=== PATIENT | female | born 1935 | race Caucasian/White ===

== ENCOUNTER → 2018-08-29 14:37 | Outpatient (CLI) | payer MEDICARE, OTHER, SELFPAY ==
[2018-04-24 08:50] VITALS: BMI 36.3
--- NOTE | 2018-08-29 14:43 | BI_ITS ---
MAMMOGRAPHY - BILATERAL SCREENING REASON FOR EXAM: Female, 83 years old. Routine annual screening examination. PERTINENT HISTORY: Personal history of breast cancer. Prior left lumpectomy. TECHNIQUE: Digital bilateral breast michelle (3D mammographic acquisition) in the CC and MLO projections. 2-D mediolateral oblique (MLO) and craniocaudad (CC) views of both breasts were obtained. CAD: Full Field Digital Mammography with Computer Added Detection was performed. COMPARISON: Comparison is made with prior axial examination dated February 14, 2017. FINDINGS: Breast Composition: There are scattered areas of fibroglandular density. There are no dominant masses or suspicious calcifications. No other significant abnormalities are identified. There has been no significant change since the prior study. BI/SCREENING MAMM (CAD), BILAT IMPRESSION: Stable bilateral screening mammogram. Yearly follow-up mammogram recommended. (A) ASSESSMENT CATEGORY: BIRADS Category 2: Benign. A letter regarding these results will be sent to the patient by the facility within 30 days. Approximately 10% of breast cancers are not detected by mammography. A normal mammogram should not delay biopsy of a clinically suspicious abnormality. [id number] Electronically Signed: Carlos Morocho MD at 9:17 EST , Service support ,
== END ==
PROVIDERS: Family Provider Family Medicine; PCP Family Medicine; Referring Provider Surgery; Visit Provider Surgery
DX: Z12.31 Encounter for screening mammogram for malignant neoplasm of breast (principal)
CPT/HCPCS: 77063; 77067

== ENCOUNTER → 2018-11-04 10:20 | Outpatient (CLI) | payer MEDICARE, OTHER, SELFPAY ==
[2018-09-01 13:01] VITALS: BMI 36.3
[2018-11-04 12:45] LABS: Hemoglobin A1c 9.6 % (4.2-6.3)
[2018-11-04 12:47] LABS: Microalbumin:Creatinine Ratio 119.2 mg/g CRE (<30 mg/g CRE)
[2018-11-04 12:48] LABS: AST(SGOT) 13 U/L (15-37); Alanine Aminotransfer ALT/SGPT 25 U/L (13-56); Albumin, Serum 3.8 g/dL (3.2-5.0); Alkaline Phosphatase 180 U/L (45-117); Anion Gap 10 (5-15); BUN 12 mg/dL (7-18); BUN/Creat Ratio 21.4 RATIO (10-20); Bilirubin, Direct 0.15 mg/dL (0.00-0.30); Calcium,Total 9.1 mg/dL (8.5-10.1); Chloride 102 mmol/L (98-107); Cholesterol 245 mg/dL (200); Creatinine, Serum 0.56 mg/dL (0.55-1.02); EST Glomerular Filtration Rate 110 mL/min (>60); Est Glom Filt Rate - Afr Amer 133 mL/min (>60); Globulin 3.6 g/dL (2.2-4.2); Glucose 197 mg/dL (74-106); High Density Lipoprotein 53 mg/dL; Potassium 4.1 mmol/L (3.5-5.1); Protein, Total 7.4 g/dL (6.4-8.2); Sodium Level 139 mmol/L (136-145); T4 Total, Thyroxin 10.6 ug/dL (4.8-13.9); Thyroid Stim Hormone (TSH) 2.18 uIU/mL (0.358-3.74); Triglycerides 240 mg/dL; Very Low Density Lipoprotein 48 mg/dL (5-40)
== END ==
PROVIDERS: Family Provider Family Medicine; PCP Family Medicine; Referring Provider Family Medicine; Visit Provider Family Medicine
DX: E11.8 Type 2 diabetes mellitus with unspecified complications (principal); E03.9 Hypothyroidism, unspecified
CPT/HCPCS: 36415; 80048; 80061; 80076; 82043; 82570; 83036; 84436; 84443

== ENCOUNTER → 2020-04-07 07:39 | Outpatient (CLI) | payer MEDICARE, OTHER, SELFPAY ==
[2019-04-28 08:36] VITALS: BMI 36.3
--- NOTE | 2020-04-07 07:40 | BI_ITS ---
MAMMOGRAPHY - BILATERAL SCREENING REASON FOR EXAM: Female, 84 years old. Routine annual screening examination. PERTINENT HISTORY: Personal history of breast cancer. Prior left lumpectomy. Remote left excisional breast biopsy. TECHNIQUE: Digital bilateral breast sim (3D mammographic acquisition) in the CC and MLO projections. 2-D mediolateral oblique (MLO) and craniocaudad (CC) views of both breasts were obtained. CAD: Full Field Digital Mammography with Computer Added Detection was performed. COMPARISON: Comparison is made with prior examination dated 02/26/2019. FINDINGS: Breast Composition: There are scattered areas of fibroglandular density. There are no dominant masses or suspicious calcifications. Once again, postsurgical changes are seen in the upper central portion of the left breast secondary to prior lumpectomy. Stable small benign appearing bilateral axillary lymph nodes. No other significant abnormalities are identified. There has been no significant change since the prior study. BI/SCREEN MAMM (CAD) W/SIM BILAT IMPRESSION: Stable bilateral screening mammogram. Yearly follow-up mammogram recommended. (A) ASSESSMENT CATEGORY: BIRADS Category 2: Benign. A letter regarding these results will be sent to the patient by the facility within 30 days. Approximately 10% of breast cancers are not detected by mammography. A normal mammogram should not delay biopsy of a clinically suspicious abnormality. [id number] Electronically Signed: Carlos Morocho, at 9:33 EDT , Service support ,
== END ==
PROVIDERS: PCP Family Medicine; Referring Provider Surgery; Visit Provider Surgery
DX: Z12.31 Encounter for screening mammogram for malignant neoplasm of breast (principal)
CPT/HCPCS: 77063; 77067

== ENCOUNTER → 2020-05-11 09:57 | Outpatient (CLI) | payer MEDICARE, OTHER, SELFPAY ==
[2020-05-03 08:59] VITALS: BMI 35.8
[2020-05-11 12:34] LABS: Microalbumin:Creatinine Ratio 59.6 mg/g CRE (<30 mg/g CRE)
[2020-05-11 12:43] LABS: AST(SGOT) 18 U/L (15-37); Alanine Aminotransfer ALT/SGPT 28 U/L (13-56); Albumin, Serum 3.7 g/dL (3.2-5.0); Alkaline Phosphatase 144 U/L (45-117); Bilirubin, Direct 0.15 mg/dL (0.00-0.30); Cholesterol 231 mg/dL (200); Globulin 4.2 g/dL (2.2-4.2); High Density Lipoprotein 54 mg/dL; Protein, Total 7.9 g/dL (6.4-8.2); Triglycerides 210 mg/dL; Very Low Density Lipoprotein 42 mg/dL (5-40)
== END ==
PROVIDERS: PCP Family Medicine; Referring Provider Family Medicine; Visit Provider Family Medicine
DX: E11.9 Type 2 diabetes mellitus without complications (principal)
CPT/HCPCS: 36415; 80061; 80076; 82043; 82570

== ENCOUNTER → 2020-11-09 10:04 | Outpatient (CLI) | payer MEDICARE, OTHER, SELFPAY ==
[2020-05-03 08:59] VITALS: BMI 35.8
[2020-11-09 12:54] LABS: Anion Gap 4 (5-15); BUN 14 mg/dL (7-18); BUN/Creat Ratio 21.6 RATIO (10-20); Calcium,Total 9.6 mg/dL (8.5-10.1); Chloride 104 mmol/L (98-107); Creatinine, Serum 0.65 mg/dL (0.55-1.02); EST Glomerular Filtration Rate 93 mL/min (>60); Est Glom Filt Rate - Afr Amer 112 mL/min (>60); Glucose 135 mg/dL (74-106); Sodium Level 137 mmol/L (136-145); T4 Total, Thyroxin 9.5 ug/dL (4.8-13.9); Thyroid Stim Hormone (TSH) 2.78 uIU/mL (0.358-3.74)
== END ==
PROVIDERS: PCP Family Medicine; Referring Provider Family Medicine; Visit Provider Family Medicine
DX: E11.9 Type 2 diabetes mellitus without complications (principal); E03.9 Hypothyroidism, unspecified
CPT/HCPCS: 36415; 80048; 84436; 84443

== ENCOUNTER → 2021-04-12 09:53 | Outpatient (CLI) | payer MEDICARE, OTHER, SELFPAY ==
[2020-05-03 08:59] VITALS: BMI 35.8
--- NOTE | 2021-04-12 09:55 | BI_ITS ---
MAMMOGRAPHY - BILATERAL SCREENING REASON FOR EXAM: Female, 85 years old. Routine annual screening examination. PERTINENT HISTORY: Personal history of breast cancer. Prior left lumpectomy. Remote left excisional breast biopsy. TECHNIQUE: Digital bilateral breast sim (3D mammographic acquisition) in the CC and MLO projections. 2-D mediolateral oblique (MLO) and craniocaudad (CC) views of both breasts were obtained. CAD: Full Field Digital Mammography with Computer Added Detection was performed. COMPARISON: Comparison is made with prior study of 04/07/2020. FINDINGS: Breast Composition: There are scattered areas of fibroglandular density. There are no dominant masses or suspicious calcifications. Once again, the patient is status post lumpectomy in the upper deep lateral aspect of the left breast with resultant postoperative changes. No other significant abnormalities are identified. There has been no significant change since the prior study. BI/SCRN MAMM (CAD)W/SIM BILAT IMPRESSION: Stable bilateral screening mammogram. Yearly follow-up mammogram recommended. (A) ASSESSMENT CATEGORY: BIRADS Category 2: Benign. A letter regarding these results will be sent to the patient by the facility within 30 days. Approximately 10% of breast cancers are not detected by mammography. A normal mammogram should not delay biopsy of a clinically suspicious abnormality. [id number] Electronically Signed: Carlos Morocho MD at 11:33 EDT , Service support ,
== END ==
PROVIDERS: PCP Family Medicine; Referring Provider Surgery; Visit Provider Surgery
DX: Z12.31 Encounter for screening mammogram for malignant neoplasm of breast (principal)
CPT/HCPCS: 77063; 77067

== ENCOUNTER → 2021-05-08 09:09 | Outpatient (CLI) | payer MEDICARE, OTHER, SELFPAY ==
[2021-05-08 10:30] LABS: Hemoglobin A1c 7.4 % (3.8-5.6)
[2021-05-08 10:38] LABS: Anion Gap 7 (5-15); BUN 18 mg/dL (7-18); BUN/Creat Ratio 24.2 RATIO (10-20); Calcium,Total 9.8 mg/dL (8.5-10.1); Chloride 104 mmol/L (98-107); Cholesterol 202 mg/dL (200); Creatinine, Serum 0.74 mg/dL (0.55-1.02); EST Glomerular Filtration Rate 79 mL/min (>60); Est Glom Filt Rate - Afr Amer 96 mL/min (>60); Glucose 179 mg/dL (74-106); High Density Lipoprotein 53 mg/dL; Potassium 4.2 mmol/L (3.5-5.1); Sodium Level 138 mmol/L (136-145); T4 Total, Thyroxin 9.8 ug/dL (4.8-13.9); Thyroid Stim Hormone (TSH) 1.45 uIU/mL (0.358-3.74); Triglycerides 243 mg/dL; Very Low Density Lipoprotein 49 mg/dL (5-40)
== END ==
PROVIDERS: PCP Family Medicine; Referring Provider Family Medicine; Visit Provider Nurse Practitioner Family
DX: E11.69 Type 2 diabetes mellitus with other specified complication (principal); E03.9 Hypothyroidism, unspecified
CPT/HCPCS: 36415; 80048; 80061; 83036; 84436; 84443

== ENCOUNTER 2021-08-18 15:12 | Outpatient (CLI) | payer MEDICARE, OTHER, SELFPAY ==
--- NOTE | 2021-08-18 15:19 | CT_ITS ---
STUDY: CT Abdomen And Pelvis W/ Contrast Injection 08/18/2021 6:01 PM REASON FOR EXAM: Female, 86 years old. Technologist Notes LLQ abd pain x several days intermittently. Fecal impaction. N/V. SX. Hysterectomy, Hernia repair. PAIN LLQ ABD PAIN TECHNIQUE: Transaxial images were obtained with oral contrast, and IV 100mL Isovue-300 intravenous contrast. Individualized dose optimization techniques were used for this CT. COMPARISON: None. FINDINGS: There are atherosclerotic calcifications of visualized coronary arteries. The visualized portions of the heart are within normal limits. Normal liver. Normal gallbladder and extrahepatic biliary system. Normal spleen. Normal pancreas. Normal bilateral adrenal glands. No acute findings of the right kidney. No acute findings of the left kidney. Normal visualized stomach. There are dilated loops of the small intestine with a non-distended colon consistent with a small bowel obstruction. Stool throughout the colon. There is non-visualization of the appendix. There are calcifications of the abdominal aorta. This is consistent for atherosclerotic disease. There is no abdominal aortic aneurysm. Normal inferior vena cava. Subcentimeter mesenteric lymph nodes. Normal urinary bladder. There is absence of the uterus consistent with a prior hysterectomy. Total right hip arthroplasty. Degenerative findings a left hip. Anterior abdominal wall hernia mesh in place. Normal abdominal wall. There are diffuse degenerative changes of the visualized lumbar spine. IMPRESSION: (NOT LISTED IN ORDER OF SIGNIFICANCE) There is a small bowel obstruction. The transition point is noted in the lower abdomen abutting the mesh material. The obstruction may be related to adhesion formation. Other findings as above. Electronically Signed: Fareed Angulo MD at 18:05 EST , Service support , CT/Abdomen/Pelvis WITH Contrast
[2021-08-18 17:40] LABS: CREATININE FINGERSTICK 0.9 mg/dL (0.55-1.02); EGFR FINGERSTICK > 60.0000 mL/min (>60)
== END 2021-08-18 23:59 | disposition short-term general hospital (02) ==
LOC: CT 15:16
PROVIDERS: PCP Family Medicine; Referring Provider Family Medicine; Visit Provider Family Medicine
DX: R10.32 Left lower quadrant pain (principal)
CPT/HCPCS: 74177; Q9965; A4216

== ENCOUNTER 2021-08-18 18:10 | Observation (INO) | payer MEDICARE, OTHER, SELFPAY ==
[2021-08-18 18:11] VITALS: BP 149/98; PULSE 103; RESP 16; TEMP 36.8; O2SAT 94; BMI 37.8
--- NOTE | 2021-08-18 18:15 | EKG12_ITS ---
Test Reason : DYSRHYTHMIA Blood Pressure : / mmHG Vent. Rate : 105 BPM Atrial Rate : 105 BPM P-R Int : 174 ms QRS Dur : 080 ms QT Int : 340 ms P-R-T Axes : 017 -43 038 degrees QTc Int : 449 ms Sinus tachycardia Left axis deviation Low voltage QRS (Limb Leads) Poor R wave progression Anterior PR, age undetermined, cannot be excluded Inferior PR, age undetermined, cannot be excluded Abnormal ECG Confirmed by KENDRICK PARADA, LOUISE ([id number]), film or videotape editor MARIO RODRÍGUEZ ([id number]) on 08/21/2021 11:12:35 AM Referred By: GABRIELLA Confirmed By:LOUISE MARKS MD
--- NOTE | 2021-08-18 18:32 | ED.VIS.GI ---
HPI HPI - GI History of Present Illness Chief Complaint: Abd Pain Informant: patient Narrative Narrative: Patient is an 86-year-old female with a history of prior hernia repair in 2008 with mesh placement by Dr. Rajan Álvarez presenting with a couple days of nausea, vomiting and abdominal discomfort. Patient had an outpatient CT today and vomited a large amount of oral contrast. The CT showed small bowel obstruction with transition point noted in the lower abdomen abutting the mesh material. Patient is complaining of labor like pains in her mid abdomen. She states he had a small bowel movement today was not been able to pass any gas. She does feel distended. Denies any fever, chills or any other illnesses. No other complaints at this time. [facility] Medical History (Updated 08/19/21 @ 00:[address] Quynh Estes DO) Breast CA DCIS (ductal carcinoma in situ) Endometrial cancer Essential (primary) hypertension Generalized osteoarthritis Hemorrhoid History of breast cancer History of GI bleed Hyperlipidemia Hypertriglyceridemia Hypothyroidism (acquired) Infection of total knee replacement Obesity Osteoarthritis Paroxysmal atrial fibrillation Paroxysmal atrial tachycardia Premature atrial contractions Sleep apnea Transient atrial fibrillation or flutter Type 2 diabetes mellitus Home Medications [id number] no.225 1 ea PO DAILY 09/10/14 [History Last Taken Unknown] aspirin 81 mg PO QODAY 09/10/14 [History Last Taken 08/17/21] atorvastatin 40 mg PO QHS 09/10/14 [History Last Taken 09/09/14] levothyroxine 50 mcg PO DAILY 09/10/14 [History Last Taken 08/17/21] glipizide 2.5 mg tablet, extended release 24 hr 2.5 mg PO DAILY 04/28/19 [History Last Taken 08/17/21] fluticasone propionate 50 mcg/actuation nasal spray,suspension 2 spray INTRANASAL DAILY PRN PRN 05/03/20 [History Last Taken 08/16/21] metformin 500 mg tablet,extended release 24 hr 500 mg PO QPM tab 05/03/20 [History Last Taken 08/17/21] latanoprost 0.005 % eye drops 1 drp OPHTHALMIC (EYE) DAILY ml 05/02/21 [History Last Taken 08/17/21] metoprolol succinate 50 mg tablet,extended release 24 hr 50 mg PO DAILY #90 tab 06/01/21 [Rx Last Taken 08/17/21] losartan 50 mg PO DAILY PRN PRN 08/18/21 [History Last Taken Unknown] Allergy/AdvReac Type Severity Reaction Status Date / Time Penicillins Allergy Severe Chest Verified 08/18/21 18:10 tightness aspartame Allergy Diarrhea Verified 08/18/21 18:10 rofecoxib AdvReac Severe Itching Verified 08/18/21 18:10 codeine AdvReac Mild Nausea/Vomi Verified 08/18/21 18:10 ting hydrocodone [Hydrocodone] AdvReac Mild Nausea/Vomi Verified 08/18/21 18:10 ting morphine AdvReac Mild Nausea/Vomi Verified 08/18/21 18:10 ting oxycodone [Oxycodone] AdvReac Mild Nausea Verified 08/18/21 18:10 TAPE AdvReac Mild Itching Uncoded 08/18/21 18:10 Family History Mother Hypertension Other CVA (cerebral vascular accident) Diabetes Heart disease Surgical History H/O total hysterectomy History of incisional hernia repair History of knee replacement History of lumpectomy of left breast History of right hip replacement Social History Smoking Status: Never smoker second hand exposure: No alcohol intake: former details: occasional ROS ROS ED Constitutional Constitutional ED: Denies chills or fever(s) ENT ENT ED: Denies rhinorrhea Cardiovascular Cardiovascular: Denies chest pain Respiratory/Chest Respiratory/Chest: Denies cough or dyspnea Gastrointestinal Gastrointestinal: Reports abdominal pain, constipation, nausea and vomiting Musculoskeletal Musculoskeletal: Denies arthralgias or myalgias Integumentary Denies rash Neurologic Neurologic: Denies headache(s) or weakness Psychiatric Psychiatric: Denies depression EXAM Physical Exam Const Vital Signs: 08/18/21 18:11 Temperature 98.3 F Temperature Source Oral Pulse Rate 103 H Respiratory Rate 16 Blood Pressure 149/98 H Blood Pressure Mean 115 Pulse Ox 94 Oxygen Delivery Method Room Air Positive well nourished and well developed General Appearance ED: well developed HEENT Reports dry mucous membranes normocephalic Mouth ED: Yes dry mucous membranes Mouth: dry mucous membranes Eyes PERRL and EOMs intact bilaterally Neck supple Resp normal respiratory effort and clear to auscultation bilaterally Cardio regular rate, regular rhythm and no murmurs GI Inspection: abdominal distention Auscultation: hypoactive bowel sounds Palpation: soft and tender other (Diffuse); Negative for guarding or rigid Back/Spine no CVA tenderness Extremity full ROM General Extremety ED: Negative for edema or tenderness General Extremity: Negative for edema Neuro CN's II-XII intact bilaterally Sensorium / Orientation: alert, oriented to person, oriented to place and oriented to time Psych mental status grossly normal Skin Lesions: no lesions Rashes: no rashes MDM MDM MDM Narrative Medical decision making narrative: Patient evaluated for vomiting with outpatient CT that showed small bowel obstruction. Will place NG tube and obtain labs. Spoke with surgery on-call, Dr. Freeman, he will come to evaluate the patient. Patient is given IV fluids, Zofran and dose of fentanyl for her symptoms in the ER. Patient is admitted to surgical service for management of her small bowel obstruction. She remains hemodynamically stable in the emergency room. Lab Data Attestation: I reviewed the patient's lab results. Labs: Laboratory Results - last 24 hr 08/18/21 08/18/21 08/18/21 18:25 18:25 18:25 WBC 11.5 H RBC 4.89 Hgb 14.0 Hct 42.6 MCV 87.1 MCH 28.6 MCHC 32.9 RDW Std Deviation 41.5 RDW Coeff of Juan 13.0 Plt Count 317 MPV 10.2 Immature Gran % (Auto) 0.400 Neut % (Auto) 88.0 H Lymph % (Auto) 6.2 L [place] % (Auto) 5.1 Eos % (Auto) 0.0 Baso % (Auto) 0.3 Absolute Neuts (auto) 10.2 H Absolute Lymphs (auto) 0.71 L Nucleated RBC % 0 Sodium 132 L Potassium 4.0 Chloride 98 Carbon Dioxide 29.0 Anion Gap 5 BUN 13 Creatinine 0.69 Estim Creat Clear Calc 32.53 Est GFR (MDRD) Af Amer 105 Est GFR (MDRD) Non-Af 87 BUN/Creatinine Ratio 19.0 Glucose 207 H Lactic Acid 1.3 Calcium 9.9 Total Bilirubin 0.50 AST 14 L ALT 24 Alkaline Phosphatase 155 H Total Protein 7.5 Albumin 3.5 Globulin 4.0 Albumin/Globulin Ratio 0.9 Lipase 75 Rhythm Strip Rhythm Strip: Sinus Tach Rate: 105 Ectopy: None EKG Initial EKG: Attestation: I personally reviewed and interpreted this EKG as follows: Interpretation: Sinus Tachycardia Comments: Sinus tachycardia rate of 105 Left axis deviation Normal intervals Normal ST segments Discharge Plan Dx/Rx/DC Orders Clinical Impression: Small bowel obstruction, Nausea & vomiting Disposition Disposition: Acute Care Hospital [facility] Discharge Date/Time: 08/18/21 20:19
[2021-08-18] MEDS: Lidocaine 4% 5 ML Ampul 2 ML INHALATION (18:35)
[2021-08-18] MEDS: 0.9% Normal Saline 1,000 ML 999 ML IV (18:44)
[2021-08-18 18:45] LABS: Absolute Lymphocyte Count 0.71 X10^3/uL (0.83-4.51); Absolute Neutrophil Count 10.2 X10^3/uL (2.0-7.7); Basophil# 0.03 X10^3/uL; Basophil% 0.3 % (0-1); Hematocrit 42.6 % (37-47); Lymphocyte # 0.71 X10^3/ul (0.83-4.51); Lymphocyte % 6.2 % (19-41); Mean Corp Hgb Conc 32.9 g/dL (32-36); Mean Corpuscular Hgb 28.6 pg (27.0-32.0); Mean Corpuscular Volume 87.1 fL (81-99); Mean Platelet Vol. 10.2 fl (6.2-12.0); Monocyte# 0.59 X10^3/uL; Monocyte% 5.1 % (0-10); NRBC Flagged by Analyzer 0 % (0-5); Neutrophil # 10.15 X10^3/uL (2.7-7.7); Platelet Count 317 K/mm3 (150-450); RBC Distribution Width SD 41.5 fl (35.1-43.9); Red Blood Count 4.89 M/mm3 (4.2-5.4); White Blood Count 11.5 K/mm3 (4.4-11.0)
[2021-08-18] MEDS: Ondansetron 4 MG/2 ML Vial IV (18:46)
[2021-08-18] MEDS: fentaNYL 100 MCG/2 ML Ampul 50 MCG IV (18:50)
[2021-08-18 18:52] LABS: ALB/GLOB Ratio 0.9 RATIO (0.9-2.4); AST(SGOT) 14 U/L (15-37); Alanine Aminotransfer ALT/SGPT 24 U/L (13-56); Albumin, Serum 3.5 g/dL (3.2-5.0); Alkaline Phosphatase 155 U/L (45-117); Anion Gap 5 (5-15); BUN 13 mg/dL (7-18); Calcium,Total 9.9 mg/dL (8.5-10.1); Chloride 98 mmol/L (98-107); Creatinine, Serum 0.69 mg/dL (0.55-1.02); EST Glomerular Filtration Rate 87 mL/min (>60); Est Glom Filt Rate - Afr Amer 105 mL/min (>60); Estimated Creatinine Clearance 32.53 ml/min; Glucose 207 mg/dL (74-106); Lipase 75 U/L (73-393); Protein, Total 7.5 g/dL (6.4-8.2); Sodium Level 132 mmol/L (136-145)
[2021-08-18 18:57] LABS: Lactic Acid 1.3 mmol/L (0.4-1.9)
--- NOTE | 2021-08-18 19:19 | HP.PCM_ITS ---
HPI - General HPI Narrative GIAN HUBER, is a 86 F who presents to [facility] from Dr. Mackey's office with evidence of a small bowel obstruction. Patient states that approximately 5 days ago she began experiencing difficulty with having bowel movements and bloating. She states that her bowel movements were very sma ll in volume and there is very minimal gas associated. She experienced intermittent pain, but it crescendoed earlier today and she decided to seek evaluation. She states she did have a bowel movement this morning and her last passage of gas was around the time of her CT imaging. An urgent CT of the abdomen pelvis was obtained based on Dr. Mackey evaluation and this CT was read as concerning for a small bowel obstruction with a transition point in the right lower quadrant adjacent the patient's abdominal mesh. I am also informed by nursing that the patient experienced an episode of emesis just prior to the CT scan but has not vomited during her stay in the emergency department. Patient states that this nausea persists but her abdominal pain is improved. Ms. Huber denies any prior hospital admissions for small bowel obstructions. She states that her incisional hernia was repaired by Dr. Álvarez in 2008 but she is unclear whether or not this may have been related to her hysterectomy that was performed for endometrial cancer some 20 to 25 years prior. Patient also relates a relatively remote history of bright red blood per rectum?she estimates approximately 8 years ago that was worked up by Dr. Smalls of gastroenterology. She is unable to articulate completely the findings but states she was diagnosed with diverticulosis and internal hemorrhoids. Ms. Huber lives alone and states that she is independent in most of her ADLs. She does receive regular help from her niece who assists with doing tasks such as her laundry. States overall she is enjoyed reasonably good health aside from some decreased mobility related to arthritis and a subsequent knee replacement. [facility] Medical History (Updated 08/18/21 @ 19:[address] Joseph Freeman MD) Breast CA DCIS (ductal carcinoma in situ) Endometrial cancer Essential (primary) hypertension Generalized osteoarthritis Hemorrhoid History of breast cancer History of GI bleed Hyperlipidemia Hypertriglyceridemia Hypothyroidism (acquired) Infection of total knee replacement Obesity Osteoarthritis Paroxysmal atrial fibrillation Paroxysmal atrial tachycardia Premature atrial contractions Sleep apnea Transient atrial fibrillation or flutter Type 2 diabetes mellitus Home Medications [id number] no.225 1 ea PO DAILY 09/10/14 [History Last Taken Unknown] aspirin 81 mg PO QODAY 09/10/14 [History Last Taken 08/30/14 08:00] atorvastatin 40 mg PO QHS 09/10/14 [History Last Taken 09/09/14] calcium-vitamin D3-vitamin K 0.5 ea PO BID 09/10/14 [History Last Taken Unknown] levothyroxine 50 mcg PO DAILY 09/10/14 [History Last Taken 09/09/14] glipizide 2.5 mg tablet, extended release 24 hr 2.5 mg PO DAILY 04/28/19 [His tory Last Taken Unknown] fluticasone propionate 50 mcg/actuation nasal spray,suspension 2 spray INTR ANASAL DAILY PRN 05/03/20 [History Last Taken Unknown] metformin 500 mg tablet,extended release 24 hr 500 mg PO QPM tab 05/03/20 [History Last Taken Unknown] latanoprost 0.005 % eye drops 1 drp OPHTHALMIC (EYE) DAILY ml 05/02/21 [History Last Taken Unknown] losartan 50 mg tablet 50 mg PO DAILY #90 tab 05/02/21 [Rx Last Taken Unknown] metoprolol succinate 50 mg tablet,extended release 24 hr 50 mg PO DAILY #90 tab 06/01/21 [Rx Last Taken Unknown] Allergy/AdvReac Type Severity Reaction Status Date / Time Penicillins Allergy Severe Chest Verified 08/18/21 18:10 tightness aspartame Allergy Diarrhea Verified 08/18/21 18:10 rofecoxib AdvReac Severe Itching Verified 08/18/21 18:10 codeine AdvReac Mild Nausea/Vomi Verified 08/18/21 18:10 ting hydrocodone [Hydrocodone] AdvReac Mild Nausea/Vomi Verified 08/18/21 18:10 ting morphine AdvReac Mild Nausea/Vomi Verified 08/18/21 18:10 ting oxycodone [Oxycodone] AdvReac Mild Nausea Verified 08/18/21 18:10 TAPE AdvReac Mild Itching Uncoded 08/18/21 18:10 Family History Mother Hypertension Other CVA (cerebral vascular accident) Diabetes Heart disease Surgical History H/O total hysterectomy History of incisional hernia repair History of knee replacement History of lumpectomy of left breast History of right hip replacement Social History Smoking Status: Never smoker second hand exposure: No alcohol intake: former details: occasional Vital Signs Vital Signs Vital Signs: 08/18/21 18:11 Temperature 98.3 F Temperature Source Oral Pulse Rate 103 H Respiratory Rate 16 Blood Pressure 149/98 H Blood Pressure Mean 115 Pulse Ox 94 Oxygen Delivery Method Room Air Weight Weight: 206 lb 12.697 oz Body Mass Index (BMI) 37.8 Physical Exam Const alert and oriented x3 Constitutional Narrative: Mild distress from nausea General Appearance: cooperative Resp normal respiratory effort Cardio Cardio Narrative: You were pulse GI GI Narrative: Distended, scar in the midline extending from the umbilicus to the pubic symphysis. There is also a right upper quadrant scar which patient states is from a granuloma removal. There are number of other small port site incisions consistent with patient's prior laparoscopic incisional hernia repair. Patient is soft and nontender to palpation x4 quadrants Results Lab / Micro Data Result Diagrams: 08/18/21 18:25 08/18/21 18:25 Labs: Laboratory Results - last 24 hr 08/18/21 18:25: WBC 11.5 H, RBC 4.89, Hgb 14.0, Hct 42.6, MCV 87.1, MCH 28.6, MCHC 32.9, RDW Std Deviation 41.5, RDW Coeff of Juan 13.0, Plt Count 317, MPV 10.2, Immature Gran % (Auto) 0.400, Neut % (Auto) 88.0 H, Lymph % (Auto) 6.2 L, [place] % (Auto) 5.1, Eos % (Auto) 0.0, Baso % (Auto) 0.3, Absolute Neuts (auto) 10.2 H, Absolute Lymphs (auto) 0.71 L, Nucleated RBC % 0 08/18/21 18:25: Sodium 132 L, Potassium 4.0, Chloride 98, Carbon Dioxide 29.0, Anion Gap 5, BUN 13, Creatinine 0.69, Estim Creat Clear Calc 32.53, Est GFR (MDRD) Af Amer 105, Est GFR (MDRD) Non-Af 87, BUN/Creatinine Ratio 19.0, Glucose 207 H, Calcium 9.9, Total Bilirubin 0.50, AST 14 L, ALT 24, Alkaline Phosphatase 155 H, Total Protein 7.5, Albumin 3.5, Globulin 4.0, Albumin/Globulin Ratio 0.9, Lipase 75 08/18/21 18:25: Lactic Acid 1.3 Micro: Microbiology 08/18/21 18:25 Nasal Secretion SARS-CoV-2 Antigen (Rapid) - Final Assessment & Plan Assessment/Plan (1) Small bowel obstruction: PLAN: This is an 86-year-old female with a number of medical comorbidities who presents with a nearly week?long prodrome to a small bowel obstruction. This lead up has been characterized by minimal flatus, increased bloating sy mptoms, and small volume stools. Last bowel function was earlier today. Patient had CT of the abdomen pelvis performed with p.o. and IV contrast which showed a transition zone in the right lower quadrant adjacent patient's intra- abdominal mesh. This mesh dates back to an incisional hernia repair by Dr. Rajan Álvarez in 2008. This represents patient's first experience with a small bowel obstruction. At this time, she has a mild leukocytosis with labs, but her abdominal exam is reassuring. Agree with emergency medicine in placing a nasogastric tube and maintaining NPO. We will plan to admit patient for conservative management, initially, of this small bowel obstruction. I have also requested that the hospitalist service be consulted for management of the patient's diabetes and arrhythmias during this hospital course. Neuro: As needed IV Dilaudid Pulm/CV: Supplemental O2 as needed, scheduled metoprolol IV 5 mg every 6, telemetry FEN/GI: Monitor daily electrolytes, strict n.p.o., NG tube to low wall intermittent suction Heme/ID: Daily monitoring of patient's CBC Endo: Medical assistance requested with patient's diabetes management Proph: SCDs Dispo: Admit to observation Charges/Coding Visit Charges Inpatient E&M: 58132 Init Hosp L2
[2021-08-18] MEDS: Oxymetazoline 0.05% 1 SPRAY SPRAY.BTL 2 SPRAY NASAL (19:31)
[2021-08-18 19:34] VITALS: O2SAT 88
[2021-08-18 19:35] VITALS: BP 141/83; PULSE 87; RESP 16; TEMP 36.8; O2SAT 98
--- NOTE | 2021-08-18 19:40 | RAD_ITS ---
EXAM: XR ABDOMEN, 1 VIEW CLINICAL INDICATION: NG tube placement -- KUB with both diaphragms for NG/OG Verification TECHNIQUE: Frontal supine view of the abdomen/pelvis. This report was created using [employer] report generation technology. COMPARISON: None. FINDINGS: LOWER THORAX: No acute pathology. GASTROINTESTINAL TRACT: Unremarkable. Non-obstructive. No bowel or stomach distention. ORGANS: Unremarkable as visualized. No organomegaly. No abnormal calcifications. BONES/JOINTS: Degenerative findings in the lumbar spine. SOFT TISSUES: Multiple metallic clips in the pelvis consistent for prior surgery. TUBES, LINES AND DEVICES: There is a feeding tube/ nasogastric tube noted. The tip is in the region of the stomach. RAD/Abdomen Single View (Portable) IMPRESSION: There is a feeding tube/ nasogastric tube noted. The tip is in the region of the stomach. Electronically Signed: Fareed Angulo MD at 20:25 EST , Service support ,
--- NOTE | 2021-08-18 20:00 | PCM.CONS.GEN ---
Assessment & Plan Assessment/Plan (1) Small bowel obstruction: PLAN: The patient is an 86 y/o F w/ PMHx: Hx Breast CA DCIS, Hx Endometrial CA, HTN, HLD, Hypothyroidism, PAF, MARK, Diabetes mellitus type II who presents to the [facility] ED on 08/18/21 with history of ongoing abdominal discomfort primarily in the bilateral lower quadrants described as a crampy almost menstrual cycle type discomfort with associated nausea and emesis as well as distention worsening over the last 5 to 6 days with no recent fevers or chills rating discomfort 6-7 out of 10 in severity at its worst. #1. Abdominal pain, nausea, emesis w/ SBO: Patient mated to medical surgical floor per primary service General surgery, will maintain on IVFs, continue NGT to suction, strict I&Os, IV pain/anti-emetics PRN, serial KUB as needed to montior bowel function, will add famotidine IV, maintain NPO on bowel rest. #2. Diabetes mellitus type II: Hold oral home regimen, n.p.o. status, every 6 hour accu checks w/ ISS. #3. Hypertension: Holding patient oral regimen, as needed IV hydralazine and metoprolol in the interim. #4. Hyperlipidemia: Holding statin therapy. #5. Hypothyroidism: We will temporarily hold patient levothyroxine regimen, if prolonged may consider one half dose and IV version. #6. History endometrial cancer: Status post hysterectomy, assumed in remission. #7. History of breast cancer: History of DCIS breast cancer, status post left breast lumpectomy, soon considered in remission. #8. MARK: Given NG tube placement not appropriate for CPAP placement. #9. DVT prophylaxis: SCDs, defer chemoprophylaxis consideration to primary service in case of possible OR but if no or intentions recommend chemoprophylaxis addition. #10. CODE status: Patient GUNNER is her niece Maribeth and living will is currently in place. Discussed CODE status at length including difference between FULL code, DNR-CCA and DNR-CC status. Following discussions about the differences in these status, requested DNR-CCA, no intubation. Patient also very adamantly discusses that she wants to assure if something does happen it is known that she is an organ donor. Advanced Care Planning Face to Face Time: 16 minutes. HPI Consult Data Date of Consult: 08/19/21 HPI Narrative Reason for Consultation: Medical management. HPI Narrative: The patient is an 86 y/o F w/ PMHx: Hx Breast CA DCIS, Hx Endometrial CA, HTN, HLD, Hypothyroidism, PAF, MARK, Diabetes mellitus type II who presents to the [facility] ED on 08/18/21 with history of ongoing abdominal discomfort primarily in the bilateral lower quadrants described as a crampy almost menstrual cycle type discomfort with associated nausea and emesis as well as distention worsening over the last 5 to 6 days with no recent fevers or chills rating discomfort 6-7 out of 10 in severity at its worst. Work-up in the ED included T98.3, heart rate 103, BP 149/98, respiratory rate 16, 94% on room air, CBC with WBC 11.5, hemoglobin 14, platelet 317 with left shift and lymphopenia, CMP with sodium 132, glucose 207, lactic acid 1.3, not marked appearing hepatic profile aside alk phos 155, lipase 75, outpatient CT abdomen pelvis performed by primary care physician prompting referral up to and on day of presentation at approximately 6 PM prior to ED evaluation with noted small bowel obstruction with transition point in the lower abdomen abutting the mesh material possibly related with adhesion formation, NG tube placed in the ED and follow-up KUB noting appropriate placement with the tip in the stomach. [facility] Medical History (Updated 08/19/21 @ 00:[address] Quynh Estes, DO) Breast CA DCIS (ductal carcinoma in situ) Endometrial cancer Essential (primary) hypertension Generalized osteoarthritis Hemorrhoid History of breast cancer History of GI bleed Hyperlipidemia Hypertriglyceridemia Hypothyroidism (acquired) Infection of total knee replacement Obesity Osteoarthritis Paroxysmal atrial fibrillation Paroxysmal atrial tachycardia Premature atrial contractions Sleep apnea Transient atrial fibrillation or flutter Type 2 diabetes mellitus Home Medications [id number] no.225 1 ea PO DAILY 09/10/14 [History Last Taken Unknown] aspirin 81 mg PO QODAY 09/10/14 [History Last Taken 08/17/21] atorvastatin 40 mg PO QHS 09/10/14 [History Last Taken 09/09/14] levothyroxine 50 mcg PO DAILY 09/10/14 [History Last Taken 08/17/21] glipizide 2.5 mg tablet, extended release 24 hr 2.5 mg PO DAILY 04/28/19 [History Last Taken 08/17/21] fluticasone propionate 50 mcg/actuation nasal spray,suspension 2 spray INTRANASAL DAILY PRN PRN 05/03/20 [History Last Taken 08/16/21] metformin 500 mg tablet,extended release 24 hr 500 mg PO QPM tab 05/03/20 [History Last Taken 08/17/21] latanoprost 0.005 % eye drops 1 drp OPHTHALMIC (EYE) DAILY ml 05/02/21 [History Last Taken 08/17/21] metoprolol succinate 50 mg tablet,extended release 24 hr 50 mg PO DAILY #90 tab 06/01/21 [Rx Last Taken 08/17/21] losartan 50 mg PO DAILY PRN PRN 08/18/21 [History Last Taken Unknown] Allergy/AdvReac Type Severity Reaction Status Date / Time Penicillins Allergy Severe Chest Verified 08/18/21 18:10 tightness aspartame Allergy Diarrhea Verified 08/18/21 18:10 rofecoxib AdvReac Severe Itching Verified 08/18/21 18:10 codeine AdvReac Mild Nausea/Vomi Verified 08/18/21 18:10 ting hydrocodone [Hydrocodone] AdvReac Mild Nausea/Vomi Verified 08/18/21 18:10 ting morphine AdvReac Mild Nausea/Vomi Verified 08/18/21 18:10 ting oxycodone [Oxycodone] AdvReac Mild Nausea Verified 08/18/21 18:10 TAPE AdvReac Mild Itching Uncoded 08/18/21 18:10 Family History (Updated 08/19/21 @ 00:[address] Le Zaragoza MD) Mother Hypertension Heart disease CVA (cerebral vascular accident) Parkinsons disease Father CVA (cerebral vascular accident) Parkinsons disease Other COPD (chronic obstructive pulmonary disease) Diabetes Surgical History H/O total hysterectomy History of incisional hernia repair History of knee replacement History of lumpectomy of left breast History of right hip replacement Social History (Updated 08/19/21 @ 00:[address] Le Zaragoza MD) household members: none Smoking Status: Never smoker second hand exposure: No alcohol intake: never details: occasional substance use type: does not use ROS ROS Narrative Admission Review of Systems: CONSTITUTIONAL: No weight loss, fever, chills, + weakness or fatigue. HEENT: Eyes: No visual loss, blurred vision, double vision or yellow sclerae. Ears, Nose, Throat: No hearing loss, sneezing, congestion, runny nose or sore throat. SKIN: No rash or itching, lesions, wounds. CARDIOVASCULAR: No chest pain, chest pressure or chest discomfort, palpitations, edema, orthopnea, syncopal events. RESPIRATORY: No shortness of breath, cough or sputum, wheezing, hemoptysis. GASTROINTESTINAL: + anorexia, nausea, vomiting, abdominal pain, No diarrhea, melena, BRBPR. GENITOURINARY: No dysuria, frequency, urgency or retention. NEUROLOGICAL: No headache, dizziness, syncope, paralysis, ataxia, numbness or tingling in the extremities, focal weakness, change in bowel or bladder control, seizure. MUSCULOSKELETAL: + muscle, back pain, joint pain or stiffness. HEMATOLOGIC: No anemia, bleeding or bruising. LYMPHATICS: No enlarged nodes. No history of splenectomy. PSYCHIATRIC: No history of depression or anxiety. ENDOCRINOLOGIC: No reports of sweating, cold or heat intolerance. No polyuria or polydipsia. ALLERGIES: No history of asthma, hives, eczema or rhinitis. Physical Exam Narrative Physical Examination: General: Awake, alert, oriented x 3 and cooperative, seated upright in the ED bed, uncomfortable appearing, holding emesis bag, planning NG tube placement currently. Skin: Normal color, normal turgor, no icterus, no cyanosis. HEENT: AT/NC, EOMI, PERRLA, dry MM, no carotid bruits or JVD noted. Lungs: Diminished, greater bases, moderate effort, no rales, ronchi or wheezing. Heart: Mildly tachycardic with regular rhythm; no gallop, rub audible. Abdomen: Soft, distended, significant tenderness to palpation, worse bilateral lower quadrants with voluntary guarding, hypoactive near absent bowel sounds, difficult to assess HSM secondary to pain with examination. Extremities: No cyanosis, clubbing, or edema. Neurological: Patient awake, alert, oriented as noted, cognitive function intact; pupils equally reactive to light and accommodation, cranial nerves II-XII grossly normal, moving all 4 extremities, no focal deficits, strength severely globally decreased secondary to acute presentation as noted. Psychiatric: Affect appears fatigued, uncomfortable, no acute evidence of depressive or anxiety feelings. Lab / Micro Data Result Diagrams: 08/18/21 18:25 08/18/21 18:25 Labs: Laboratory Results - last 24 hr 08/18/21 18:25: WBC 11.5 H, RBC 4.89, Hgb 14.0, Hct 42.6, MCV 87.1, MCH 28.6, MCHC 32.9, RDW Std Deviation 41.5, RDW Coeff of Juan 13.0, Plt Count 317, MPV 10.2, Immature Gran % (Auto) 0.400, Neut % (Auto) 88.0 H, Lymph % (Auto) 6.2 L, [place] % (Auto) 5.1, Eos % (Auto) 0.0, Baso % (Auto) 0.3, Absolute Neuts (auto) 10.2 H, Absolute Lymphs (auto) 0.71 L, Nucleated RBC % 0 08/18/21 18:25: Sodium 132 L, Potassium 4.0, Chloride 98, Carbon Dioxide 29.0, Anion Gap 5, BUN 13, Creatinine 0.69, Estim Creat Clear Calc 32.53, Est GFR (MDRD) Af Amer 105, Est GFR (MDRD) Non-Af 87, BUN/Creatinine Ratio 19.0, Glucose 207 H, Calcium 9.9, Total Bilirubin 0.50, AST 14 L, ALT 24, Alkaline Phosphatase 155 H, Total Protein 7.5, Albumin 3.5, Globulin 4.0, Albumin/Globulin Ratio 0.9, Lipase 75 08/18/21 18:25: Lactic Acid 1.3 Micro: Microbiology 08/18/21 18:25 Nasal Secretion SARS-CoV-2 Antigen (Rapid) - Final Charges/Coding Visit Charges Office Visits / Consults: 03552 IP Consult L4 Procedures Hospitalists Procedures: 12125 Advncd Care Plan 30 Min
[2021-08-18 20:34] VITALS: BMI 36.3
[2021-08-18 20:47] VITALS: BP 119/75; PULSE 90; RESP 18; TEMP 36.8; O2SAT 97
[2021-08-18] MEDS: 0.9% Normal Saline 1,000 ML 125 ML IV (21:01)
[2021-08-18 21:04] VITALS: BP 147/77; PULSE 92
[2021-08-18] MEDS: Metoprolol Tartrate 5 MG/5 ML Vial IV (21:04)
[2021-08-18] MEDS: Famotidine 200 MG/20 ML MDV 20 MG in 0.9% Normal Saline (Pres. free 8 ML 300 MG IV (21:12)
[2021-08-19] VITALS (12 sets, daily range): BP systolic 117–149; BP diastolic 74–93; PULSE 70–93; RESP 16–24; TEMP 36.5–36.9; O2SAT 91–99
[2021-08-19 00:21] LABS: Bedside Glucose 181 mg/dL (70-110)
[2021-08-19] MEDS: Insulin Lispro 100 UNIT/ML INSULN.PEN SC ×2 (00:22→06:11)
[2021-08-19] MEDS: 0.9% Normal Saline 1,000 ML 125 ML IV ×2 (00:22→14:24)
[2021-08-19] MEDS: Metoprolol Tartrate 5 MG/5 ML Vial IV ×3 (00:22→15:23)
[2021-08-19 04:56] LABS: Absolute Lymphocyte Count 1.06 X10^3/uL (0.83-4.51); Basophil# 0.02 X10^3/uL; Basophil% 0.3 % (0-1); Eosinophil# 0.02 X10^3/uL; Eosinophils% 0.3 % (0-5); Hematocrit 37.2 % (37-47); Hemoglobin 12.2 g/dL (12.0-15.0); Lymphocyte # 1.06 X10^3/ul (0.83-4.51); Lymphocyte % 13.3 % (19-41); Mean Corp Hgb Conc 32.8 g/dL (32-36); Mean Corpuscular Volume 88.4 fL (81-99); Mean Platelet Vol. 10.3 fl (6.2-12.0); Monocyte# 0.82 X10^3/uL; Monocyte% 10.3 % (0-10); NRBC Flagged by Analyzer 0 % (0-5); Neutrophil # 6.02 X10^3/uL (2.7-7.7); Neutrophil % 75.4 % (47-70); Platelet Count 272 K/mm3 (150-450); RBC Distribution Width CV 13.2 % (11.6-14.6); RBC Distribution Width SD 42.8 fl (35.1-43.9); Red Blood Count 4.21 M/mm3 (4.2-5.4)
[2021-08-19 05:32] LABS: Anion Gap 6 (5-15); BUN 9 mg/dL (7-18); Calcium,Total 8.3 mg/dL (8.5-10.1); Chloride 104 mmol/L (98-107); EST Glomerular Filtration Rate 125 mL/min (>60); Est Glom Filt Rate - Afr Amer 151 mL/min (>60); Estimated Creatinine Clearance 32.53 ml/min; Glucose 153 mg/dL (74-106); Magnesium 2.3 mg/dL (1.6-2.6); Potassium 3.6 mmol/L (3.5-5.1); Sodium Level 138 mmol/L (136-145)
[2021-08-19 06:10] LABS: Bedside Glucose 161 mg/dL (70-110)
--- NOTE | 2021-08-19 07:15 | PCM.PN.HOSP ---
Subjective Subjective Patient was seen and examined today, she voices no complaints at this time, she states her abdominal discomfort is improved. Objective Data Objective Data Vital Signs: Vital Signs Temp Pulse Resp BP Pulse Ox 98.5 F 92 18 129/76 H 92 08/19/21 05:15 08/19/21 05:15 08/19/21 05:15 08/19/21 05:15 08/19/21 05:15 Oxygen Flow Rate (L/min) 2 Oxygen Delivery Method Room Air Weight: 90.3 kg Body Mass Index (BMI) 36.3 Intake & Output: Intake and Output for Last 24 Hours 08/17/21 08/18/21 08/19/21 23:59 23:59 23:59 Intake Total 1020 / 1020 428.75 / 428.75 Output Total 450 / 450 Balance 1020 / 1020 -21.25 / -21.25 Lab / Micro Data Result Diagrams: 08/19/21 04:21 08/19/21 04:21 Labs: Laboratory Results - last 24 hr 08/18/21 18:25: WBC 11.5 H, RBC 4.89, Hgb 14.0, Hct 42.6, MCV 87.1, MCH 28.6, MCHC 32.9, RDW Std Deviation 41.5, RDW Coeff of Juan 13.0, Plt Count 317, MPV 10.2, Immature Gran % (Auto) 0.400, Neut % (Auto) 88.0 H, Lymph % (Auto) 6.2 L, [place] % (Auto) 5.1, Eos % (Auto) 0.0, Baso % (Auto) 0.3, Absolute Neuts (auto) 10.2 H, Absolute Lymphs (auto) 0.71 L, Nucleated RBC % 0 08/18/21 18:25: Sodium 132 L, Potassium 4.0, Chloride 98, Carbon Dioxide 29.0, Anion Gap 5, BUN 13, Creatinine 0.69, Estim Creat Clear Calc 32.53, Est GFR (MDRD) Af Amer 105, Est GFR (MDRD) Non-Af 87, BUN/Creatinine Ratio 19.0, Glucose 207 H, Calcium 9.9, Total Bilirubin 0.50, AST 14 L, ALT 24, Alkaline Phosphatase 155 H, Total Protein 7.5, Albumin 3.5, Globulin 4.0, Albumin/Globulin Ratio 0.9, Lipase 75 08/18/21 18:25: Lactic Acid 1.3 08/19/21 00:06: POC Glucose 181 H 08/19/21 04:21: WBC 8.0, RBC 4.21, Hgb 12.2, Hct 37.2, MCV 88.4, MCH 29.0, MCHC 32.8, RDW Std Deviation 42.8, RDW Coeff of Juan 13.2, Plt Count 272, MPV 10.3, Immature Gran % (Auto) 0.400, Neut % (Auto) 75.4 H, Lymph % (Auto) 13.3 L, [place] % (Auto) 10.3 H, Eos % (Auto) 0.3, Baso % (Auto) 0.3, Absolute Neuts (auto) 6.0, Absolute Lymphs (auto) 1.06, Nucleated RBC % 0 08/19/21 04:21: Sodium 138, Potassium 3.6, Chloride 104, Carbon Dioxide 28.0, Anion Gap 6, BUN 9, Creatinine 0.50 L, Estim Creat Clear Calc 32.53, Est GFR (MDRD) Af Amer 151, Est GFR (MDRD) Non-Af 125, BUN/Creatinine Ratio 18.0, Glucose 153 H, Calcium 8.3 L, Magnesium 2.3 08/19/21 05:53: POC Glucose 161 H Micro: Microbiology 08/18/21 18:25 Nasal Secretion SARS-CoV-2 Antigen (Rapid) - Final Radiography Diagnostic Testing: Radiology Impression KUB X-Ray 08/18/21 19:40 IMPRESSION: There is a feeding tube/ nasogastric tube noted. The tip is in the region of the stomach. Electronically Signed: Fareed Angulo MD at 20:25 EST , Service support , Rhythm Strip Rhythm Strip: Sinus Tach Rate: 105 Ectopy: None Physical Exam Const alert, oriented x3, no apparent distress and healthy appearing General Appearance: cooperative, well kempt and well developed Orientation / Consciousness: awake, oriented to person, oriented to place and oriented to time HEENT normocephalic, head/scalp atraumatic and moist oral mucous membranes Head and Scalp: normocephalic Eyes PERRL, EOMs intact bilaterally and conjunctivae normal Neck nuchal rigidity, supple, no JVD, thyroid normal and no carotid bruits General: trachea midline Resp normal respiratory effort, no retractions, no use of accessory muscles and clear to auscultation bilaterally Auscultation: Negative for rales, rhonchi or wheezes Cardio regular rate, regular rhythm, S1 normal heart sound, S2 normal heart sound, no murmurs, no rub and no gallops GI soft to palpation, non-tender and non-distended Extremity normal to inspection and no clubbing, cyanosis or edema Skin no rashes or lesions noted General Skin Exam: no breakdown Neuro oriented x3, CN's II-XII intact bilaterally, no focal motor deficits and no sensory deficits noted Sensorium / Orientation: awake and alert Speech: speech normal Psych thought process normal and affect normal Assessment & Plan Assessment/Plan (1) Small bowel obstruction: PLAN: 1. Type 2 diabetes-patient is currently getting Accu-Cheks and sliding scale insulin per Accu-Chek #2 essential hypertension-patient's oral hypertensive medications are being held at this time, she will be given IV medications as needed #3 hyperlipidemia-patient is on a statin as an outpatient, this will be held due to her n.p.o. status and NG tube #4 hypothyroidism-patient is on Synthroid at home, due to her n.p.o. status this will be held #5 small bowel obstruction-General surgery is managing patient, she currently has an NG tube in Charges/Coding Visit Charges OBSV E&M: 27461 Subsequent observation care L2
[2021-08-19] MEDS: 0.9% Saline Lock 10 ML Syringe IV (09:06)
[2021-08-19] MEDS: Ondansetron 4 MG/2 ML Vial IV ×2 (09:06→15:22)
--- NOTE | 2021-08-19 09:56 | PCM.PN.SRG ---
Subjective Subjective Patient seen and examined during AM rounds. She reports a bowel movement overnight and a smaller bowel movement today. She has had intermittent passage of small-volume flatus. Unfortunately she also complains of some nausea this morning. She states she occasionally feels this nausea when she is hungry and is unable to differentiate it from her presenting nausea other than it is of lesser intensity. Objective Data Objective Data Vital Signs: Vital Signs Temp Pulse Resp BP Pulse Ox 97.7 F L 70 24 H 149/93 H 94 08/19/21 08:28 08/19/21 09:05 08/19/21 08:28 08/19/21 08:28 08/19/21 08:31 Oxygen Flow Rate (L/min) 2 Oxygen Delivery Method Nasal Cannula Weight: 199 lb 1.239 oz Body Mass Index (BMI) 36.3 Intake & Output: Intake and Output for Last 24 Hours 08/17/21 08/18/21 08/19/21 23:59 23:59 23:59 Intake Total 1020 / 1020 428.75 / 428.75 Output Total 450 / 450 Balance 1020 / 1020 -21.25 / -21.25 Lab / Micro Data Result Diagrams: 08/19/21 04:21 08/19/21 04:21 Labs: Laboratory Results - last 24 hr 08/18/21 18:25: WBC 11.5 H, RBC 4.89, Hgb 14.0, Hct 42.6, MCV 87.1, MCH 28.6, MCHC 32.9, RDW Std Deviation 41.5, RDW Coeff of Juan 13.0, Plt Count 317, MPV 10.2, Immature Gran % (Auto) 0.400, Neut % (Auto) 88.0 H, Lymph % (Auto) 6.2 L, [place] % (Auto) 5.1, Eos % (Auto) 0.0, Baso % (Auto) 0.3, Absolute Neuts (auto) 10.2 H, Absolute Lymphs (auto) 0.71 L, Nucleated RBC % 0 08/18/21 18:25: Sodium 132 L, Potassium 4.0, Chloride 98, Carbon Dioxide 29.0, Anion Gap 5, BUN 13, Creatinine 0.69, Estim Creat Clear Calc 32.53, Est GFR (MDRD) Af Amer 105, Est GFR (MDRD) Non-Af 87, BUN/Creatinine Ratio 19.0, Glucose 207 H, Calcium 9.9, Total Bilirubin 0.50, AST 14 L, ALT 24, Alkaline Phosphatase 155 H, Total Protein 7.5, Albumin 3.5, Globulin 4.0, Albumin/Globulin Ratio 0.9, Lipase 75 08/18/21 18:25: Lactic Acid 1.3 08/19/21 00:06: POC Glucose 181 H 08/19/21 04:21: WBC 8.0, RBC 4.21, Hgb 12.2, Hct 37.2, MCV 88.4, MCH 29.0, MCHC 32.8, RDW Std Deviation 42.8, RDW Coeff of Juan 13.2, Plt Count 272, MPV 10.3, Immature Gran % (Auto) 0.400, Neut % (Auto) 75.4 H, Lymph % (Auto) 13.3 L, [place] % (Auto) 10.3 H, Eos % (Auto) 0.3, Baso % (Auto) 0.3, Absolute Neuts (auto) 6.0, Absolute Lymphs (auto) 1.06, Nucleated RBC % 0 08/19/21 04:21: Sodium 138, Potassium 3.6, Chloride 104, Carbon Dioxide 28.0, Anion Gap 6, BUN 9, Creatinine 0.50 L, Estim Creat Clear Calc 32.53, Est GFR (MDRD) Af Amer 151, Est GFR (MDRD) Non-Af 125, BUN/Creatinine Ratio 18.0, Glucose 153 H, Calcium 8.3 L, Magnesium 2.3 08/19/21 05:53: POC Glucose 161 H Micro: Microbiology 08/18/21 18:25 Nasal Secretion SARS-CoV-2 Antigen (Rapid) - Final Radiography Diagnostic Testing: Radiology Impression KUB X-Ray 08/18/21 19:40 IMPRESSION: There is a feeding tube/ nasogastric tube noted. The tip is in the region of the stomach. Electronically Signed: Fareed Angulo MD at 20:25 EST , Service support , Rhythm Strip Rhythm Strip: Sinus Tach Rate: 105 Ectopy: None Physical Exam Const oriented x3 and no apparent distress Resp normal respiratory effort GI GI Narrative: Less distended, soft, nontender to palpation x4 quadrants. Nasogastric tube examined and there is some reflux of GI contents into the sump. Once these are cleared up patient's tube appears to be functioning normally. Assessment & Plan Assessment/Plan (1) Small bowel obstruction: PLAN: This is an 86-year-old female with a number of medical comorbidities who presents with a nearly week?long prodrome to a small bowel obstruction. This lead up has been characterized by minimal flatus, increased bloating symptoms, and small volume stools. Last bowel function was earlier today. Patient had CT of the abdomen pelvis performed with p.o. and IV contrast which showed a transition zone in the right lower quadrant adjacent patient's intra-abdominal mesh. This mesh dates back to an incisional hernia repair by Dr. Rajan Álvarez in 2008. This represents patient's first experience with a small bowel obstruction. Patient has been his clinical improvement with resolution of abdominal pain and nausea has diminished. She also has a demonstrated some return of bowel function with a couple of bowel movements. Unfortunately some of her nausea persists and given the presence of a transition point on CT, would like to ensure free passage of contrast through this point with our small bowel series as originally discussed. Neuro: As needed IV Dilaudid Pulm/CV: Supplemental O2 as needed, scheduled metoprolol IV 5 mg every 6, telemetry FEN/GI: Monitor daily electrolytes, strict n.p.o., NG tube to low wall intermittent suction, proceed with small bowel series today Heme/ID: Daily monitoring of patient's CBC Endo: Medical assistance requested with patient's diabetes management Proph: SCDs Dispo: Continue observation
[2021-08-19] MEDS: Acetaminophen 650 MG/20 ML UDC NG (10:06)
--- NOTE | 2021-08-19 10:35 | RAD_ITS ---
Small bowel series Indication: Small bowel obstruction Comparison made to [facility] yesterday. According to technologist''s documentation, 4 bottles of GASTROGRAFIN administered through the esophagogastric tube. Immediate image demonstrates residual contrast in the gastric fundus and contrast; from prior CT. There is some passage of contrast into dilated bowel in the right lower abdomen at 3 hours (measures 5.1 cm). There is NOT documented passage of contrast into the colon. Multiple operative surgical coils and clips are identified. Right hip replacement. Degenerative changes of lumbar spine and left hip. 9 overhead images. No fluoroscopy time. RAD/Small Bowel Series Only IMPRESSION: 1. Relative small bowel stasis at 3 hours with dilated bowel in the right lower abdomen measuring up to 5.1 cm correlating to small bowel obstruction evident on prior CT. Electronically Signed: Niko Angel MD ([place]) at 15:41 EST , Service support ,
--- NOTE | 2021-08-19 15:44 | EKG12_ITS ---
Test Reason : QT Blood Pressure : / mmHG Vent. Rate : 088 BPM Atrial Rate : 088 BPM P-R Int : 170 ms QRS Dur : 086 ms QT Int : 360 ms P-R-T Axes : 012 -09 041 degrees QTc Int : 435 ms Normal sinus rhythm Low voltage QRS Inferior infarct , age undetermined Abnormal ECG When compared with ECG of 18-AUG-2021 18:33, MANUAL COMPARISON REQUIRED, DATA IS UNCONFIRMED Confirmed by JAISON PARADA, LORRI ([id number]), society editor MARIO RODRÍGUEZ ([id number]) on 08/22/2021 9:33:38 AM Referred By: CUONG Confirmed By:LORRI BLACKWOOD MD
--- NOTE | 2021-08-19 16:41 | CASEMGMT ---
This RN CM to room with CALABRESE form, explanation done-pt voices understanding and pt signs CALABRESE form at this time. Original to chart and copy to pt. Agustín GOLDSTEIN CM
[2021-08-19 18:31] LABS: Bedside Glucose 144 mg/dL (70-110)
[2021-08-19] MEDS: Metoprolol Tartrate 25 MG Tablet PO (21:05)
[2021-08-19] MEDS: Latanoprost 0.005% 1 Bottle 1 DRP OPHTHALMIC (21:08)
[2021-08-19 22:00] LABS: Bedside Glucose 163 mg/dL (70-110)
[2021-08-19] MEDS: Famotidine 200 MG/20 ML MDV 20 MG in 0.9% Normal Saline (Pres. free 8 ML 300 MG IV (22:20)
[2021-08-19] MEDS: 0.9% Normal Saline 1,000 ML 100 ML IV (23:04)
[2021-08-20 00:10] LABS: Bedside Glucose 146 mg/dL (70-110)
[2021-08-20 02:30] VITALS: BP 116/75; PULSE 62; RESP 16; TEMP 36.9; O2SAT 98
[2021-08-20 06:05] LABS: Anion Gap 6 (5-15); BUN 8 mg/dL (7-18); BUN/Creat Ratio 15.6 RATIO (10-20); Calcium,Total 8.4 mg/dL (8.5-10.1); Chloride 107 mmol/L (98-107); Creatinine, Serum 0.51 mg/dL (0.55-1.02); EST Glomerular Filtration Rate 121 mL/min (>60); Est Glom Filt Rate - Afr Amer 146 mL/min (>60); Estimated Creatinine Clearance 32.53 ml/min; Glucose 149 mg/dL (74-106); Magnesium 2.2 mg/dL (1.6-2.6); Potassium 3.3 mmol/L (3.5-5.1); Sodium Level 141 mmol/L (136-145)
[2021-08-20 06:36] LABS: Bedside Glucose 149 mg/dL (70-110)
--- NOTE | 2021-08-20 07:22 | RAD_ITS ---
STUDY: X-RAY - ABDOMEN/PELVIS REASON FOR EXAM: Female, 86 years old. f/u contrast from small bowel series TECHNIQUE: Single AP view of the abdomen / pelvis. COMPARISON: 08/18/2021 FINDINGS: Normal visualized lung bases. There is an unremarkable bowel gas pattern. Interval removal nasogastric tube. Oral contrast seen throughout the colon. The visualized liver, spleen and kidneys are grossly normal in size and morphology. Normal soft tissue structures. Status post right hip arthroplasty. RAD/Abdomen Single View (Portable) IMPRESSION: No bowel obstruction. Electronically Signed: Jian Braden MD at 8:44 EST Tel , Service support ,
[2021-08-20 07:36] VITALS: BP 132/81; PULSE 73; RESP 16; TEMP 36.8; O2SAT 92
--- NOTE | 2021-08-20 08:08 | PN.SURG_ITS ---
Subjective Subjective Patient is seen and examined in the radiology department given transfer for her imaging this morning. She states that she had diarrhea all night long. She expresses mild nausea as a response to being moved for her imaging, but denies any nausea in response to the clear liquid diet that was started yesterday. She denies any persistent abdominal discomfort. Objective Data Objective Data Vital Signs: Vital Signs Temp Pulse Resp BP Pulse Ox 98.2 F 73 16 132/81 H 92 08/20/21 07:36 08/20/21 07:36 08/20/21 07:36 08/20/21 07:36 08/20/21 07:36 Oxygen Flow Rate (L/min) 2 Oxygen Delivery Method Room Air Weight: 199 lb 1.239 oz Body Mass Index (BMI) 36.3 Intake & Output: Intake and Output for Last 24 Hours 08/18/21 08/19/21 08/20/21 23:59 23:59 23:59 Intake Total 1020 / 1020 2357.08 / 2357.08 Output Total 451 / 802 351 / 351 Balance 1020 / 1020 1906.08 / 1555.08 -351 / -351 Lab / Micro Data Result Diagrams: 08/19/21 04:21 08/20/21 05:20 Labs: Laboratory Results - last 24 hr 08/19/21 18:18: POC Glucose 144 H 08/19/21 20:53: POC Glucose 163 H 08/20/21 00:05: POC Glucose 146 H 08/20/21 05:20: Sodium 141, Potassium 3.3 L, Chloride 107, Carbon Dioxide 28.0, Anion Gap 6, BUN 8, Creatinine 0.51 L, Estim Creat Clear Calc 32.53, Est GFR (MDRD) Af Amer 146, Est GFR (MDRD) Non-Af 121, BUN/Creatinine Ratio 15.6, Glucose 149 H, Calcium 8.4 L, Magnesium 2.2 08/20/21 06:17: POC Glucose 149 H Micro: Microbiology 08/18/21 18:25 Nasal Secretion SARS-CoV-2 Antigen (Rapid) - Final Radiography Diagnostic Testing: Radiology Impression Small Bowel X-Ray 08/19/21 10:35 IMPRESSION: 1. Relative small bowel stasis at 3 hours with dilated bowel in the right lower abdomen measuring up to 5.1 cm correlating to small bowel obstruction evident on prior CT. Electronically Signed: Niko Angel MD ([place]) at 15:41 EST , Service support , Rhythm Strip Rhythm Strip: Sinus Tach Rate: 105 Ectopy: None Physical Exam Const oriented x3 and no apparent distress Resp normal respiratory effort GI GI Narrative: Nondistended, soft, nontender to palpation x4 quadrants Assessment & Plan Assessment/Plan (1) Small bowel obstruction: PLAN: This is an 86-year-old female with a number of medical comorbidities who presents with a nearly week?long prodrome to a small bowel obstruction. This lead up has been characterized by minimal flatus, increased bloating symptoms, and small volume stools. Last bowel function was earlier today. Patient had CT of the abdomen pelvis performed with p.o. and IV contrast which showed a transition zone in the right lower quadrant adjacent patient's intra- abdominal mesh. This mesh dates back to an incisional hernia repair by Dr. Rajan Álvarez in 2008. This represents patient's first experience with a small bowel obstruction. Overnight, patient reports ongoing diarrhea. She denies any nausea in response to her clear liquid diet which was initiated yesterday. Unfortunately, yest erday radiology reported persistent small bowel dilation of the right lower quadrant on the latter images of the small bowel series concerning for persistent small bowel obstruction. This is incongruent with the patient's presentation. Therefore, she was sent for repeat KUB today. Overall, the bowel pattern is nonobstructive, but there is suggestion of possible dilated loops still in the right lower quadrant. There is air and contrast in the colon, however, this would represent a partial small bowel obstruction. We will plan to await official radiology read but continue clear liquid diet and monitor patient's tolerance of this this morning. Neuro: As needed IV Dilaudid Pulm/CV: Supplemental O2 as needed, scheduled metoprolol IV 5 mg every 6, telemetry FEN/GI: Monitor daily electrolytes?replace potassium IV for hypokalemia, clear liquid diet., Heme/ID: Daily monitoring of patient's CBC Endo: Medical assistance requested with patient's diabetes management Proph: SCDs Dispo: Continue observation Charges/Coding Visit Charges Inpatient E&M: 12386 Subs Hosp L2
[2021-08-20] MEDS: 0.9% Saline Lock 10 ML Syringe IV (08:26)
[2021-08-20] MEDS: Ondansetron 4 MG/2 ML Vial IV (08:26)
[2021-08-20] MEDS: Potassium Chloride 10mEq/100mL 10 MEQ/100 ML IV.SOLN. 100 MEQ IV BOLUS (08:30)
[2021-08-20] MEDS: Potassium Chloride 10mEq/100mL 10 MEQ/100 ML IV.SOLN. 70 MEQ IV BOLUS ×3 (09:40→12:47)
--- NOTE | 2021-08-20 10:14 | PCM.PN.HOSP ---
Subjective Subjective Patient was seen and examined today, her NG tube has been removed, she states she has been feeling better, there is less abdominal distention. I talked briefly with general surgery about her care. Objective Data Objective Data Vital Signs: Vital Signs Temp Pulse Resp BP Pulse Ox 98.2 F 73 16 132/81 H 92 08/20/21 07:36 08/20/21 07:36 08/20/21 07:36 08/20/21 07:36 08/20/21 07:36 Oxygen Flow Rate (L/min) 2 Oxygen Delivery Method Room Air Weight: 90.3 kg Body Mass Index (BMI) 36.3 Intake & Output: Intake and Output for Last 24 Hours 08/18/21 08/19/21 08/20/21 23:59 23:59 23:59 Intake Total 1020 / 1020 2357.08 / 2357.08 1031.67 / 1031.67 Output Total 451 / 802 351 / 351 Balance 1020 / 1020 1906.08 / 1555.08 680.67 / 680.67 Lab / Micro Data Result Diagrams: 08/19/21 04:21 08/20/21 05:20 Labs: Laboratory Results - last 24 hr 08/19/21 18:18: POC Glucose 144 H 08/19/21 20:53: POC Glucose 163 H 08/20/21 00:05: POC Glucose 146 H 08/20/21 05:20: Sodium 141, Potassium 3.3 L, Chloride 107, Carbon Dioxide 28.0, Anion Gap 6, BUN 8, Creatinine 0.51 L, Estim Creat Clear Calc 32.53, Est GFR (MDRD) Af Amer 146, Est GFR (MDRD) Non-Af 121, BUN/Creatinine Ratio 15.6, Glucose 149 H, Calcium 8.4 L, Magnesium 2.2 08/20/21 06:17: POC Glucose 149 H Micro: Microbiology 08/18/21 18:25 Nasal Secretion SARS-CoV-2 Antigen (Rapid) - Final Radiography Diagnostic Testing: Radiology Impression Small Bowel X-Ray 08/19/21 10:35 IMPRESSION: 1. Relative small bowel stasis at 3 hours with dilated bowel in the right lower abdomen measuring up to 5.1 cm correlating to small bowel obstruction evident on prior CT. Electronically Signed: Niko Angel MD ([place]) at 15:41 EST , Service support , KUB X-Ray 08/20/21 07:22 IMPRESSION: No bowel obstruction. Electronically Signed: Jian Braden MD at 8:44 EST Tel , Service support , Rhythm Strip Rhythm Strip: Sinus Tach Rate: 105 Ectopy: None Physical Exam Const alert, oriented x3, no apparent distress, average body habitus and healthy appearing General Appearance: cooperative, well kempt and well developed Orientation / Consciousness: awake, oriented to person, oriented to place and oriented to time HEENT normocephalic, head/scalp atraumatic and moist oral mucous membranes Head and Scalp: normocephalic Eyes PERRL, EOMs intact bilaterally and conjunctivae normal Neck nuchal rigidity, supple, no JVD and thyroid normal General: trachea midline Resp normal respiratory effort, no retractions, no use of accessory muscles and clear to auscultation bilaterally Auscultation: Negative for rales, rhonchi or wheezes Cardio regular rate, regular rhythm, S1 normal heart sound, S2 normal heart sound, no murmurs, no rub and no gallops GI normal to inspection, nondistended, normoactive bowel sounds, soft to palpation, non-tender and non-distended Extremity normal to inspection and no clubbing, cyanosis or edema Skin no rashes or lesions noted, no wounds and skin turgor normal General Skin Exam: no breakdown Neuro oriented x3, CN's II-XII intact bilaterally, no focal motor deficits and no sensory deficits noted Sensorium / Orientation: awake and alert Speech: speech normal Psych thought process normal and affect normal Assessment & Plan Assessment/Plan (1) Nausea & vomiting: (2) Small bowel obstruction: PLAN: 1. Type 2 diabetes-patient is currently getting Accu-Cheks and sliding scale insulin per Accu-Chek #2 essential hypertension-patient's oral hypertensive medications were reinstituted #3 hyperlipidemia-patient is on a statin as an outpatient, this can continue to be held #4 hypothyroidism-patient is on Synthroid at home, this can be held also until the patient goes home #5 small bowel obstruction-General surgery is managing patient, she appears to be improving #6 hypokalemia-surgery is giving IV potassium today. Charges/Coding Visit Charges Inpatient E&M: 91059 Subs Hosp L2
[2021-08-20] MEDS: 0.9% Normal Saline 1,000 ML 50 ML IV (11:18)
[2021-08-20] MEDS: Insulin Lispro 100 UNIT/ML INSULN.PEN SC (12:02)
[2021-08-20 12:11] LABS: Bedside Glucose 167 mg/dL (70-110)
[2021-08-20 12:48] VITALS: PULSE 84
[2021-08-20] MEDS: Metoprolol Tartrate 25 MG Tablet PO (12:48)
[2021-08-20 12:49] VITALS: BP 132/81; PULSE 84; RESP 16; TEMP 36.9; O2SAT 93
--- NOTE | 2021-08-20 16:57 | PCM.DC ---
Discharge Instructions Diet Discharge Diet: Soft diet (Low fiber) Activity Discharge Activity: No Restrictions Dressing / Incision Call your doctor if you observe: Inability to have a bowel movement, Prolonged hiccupping and - (Abdominal distention, bloating, nausea) Follow Up Care Please Follow Up With: dr. fan When: Within 2 weeks of hospital discharge Test Results: Test results from this visit will be discussed in further detail at your follow-up appointment, if applicable. Discharge Plan Admission Admit Date/Time: 08/18/21 19:34 Primary Reason for Your Visit: Mall bowel obstruction Attending Provider: Joseph Freeman Primary Care Provider: Jyoti Mackey Instructions Patient Instructions: Low-Fiber Diet Discharge Orders/Prescriptions Prescriptions: Continued glipizide 2.5 mg tablet extended release 24hr 2.5 mg PO DAILY RF: 0 metformin 500 mg tablet extended release 24 hr 500 mg PO QPM RF: 0 latanoprost 0.005 % drops 1 drp ophthalmic (eye) DAILY RF: 0 levothyroxine 50 MCG tablet 50 mcg PO DAILY RF: 0 [id number] no.225 1 EACH tablet 1 ea PO DAILY RF: 0 atorvastatin 40 MG tablet 40 mg PO QHS RF: 0 aspirin 81 MG tablet,chewable 81 mg PO QODAY RF: 0 fluticasone propionate 50 mcg/actuation spray,suspension 2 spray INTRANASAL DAILY PRN PRN (Reason: Allergic Reaction) RF: 0 losartan 50 mg tablet 50 mg PO DAILY PRN PRN (Reason: edema ) RF: 0 metoprolol succinate 50 mg tablet extended release 24 hr 50 mg PO DAILY Qty: 90 RF: 3 Referrals / Follow Up: Jyoti Mackey MD [Primary Care Provider] -
--- NOTE | 2021-08-20 17:01 | PCM.DC.SUM ---
Providers Date of Admission: 08/18/21 Primary Care Physician: Dr. Jyoti Mackey MD Reason For Visit: abdominal pain Diagnosis Discharge Diagnosis (1) Nausea & vomiting: Status: Acute Code(s): R11.2 - Nausea with vomiting, unspecified (2) Small bowel obstruction: Status: Acute Code(s): K56.609 - Unspecified intestinal obstruction, unspecified as to partial versus complete obstruction Medications at Discharge Home Medications [id number] no.225 1 ea PO DAILY 09/10/14 aspirin 81 mg PO QODAY 09/10/14 atorvastatin 40 mg PO QHS 09/10/14 levothyroxine 50 mcg PO DAILY 09/10/14 glipizide 2.5 mg tablet, extended release 24 hr 2.5 mg PO DAILY 04/28/19 fluticasone propionate 50 mcg/actuation nasal spray,suspension 2 spray INTRANASAL DAILY PRN PRN 05/03/20 metformin 500 mg tablet,extended release 24 hr 500 mg PO QPM tab 05/03/20 latanoprost 0.005 % eye drops 1 drp OPHTHALMIC (EYE) DAILY ml 05/02/21 metoprolol succinate 50 mg tablet,extended release 24 hr 50 mg PO DAILY #90 tab 06/01/21 losartan 50 mg PO DAILY PRN PRN 08/18/21 Hospital Course Operations None Procedures None Summary of Care Provided Minutes Spent on Discharge: 20 Hospital Course: Patient was admitted to [facility] the evening of 08/18/[address] imaging showed evidence of a small bowel obstruction with probable transition zone in the right lower quadrant related to patient's indwelling abdominal mesh for remote hernia repair. A nasogastric tube was placed in the emergency department in the patient underwent enteric decompression overnight. At first evening, patient had some loose bowel movements, but hospital day 2 complained of persistent nausea. Therefore, I ordered a small bowel series to the patient's NG tube. Despite plain films over 3 hours, the contrast made little movement from the stomach. However, patient's prior contrast load from CT imaging the day before showed transit through the colon and the patient began having more loose stools. This result was interpreted as resolution of the patient's acute obstruction and possible confirmation of a degree of gastroparesis (given the hold-up of contrast in the stomach). Consequently, the patient's nasogastric tube was removed and she was initiated on sips and ice chips. She seemed to tolerate this diet advance but still complained of intermittent nausea. Still having bowel movements, I advanced her to a clear liquid diet without carbonation the evening of hospital day 2. She tolerated this advancement, but radiology read her previous small bowel series as still possibly concerning for small bowel obstruction given persistent small bowel dilation in the right lower quadrant. I repeated patient's [facility] hospital day 3 and this seemed to show resolution of the obstructive pattern, as confirmed by radiology, and the patient continued to tolerate clear liquid diet. With this reassurance, the patient was advanced to a soft, low residue diet and she tolerated this without any subsequent nausea, bloating, and continued to have bowel movements. With these improvements, I have granted the patient's request for discharge but recommended she remain on a soft, low residue diet for 1 week post hospital discharge. I have also asked her to follow-up with her primary care physician, Dr. Mackey in the first 2 weeks after discharge. She is welcome to arrange for follow-up with me, if there is an interest, but at the time of her discharge she states that she will simply plan to follow-up with Dr. Álvarez during her annual visit in November. Physical Exam Const alert and oriented x3 Constitutional Narrative: Patient with many questions/concerns related to strict adherence to her recommended diet GI GI Narrative: Nondistended, soft, nontender to palpation x4 quadrants Weight / BMI Weight Weight: 199 lb 1.239 oz Body Mass Index (BMI) 36.3 ABG / Lab / Microbiology Data Result Diagrams: 08/19/21 04:21 08/20/21 05:20 Laboratory: Laboratory Results - last 24 hr 08/19/21 18:18: POC Glucose 144 H 08/19/21 20:53: POC Glucose 163 H 08/20/21 00:05: POC Glucose 146 H 08/20/21 05:20: Sodium 141, Potassium 3.3 L, Chloride 107, Carbon Dioxide 28.0, Anion Gap 6, BUN 8, Creatinine 0.51 L, Estim Creat Clear Calc 32.53, Est GFR (MDRD) Af Amer 146, Est GFR (MDRD) Non-Af 121, BUN/Creatinine Ratio 15.6, Glucose 149 H, Calcium 8.4 L, Magnesium 2.2 08/20/21 06:17: POC Glucose 149 H 08/20/21 12:01: POC Glucose 167 H Microbiology: Microbiology 08/18/21 18:25 Nasal Secretion SARS-CoV-2 Antigen (Rapid) - Final Radiography Diagnostic Testing: Radiology Impression KUB X-Ray 08/20/21 07:22 IMPRESSION: No bowel obstruction. Electronically Signed: Jian Braden MD at 8:44 EST Tel , Service support , D/C Instructions Discharge Diet: Soft diet (Low fiber) Call your doctor if you observe: Inability to have a bowel movement, Prolonged hiccupping and - (Abdominal distention, bloating, nausea) Please Follow Up With: dr. fan When: Within 2 weeks of hospital discharge Meaningful Use Info Meaningful Use Diagnoses (Choose all that apply): None applicable Discharge Plan Admission Admit Date/Time: 08/18/21 19:34 Primary Reason for Your Visit: Mall bowel obstruction Attending Provider: Joseph Freeman Primary Care Provider: Jyoti Mackey Instructions Patient Instructions: Low-Fiber Diet Discharge Orders/Prescriptions Prescriptions: Continued glipizide 2.5 mg tablet extended release 24hr 2.5 mg PO DAILY RF: 0 metformin 500 mg tablet extended release 24 hr 500 mg PO QPM RF: 0 latanoprost 0.005 % drops 1 drp ophthalmic (eye) DAILY RF: 0 levothyroxine 50 MCG tablet 50 mcg PO DAILY RF: 0 [id number] no.225 1 EACH tablet 1 ea PO DAILY RF: 0 atorvastatin 40 MG tablet 40 mg PO QHS RF: 0 aspirin 81 MG tablet,chewable 81 mg PO QODAY RF: 0 fluticasone propionate 50 mcg/actuation spray,suspension 2 spray INTRANASAL DAILY PRN PRN (Reason: Allergic Reaction) RF: 0 losartan 50 mg tablet 50 mg PO DAILY PRN PRN (Reason: edema ) RF: 0 metoprolol succinate 50 mg tablet extended release 24 hr 50 mg PO DAILY Qty: 90 RF: 3 Referrals / Follow Up: Jyoti Mackey MD [Primary Care Provider] - Disposition Discharge Orders: Discharge Patient (Routine); Ordered 08/20/21 Ordered By: Dr. Joseph Freeman
== END 2021-08-20 17:30 | disposition home or self-care (01) ==
LOC: ED 19:25 → MS2 08-20 17:13
PROVIDERS: Admitting Provider Surgery; Emergency Provider Emergency Medicine; PCP Family Medicine; Visit Provider Surgery
DX: K56.609 Unspecified intestinal obstruction, unspecified as to partial versus complete obstruction (principal); I48.0 Paroxysmal atrial fibrillation; E11.9 Type 2 diabetes mellitus without complications; I10 Essential (primary) hypertension; Z79.84 Long term (current) use of oral hypoglycemic drugs; E78.5 Hyperlipidemia, unspecified; R10.32 Left lower quadrant pain; Z79.82 Long term (current) use of aspirin; Z79.899 Other long term (current) drug therapy; M15.9 Polyosteoarthritis, unspecified; E03.9 Hypothyroidism, unspecified; E66.9 Obesity, unspecified; Z68.36 Body mass index [BMI] 36.0-36.9, adult; G47.33 Obstructive sleep apnea (adult) (pediatric); E87.6 Hypokalemia
CPT/HCPCS: 36415; 74018; 74177; 74250; 80048; 80053; 82962; 83605; 83690; 83735; 85025; 87426; 93005; 94640; 96365; 96366; 96375; 96376; 99218; 99285; J7030; Q9965; A4216; G0378; J2405; J3490

== ENCOUNTER 2021-10-09 12:53 | Outpatient (CLI) | payer MEDICARE, OTHER, SELFPAY ==
--- NOTE | 2021-10-09 12:59 | ECHOD_ITS ---
Reason For Study: Dyspnea/SOB Procedure This was a 2D Doppler, Color Flow transthoracic echocardiogram. Exam performed in department. Left Ventricle Normal LV size. Left ventricular systolic function is normal. The estimated ejection fraction is 65 %. Stage 1 diastolic dysfunction. No regional wall motion abnormalities noted. Right Ventricle Normal RV size. Normal systolic function. Atria Normal left atrium. Normal right atrium. Mitral Valve Normal mitral valve. Tricuspid Valve Normal tricuspid valve. Mild tricuspid valve insufficiency. Pulmonary artery systolic pressure is 34 mmHg. Aortic Valve Normal aortic valve. Trisinus/trileaflet aortic valve. Pulmonic Valve Normal pulmonic valve. Great Vessels Normal aortic root. The pulmonary is not well visualized. Normal inferior vena cava. Pericardium/Pleural No pericardial effusion. MMode/2D Measurements & Calculations LVIDd: 3.5 cm IVSd: 0.94 cm Ao root diam: 2.8 cm LVIDs: 2.3 cm LVPWd: 1.0 cm RVDd: 2.2 cm FS: 33.2 % LAV(MOD-bp): 40.4 ml LVAd ap4: 16.5 cm2 SV(MOD-sp4): 22.6 ml LAV(MOD-bp) Indexed: 21.4 ml/m2 LVLd ap4: 6.8 cm LAV(MOD-sp2): 33.9 ml EDV(MOD-sp4): 33.4 ml LAV(MOD-sp4): 38.4 ml EDV(sp4-el): 33.8 ml LVAs ap4: 8.6 cm2 LVLs ap4: 6.2 cm ESV(MOD-sp4): 10.8 ml ESV(sp4-el): 10.0 ml EF(MOD-sp4): 67.7 % EF(sp4-el): 70.3 % SV(sp4-el): 23.8 ml LA A4 area: 16.5 cm2 LA dimension(2D): 2.4 cm RA A4 area: 13.7 cm2 Doppler Measurements & Calculations MV E max brandan: 67.9 cm/sec Lat Peak E' Brandan: 4.7 cm/sec Med Peak E' Brandan: 5.9 cm/sec MV A max brandan: 125.1 cm/sec E/E' lat: 14.4 E/E' med: 11.6 MV E/A: 0.54 Ao V2 max: 135.2 cm/sec LV V1 max: 133.9 cm/sec PA V2 max: 117.7 cm/sec Ao max P.3 mmHg LV V1 max P.2 mmHg Ao V2 mean: 102.6 cm/sec Ao mean P.5 mmHg Ao V2 VTI: 24.2 cm TR max brandan: 278.7 cm/sec TR max P.1 mmHg ECHO/Echo Complete Interpretation Summary Normal LV size. Left ventricular systolic function is normal. The estimated ejection fraction is 65 %. Normal RV size. Stage 1 diastolic dysfunction. Ordering Physician: Cornell Zaman Referring Physician: Jyoti Mackey Performed By: Farida Hodges, RANJIT, RVT
== END 2021-10-09 23:59 | disposition home or self-care (01) ==
LOC: CVS 12:54
PROVIDERS: PCP Family Medicine; Referring Provider Internal Medicine Cardiovascular Disease; Visit Provider Internal Medicine Cardiovascular Disease
DX: I48.0 Paroxysmal atrial fibrillation (principal); R06.02 Shortness of breath; R06.00 Dyspnea, unspecified
CPT/HCPCS: 93306

== ENCOUNTER 2021-11-07 10:17 | Outpatient (CLI) | payer MEDICARE, OTHER, SELFPAY ==
[2021-11-07 13:01] LABS: AST(SGOT) 16 U/L (15-37); Alanine Aminotransfer ALT/SGPT 29 U/L (13-56); Anion Gap 3 (5-15); BUN 17 mg/dL (7-18); BUN/Creat Ratio 23.1 RATIO (10-20); Calcium,Total 9.6 mg/dL (8.5-10.1); Chloride 104 mmol/L (98-107); Cholesterol 227 mg/dL (200); Creatinine, Serum 0.74 mg/dL (0.55-1.02); EST Glomerular Filtration Rate 80 mL/min (>60); Est Glom Filt Rate - Afr Amer 96 mL/min (>60); Glucose 237 mg/dL (74-106); High Density Lipoprotein 51 mg/dL; Potassium 4.2 mmol/L (3.5-5.1); Sodium Level 136 mmol/L (136-145); Triglycerides 239 mg/dL; Very Low Density Lipoprotein 48 mg/dL (5-40)
[2021-11-07 14:49] LABS: Microalbumin,Random Urine 37.1 mg/L (NO RANGE EST.)
== END 2021-11-07 23:59 | disposition home or self-care (01) ==
LOC: MFPLAB 10:20
PROVIDERS: PCP Family Medicine; Referring Provider Family Medicine; Visit Provider Family Medicine
DX: E11.69 Type 2 diabetes mellitus with other specified complication (principal)
CPT/HCPCS: 36415; 80048; 80061; 82043; 82570; 84450; 84460

== ENCOUNTER → 2022-01-17 | Outpatient (CLI) | payer MEDICARE, OTHER, SELFPAY ==
--- NOTE | 2022-01-17 10:02 | RAD_ITS ---
STUDY: X-RAY - ABDOMEN/PELVIS REASON FOR EXAM: Female, 86 years old. Diffuse abdominal pain TECHNIQUE: 4 AP views COMPARISON: 08/20/2021 FINDINGS: Normal visualized lung bases. There is an unremarkable bowel gas pattern. There is no demonstrated free abdominal air. The visualized liver, spleen and kidneys are grossly normal in size and morphology. Multiple markers again noted from previous bowel motility study. Bony structures show degenerative change. Replaced right hip joint is free of complication. 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 RAD/Abd Decub and/or Erect(Portabl IMPRESSION: No acute findings, no interval change Electronically Signed: Tulio Tucker MD at 15:12 EDT ,
== END | disposition home or self-care (01) ==
LOC: MTRAD 09:59
PROVIDERS: PCP Family Medicine; Referring Provider Family Medicine; Visit Provider Family Medicine
DX: R10.9 Unspecified abdominal pain (principal)
CPT/HCPCS: 74019

== ENCOUNTER → 2022-04-13 | Outpatient (CLI) | payer MEDICARE, OTHER, SELFPAY ==
--- NOTE | 2022-04-13 10:02 | BI_ITS ---
MAMMOGRAPHY - BILATERAL SCREENING REASON FOR EXAM: Female, 86 years old. Routine annual screening examination. PERTINENT HISTORY: Personal history of breast cancer. Prior left lumpectomy. Remote left excisional breast biopsy. TECHNIQUE: Digital bilateral breast sim (3D mammographic acquisition) in the CC and MLO projections. 2-D mediolateral oblique (MLO) and craniocaudad (CC) views of both breasts were obtained. CAD: Full Field Digital Mammography with Computer Added Detection was performed. COMPARISON: Comparison is made with prior study of 04/12/2021 and 04/07/2020. FINDINGS: Breast Composition: The breasts are heterogeneously dense, which may obscure small masses. There are no dominant masses or suspicious calcifications. The patient is status post lumpectomy in the deep central lateral aspect of the left breast. No other significant abnormalities are identified. There has been no significant change since the prior study. BI/SCRN MAMM (CAD)W/SIM BILAT IMPRESSION: Stable bilateral screening mammogram. Yearly follow-up mammogram recommended. (A) ASSESSMENT CATEGORY: BIRADS Category 2: Benign. A letter regarding these results will be sent to the patient by the facility within 30 days. Approximately 10% of breast cancers are not detected by mammography. A normal mammogram should not delay biopsy of a clinically suspicious abnormality. [id number] Electronically Signed: Carlos Morocho MD at 11:22 EDT ,
== END | disposition home or self-care (01) ==
LOC: OPBI 10:01
PROVIDERS: PCP Family Medicine; Visit Provider Surgery
DX: Z12.31 Encounter for screening mammogram for malignant neoplasm of breast (principal)
CPT/HCPCS: 77063; 77067

== ENCOUNTER → 2022-05-11 | Outpatient (CLI) | payer MEDICARE, OTHER, SELFPAY ==
--- NOTE | 2022-05-11 13:41 | CT_ITS ---
STUDY: CT ABDOMEN AND PELVIS WITH CONTRAST REASON FOR EXAM: Female, 86 years old. Chronic lower abdominal pain. History of prior hernia repair with mesh. Prior rest and endometrial carcinoma. RADIATION DOSAGE (If Supplied By Facility): CTDIvol = ( 14.01 ) mGy, DLP = ( 794.18 ) mGycm TECHNIQUE: Transaxial images were obtained from the dome of the diaphragm to the symphysis pubis with oral contrast. Oral and amp; IV Redi-CAT and amp; 100mL Isovue-300 was administered. Sagittal and coronal images were reconstructed. Individualized dose optimization techniques were used for this CT. COMPARISON: Comparison is made with prior study dated 08/18/2019 FINDINGS: Minimal degree of linear scarring at the lung bases. Coronary artery calcification. Stable 1 cm cyst in the dome of the right lobe of the liver medially. Fatty infiltration of the liver. Normal gallbladder and extrahepatic biliary system. Normal spleen. Normal pancreas. Normal bilateral adrenal glands. Punctate calculus in the lower pole calyx of the right kidney. Normal left kidney. Normal visualized stomach. Normal small intestine. There is diverticulosis, with thickening of the colon wall, and pericolonic inflammation changes consistent with acute diverticulitis. No evidence of fluid or abscess collection. There is non-visualization of the appendix. Normal abdominal aorta. Normal inferior vena cava. Normal retroperitoneum. Normal urinary bladder. There is absence of the uterus consistent with a prior hysterectomy. Normal abdominal wall. There are diffuse degenerative changes of the visualized lumbar spine. Loss of the normal lumbar lordosis. Prior right total hip replacement. CT/Abdomen/Pelvis WITH Contrast IMPRESSION: Sigmoid diverticulosis with mild degree of inflammatory changes suggestive of a diverticulitis. No evidence of fluid collection or abscess. Electronically Signed: Carlos Morocho MD at 15:19 EDT ,
[2022-05-11 14:40] LABS: CREATININE FINGERSTICK < 0.9 mg/dL (0.55-1.02); EGFR FINGERSTICK > 60.0000 mL/min (>60)
== END | disposition home or self-care (01) ==
LOC: CT 13:39
PROVIDERS: PCP Family Medicine; Referring Provider Surgery; Visit Provider Surgery
DX: R10.9 Unspecified abdominal pain (principal)
CPT/HCPCS: 74177; Q9967

== ENCOUNTER 2022-06-05 09:35 | Day surgery (SDC) | payer MEDICARE, OTHER, SELFPAY ==
[2022-06-05] MEDS: Lactated Ringers 1,000 ML 15 ML IV (09:55)
--- NOTE | 2022-06-05 10:00 | HP.PCM_ITS ---
History and Physical Date of Admission: 06/05/22 Chief Complaint: yearly breast check, mammogram 04/13 Motion Picture Projectionist Required: No Is patient in pain?: No Allergies Penicillins Allergy (Severe, Verified 05/01/22 14:47) Chest tightnessaspartame Allergy (Verified 05/01/22 14:47) Diarrhearofecoxib Adverse Reaction (Severe, Verified 05/01/22 14:47) Itchingcodeine Adverse Reaction (Mild, Verified 05/01/22 14:47) Nausea/Vomitinghydrocodone [Hydrocodone] Adverse Reaction (Mild, Verified 05/01/22 14:47) Nausea/Vomitingmorphine Adverse Reaction (Mild, Verified 05/01/22 14:47) Nausea/Vomitingoxycodone [Oxycodone] Adverse Reaction (Mild, Verified 05/01/22 14:47) NauseaTAPE Adverse Reaction (Mild, Uncoded 05/01/22 14:47) Itching Medications B6 100 mg-FA 800 mcg-B12 200 mcg-co Q10 100 mg-herbal no.225 tablet 1 ea PO DAILY 09/10/14 [History Confirmed 05/01/22] aspirin 81 mg chewable tablet 81 mg PO QODAY 09/10/14 [History Confirmed 05/01/22] atorvastatin 40 mg tablet 40 mg PO QHS 09/10/14 [History Confirmed 05/01/22] levothyroxine 50 mcg tablet 50 mcg PO DAILY 09/10/14 [History Confirmed 05/01/22] glipizide 2.5 mg tablet, extended release 24 hr 2.5 mg PO DAILY 04/28/19 [History Confirmed 05/01/22] fluticasone propionate 50 mcg/actuation nasal spray,suspension 2 spray intranasal DAILY PRN PRN Allergic Reaction 05/03/20 [History Confirmed 05/01/22] metformin 500 mg tablet,extended release 24 hr 500 mg PO QPM 05/03/20 [History Confirmed 05/01/22] latanoprost 0.005 % eye drops 1 drp ophthalmic (eye) DAILY 05/02/21 [History Confirmed 05/01/22] losartan 50 mg tablet 50 mg PO DAILY edema 11/29/21 [History Confirmed 05/01/22] metoprolol succinate 50 mg tablet,extended release 24 hr 50 mg PO DAILY #90 tabs 02/09/22 [Rx Confirmed 05/01/22] PFSH Medical History?(Updated 05/01/22 @ 14:[address] Rajan Álvarez MD) Breast CA DCIS (ductal carcinoma in situ) Endometrial cancer Essential (primary) hypertension Generalized osteoarthritis Hemorrhoid History of breast cancer History of GI bleed Hyperlipidemia Hypertriglyceridemia Hypothyroidism (acquired) Infection of total knee replacement Obesity Osteoarthritis Paroxysmal atrial fibrillation Paroxysmal atrial tachycardia Premature atrial contractions Sleep apnea Transient atrial fibrillation or flutter Type 2 diabetes mellitus Surgical History? H/O total hysterectomy History of incisional hernia repair History of knee replacement History of lumpectomy of left breast History of right hip replacement Family History? Mother Hypertension Heart disease CVA (cerebral vascular accident) Parkinsons diseaseFather CVA (cerebral vascular accident) Parkinsons diseaseOther COPD (chronic obstructive pulmonary disease) Diabetes Social History? household members:? none Smoking Status:? Never smoker second hand exposure:? No alcohol intake:? never details:? occasional substance use type:? does not use HPI HPI HPI: 86-year-old female.? I most recently seen on April 17, 2021.? 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 She was treated with wire localized lumpectomy and follow-up with and treated with tamoxifen.? She has done well since that time. She was briefly hospitalized August 2021 which was felt to be of small bowel obstruction.? That resolved with conservative management. She has had updated bilateral screening mammography on April 13, 2022 was noted below.? These were felt to be stable.? BI-RADS Category 2. The patient states that whereas previously her bowels had already been regular since August 2021 when she had her small bowel obstruction she has been having ongoing problems with intermittent constipation.? Sounds like she has been written for MiraLAX.? Apparently she also can take dicyclomine if needed.? She states that when she had a small bowel obstruction she had horrible pain.? She states her previous colonoscopy was per Dr. Mark Smalls perhaps 7 years ago.? She still has to adjust her diet in order to get her bowels to work.? The severe abdominal pain that she had with a small bowel obstruction seemingly has resolved but she remains concerned that her bowel function has been altered radically. She has no concerns currently about her breast checks.? She states that she remains quite lumpy particularly on the left April 13, 2022 MAMMOGRAPHY - BILATERAL SCREENING REASON FOR EXAM:? ? Female, 86 years old.? Routine annual screening examination. PERTINENT HISTORY:? Personal history of breast cancer.? Prior left lumpectomy.? Remote left excisional breast biopsy. TECHNIQUE: ? Digital bilateral breast sim (3D mammographic acquisition) in the CC and MLO projections. 2-D mediolateral oblique (MLO) and craniocaudad (CC) views of both breasts were obtained.? CAD: Full Field Digital Mammography with Computer Added Detection was performed. COMPARISON: ? Comparison is made with prior study of 04/12/2021 and 04/07/2020. FINDINGS: Breast Composition:? The breasts are heterogeneously dense, which may obscure small masses. There are no dominant masses or suspicious calcifications.? The patient is status post lumpectomy in the deep central lateral aspect of the left breast. No other significant abnormalities are identified.? There has been no significant change since the prior study. BI/SCRN MAMM (CAD)W/SIM BILAT IMPRESSION: Stable bilateral screening mammogram.? Yearly follow-up mammogram recommended. ? (A) ? ? ASSESSMENT CATEGORY: BIRADS Category 2:? Benign.? A letter regarding these results will be sent to the patient by the facility within 30 days. ? Approximately 10% of breast cancers are not detected by mammography.? A normal mammogram should not delay biopsy of a clinically suspicious abnormality. ? [id number] ? Electronically Signed: Carlos Morocho MD at 11:22 EDT , Exam Const General: cooperative, healthy appearing, comfortable and no acute distress Nutritional Appearance: obese Chest Other: Right breast: No focal mass.? No nipple discharge.? No axillary or clavicular adenopathy Left breast: Well-healed curvilinear incision upper outer left breast.? Soft tissue loss.? Region of postsurgical fibrous tissue.? No tenderness.? No axillary clavicular adenopathy Resp Effort & Inspection: normal respiratory effort Auscultation: clear to auscultation bilaterally GI Other: Soft, slight tenderness left mid abdomen without mass, no rebound or guarding, large. Extrem Other: Bilateral lower extremity nonpitting swelling noted Assessment and Plan Assessment and Plan (1) History of breast cancer: ?Status:?Chronic ?Comment: DCIS (ductal carcinoma in situ) lumpectomy 2007 (2) Constipation: ?Status:?Acute ? ? ? Orders: Orders SCRN MAMM (CAD)W/SIM BILAT 04/13/23 Z12.31 - Encounter for screenin g mammogram for malignant neoplasm of breast, Z85.3 - Personal history of malignant neoplasm of breast ? Plan Details Additional Comments: Regarding the patient's breast check and review of her mammogram everything appears to be stable.? Her DCIS left breast dates back all the way to 2007.? I have no specific concerns and recommend bilateral screening mammograms at 1 year Regarding the patient's small bowel obstruction August 2021 she reports that the severe pain that she was having with that has resolved but that her bowel habits have never returned to normal.? It appears that she has been undergoing various attempts to treat what appears to be a progressive constipation issue.? She has had a history of endometrial carcinoma as well. Her clinical abdominal exam is very challenging secondary to body habitus.? I propose for her consideration that she take her MiraLAX on day 1 and then subsequently on day 2 have a oral contrasted abdominal pelvic CT scan.? I would propose this in a nonemergency pain for acute setting where hopefully improved images could be obtained.? She might be a candidate for the future colonoscopy but it would be nice to Artur's a noninvasive study prior to consider making that recommendation for her. She states that after her last CT scan she made a promise to herself she would not have another 1 but of course that was done in a state of severe pain and emergency nature.? She will consider her treatment options and at this point she will recontact us as to whether she wants to schedule and proceed with that.? Although she does not seem to be having acute recurrent bouts she clearly states that her bowel habits have not returned to normal and that she will have episodes she states in January and then just a couple weeks ago where things will get rough.? She asked about dietary advancement because apparently she has been on a low residue diet for now an extended period of time.? I think the imaging would be helpful. She has had an opportunity to ask and have questions answered.? She will contact us if we can be of further assistance. As noted below her CT scan of May 11, 2022 suggest mild diverticulitis. We will proceed with endoscopic evaluation of the colon. She was treated with a course of ciprofloxacin and metronidazole. Copy: Dr Jyoti Álvarez M.D., F.A.C.S May 11, 2022 STUDY:? CT ABDOMEN AND PELVIS WITH CONTRAST REASON FOR EXAM: ? Female, 86 years old.? Chronic lower abdominal pain. History of prior hernia repair with mesh.? Prior rest and endometrial carcinoma. RADIATION DOSAGE (If Supplied By Facility):? CTDIvol = ( 14.01 ) mGy, DLP = ( 794.18 ) mGycm TECHNIQUE: ? Transaxial images were obtained from the dome of the diaphragm to the symphysis pubis with oral contrast. Oral? and amp; IV Redi-CAT? and amp; 100mL Isovue-300 was administered.? Sagittal and coronal images were reconstructed. Individualized dose optimization techniques were used for this CT. COMPARISON: ? Comparison is made with prior study dated 08/18/2019 FINDINGS: Minimal degree of linear scarring at the lung bases.? Coronary artery calcification. Stable 1 cm cyst in the dome of the right lobe of the liver medially. Fatty infiltration of the liver.? Normal gallbladder and extrahepatic biliary system.? Normal spleen.? Normal pancreas. Normal bilateral adrenal glands. Punctate calculus in the lower pole calyx of the right kidney.? Normal left kidney. Normal visualized stomach.? Normal small intestine.? There is diverticulosis, with thickening of the colon wall,? and pericolonic inflammation changes consistent with acute diverticulitis.? No evidence of fluid or abscess collection.? There is non-visualization of the appendix. Normal abdominal aorta.? Normal inferior vena cava.? Normal retroperitoneum. Normal urinary bladder.? There is absence of the uterus consistent with a prior hysterectomy. Normal abdominal wall.? There are diffuse degenerative changes of the visualized lumbar spine.? Loss of the normal lumbar lordosis.? Prior right total hip replacement. CT/Abdomen/Pelvis WITH Contrast IMPRESSION: Sigmoid diverticulosis with mild degree of inflammatory changes suggestive of a diverticulitis.? No evidence of fluid collection or abscess. ? Electronically Signed: Carlos Morocho MD at 15:19 EDT , History and physical reviewed with changes as noted above Rajan Álvarez M.D., F.A.C.S.
[2022-06-05 10:14] VITALS: BP 100/78; PULSE 107; RESP 18; TEMP 36.7; O2SAT 95; BMI 34.9
--- NOTE | 2022-06-05 10:45 | COLBX_PTH ---
PATIENT: GIAN HUBER LOC: EN U#:[id number] AGE/SX: 87/F ROOM: RE06/05/[address]: Dr. Rajan Álvarez MD : 1935 BED: DIS: 06/05/2022 SPEC #: [id number] RECD: 06/05/22 11:30 STATUS: [place] COKER #: [id number] SPENCER: 06/05/22 10:[address]: Rajan Álvarez DEPT: SURGICAL PATHOLOGY RECD BY: Italia Kirkpatrick ENTERED: 06/05/22 12:46 SP TYPE: COLON BX OTHR DR: Dr. Jyoti Mackey MD Tissues: Cecum, NOS Procedures: Surgery Specimen Level IV HEADER OPERATION: Colonoscopy (MAC), biopsy PRE-OP DIAGNOSIS: History of breast cancer, DCIS, constipation TISSUE SUBMITTED: Cecum polyp biopsy MICROSCOPIC DIAGNOSIS Cecal polyp, biopsy: Fragments of tubular adenoma. AM:megha 06/06/2022 MICROSCOPIC DESCRIPTION Slides are reviewed. GROSS DESCRIPTION Received in fixative is one container labeled with the patient's name and designated cecal polyp. The specimen consists of two irregular fragments of light simon soft tissue that in aggregate measure 0.5 x 0.5 x 0.1 cm. The specimen is totally submitted in one cassette. / AM:megha 06/05/2022 TC:5 CPT: 96920
--- NOTE | 2022-06-05 11:24 | OP.COLON_ITS ---
Patient Name: Valery Martines Procedure Date: 06/05/2022 10:59 AM Date of : 1935 Age: 87 Procedure: Colonoscopy Indications: Abnormal CT of the GI tract Providers: Rajan Álvarez MD Medicines: See the Anesthesia note for documentation of the administered medications Patient Profile: Last Colonoscopy: none. The patient's first colonoscopy is today. Complications: No immediate complications. Procedure: Pre-Anesthesia Assessment: - Prior to the procedure, a History and Physical was performed, and patient medications and allergies were reviewed. The patient's tolerance of previous anesthesia was also reviewed. The risks and benefits of the procedure and the sedation options and risks were discussed with the patient. All questions were answered, and informed consent was obtained. Prior Anticoagulants: The patient has taken no previous anticoagulant or antiplatelet agents. ASA Grade Assessment: II - A patient with mild systemic disease. After reviewing the risks and benefits, the patient was deemed in satisfactory condition to undergo the procedure. After I obtained informed consent, the scope was passed under direct vision. Throughout the procedure, the patient's blood pressure, pulse, and oxygen saturations were monitored continuously. The adult colonoscope was introduced through the anus and advanced to the cecum, identified by appendiceal orifice and ileocecal valve. The colonoscopy was performed without difficulty. The patient tolerated the procedure well. The quality of the bowel preparation was good. The ileocecal valve and the appendiceal orifice were photographed. Scope In: 11:08:56 AM Scope Withdrawal Time 0 hours 6 minutes 41 seconds Scope Out: 11:20:19 AM Total Procedure Duration Time 0 hours 11 minutes 23 seconds Findings: Hemorrhoids were found on perianal exam. A 4 mm polyp was found in the cecum. The polyp was sessile. The polyp was removed with a cold biopsy forceps. Resection and retrieval were complete. Multiple diverticula were found in the entire colon. The exam was otherwise without abnormality. Impression: - Hemorrhoids found on perianal exam. - One 4 mm polyp in the cecum, removed with a cold biopsy forceps. Resected and retrieved. - Diverticulosis in the entire examined colon. - The examination was otherwise normal. Recommendation: - Discharge patient to home. - Resume previous diet. - Continue present medications. - Repeat colonoscopy in 5 years for surveillance based on pathology results. - Telephone my office for pathology results in 1 week. Procedure Code(s): --- Professional --- 35968, Colonoscopy, flexible; with biopsy, single or multiple Diagnosis Code(s): --- Professional --- K64.9, Unspecified hemorrhoids D12.0, Benign neoplasm of cecum K57.30, Diverticulosis of large intestine without perforation or abscess without bleeding R93.3, Abnormal findings on diagnostic imaging of other parts of digestive tract CPT copyright 2017 [employer]. All rights reserved. The codes documented in this report are preliminary and upon field producer review may be revised to meet current compliance requirements. Rajan Álvarez MD 06/05/2022 11:24:12 AM This report has been signed electronically. Number of Addenda: 0 Note Initiated On: 06/05/2022 10:59 AM
[2022-06-05 11:25] VITALS: BP 100/78; BP 97/60; PULSE 92; RESP 16; TEMP 37.8; O2SAT 94
--- NOTE | 2022-06-05 11:25 | OP.CCLET_ITS ---
06/05/2022 Jyoti Mackey [address] [place] [address] Re : Colonoscopy procedure for Valery Martines Dear Dr. Mackey This procedure was performed on Sunday, June 05, 2022. My impressions and recommendations are as follows: Impressions : - Hemorrhoids found on perianal exam. - One 4 mm polyp in the cecum, removed with a cold biopsy forceps. Resected and retrieved. - Diverticulosis in the entire examined colon. - The examination was otherwise normal. Recommendations : - Discharge patient to home. - Resume previous diet. - Continue present medications. - Repeat colonoscopy in 5 years for surveillance based on pathology results. - Telephone my office for pathology results in 1 week. My findings are described in the full procedure note, which is enclosed. If I can be of further assistance, please feel free to contact me at Doctor phone number(s): Work: . Sincerely, Rajan Álvarez MD 06/05/2022 11:24:12 AM This report has been signed electronically.
[2022-06-05 11:30] VITALS: BP 100/78; BP 92/68; PULSE 99; RESP 16; O2SAT 94
[2022-06-05 11:35] VITALS: BP 100/78; BP 94/60; PULSE 93; RESP 89; O2SAT 94
[2022-06-05 11:41] VITALS: BP 100/78; BP 88/62; PULSE 83; RESP 16; TEMP 37.3; O2SAT 92
[2022-06-05 11:54] VITALS: BP 100/78
[2022-06-05 12:00] LABS: Bedside Glucose 215 mg/dL (74-106)
== END 2022-06-05 12:07 | disposition home or self-care (01) ==
LOC: EN 09:39 → AC 09:40
PROVIDERS: PCP Family Medicine; Referring Provider Family Medicine; Visit Provider Surgery
PROC: 0DJD8ZZ Inspection of Lower Intestinal Tract, Via Natural or Artificial Opening Endoscopic (ICD-10-PCS; CPT 45378; principal; 2022-06-05 10:40)
DX: D12.0 Benign neoplasm of cecum (principal); E11.9 Type 2 diabetes mellitus without complications; K57.30 Diverticulosis of large intestine without perforation or abscess without bleeding; K64.9 Unspecified hemorrhoids; G47.30 Sleep apnea, unspecified; E66.9 Obesity, unspecified; E78.00 Pure hypercholesterolemia, unspecified; E03.9 Hypothyroidism, unspecified; I10 Essential (primary) hypertension; Z79.82 Long term (current) use of aspirin; Z79.899 Other long term (current) drug therapy; Z79.84 Long term (current) use of oral hypoglycemic drugs
CPT/HCPCS: 45380; 82962; 88305; J7120; J2405

== ENCOUNTER 2022-06-12 12:51 | Outpatient (CLI) | payer MEDICARE, OTHER, SELFPAY ==
[2022-06-12 13:13] LABS: Absolute Lymphocyte Count 1.53 X10^3/uL (0.83-4.51); Absolute Neutrophil Count 6.6 X10^3/uL (2.0-7.7); Basophil# 0.02 X10^3/uL; Basophil% 0.2 % (0-1); Eosinophil# 0.06 X10^3/uL; Eosinophils% 0.7 % (0-5); Hematocrit 39.6 % (37-47); Hemoglobin 13.2 g/dL (12.0-15.0); Lymphocyte # 1.53 X10^3/ul (0.83-4.51); Lymphocyte % 16.7 % (19-41); Mean Corp Hgb Conc 33.3 g/dL (32-36); Mean Corpuscular Hgb 29.3 pg (27.0-32.0); Mean Platelet Vol. 9.9 fl (6.2-12.0); Monocyte% 9.8 % (0-10); NRBC Flagged by Analyzer 0 % (0-5); Neutrophil # 6.64 X10^3/uL (2.7-7.7); Neutrophil % 72.3 % (47-70); Platelet Count 304 K/mm3 (150-450); RBC Distribution Width CV 13.2 % (11.6-14.6); RBC Distribution Width SD 42.5 fl (35.1-43.9); White Blood Count 9.2 K/mm3 (4.4-11.0)
[2022-06-12 13:24] LABS: Erythrocyte Sedimentation Rate 39 mm/hr (0-30)
[2022-06-12 13:35] LABS: Anion Gap 8 (5-15); BUN 12 mg/dL (7-18); BUN/Creat Ratio 12.5 RATIO (10-20); Calcium,Total 9.3 mg/dL (8.5-10.1); Chloride 100 mmol/L (98-107); Creatinine, Serum 0.96 mg/dL (0.55-1.02); EST Glomerular Filtration Rate 59 mL/min (>60); Est Glom Filt Rate - Afr Amer 71 mL/min (>60); Glucose 163 mg/dL (74-106); Potassium 3.3 mmol/L (3.5-5.1); Sodium Level 138 mmol/L (136-145)
== END 2022-06-12 23:59 | disposition home or self-care (01) ==
LOC: PAVLAB 12:53
PROVIDERS: PCP Family Medicine; Referring Provider Physician Assistant; Visit Provider Physician Assistant
DX: R10.9 Unspecified abdominal pain (principal)
CPT/HCPCS: 36415; 80048; 85025; 85652

== ENCOUNTER 2022-06-13 16:10 | Inpatient (IN) | payer MEDICARE, OTHER, SELFPAY ==
[2022-06-13 16:25] VITALS: BMI 34.7
--- NOTE | 2022-06-13 16:35 | PCM.HP.BLA ---
History and Physical Date of Admission: 06/13/22 Signed Intake Vital Signs ? 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: No Is patient in pain?: No Allergies Penicillins Allergy (Severe, Verified 06/12/22 13:36) Chest tightnessaspartame Allergy (Verified 06/12/22 13:36) Diarrhearofecoxib Adverse Reaction (Severe, Verified 06/12/22 13:36) Itchingadhesive tape [tape] Adverse Reaction (Mild, Verified 06/12/22 13:36) Itchingcodeine Adverse Reaction (Mild, Verified 06/12/22 13:36) Nausea/Vomitinghydrocodone [Hydrocodone] Adverse Reaction (Mild, Verified 06/12/22 13:36) Nausea/Vomitingmorphine Adverse Reaction (Mild, Verified 06/12/22 13:36) Nausea/Vomitingoxycodone [Oxycodone] Adverse Reaction (Mild, Verified 06/12/22 13:36) Nausea Is last menstrual period known: No Post menopausal: Yes Patient : No PFSH Medical History?(Updated 06/11/22 @ 15:38 by Shanell KING, PA-C) Ambulates with [employer] Breast CA Cancer Cardiology follow-up encounter DCIS (ductal carcinoma in situ) Diabetes Endometrial cancer Essential (primary) hypertension Generalized osteoarthritis Hemorrhoid High cholesterol History of breast cancer History of diverticulitis History of echocardiogram History of GI bleed History of stress test Hx of fracture of humerus Hyperlipidemia Hypertriglyceridemia Hypothyroidism (acquired) Infection of total knee replacement Loss of hearing Non-smoker Obesity Osteoarthritis Paroxysmal atrial fibrillation Paroxysmal atrial tachycardia Post-menopausal Premature atrial contractions Sleep apnea Thyroid disease Transient atrial fibrillation or flutter Type 2 diabetes mellitus Wears glasses Wears hearing aid Surgical History?(Updated 05/31/22 @ 13:45 by Lauren Calloway) H/O total hysterectomy History of incisional hernia repair History of knee replacement History of lumpectomy of left breast History of right hip replacement Family History? Mother Hypertension Heart disease CVA (cerebral vascular accident) Parkinsons diseaseFather CVA (cerebral vascular accident) Parkinsons diseaseOther COPD (chronic obstructive pulmonary disease) Diabetes Social History? household members:? none Smoking Status:? Never smoker second hand exposure:? No alcohol intake:? never details:? occasional substance use type:? does not use HPI HPI HPI: Patient is an 87 y/o F I am following for abdominal pain, nausea, vomiting. Patient is s/p colonoscopy on 06/05/22. Dr. Álvarez performed a colonoscopy with polypectomy on 06/05/22. Patient tolerated the procedure well. Patient noted the following day she developed nausea, bloating and gas pains. Patient had contacted our office for diet and medication recommendations. Patient has called multiple times daily since her colonoscopy. Patient has had episodes of vomiting over the last week as well. Patient called into our office on Saturday noting she had vomited over the weekend and continued to have intermittent umbilical pain. She asked for recommendations. I had recommended evaluation in the office and an attempt to try Miralax that day. Patient notes she has a history of constipation and recent episode of acute diverticulitis. Patient also notes she has a history of small bowel obstruction earlier this year and was hospitalized. Patient came into our office for a visit today. She noted having a vomiting episode for 2 hours the night before. She noted having a bowel movement this morning. Patient stated in the office, today was the first day she has not had any pain. She notes she has been passing a small amount of gas. She denies a fever. She notes today is the first day she feels hungry, however is afraid to eat because she does not want the pain to return. She believes she has turned the corner though.? 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 Patient also had labs prior to her appointment. Patient CBC was unremarkable. Normal WBC, Hgb and Hct. Patient's potassium was slightly lowered at 3.3, glucose was elevated. Patient's sed rate was slightly elevated at 39. Patient continued to not improve and contacted our office. She was scheduled for an IV fluid infusion to assist with potential dehydration. Patient was then also scheduled for a CT scan of the abdomen/pelvis to evaluate her symptoms further. CT scan demonstrated a small bowel obstruction. ROS ROS Narrative Admission Review of Systems: CONSTITUTIONAL: No weight loss, fever, chills, + weakness or fatigue. HEENT: Eyes: No visual loss, blurred vision, double vision or yellow sclerae. Ears, Nose, Throat: No hearing loss, sneezing, congestion, runny nose or sore throat. SKIN: No rash or itching, lesions, wounds. CARDIOVASCULAR: No chest pain, chest pressure or chest discomfort, palpitations, edema, orthopnea, syncopal events. RESPIRATORY: No shortness of breath, cough or sputum, wheezing, hemoptysis. GASTROINTESTINAL: + anorexia, nausea, vomiting, abdominal pain, No diarrhea, melena, BRBPR. GENITOURINARY: No dysuria, frequency, urgency or retention. NEUROLOGICAL: No headache, dizziness, syncope, paralysis, ataxia, numbness or tingling in the extremities, focal weakness, change in bowel or bladder control, seizure. MUSCULOSKELETAL: + muscle, back pain, joint pain or stiffness. HEMATOLOGIC: No anemia, bleeding or bruising. LYMPHATICS: No enlarged nodes. No history of splenectomy. PSYCHIATRIC: No history of depression or anxiety. ENDOCRINOLOGIC: No reports of sweating, cold or heat intolerance. No polyuria or polydipsia. ALLERGIES: No history of asthma, hives, eczema or rhinitis. Exam Const General: cooperative, healthy appearing, comfortable and no acute distress HENNH Head: normal to inspection Eyes General: appearance normal, both eyes and all related structures Neck Neck: normal visual inspection Neck mass: No Resp Effort & Inspection: normal respiratory effort GI Inspection: normal to inspection, large pannus and obesity Palpation: distended, tender generalized Auscultation: hypoactive bowel sounds Skin General: no rashes or lesions noted Neuro General: no focal motor deficits Extrem General: normal to inspection Psych Appearance: grossly normal Affect: normal affect Assessment & Plan Assessment/Plan (1) Small bowel obstruction: PLAN: Plan Dr. Álvarez has also evaluated this patient. Recommend direct admission to the hospital from CT scan. Plan for IV hydration, bowel rest and NG tube placement. Plan for a gastrograffin small bowel follow-through tomorrow if patient has improved. Patient has had the opportunity to ask and have questions answered. Patient verbally understands and agrees with the plan. Charges/Coding Visit Charges Inpatient E&M: 98919 Init Hosp L2
[2022-06-13] MEDS: Lactated Ringers 1,000 ML 125 ML IV (16:36)
[2022-06-13] MEDS: Oxymetazoline 0.05% 1 SPRAY SPRAY.BTL 2 SPRAY NASAL (16:36)
[2022-06-13] MEDS: Ondansetron 4 MG/2 ML Vial IV (16:37)
[2022-06-13 17:00] VITALS: BP 128/86; PULSE 86; RESP 20; TEMP 36.6
--- NOTE | 2022-06-13 17:28 | RAD_ITS ---
EXAM: XR ABDOMEN, 1 VIEW CLINICAL INDICATION: NG placement TECHNIQUE: Frontal supine view of the abdomen/pelvis. This report was created using [employer] report generation technology. COMPARISON: None. FINDINGS: LOWER THORAX: No acute pathology. GASTROINTESTINAL TRACT: Unremarkable. Non-obstructive. No bowel or stomach distention. ORGANS: Unremarkable as visualized. No organomegaly. No abnormal calcifications. BONES/JOINTS: Degenerative findings in the lumbar spine. SOFT TISSUES: No acute pathology. TUBES, LINES AND DEVICES: There is a feeding tube/ nasogastric tube noted. The tip is in the region of the stomach. RAD/Abdomen Single View (Portable) IMPRESSION: There is a feeding tube/ nasogastric tube noted. The tip is in the region of the stomach. Electronically Signed: Fareed Angulo MD at 18:51 EST ,
[2022-06-13 18:41] LABS: Absolute Lymphocyte Count 0.86 X10^3/uL (0.83-4.51); Absolute Neutrophil Count 6.6 X10^3/uL (2.0-7.7); Basophil# 0.02 X10^3/uL; Basophil% 0.2 % (0-1); Eosinophil# 0.03 X10^3/uL; Eosinophils% 0.4 % (0-5); Hematocrit 43.5 % (37-47); Hemoglobin 14.1 g/dL (12.0-15.0); Lymphocyte # 0.86 X10^3/ul (0.83-4.51); Lymphocyte % 10.4 % (19-41); Mean Corp Hgb Conc 32.4 g/dL (32-36); Mean Corpuscular Hgb 28.7 pg (27.0-32.0); Mean Corpuscular Volume 88.6 fL (81-99); Mean Platelet Vol. 10.1 fl (6.2-12.0); Monocyte# 0.78 X10^3/uL; Monocyte% 9.4 % (0-10); NRBC Flagged by Analyzer 0 % (0-5); Neutrophil # 6.56 X10^3/uL (2.7-7.7); Neutrophil % 79.2 % (47-70); Platelet Count 305 K/mm3 (150-450); RBC Distribution Width CV 13.2 % (11.6-14.6); RBC Distribution Width SD 43.2 fl (35.1-43.9); Red Blood Count 4.91 M/mm3 (4.2-5.4); White Blood Count 8.3 K/mm3 (4.4-11.0)
[2022-06-13 19:30] LABS: ALB/GLOB Ratio 0.9 RATIO (0.9-2.4); AST(SGOT) 19 U/L (15-37); Alanine Aminotransfer ALT/SGPT 23 U/L (13-56); Albumin, Serum 3.4 g/dL (3.2-5.0); Alkaline Phosphatase 99 U/L (45-117); Anion Gap 7 (5-15); BUN 11 mg/dL (7-18); BUN/Creat Ratio 14.4 RATIO (10-20); Calcium,Total 9.4 mg/dL (8.5-10.1); Chloride 102 mmol/L (98-107); Creatinine, Serum 0.76 mg/dL (0.55-1.02); EST Glomerular Filtration Rate 76 mL/min (>60); Est Glom Filt Rate - Afr Amer 93 mL/min (>60); Estimated Creatinine Clearance 31.94 ml/min; Globulin 3.8 g/dL (2.2-4.2); Glucose 150 mg/dL (74-106); Potassium 3.6 mmol/L (3.5-5.1); Protein, Total 7.2 g/dL (6.4-8.2); Sodium Level 138 mmol/L (136-145)
[2022-06-13 21:46] VITALS: BP 137/84; PULSE 87; RESP 18; TEMP 36.7; O2SAT 95
[2022-06-14] MEDS: Lactated Ringers 1,000 ML 125 ML IV (00:27)
[2022-06-14 00:51] LABS: Bedside Glucose 123 mg/dL (74-106)
[2022-06-14 00:51] LABS: Bedside Glucose 138 mg/dL (74-106)
[2022-06-14 04:25] VITALS: BP 133/76; PULSE 100; RESP 18; TEMP 36.7; O2SAT 93
[2022-06-14] MEDS: BENZOCAINE/MENTHOL 1 LOZENGE MUCOUS MEM ×4 (04:31→20:56)
--- NOTE | 2022-06-14 07:05 | PCM.PN.SRG ---
Subjective Subjective Patient is feeling some better. She initially states that she did not move her bowels yesterday but nursing reports suggest that she did and then she did remember that she had some looser stool. She is not currently in pain. Objective Data Objective Data Vital Signs: Vital Signs Temp Pulse Resp BP Pulse Ox O2 Del Method 98.0 F 100 18 133/76 H 93 Room Air 06/14/22 04:25 06/14/22 04:25 06/14/22 04:25 06/14/22 04:25 06/14/22 04:25 06/14/22 04:25 Oxygen Delivery Method Room Air Weight: 190 lb Body Mass Index (BMI) 34.7 Intake & Output: Intake and Output for Last 24 Hours 06/12/22 06/13/22 06/14/22 23:59 23:59 23:59 Intake Total 981.25 / 981.25 Balance 981.25 / 981.25 Lab / Micro Data Result Diagrams: 06/13/22 18:15 06/13/22 18:15 Labs: Laboratory Results - last 24 hr 06/13/22 18:15: WBC 8.3, RBC 4.91, Hgb 14.1, Hct 43.5, MCV 88.6, MCH 28.7, MCHC 32.4, RDW Std Deviation 43.2, RDW Coeff of Juan 13.2, Plt Count 305, MPV 10.1, Immature Gran % (Auto) 0.400, Neut % (Auto) 79.2 H, Lymph % (Auto) 10.4 L, Falls % (Auto) 9.4, Eos % (Auto) 0.4, Baso % (Auto) 0.2, Absolute Neuts (auto) 6.6, Absolute Lymphs (auto) 0.86, Nucleated RBC % 0 06/13/22 18:15: Sodium 138, Potassium 3.6, Chloride 102, Carbon Dioxide 29.0, Anion Gap 7, BUN 11, Creatinine 0.76, Estim Creat Clear Calc 31.94, Est GFR (MDRD) Af Amer 93, Est GFR (MDRD) Non-Af 76, BUN/Creatinine Ratio 14.4, Glucose 150 H, Calcium 9.4, Total Bilirubin 0.50, AST 19, ALT 23, Alkaline Phosphatase 99, Total Protein 7.2, Albumin 3.4, Globulin 3.8, Albumin/Globulin Ratio 0.9 06/13/22 22:01: POC Glucose 138 H 06/14/22 00:30: POC Glucose 123 H Radiography Diagnostic Testing: Radiology Impression KUB X-Ray 06/13/22 17:28 IMPRESSION: There is a feeding tube/ nasogastric tube noted. The tip is in the region of the stomach. Electronically Signed: Fareed Angulo MD at 18:51 EST , Physical Exam GI GI Narrative: Abdomen is distended, slightly soft, bowel sounds are present though with tinkles and rushes, well-healed infraumbilical midline incision Assessment & Plan Assessment/Plan (1) Small bowel obstruction: PLAN: Recurrent small bowel obstruction. This may actually be how the patient presented with her complaints of constipation though perhaps she already had a partial obstruction of small bowel at that time. Her recent colonoscopy was not remarkable. Repeat laboratory unremarkable. She is not demonstrating any signs of acute peritonitis or an acute surgical abdomen Unfortunately she has not been out of bed since her admission. I have vigorously encouraged her to ambulate with assistance in the halls. NG tube is in place but not draining excessive material. We will proceed with a Gastrografin small bowel follow-through today. I have encouraged her at this point I continue to recommend and anticipate nonoperative conservative matters and resolution of this problem. She had a similar issue August 2021 and responded with nonoperative care. She has had an opportunity to ask and have questions answered. We will pursue as noted. Rajan Álvarez M.D., F.A.C.S.
[2022-06-14 07:20] LABS: Bedside Glucose 109 mg/dL (74-106)
--- NOTE | 2022-06-14 08:05 | RAD_ITS ---
STUDY: GASTROGRAFIN SMALL BOWEL FOLLOW-THROUGH EXAMINATION. REASON FOR EXAM: Female, 87 years old. Small bowel obstruction/ Gastrografin per NGT -- Gastrografin for SBO TECHNIQUE: 120 mL of GASTROGRAFIN was injected into the indwelling nasogastric tube. A GASTROGRAFIN small bowel follow-through examination was then performed. COMPARISON: None. FINDINGS: On the solar sales specialist image, there is a mild degree of small bowel dilatation. Gas is seen in the colon. There is evidence of a multilevel degenerative changes of the lumbar spine. There is transit of the GASTROGRAFIN through the small bowel loops. At 75 minutes, contrast is seen within the right hemicolon. RAD/Small Bowel Series Only IMPRESSION: GASTROGRAFIN is seen within the right; at 75 minutes following the introduction of the GASTROGRAFIN. Electronically Signed: Carlos Morocho MD at 10:00 EST ,
--- NOTE | 2022-06-14 11:15 | CASEMGMT ---
RN CM Face to Face with patient for initial transition planning/care coordination assessment. RN CM introduced self and role at [facility]. Patient lying in bed, alert and oriented. Patient willing to participate in assessment and is able to answer all questions appropriately. Care providers, pharmacy, and demographics verified. Patient wishes to discharge home, denies need for home health at this time. Patient states she has no further needs or concerns at this time. CM to follow for discharge planning needs that may arise. PCP: Narendra Specialists: Junie, sole stapler welt; Henri, surgeon Preferred Pharmacy: [facility] Pres[facility] Benef[facility]: yes Living Will/HPOA: yes, Shanice Hernandez LNOK: Niece Living Arrangements: Patient lives alone in a 2 story condo. Patient states she is independent and able ambulate. Transportation: self, niece DME/HHC: Patient has shower chair, raised toilet, cane, walker, grab bars. Patient has had [facility] HHC in past. Patient has been to TCU in the past. Disposition Plan: Patient to discharge home with family support and follow-up plans in place. Chanel THRASHER, RN, CM
[2022-06-14 11:33] VITALS: BP 117/73; PULSE 94; RESP 18; TEMP 36.4; O2SAT 95
[2022-06-14] MEDS: Lactated Ringers 1,000 ML 100 ML IV ×2 (11:39→21:38)
[2022-06-14 12:11] LABS: Bedside Glucose 115 mg/dL (74-106)
--- NOTE | 2022-06-14 12:55 | CHAPLAIN ---
Type of Pastoral Visit _x__ Initial Visit ___ Follow-up Visit ___ On-call Visit ___ General Patient Visit ___ Spiritual Assessment ___ Family Conference ___ Bereavement ___ Rapid Response ___ Code Blue ___ Other (describe below) Pastoral Care Referral From _x__ Patient ___ Family ___ Nurse ___ Physician ___ Steel Pourer Helper ___ Community Service Director ___ Other (describe below) Sacrament/Intervention _x__ Active listening ___ Anointing ___ Zoroastrian ___ Bereavement ___ Communion ___ Marcela exploration ___ _x__ Life review _x__ Prayer ___ Reconciliation ___ Sacrament of Sick _x__ Supportive presence ___ Wedding ___ Other (describe below) Pastoral Comments patient is welcoming, explains her situation, and gives life review; pt would like to be healthy and continue with her routine; pt admits that many of her friend are now gone; pt has very limited family support in this country; pt is involved in a local christian; prayer requests future visits if possible; pt welcomes prayer and presence for support
[2022-06-14 14:39] VITALS: BP 139/74; PULSE 80; RESP 18; TEMP 36.5; O2SAT 95
--- NOTE | 2022-06-14 16:11 | DCINST_ITS ---
Discharge Instructions Diet Discharge Diet: Light diet - advance as tolerated Activity Discharge Activity: Return to Normal Activity May shower in (days): 1 Follow Up Care Please Follow Up With: Rajan Álvarez MD When: Please follow-up please in approximately 10 days. [phone] Test Results: Test results from this visit will be discussed in further detail at your follow- up appointment, if applicable. Discharge Plan Admission Admit Date/Time: 06/13/22 16:10 Primary Reason for Your Visit: Partial small bowel obstruction Attending Provider: Rajan Álvarez Primary Care Provider: Jyoti Mackey Consulting Providers: Divya Gonzales ; Kishor Goodwin ; Rashmi Mcfarland ; Gustavo Jacinto ; Jose Roberto Bonilla ; Rodger Montano ; Ramirez Rojas ; Dolores Lopez NP ; Keenan Altamirano ; Keysha Hunter Discharge Orders/Prescriptions Prescriptions: New omeprazole 20 mg capsule,delayed release(DR/EC) 20 mg PO DAILY Qty: 30 0RF Continued glipizide 2.5 mg tablet extended release 24hr 2.5 mg PO DAILY metformin 500 mg tablet extended release 24 hr 500 mg PO QHS latanoprost 0.005 % drops 1 drp ophthalmic (eye) QHS levothyroxine 50 MCG tablet 50 mcg PO DAILY Label Comments: thyroid atorvastatin 40 MG tablet 40 mg PO QHS Label Comments: cholesterol aspirin 81 MG tablet,chewable 81 mg PO QODAY Label Comments: for heart, per pt usually takes every other day, last taken about a week ago and can go back on the meds now fluticasone propionate 50 mcg/actuation spray,suspension 2 spray INTRANASAL DAILY PRN PRN (Reason: Allergic Reaction) Label Comments: nasal dryness losartan 50 mg tablet See Rx Instructions .ROUTE .COMPLEX Rx Instructions: TAKE 1 TABLET EVERY DAY metoprolol succinate 50 mg tablet extended release 24 hr 50 mg PO DAILY Referrals / Follow Up: Jyoti Mackey MD [Primary Care Provider] - Disposition Disposition (needs filled in before D/C Order can be placed): [facility]
[2022-06-14 18:31] LABS: Bedside Glucose 114 mg/dL (74-106)
[2022-06-14 21:33] VITALS: BP 134/83; PULSE 74; RESP 18; TEMP 36.8; O2SAT 95
[2022-06-14] MEDS: Latanoprost 0.005% 1 Bottle 1 DRP OPHTHALMIC (21:36)
[2022-06-15] MEDS: BENZOCAINE/MENTHOL 1 LOZENGE MUCOUS MEM ×2 (00:04→03:51)
[2022-06-15 00:26] LABS: Bedside Glucose 97 mg/dL (74-106)
[2022-06-15 03:44] VITALS: BP 138/80; PULSE 77; RESP 18; TEMP 36.8; O2SAT 95
--- NOTE | 2022-06-15 05:56 | PCM.PN.SRG ---
Subjective Subjective Patient has had copious liquid stools. Stools have turned dark. Objective Data Objective Data Vital Signs: Vital Signs Temp Pulse Resp BP Pulse Ox O2 Del Method 98.2 F 77 18 138/80 H 95 Room Air 06/15/22 03:44 06/15/22 03:44 06/15/22 03:44 06/15/22 03:44 06/15/22 03:44 06/15/22 03:44 Oxygen Delivery Method Room Air Weight: 190 lb 0.016 oz Body Mass Index (BMI) 34.7 Intake & Output: Intake and Output for Last 24 Hours 06/13/22 06/14/22 06/15/22 23:59 23:59 23:59 Intake Total 3052.08 / 3052.08 30 Output Total 575 / 575 520 / 520 Balance 2477.08 / 2477.08 -490 / -490 Lab / Micro Data Result Diagrams: 06/13/22 18:15 06/13/22 18:15 Labs: Laboratory Results - last 24 hr 06/14/22 06:17: POC Glucose 109 H 06/14/22 11:38: POC Glucose 115 H 06/14/22 17:14: POC Glucose 114 H 06/15/22 00:03: POC Glucose 97 Radiography Diagnostic Testing: Radiology Impression Small Bowel X-Ray 06/14/22 08:05 IMPRESSION: GASTROGRAFIN is seen within the right; at 75 minutes following the introduction of the GASTROGRAFIN. Electronically Signed: Carlos Morocho MD at 10:00 EST , Physical Exam Narrative Patient appears to be alert. She is in no acute distress. She is sitting on the commode. She states that she has been there multiple times due to profuse diarrhea. GI GI Narrative: Abdomen is distended, nontender, bowel sounds present but nonspecific Assessment & Plan Assessment/Plan (1) Gastritis: PLAN: I suspect a degree of stress gastritis aggravated by the NG tube. She has been taking in significant amount of sips and chips of ice. I believe that this is the source of the suddenly increased NG tube output. She is not currently complaining of nausea. I requested an hour ago for her to be initiated on a proton pump inhibitor. I believe we need to expedite that medication. The patient is complaining of dark stools. I recommend removing the NG tube. I will keep the patient's on sips and chips due to her ongoing middling concerns about transient waves of nausea. I have vigorously encouraged ambulation. This will assist with her bowel function and clearly with her having dark-colored stools I would not want to start her on a pharmacologic DVT prophylaxis. Will reassess later today as to whether she can be initiated on clear liquids. It is quite clear that mobility and ambulation will be knight to her resolution. Rajan Álvarez M.D., F.A.C.S.
[2022-06-15] MEDS: Lactated Ringers 1,000 ML 100 ML IV (06:07)
[2022-06-15 07:10] LABS: Bedside Glucose 133 mg/dL (74-106)
[2022-06-15 09:40] VITALS: BP 138/84; PULSE 82; RESP 16; TEMP 36.6; O2SAT 97
[2022-06-15 12:01] LABS: Bedside Glucose 100 mg/dL (74-106)
[2022-06-15] MEDS: Losartan Potassium 50 MG Tablet PO (13:21)
[2022-06-15 13:22] VITALS: PULSE 92
[2022-06-15] MEDS: Levothyroxine 50 MCG Tablet PO (13:22)
[2022-06-15] MEDS: Metoprolol(XL)Succ 50 MG Tablet PO (13:22)
--- NOTE | 2022-06-15 15:25 | PCM.PN.SRG ---
Subjective Subjective Patient continues to do well. She is so much more comfortable now that the NG tube is been removed. She states that whereas earlier today she was passing copious amounts of dark stool that that is significantly lessened and improved. She is denying current abdominal pain. She is tolerating clear liquids. Objective Data Objective Data Vital Signs: Vital Signs Temp Pulse Resp BP Pulse Ox O2 Del Method 97.9 F 92 16 138/84 H 97 Room Air 06/15/22 09:40 06/15/22 13:22 06/15/22 09:40 06/15/22 09:40 06/15/22 09:40 06/15/22 09:40 Oxygen Delivery Method Room Air Weight: 190 lb 0.016 oz Body Mass Index (BMI) 34.7 Intake & Output: Intake and Output for Last 24 Hours 06/13/22 06/14/22 06/15/22 23:59 23:59 23:59 Intake Total 3052.08 / 3052.08 988.33 / 988.33 Output Total 575 / 575 520 / 520 Balance 2477.08 / 2477.08 468.33 / 468.33 Lab / Micro Data Result Diagrams: 06/13/22 18:15 06/13/22 18:15 Labs: Laboratory Results - last 24 hr 06/14/22 17:14: POC Glucose 114 H 06/15/22 00:03: POC Glucose 97 06/15/22 06:15: POC Glucose 133 H 06/15/22 11:37: POC Glucose 100 Physical Exam GI GI Narrative: Quite soft, nontender, bowel sounds present unremarkable Assessment & Plan Assessment/Plan (1) Gastritis: (2) Small bowel obstruction: PLAN: Plan I am pleased with the patient's progress. We will reduce IV fluids and advance diet as tolerated. Anticipate rechecking the patient tomorrow morning. I dissipate outpatient treatment with omeprazole and a prescription has been sent to [facility] pharmacy of her choice. Rajan Álvarez M.D., F.A.C.S.
[2022-06-15 15:40] VITALS: BP 140/78; PULSE 91; RESP 14; TEMP 36.8; O2SAT 98
--- NOTE | 2022-06-15 16:13 | CASEMGMT ---
ANGELITA POLLARD NOTE: To room to discuss discharge planning. Pt states she is independent @ home. She lives in a 2-story condo and states does well w/the stairs. Bathroom upstairs and 1/2 bath on main floor. Has a cane for both floors and has a walker available @ home as well. Pt denies need for therapy while @ [facility] and denies need for HHC or OP therapy @ discharge. She is aware, if she would decide later she is interested in OP therapy, to discuss options w/PCP. She voices understanding. She denies having any discharge planning needs or concerns. Shannen THRASHER RN, CM
[2022-06-15] MEDS: Insulin Lispro 100 UNIT/ML INSULN.PEN SC (16:35)
[2022-06-15 16:51] LABS: Bedside Glucose 172 mg/dL (74-106)
[2022-06-15] MEDS: Atorvastatin Calcium 40 MG Tablet PO (21:33)
[2022-06-15] MEDS: Latanoprost 0.005% 1 Bottle 1 DRP OPHTHALMIC (21:33)
[2022-06-15 21:36] VITALS: BP 100/61; PULSE 72; RESP 16; TEMP 36.7; O2SAT 98
[2022-06-15 22:35] LABS: Bedside Glucose 148 mg/dL (74-106)
[2022-06-16 03:40] VITALS: BP 110/70; PULSE 89; RESP 16; TEMP 36.6; O2SAT 97
--- NOTE | 2022-06-16 06:45 | PCM.PN.SRG ---
Subjective Subjective Patient is actually feeling quite well. She is hungry this morning and looking forward to breakfast. She does have some concerns regarding the darker stools.She is not currently on her routine aspirin therapy and I concur that we will not restart that at this setting. Objective Data Objective Data Vital Signs: Vital Signs Temp Pulse Resp BP Pulse Ox O2 Del Method 97.9 F 89 16 110/70 97 Room Air 06/16/22 03:40 06/16/22 03:40 06/16/22 03:40 06/16/22 03:40 06/16/22 03:40 06/16/22 04:32 Oxygen Delivery Method Room Air Weight: 190 lb 0.016 oz Body Mass Index (BMI) 34.7 Intake & Output: Intake and Output for Last 24 Hours 06/14/22 06/15/22 06/16/22 23:59 23:59 23:59 Intake Total 3052.08 / 3052.08 2413.58 / 2413.58 Output Total 575 / 575 520 / 520 Balance 2477.08 / 2477.08 1893.58 / 1893.58 Lab / Micro Data Result Diagrams: 06/13/22 18:15 06/13/22 18:15 Labs: Laboratory Results - last 24 hr 06/15/22 06:15: POC Glucose 133 H 06/15/22 11:37: POC Glucose 100 06/15/22 16:28: POC Glucose 172 H 06/15/22 21:25: POC Glucose 148 H Physical Exam Const oriented x3 Resp normal respiratory effort Cardio regular rate and regular rhythm GI GI Narrative: Soft, slightly distended, absolutely nontender, bowel sounds present Assessment & Plan Assessment/Plan (1) Small bowel obstruction: PLAN: The patient will gradually advance her diet. I suspect that she has a stress gastritis from the bowel obstruction which was then aggravated by the NG tube. She did not respond well after her endoscopic colonoscopy with then reestablishment of partial small bowel obstruction. I am very much hoping that she will resolve with conservative measures. I would prefer not subjecting her to another procedure like a esophagogastroduodenoscopy if this can be avoided. The EGD might have the adverse consequence of once again setting her back. Her diet is being advanced. She is continue to work with nursing staff and mobilizing. I will check a CBC this morning. I will recheck in on the patient via nursing staff this afternoon. Pending her progress we may be able to discharge her later today or she could still require observation. She is on IV Protonix. I will add oral Carafate. I will additionally trim her IV fluids. Rajan Álvarez M.D., F.A.C.S.
[2022-06-16] MEDS: Levothyroxine 50 MCG Tablet PO (06:47)
[2022-06-16 07:16] LABS: Bedside Glucose 161 mg/dL (74-106)
[2022-06-16] MEDS: Insulin Lispro 100 UNIT/ML INSULN.PEN SC ×2 (07:41→12:35)
[2022-06-16] MEDS: Sucralfate 1 GM Tablet PO ×3 (07:41→16:04)
[2022-06-16 08:19] LABS: Absolute Lymphocyte Count 1.17 X10^3/uL (0.83-4.51); Absolute Neutrophil Count 8.3 X10^3/uL (2.0-7.7); Basophil# 0.03 X10^3/uL; Basophil% 0.3 % (0-1); Eosinophil# 0.17 X10^3/uL; Eosinophils% 1.6 % (0-5); Hematocrit 37.5 % (37-47); Hemoglobin 12.6 g/dL (12.0-15.0); Lymphocyte # 1.17 X10^3/ul (0.83-4.51); Lymphocyte % 11.2 % (19-41); Mean Corp Hgb Conc 33.6 g/dL (32-36); Mean Corpuscular Volume 89.3 fL (81-99); Monocyte# 0.77 X10^3/uL; Monocyte% 7.4 % (0-10); NRBC Flagged by Analyzer 0 % (0-5); Neutrophil # 8.26 X10^3/uL (2.7-7.7); Neutrophil % 78.8 % (47-70); Platelet Count 259 K/mm3 (150-450); RBC Distribution Width CV 13.3 % (11.6-14.6); RBC Distribution Width SD 43.5 fl (35.1-43.9); White Blood Count 10.5 K/mm3 (4.4-11.0)
[2022-06-16 10:00] VITALS: BP 133/84; PULSE 87; RESP 16; TEMP 37.2; O2SAT 97
[2022-06-16 10:07] VITALS: BP 133/84; PULSE 87
[2022-06-16] MEDS: Metoprolol(XL)Succ 50 MG Tablet PO (10:07)
[2022-06-16] MEDS: Losartan Potassium 50 MG Tablet PO (10:07)
[2022-06-16] MEDS: Lactated Ringers 1,000 ML 30 ML IV (12:35)
[2022-06-16 12:56] LABS: Bedside Glucose 207 mg/dL (74-106)
[2022-06-16] MEDS: Ondansetron 4 MG/2 ML Vial IV ×2 (15:06→22:42)
[2022-06-16] MEDS: 0.9% Saline Lock 10 ML Syringe IV ×2 (15:07→22:42)
[2022-06-16 16:00] VITALS: BP 147/99; PULSE 87; RESP 18; TEMP 36.6; O2SAT 97
[2022-06-16] MEDS: Acetaminophen 500 MG Tablet PO (16:03)
[2022-06-16 16:36] LABS: Bedside Glucose 149 mg/dL (74-106)
--- NOTE | 2022-06-16 18:25 | NURSING ---
Patient has c/o nausea and bloating/pain. Zofran and Tylenol given. Patient is passing gas and belching, has ambulated in the halls today. Abdomen soft to palpitation. Pt stated to this RN that she would not want a new NG tube placed if it came to that, wanting to back off on diet and eat clear liquids tonight/ tomorow AM.
[2022-06-16] MEDS: Latanoprost 0.005% 1 Bottle 1 DRP OPHTHALMIC (19:48)
[2022-06-16 20:35] VITALS: BP 154/98; PULSE 88; RESP 18; TEMP 36.6; O2SAT 96
[2022-06-16 21:56] LABS: Bedside Glucose 253 mg/dL (74-106)
[2022-06-17] VITALS (9 sets, daily range): BP systolic 117–146; BP diastolic 70–99; PULSE 72–108; RESP 16–20; TEMP 36.6–37.3; O2SAT 92–94
[2022-06-17] MEDS: proCHLORPERazine 10 MG/2 ML Vial IV (00:24)
[2022-06-17] MEDS: 0.9% Saline Lock 10 ML Syringe IV ×7 (00:24→21:32)
[2022-06-17] MEDS: Ondansetron 4 MG/2 ML Vial IV (04:21)
--- NOTE | 2022-06-17 05:10 | NURSING ---
pt updated no farther medications to provide at this time, can place NG. pt refuses NG placement at this time. pt provided with new emesis bag. bed alarm delivery professional light within reach. will monitor.
[2022-06-17] MEDS: Insulin Lispro 100 UNIT/ML INSULN.PEN SC ×3 (06:21→21:32)
[2022-06-17 06:46] LABS: Bedside Glucose 174 mg/dL (74-106)
--- NOTE | 2022-06-17 07:23 | PN.SURG_ITS ---
Subjective Subjective Although the patient was doing very well yesterday. Saw her in the morning her abdomen was completely soft decompressed she had no nausea she had tolerated clear liquids with ease. Her diet was advanced and by later in the afternoon had recurrent onset of intractable nausea vomiting abdominal cramping. She has not had any stool since yesterday morning. She states that she has vomited multiple times too numerous to count overnight. Objective Data Objective Data Vital Signs: Vital Signs Temp Pulse Resp BP Pulse Ox O2 Del Method 97.9 F 72 18 146/99 H 93 Room Air 06/17/22 02:50 06/17/22 02:50 06/17/22 02:50 06/17/22 02:50 06/17/22 02:50 06/17/22 02:57 Oxygen Delivery Method Room Air Weight: 190 lb 0.016 oz Body Mass Index (BMI) 34.7 Intake & Output: Intake and Output for Last 24 Hours 06/15/22 06/16/22 06/17/22 23:59 23:59 23:59 Intake Total 2413.58 / 2413.58 864.75 / 889.75 75 / 75 Output Total 520 / 520 950 / 950 Balance 1893.58 / 1893.58 864.75 / 289.75 -875 / -875 Lab / Micro Data Result Diagrams: 06/16/22 08:13 06/13/22 18:15 Labs: Laboratory Results - last 24 hr 06/16/22 08:13: WBC 10.5, RBC 4.20, Hgb 12.6, Hct 37.5, MCV 89.3, MCH 30.0, MCHC 33.6, RDW Std Deviation 43.5, RDW Coeff of Juan 13.3, Plt Count 259, MPV 10.0, Immature Gran % (Auto) 0.700, Neut % (Auto) 78.8 H, Lymph % (Auto) 11.2 L, [place] % (Auto) 7.4, Eos % (Auto) 1.6, Baso % (Auto) 0.3, Absolute Neuts (auto) 8.3 H, Absolute Lymphs (auto) 1.17, Nucleated RBC % 0 06/16/22 12:34: POC Glucose 207 H 06/16/22 16:01: POC Glucose 149 H 06/16/22 19:51: POC Glucose 253 H 06/17/22 06:20: POC Glucose 174 H Physical Exam Narrative Patient looks fatigue, whereas yesterday she was bright and cheery today she appears worn down Resp normal respiratory effort GI GI Narrative: Abdomen is more distended, bowel sounds and frequent, no focal tenderness Assessment & Plan Assessment/Plan (1) Small bowel obstruction: (2) Nausea & vomiting: PLAN: Plan It appears that this patient has failed conservative measures for small bowel obstruction. She remains nauseated has not had any stool or gas since yesterday morning. She was ill for at least 1 week prior to hospitalization. She clearly appears and feels poorly. This point I advised her on replacement of the NG tube. It appears that she has failed conservative measures. I have instructed her that I have contacted the hospitalist service to assist with general patient management in addition to her diabetes. We will anticipate placing a PICC line and initiating TPN secondary to the duration of this patient's illness. We will recheck abdominal x-rays today. I have proposed for her a exploratory laparotomy with possible lysis of adhesions and possible enterectomy. In detail I discussed the technique, benefit, risk, and alternatives.. Absolutely no guarantees of success have been offered. Although the patient otherwise enjoys reasonable health at age 87 she is well aware that she is a higher risk operative candidate secondary to the mesh involvement of the small bowel and deconditioning that is occurred with the now length of her illness. She is aware that she may require admission to the intensive care unit post procedure. I am not anticipating a enterostomy at this time. The patient was concerned about a possible colostomy but we have just done a colonoscopy demonstrating it is free of disease and we are expecting a small bowel problem. Prior to her NG tube removal she did have dark stools and dark NG tube output. She is on IV Protonix. I had added sucralfate to her schedule yesterday. We will need to inspect the appearance of the NG tube output. Her aspirin is on hold. She has been treated for DVT prophylaxis in the form of sequential venous compression devices and continued ambulation. With her upcoming procedure I will provide 1 dose of Lovenox today but none tomorrow morning due to the anticipated extensiveness of the procedure. She has had an opportunity to ask and have questions answered. She will discuss with her niece this turn of events. Because of the increased difficulty that I am anticipating with this procedure I anticipate proceeding this with full staff tomorrow. Rajan Álvarez M.D., F.A.C.S.
[2022-06-17 07:53] LABS: Absolute Lymphocyte Count 0.83 X10^3/uL (0.83-4.51); Basophil# 0.02 X10^3/uL; Basophil% 0.2 % (0-1); Eosinophil# 0.01 X10^3/uL; Eosinophils% 0.1 % (0-5); Hematocrit 39.1 % (37-47); Hemoglobin 12.7 g/dL (12.0-15.0); Lymphocyte # 0.83 X10^3/ul (0.83-4.51); Lymphocyte % 7.1 % (19-41); Mean Corp Hgb Conc 32.5 g/dL (32-36); Mean Corpuscular Hgb 28.6 pg (27.0-32.0); Mean Corpuscular Volume 88.1 fL (81-99); Mean Platelet Vol. 10.4 fl (6.2-12.0); Monocyte# 0.75 X10^3/uL; Monocyte% 6.5 % (0-10); NRBC Flagged by Analyzer 0 % (0-5); Neutrophil # 9.95 X10^3/uL (2.7-7.7); Neutrophil % 85.7 % (47-70); Platelet Count 306 K/mm3 (150-450); RBC Distribution Width CV 13.2 % (11.6-14.6); Red Blood Count 4.44 M/mm3 (4.2-5.4); White Blood Count 11.6 K/mm3 (4.4-11.0)
[2022-06-17 08:09] LABS: Anion Gap 9 (5-15); BUN 13 mg/dL (7-18); BUN/Creat Ratio 19.7 RATIO (10-20); Calcium,Total 8.7 mg/dL (8.5-10.1); Chloride 104 mmol/L (98-107); Creatinine, Serum 0.66 mg/dL (0.55-1.02); EST Glomerular Filtration Rate 90 mL/min (>60); Est Glom Filt Rate - Afr Amer 109 mL/min (>60); Estimated Creatinine Clearance 31.94 ml/min; Glucose 182 mg/dL (74-106); Potassium 3.3 mmol/L (3.5-5.1); Sodium Level 140 mmol/L (136-145)
--- NOTE | 2022-06-17 08:35 | RAD_ITS ---
STUDY: X-RAY - ABDOMEN/PELVIS REASON FOR EXAM: Female, 87 years old. SBO, NG PLACEMENT TECHNIQUE: 3 AP supine views of the abdomen and pelvis. COMPARISON: Abdominal x-ray dated June 13, 2022 FINDINGS: Normal visualized lung bases. The tip of the feeding tube is present in the fundus of the stomach, slight advancement into the body of the stomach is recommended. Reidentification of postsurgical clips and hernia mesh material of the abdomen. Moderate gaseous distention of multiple small bowel loops are seen in the central abdomen consistent with known small bowel obstruction. Normal soft tissue structures. There are diffuse degenerative changes of the visualized lumbar spine. RAD/Abd Inc Decub and/or Erect IMPRESSION: 1. Small bowel obstruction 2. The tip of the feeding tube is present in the fundus of the stomach, slight advancement into the body of the stomach is recommended. Electronically Signed: Shamar Enamorado MD at 9:29 EST ,
[2022-06-17] MEDS: Enoxaparin 30 MG/0.3 ML Syringe SC (08:48)
[2022-06-17] MEDS: Oxymetazoline 0.05% 1 SPRAY SPRAY.BTL 2 SPRAY NASAL (08:48)
--- NOTE | 2022-06-17 10:23 | NURSING ---
NG advanced per orders. Will obtain KUB to check for placement.
--- NOTE | 2022-06-17 10:35 | RAD_ITS ---
STUDY: X-RAY - ABDOMEN/PELVIS REASON FOR EXAM: Female, 87 years old. NG placement TECHNIQUE: Single AP view of the abdomen / pelvis. COMPARISON: Abdominal x-ray dated June 17, 2022 at 8:34 AM FINDINGS: Normal visualized lung bases. The feeding tube has been advanced down to the the antrum of the stomach, since the prior study. There is an unremarkable bowel gas pattern. There is no demonstrated free abdominal air. Normal soft tissue structures. There are diffuse degenerative changes of the visualized lumbar spine. RAD/Abdomen Single View (Portable) IMPRESSION: 1. The tip of the feeding tube is now in the antrum of the stomach Electronically Signed: Shamar Enamorado MD at 11:03 EST ,
--- NOTE | 2022-06-17 11:30 | PCM.PN.HOSP ---
Subjective Subjective Iron andPatient was seen and examined today at the request of general surgery, she is in the hospital for small bowel obstruction, general surgery stated that they were going to have to place an NG tube today and requested that the patient be set up for TPN. I entered an order for a PICC line and I talked to nutritional services about TPN. Patient's medical problems include essential hypertension, paroxysmal atrial fibrillation, and type 2 diabetes. Objective Data Objective Data Vital Signs: Vital Signs Temp Pulse Resp BP Pulse Ox O2 Del Method 97.9 F 87 18 134/84 H 94 Room Air 06/17/22 07:30 06/17/22 07:30 06/17/22 07:30 06/17/22 07:30 06/17/22 07:30 06/17/22 07:30 Oxygen Delivery Method Room Air Weight: 86.183 kg Body Mass Index (BMI) 34.7 Intake & Output: Intake and Output for Last 24 Hours 06/15/22 06/16/22 06/17/22 23:59 23:59 23:59 Intake Total 2413.58 / 2413.58 864.75 / 889.75 792.5 / 792.5 Output Total 520 / 520 950 / 950 Balance 1893.58 / 1893.58 864.75 / 289.75 -157.5 / -157.5 Lab / Micro Data Result Diagrams: 06/17/22 07:45 06/17/22 07:45 Labs: Laboratory Results - last 24 hr 06/16/22 12:34: POC Glucose 207 H 06/16/22 16:01: POC Glucose 149 H 06/16/22 19:51: POC Glucose 253 H 06/17/22 06:20: POC Glucose 174 H 06/17/22 07:45: WBC 11.6 H, RBC 4.44, Hgb 12.7, Hct 39.1, MCV 88.1, MCH 28.6, MCHC 32.5, RDW Std Deviation 43.0, RDW Coeff of Juan 13.2, Plt Count 306, MPV 10.4, Immature Gran % (Auto) 0.400, Neut % (Auto) 85.7 H, Lymph % (Auto) 7.1 L, [place] % (Auto) 6.5, Eos % (Auto) 0.1, Baso % (Auto) 0.2, Absolute Neuts (auto) 10.0 H, Absolute Lymphs (auto) 0.83, Nucleated RBC % 0 06/17/22 07:45: Sodium 140, Potassium 3.3 L, Chloride 104, Carbon Dioxide 27.0, Anion Gap 9, BUN 13, Creatinine 0.66, Estim Creat Clear Calc 31.94, Est GFR (MDRD) Af Amer 109, Est GFR (MDRD) Non-Af 90, BUN/Creatinine Ratio 19.7, Glucose 182 H, Calcium 8.7 Radiography Diagnostic Testing: Radiology Impression Abdomen X-Ray 06/17/22 08:35 IMPRESSION: 1. Small bowel obstruction 2. The tip of the feeding tube is present in the fundus of the stomach, slight advancement into the body of the stomach is recommended. Electronically Signed: Shamar Enamorado MD at 9:29 EST , KUB X-Ray 06/17/22 10:35 IMPRESSION: 1. The tip of the feeding tube is now in the antrum of the stomach Electronically Signed: Shamar Enamorado MD at 11:03 EST , Physical Exam Const alert, oriented x3 and no apparent distress Constitutional Narrative: Patient appears her stated age General Appearance: cooperative, well kempt and well developed Orientation / Consciousness: awake, oriented to person, oriented to place and oriented to time HEENT normocephalic and moist oral mucous membranes Eyes PERRL, EOMs intact bilaterally and conjunctivae normal Neck supple, no JVD, thyroid normal and no carotid bruits General: trachea midline Resp normal respiratory effort, no retractions, no use of accessory muscles and clear to auscultation bilaterally Auscultation: Negative for rales, rhonchi or wheezes Cardio S1 normal heart sound, S2 normal heart sound, no murmurs, no rub and no gallops Cardio Narrative: Heart rate and rhythm is irregular GI normal to inspection, nondistended, normoactive bowel sounds, soft to palpation, non-tender and non-distended GI Narrative: NG tube is in place Extremity no clubbing, cyanosis or edema Skin no rashes or lesions noted General Skin Exam: no breakdown Neuro oriented x3, CN's II-XII intact bilaterally, no focal motor deficits and no sensory deficits noted Sensorium / Orientation: awake, alert, oriented to person, oriented to place and oriented to time Speech: speech normal Psych affect normal Assessment & Plan Assessment/Plan (1) Small bowel obstruction: PLAN: Plan 1. Type 2 diabetes-blood sugars will be monitored with fingerstick blood sugars, sliding scale insulin will be used, when patient is on TPN, she may need to be placed on programmed insulin. Patient's metformin will be stopped #2 paroxysmal atrial fib-patient appears to be in atrial for but this time, rate appears to be controlled however, patient is on metoprolol succinate, this will not be able to be crushed, patient will have to be transition to metoprolol IV every 6 hours while NG is in place. #3 hypothyroidism-patient is on Synthroid, this will be given IV #4 essential hypertension-patient is on losartan, she will be n.p.o. due to her NG tube, I will place her on enalapril IV #5 hyperlipidemia-patient will not be able to take her statin while she has her NG in place #6 GERD-patient is on Protonix, patient is not having bloody gastric drainage from her NG tube, I talked with general surgery and I have elected to stop her Carafate. Charges/Coding Visit Charges Inpatient E&M: 64302 Subs Hosp L3
[2022-06-17] MEDS: Potassium Chloride 10mEq/100mL 10 MEQ/100 ML IV.SOLN. 100 MEQ IV BOLUS ×3 (12:03→14:34)
[2022-06-17 12:25] LABS: Bedside Glucose 151 mg/dL (74-106)
[2022-06-17] MEDS: Enalaprilat 1.25 MG/ML Vial IV ×2 (13:18→17:31)
[2022-06-17] MEDS: Metoprolol Tartrate 5 MG/5 ML Vial IV ×2 (14:55→21:34)
[2022-06-17] MEDS: TPN - Clinimix E 8%-14% Soln 2,000 ML with Multivitamins 10 ML, Trace Elements 1 ML, Fo... 42 ML IV (16:05)
[2022-06-17 16:31] LABS: Bedside Glucose 125 mg/dL (74-106)
[2022-06-17 16:58] LABS: Potassium 3.8 mmol/L (3.5-5.1)
[2022-06-17] MEDS: Latanoprost 0.005% 1 Bottle 1 DRP OPHTHALMIC (21:43)
[2022-06-17 22:05] LABS: Bedside Glucose 163 mg/dL (74-106)
[2022-06-18] VITALS (35 sets, daily range): BP systolic 37–151; BP diastolic 22–113; PULSE 74–182; RESP 14–29; TEMP 36.2–36.6; O2SAT 84–100; BMI 34.9
[2022-06-18] MEDS: Enalaprilat 1.25 MG/ML Vial IV ×2 (00:45→05:33)
[2022-06-18] MEDS: 0.9% Saline Lock 10 ML Syringe IV ×3 (00:45→21:58)
[2022-06-18] MEDS: Lactated Ringers 1,000 ML 30 ML IV (01:02)
[2022-06-18 03:08] LABS: Absolute Lymphocyte Count 1.32 X10^3/uL (0.83-4.51); Absolute Neutrophil Count 7.9 X10^3/uL (2.0-7.7); Basophil# 0.04 X10^3/uL; Basophil% 0.4 % (0-1); Eosinophil# 0.12 X10^3/uL; Eosinophils% 1.2 % (0-5); Hematocrit 34.7 % (37-47); Hemoglobin 10.9 g/dL (12.0-15.0); Lymphocyte # 1.32 X10^3/ul (0.83-4.51); Lymphocyte % 12.8 % (19-41); Mean Corp Hgb Conc 31.4 g/dL (32-36); Mean Corpuscular Volume 92.3 fL (81-99); Mean Platelet Vol. 10.3 fl (6.2-12.0); Monocyte# 0.84 X10^3/uL; Monocyte% 8.2 % (0-10); NRBC Flagged by Analyzer 0 % (0-5); Neutrophil # 7.92 X10^3/uL (2.7-7.7); Neutrophil % 76.9 % (47-70); Platelet Count 276 K/mm3 (150-450); RBC Distribution Width CV 13.6 % (11.6-14.6); RBC Distribution Width SD 46.1 fl (35.1-43.9); Red Blood Count 3.76 M/mm3 (4.2-5.4); White Blood Count 10.3 K/mm3 (4.4-11.0)
[2022-06-18 04:20] LABS: ALB/GLOB Ratio 0.8 RATIO (0.9-2.4); AST(SGOT) 7 U/L (15-37); Alanine Aminotransfer ALT/SGPT 14 U/L (13-56); Albumin, Serum 2.5 g/dL (3.2-5.0); Alkaline Phosphatase 74 U/L (45-117); Anion Gap 8 (5-15); BUN 20 mg/dL (7-18); BUN/Creat Ratio 30.4 RATIO (10-20); Calcium,Total 8.1 mg/dL (8.5-10.1); Chloride 106 mmol/L (98-107); Creatinine, Serum 0.66 mg/dL (0.55-1.02); EST Glomerular Filtration Rate 91 mL/min (>60); Est Glom Filt Rate - Afr Amer 110 mL/min (>60); Estimated Creatinine Clearance 31.94 ml/min; Glucose 204 mg/dL (74-106); Phosphorus 2.8 mg/dL (2.5-4.9); Potassium 3.3 mmol/L (3.5-5.1); Protein, Total 5.5 g/dL (6.4-8.2); Sodium Level 142 mmol/L (136-145); Triglycerides 136 mg/dL
[2022-06-18] MEDS: Metoprolol Tartrate 5 MG/5 ML Vial IV (05:33)
[2022-06-18] MEDS: Potassium Chloride 10mEq/100mL 10 MEQ/100 ML IV.SOLN. 100 MEQ IV BOLUS ×3 (05:52→08:03)
--- NOTE | 2022-06-18 05:55 | EKG12_ITS ---
Test Reason : TACHY Blood Pressure : / mmHG Vent. Rate : 173 BPM Atrial Rate : 066 BPM P-R Int : 000 ms QRS Dur : 072 ms QT Int : 274 ms P-R-T Axes : 000 -23 008 degrees QTc Int : 464 ms Atrial fibrillation Inferior infarct , age undetermined , age undetermined Nonspecific ST and T wave abnormality Abnormal ECG Confirmed by KENDRICK PARADA, LOUISE ([id number]), newspaper photo editor MARIO RODRÍGUEZ ([id number]) on 06/20/2022 8:03:15 AM Referred By: ELINA Confirmed By:LOUISE MARKS MD
[2022-06-18 06:33] LABS: Potassium 3.3 mmol/L (3.5-5.1)
[2022-06-18] MEDS: Insulin Lispro 100 UNIT/ML INSULN.PEN SC ×3 (06:41→22:12)
[2022-06-18 07:26] LABS: Bedside Glucose 185 mg/dL (74-106)
--- NOTE | 2022-06-18 07:53 | PCM.PN.HOSP ---
Subjective Subjective DOS: 06/18/2022 CC: Throat tickle Reports feeling somewhat better overall but does have a tickle in her throat from the NG tube. Feels her throat has been quite dry since she has been allowed to have ice chips. Nausea better than it had been. Has not been passing gas, abdominal pain is somewhat better since NG tube placement however. Denies chest pain or shortness of breath. Denies other complaints today Objective Data Objective Data Vital Signs: Vital Signs Temp Pulse Resp BP Pulse Ox O2 Del Method 97.6 F L 78 18 139/75 H 95 Room Air 06/18/22 05:31 06/18/22 05:33 06/18/22 05:31 06/18/22 05:31 06/18/22 05:31 06/18/22 05:31 Oxygen Delivery Method Room Air Weight: 86.5 kg Body Mass Index (BMI) 34.9 Intake & Output: Intake and Output for Last 24 Hours 06/16/22 06/17/22 06/18/22 23:59 23:59 23:59 Intake Total 864.75 / 889.75 1995.0 / 2020.0 657.92 / 657.92 Output Total 2049 / 2049 900 / 900 Balance 864.75 / 289.75 -55.0 / -30.0 -242.08 / -242.08 Lab / Micro Data Result Diagrams: 06/18/22 03:00 06/18/22 03:00 Labs: Laboratory Results - last 24 hr 06/17/22 07:45: WBC 11.6 H, RBC 4.44, Hgb 12.7, Hct 39.1, MCV 88.1, MCH 28.6, MCHC 32.5, RDW Std Deviation 43.0, RDW Coeff of Juan 13.2, Plt Count 306, MPV 10.4, Immature Gran % (Auto) 0.400, Neut % (Auto) 85.7 H, Lymph % (Auto) 7.1 L, [place] % (Auto) 6.5, Eos % (Auto) 0.1, Baso % (Auto) 0.2, Absolute Neuts (auto) 10.0 H, Absolute Lymphs (auto) 0.83, Nucleated RBC % 0 06/17/22 07:45: Sodium 140, Potassium 3.3 L, Chloride 104, Carbon Dioxide 27.0, Anion Gap 9, BUN 13, Creatinine 0.66, Estim Creat Clear Calc 31.94, Est GFR (MDRD) Af Amer 109, Est GFR (MDRD) Non-Af 90, BUN/Creatinine Ratio 19.7, Glucose 182 H, Calcium 8.7 06/17/22 11:57: POC Glucose 151 H 06/17/22 15:00: Potassium 3.8 06/17/22 16:03: POC Glucose 125 H 06/17/22 21:29: POC Glucose 163 H 06/18/22 03:00: WBC 10.3, RBC 3.76 L, Hgb 10.9 L, Hct 34.7 L, MCV 92.3, MCH 29.0, MCHC 31.4 L, RDW Std Deviation 46.1 H, RDW Coeff of Juan 13.6, Plt Count 276, MPV 10.3, Immature Gran % (Auto) 0.500, Neut % (Auto) 76.9 H, Lymph % (Auto) 12.8 L, [place] % (Auto) 8.2, Eos % (Auto) 1.2, Baso % (Auto) 0.4, Absolute Neuts (auto) 7.9 H, Absolute Lymphs (auto) 1.32, Nucleated RBC % 0 06/18/22 03:00: Sodium 142, Potassium 3.3 L, Chloride 106, Carbon Dioxide 28.0, Anion Gap 8, BUN 20 H, Creatinine 0.66, Estim Creat Clear Calc 31.94, Est GFR (MDRD) Af Amer 110, Est GFR (MDRD) Non-Af 91, BUN/Creatinine Ratio 30.4 H, Glucose 204 H, Calcium 8.1 L, Phosphorus 2.8, Magnesium 2.0, Total Bilirubin 0.40, AST 7 L, ALT 14, Alkaline Phosphatase 74, Total Protein 5.5 L, Albumin 2.5 L, Globulin 3.0, Albumin/Globulin Ratio 0.8 L, Triglycerides 136 06/18/22 03:00: Potassium 3.3 L, Magnesium 2.0 06/18/22 06:40: POC Glucose 185 H Radiography Diagnostic Testing: Radiology Impression Abdomen X-Ray 06/17/22 08:35 IMPRESSION: 1. Small bowel obstruction 2. The tip of the feeding tube is present in the fundus of the stomach, slight advancement into the body of the stomach is recommended. Electronically Signed: Shamar Enamorado MD at 9:29 EST , KUB X-Ray 06/17/22 10:35 IMPRESSION: 1. The tip of the feeding tube is now in the antrum of the stomach Electronically Signed: Shamar Enamorado MD at 11:03 EST , Physical Exam Const alert and no apparent distress Constitutional Narrative: Oriented HEENT normocephalic and head/scalp atraumatic Eyes Eyes Narrative: EOM grossly intact, anicteric Neck supple Resp normal respiratory effort and clear to auscultation bilaterally Cardio regular rate and regular rhythm GI GI Narrative: Soft to palpation, nondistended, no rebound, no guarding, no rigidity, hypoactive bowel sounds. NG tube was Extremity Extremity Narrative: No edema appreciated Neuro moves all extremities Neuro Narrative: No overt focal deficits appreciated Psych Psych Narrative: Cooperative Assessment & Plan Assessment/Plan (1) Small bowel obstruction: PLAN: Plan 87 old female with history of colonoscopy 06/[address] Álvarez. Tolerated this well but the following day developed nausea and bloating. She had contacted the office for diet medication recommendations and called multiple times daily after colonoscopy and ended up having an episode of vomiting and was evaluated in the office. Does have a history of small bowel obstruction earlier this year and was hospitalized. Ultimately was a direct admit to the hospital and diagnosed with a small bowel obstruction. Hospitalist consulted 06/17 as she was to have an NG tube placed and it was requested TPN be initiated. #Diabetes mellitus type 2 Sliding scale insulin with fingerstick blood glucose while she is on TPN Metformin held Monitor for need for basal insulin #Hypothyroidism Not tolerating p.o. Synthroid to be IV #Paroxysmal atrial fibrillation Rate controlled Cannot crush metoprolol succinate so this is transitioned to IV every 6 #Hypertension Given NG tube and unable to take orals she has been transition from losartan to IV enalapril #Recurrent small bowel obstruction Similar issue August 2021 with non op management Had a Gastrografin small bowel follow-through NG tube placed PICC line ordered, TPN Likely ex lap today with Dr. Álvarez #Inability to maintain nutrition Due to small bowel obstruction NG per surgery PICC line placed, will need TPN Charges/Coding Visit Charges Inpatient E&M: 19669 [facility] Hosp L2
--- NOTE | 2022-06-18 07:56 | NURSING ---
NG patent, but 0800 flush held due to pt feeling nauseated while flushing.
--- NOTE | 2022-06-18 11:50 | COL_PTH ---
PATIENT: GIAN HUBER LOC: [facility] U#:[id number] AGE/SX: 87/F ROOM: [facility] RE06/13/[address]: Dr. Rajan Álvarez MD : [id number] BED: 1 DIS: 06/30/2022 SPEC #: [id number] RECD: 06/19/22 06:55 STATUS: [place] RE #: [id number] SPENCER: 06/18/22 11:[address]: Rajan Álvarez DEPT: SURGICAL PATHOLOGY RECD BY: Italia Kirkpatrick ENTERED: 06/19/22 08:06 SP TYPE: COLON OTHR DR: MD Dr. Le Santa Dr., MD Dr. Bruce Arthur, MD Dr. Derek Brown, DO Dr. Lee Ann Baggott, MD Dr. Mark Tereletsky, DO Dr. Paige Pierce, MD Dr. Tanmay Panchabhai, MD Christina Muller, OFFICE EXECUTIVE-C Tissues: Colon, NOS Procedures: Surgery Specimen Level V HEADER OPERATION: Exploratory laparotomy, lysis of adhesions, small bowel PRE-OP DIAGNOSIS: Small bowel obstruction TISSUE SUBMITTED: Small bowel MICROSCOPIC DIAGNOSIS Small bowel, segmental resection: Segment of small bowel with mucosal ulceration and acute inflammation adjacent to the defects and serosal reactive changes consistent adhesions, clinically small bowel obstruction. DARNELL 06/22/22 MICROSCOPIC DESCRIPTION Slides are reviewed. GROSS DESCRIPTION Received in fixative is one container labeled with the patient's name and designated small bowel. The specimen consists of a segment of small bowel with attached mesentery measuring 45 cm in length. Both resection margins are stapled. Multiple defects are noted in the segment of small bowel. Serosal surface is ragged and shows multiple areas of congestion and hemorrhage. Serosal surface also shows focal area of adhesion close to the end of segment of small bowel. No mucosal lesion is identified. Small amount of fecal material is also noted. Jaw Skinner sections are submitted in 6 cassettes as follows: 1 ? resection margins, 2 to 5 ? bowel, 6 ? mesenteric tissue. /DARNELL:nikita 06/19/2022 TC:5 CPT: 60430
[2022-06-18] MEDS: Clindamycin 900 MG/50 ML BAG 75 MG IV (12:46)
--- NOTE | 2022-06-18 15:51 | OP.PCM_ITS ---
Report of Operation Date of Procedure: 06/18/22 Pre-Operative Diagnosis: Chronic small bowel obstruction with failure of nonope rative management Post-Operative Diagnosis: Adhesive small bowel obstruction secondary to abdominal wall mesh but more particularly pelvic adhesions from remote hysterectomy Surgery/Procedure Performed:: Exploratory laparotomy, lysis of adhesions, enterotomy, enterectomy of mid small bowel Description of Surgical Findings:: Timeout informed consent was obtained. 87-year-old female who is failed nonoperative management of recurrent and chronic small bowel obstruction taken to the operating room underwent general endotracheal ovation esthesia. Clindamycin 900 mg and gentamicin 80 mg given intravenously preoperatively. She was placed in the supine position the abdomen was sterilely prepped and draped. A midline incision was made just superior to the umbilicus and then carried inferiorly. Upon cutting through the abdominal wall fascia which was extraordinarily thin and diminutive the previous mesh was encountered. The mesh was incised and was found to be adherent to what appeared to be omentum or omentum surrounding the transverse colon. I was able to sharply and bluntly dissect free some of this blood in the epigastric area there were more denser adhesions and to the left of the midline I could not easily freed the attachments. After making the incision lengthened inferiorly was able to get clean access to the inferior portion of the abdomen and as this was a small bowel obstruction I elected to leave the adhesions in the upper abdomen. Small bowel was grossly that distended violaceous and thinned. There were multiple small bowel diverticulum. I eviscerated the small bowel and it became apparent that there was a tight adhesion in the retroperitoneum mid abdomen which I could lysed. Then the small bowel was stuck in the right lower quadrant at a place where the mesh had released from the abdominal wall. I was able to free at that site. Unfortunately there were loops of thin distended bowel densely adherent deep into the pelvis from the previous hysterectomy. Upon trying to free that bowel enterotomy occur the bowel was very fragile there was spillage of enteric contents this was aspirated free and then carefully and tediously the dense pelvic adhesions had to be sharply and bluntly dissected free. There was approximately a 1 foot section of bowel that had been adherent to itself into the pelvis that ended up being traumatized during this process of evacuating it from the pelvis. The pelvis was copiously irrigated with saline and moist warm packs were placed. The damaged portion of small bowel was inspected the mesentery was transected impact ligature. 75 Ferreira staplers were used to transect the small bowel. The bowel was placed side to side enterotomies were created and a 75 mm stapler was used to create a cytocide anastomosis. Enterotomy site was closed with a TA 60 stapler. The mesenteric trap was closed with a running 2-0 chromic. The staple ends where carefully treated with running Lembert sutures to incorporate 5 to fibrofatty tissue and incorporate the anastomosis. Very viable bowel was felt to been achieved with these anastomosis at the antimesenteric portion. The bowel canal was again inspected all appear to be viable although the more proximal bowel reasonably distended. Because of the very tenuous and thin nature of the bowel and multiple diverticulum I made no attempt to try to decompress the small bowel. That abdomen was again inspected a portion of the mesh in the right lower quadrant was resected but I made no attempt to try to do a major resection and it appeared that there was only 1 curled area that was the current source of problem. As noted the adhesions in the upper abdomen remain in place. I placed through a stab incision in the left lower quadrant 15 round COLETTE drain deep into the pelvis. Secured that to the skin with 3-0 nylon. I then tediously closed the midline wound with a running 0 Prolene. #2 Ethibond with rubber bolsters were used to place retention sutures. The wound was irrigated. It was then treated with simple sutures of 2-0 nylon which were done in simple sutures and then the ends were treated with hemoclips but not approximated for a plan at a delayed primary closure. Betadine soaked Kerlix gauze was then placed within the superficial wound as well. Cover dressings applied. At the completion procedure I performed a esophagogastroduodenoscopy. That will be separately dictated in probation. It is of note that the patient had diffuse gastritis with some erosions. There appeared to be previous evidence of NG tube trauma. Using a snare I advance the NG tube into the small bowel to help with decompression. Procedure was completed. She was subsequently taken to the intensive care unit. Dr. Livingston had contacted and personally spoke to Dr. Jose Roberto Bonilla president [employer]. I am awaiting a phone call back from the hospitalist service. Specimens mid small bowel. Drains 15 round COLETTE. Blood loss 200 cc Rajan Álvarez M.D., F.A.C.S. Surgeon: Rajan Álvarez Type of Anesthesia: General Anesthesiologist: Peña Livingston
--- NOTE | 2022-06-18 16:27 | PCM.HOSP.N ---
Hospitalist Note Ms. Martines evaluated in CVICU after surgery. She had been noted to be hypotensive and was started on Delroy-Synephrine and a right art line was placed. Tachycardic upon arrival and still on Delroy-Synephrine 10, blood pressure on that was 150 systolic with adequate MAP. Spoke with Dr. Álvarez, will start Merrem. Will transition to Levophed if further pressors are needed, currently is hypertensive and tachycardic so we will wean off Delroy-Synephrine and continue to monitor vitals, will also start fentanyl if needed for sedation. ICU consulted per surgery as well.
--- NOTE | 2022-06-18 16:30 | EKG12_ITS ---
Test Reason : am ekg Blood Pressure : / mmHG Vent. Rate : 075 BPM Atrial Rate : 075 BPM P-R Int : 152 ms QRS Dur : 082 ms QT Int : 390 ms P-R-T Axes : -45 -05 009 degrees QTc Int : 435 ms Unusual P axis, possible ectopic atrial rhythm with Premature atrial complexes Cannot rule out Anterior infarct , age undetermined Abnormal ECG Confirmed by KENDRICK PARADA, LOUISE ([id number]), editor index MARIO RODRÍGUEZ ([id number]) on 06/20/2022 1:16:18 PM Referred By: Henri Confirmed By:LOUISE MARKS MD
[2022-06-18] MEDS: Lactated Ringers 1,000 ML 125 ML IV ×2 (16:50→22:42)
[2022-06-18 17:05] LABS: Absolute Lymphocyte Count 0.91 X10^3/uL (0.83-4.51); Absolute Neutrophil Count 4.3 X10^3/uL (2.0-7.7); Basophil# 0.01 X10^3/uL; Basophil% 0.2 % (0-1); Eosinophil# 0.04 X10^3/uL; Eosinophils% 0.7 % (0-5); Hematocrit 36.7 % (37-47); Hemoglobin 11.8 g/dL (12.0-15.0); Lymphocyte # 0.91 X10^3/ul (0.83-4.51); Lymphocyte % 16.5 % (19-41); Mean Corp Hgb Conc 32.2 g/dL (32-36); Mean Corpuscular Hgb 29.7 pg (27.0-32.0); Mean Corpuscular Volume 92.4 fL (81-99); Mean Platelet Vol. 10.2 fl (6.2-12.0); Monocyte# 0.21 X10^3/uL; Monocyte% 3.8 % (0-10); NRBC Flagged by Analyzer 0 % (0-5); Neutrophil # 4.32 X10^3/uL (2.7-7.7); Neutrophil % 78.4 % (47-70); Platelet Count 324 K/mm3 (150-450); RBC Distribution Width CV 13.6 % (11.6-14.6); RBC Distribution Width SD 45.9 fl (35.1-43.9); Red Blood Count 3.97 M/mm3 (4.2-5.4); White Blood Count 5.5 K/mm3 (4.4-11.0)
--- NOTE | 2022-06-18 17:10 | RAD_ITS ---
INDICATION: ET tube EXAMINATION/TECHNIQUE: X-RAY - XR Chest 1 View COMPARISON: 08/19/2015. FINDINGS: Chronic lung changes. No acute lung findings. Tortuous and calcified thoracic aorta. The heart is mildly enlarged. Endotracheal tube is present with tip 6.5 cm below the zbigniew. Right sided PICC is present with tip at the RA/SVC junction. NG tube is present with tip in the stomach. No pleural effusion or pneumothorax. Degenerative changes of the thoracic spine. RAD/Chest 1 View (Portable) IMPRESSION: No acute radiographic abnormalities. Endotracheal tube is present with tip 6.5 cm below the zbigniew. No pneumothorax. Electronically Signed: Timmy Crenshaw MD at 17:38 EST ,
[2022-06-18 17:11] LABS: Bedside Glucose 219 mg/dL (74-106)
[2022-06-18 17:25] LABS: Base Excess -5 mmol/L (-2 to +2); Bicarbonate 20.9 mmol/L (22-26); Blood Gas Specimen Type ART; FI02 65; Mode AC; O2 Delivery Device AeroMask; PEEP 5; PO2 102 mmHG (75-100); RR 14; SITE Art Line; SO2 98 % (95-99); Total Carbon Dioxide 22 mmol/L; Vt 400; pCO2 37.1 mmHg (35-45); pH 7.36 (7.35-7.45)
[2022-06-18 17:29] LABS: Anion Gap 7 (5-15); BUN 20 mg/dL (7-18); Calcium,Total 7.8 mg/dL (8.5-10.1); Chloride 109 mmol/L (98-107); Creatinine, Serum 0.69 mg/dL (0.55-1.02); EST Glomerular Filtration Rate 86 mL/min (>60); Est Glom Filt Rate - Afr Amer 104 mL/min (>60); Estimated Creatinine Clearance 31.94 ml/min; Glucose 280 mg/dL (74-106); Potassium 3.8 mmol/L (3.5-5.1); Sodium Level 140 mmol/L (136-145)
--- NOTE | 2022-06-18 18:00 | NURSING ---
1620- neosynephrine turned off per Dr. Gonzales 1645- neosynephrine restarted at 5 mcg/min per Dr. Gonzales 1701 Levophed started at 10 mcg/min and neosynephrine turned off per dr. gonzales
[2022-06-18] MEDS: Amiodarone 360 MG in Dextrose 5% Viaflo Bag 192.8 ML 33.3 MG CONT INF (20:35)
[2022-06-18] MEDS: Latanoprost 0.005% 1 Bottle 1 DRP OPHTHALMIC (22:13)
[2022-06-18 22:35] LABS: Bedside Glucose 202 mg/dL (74-106)
[2022-06-18] MEDS: Chlorhexidine 15 ML PO (22:50)
[2022-06-19] VITALS (60 sets, daily range): BP systolic 71–154; BP diastolic 43–83; PULSE 66–102; RESP 14–36; TEMP 36.3–37.2; O2SAT 91–100
[2022-06-19] MEDS: Amiodarone 360 MG in Dextrose 5% Viaflo Bag 192.8 ML 16.7 MG CONT INF ×2 (02:40→14:55)
[2022-06-19 03:57] LABS: Absolute Lymphocyte Count 0.53 X10^3/uL (0.83-4.51); Absolute Neutrophil Count 18.4 X10^3/uL (2.0-7.7); Basophil# 0.08 X10^3/uL; Basophil% 0.4 % (0-1); Eosinophil# 0.13 X10^3/uL; Eosinophils% 0.6 % (0-5); Hematocrit 36.1 % (37-47); Hemoglobin 11.8 g/dL (12.0-15.0); Lymphocyte # 0.53 X10^3/ul (0.83-4.51); Lymphocyte % 2.6 % (19-41); Mean Corp Hgb Conc 32.7 g/dL (32-36); Mean Corpuscular Volume 91.9 fL (81-99); Mean Platelet Vol. 10.3 fl (6.2-12.0); Monocyte# 1.13 X10^3/uL; Monocyte% 5.5 % (0-10); NRBC Flagged by Analyzer 0 % (0-5); Neutrophil # 18.44 X10^3/uL (2.7-7.7); Neutrophil % 90.4 % (47-70); POSITIVE DIFFERENTIAL YES; Platelet Count 257 K/mm3 (150-450); RBC Distribution Width CV 13.6 % (11.6-14.6); RBC Distribution Width SD 46.4 fl (35.1-43.9); Red Blood Count 3.93 M/mm3 (4.2-5.4); White Blood Count 20.4 K/mm3 (4.4-11.0)
[2022-06-19 04:01] LABS: Differential Indicated SCAN CRITERIA MET
[2022-06-19 04:19] LABS: ALB/GLOB Ratio 0.6 RATIO (0.9-2.4); AST(SGOT) 9 U/L (15-37); Alanine Aminotransfer ALT/SGPT 11 U/L (13-56); Albumin, Serum 1.8 g/dL (3.2-5.0); Alkaline Phosphatase 59 U/L (45-117); Anion Gap 10 (5-15); BUN 26 mg/dL (7-18); BUN/Creat Ratio 27.1 RATIO (10-20); Calcium,Total 7.4 mg/dL (8.5-10.1); Chloride 108 mmol/L (98-107); Creatinine, Serum 0.96 mg/dL (0.55-1.02); EST Glomerular Filtration Rate 59 mL/min (>60); Est Glom Filt Rate - Afr Amer 71 mL/min (>60); Estimated Creatinine Clearance 33.27 ml/min; Globulin 2.8 g/dL (2.2-4.2); Glucose 259 mg/dL (74-106); Magnesium 1.3 mg/dL (1.6-2.6); Phosphorus 3.4 mg/dL (2.5-4.9); Potassium 4.4 mmol/L (3.5-5.1); Protein, Total 4.6 g/dL (6.4-8.2); Sodium Level 138 mmol/L (136-145)
[2022-06-19] MEDS: CHLORHEXIDINE GLUC 2% CLOTH 1 EACH TOWELETTE TOPICAL (05:30)
--- NOTE | 2022-06-19 05:56 | PCM.PN.SRG ---
Subjective Subjective Patient sedated on ventilation. Objective Data Objective Data Vital Signs: Vital Signs Temp Pulse Resp BP Pulse Ox O2 Del Method FiO2 97.3 F L 93 14 96/60 98 Mechanical Ventilator 35 06/19/22 03:00 06/19/22 05:00 06/19/22 05:00 06/19/22 05:00 06/19/22 05:00 06/19/22 05:00 06/19/22 05:00 Oxygen Delivery Method Mechanical Ventilator Weight: 199 lb 4.766 oz Body Mass Index (BMI) 34.9 Intake & Output: Intake and Output for Last 24 Hours 06/17/22 06/18/22 06/19/22 23:59 23:59 23:59 Intake Total 1994.0 / 2019.0 4278.97 / 4327.12 397.17 / 397.17 Output Total 2049 / 2049 1400 / 1505 300 / 300 Balance -55.0 / -30.0 2878.97 / 2822.12 97.17 / 97.17 Lab / Micro Data Result Diagrams: 06/19/22 03:45 06/19/22 03:45 Labs: Laboratory Results - last 24 hr 06/18/22 03:00: Potassium 3.3 L, Magnesium 2.0 06/18/22 06:40: POC Glucose 185 H 06/18/22 16:53: POC Glucose 219 H 06/18/22 17:00: WBC 5.5, RBC 3.97 L, Hgb 11.8 L, Hct 36.7 L, MCV 92.4, MCH 29.7, MCHC 32.2, RDW Std Deviation 45.9 H, RDW Coeff of Juan 13.6, Plt Count 324, MPV 10.2, Immature Gran % (Auto) 0.400, Neut % (Auto) 78.4 H, Lymph % (Auto) 16.5 L, [place] % (Auto) 3.8, Eos % (Auto) 0.7, Baso % (Auto) 0.2, Absolute Neuts (auto) 4.3, Absolute Lymphs (auto) 0.91, Nucleated RBC % 0 06/18/22 17:00: Sodium 140, Potassium 3.8, Chloride 109 H, Carbon Dioxide 24.0, Anion Gap 7, BUN 20 H, Creatinine 0.69, Estim Creat Clear Calc 31.94, Est GFR (MDRD) Af Amer 104, Est GFR (MDRD) Non-Af 86, BUN/Creatinine Ratio 29.0 H, Glucose 280 H, Calcium 7.8 L 06/18/22 22:11: POC Glucose 202 H 06/19/22 03:45: WBC 20.4 H, RBC 3.93 L, Hgb 11.8 L, Hct 36.1 L, MCV 91.9, MCH 30.0, MCHC 32.7, RDW Std Deviation 46.4 H, RDW Coeff of Juan 13.6, Plt Count 257, MPV 10.3, Immature Gran % (Auto) 0.500, Neut % (Auto) 90.4 H, Lymph % (Auto) 2.6 L, [place] % (Auto) 5.5, Eos % (Auto) 0.6, Baso % (Auto) 0.4, Absolute Neuts (auto) 18.4 H, Absolute Lymphs (auto) 0.53 L, Nucleated RBC % 0 06/19/22 03:45: Sodium 138, Potassium 4.4, Chloride 108 H, Carbon Dioxide 20.0 L, Anion Gap 10, BUN 26 H, Creatinine 0.96, Estim Creat Clear Calc 33.27, Est GFR (MDRD) Af Amer 71, Est GFR (MDRD) Non-Af 59 L, BUN/Creatinine Ratio 27.1 H, Glucose 259 H, Calcium 7.4 L, Phosphorus 3.4, Magnesium 1.3 L, Total Bilirubin 0.50, AST 9 L, ALT 11 L, Alkaline Phosphatase 59, Total Protein 4.6 L, Albumin 1.8 L, Globulin 2.8, Albumin/Globulin Ratio 0.6 L ABG Data ABG results: ABG 06/18/22 17:21 Specimen Type ART Sample Site Art Line pH 7.36 Bicarbonate Actual 20.9 L Total CO2 22 Base Excess -5 L O2 Saturation 98 O2 % 65 ABG pCO2 37.1 ABG pO2 102 H Respiration Rate 14 O2 Delivery Device AeroMask Vent Mode AC Tidal Volume 400 POC PEEP 5 Radiography Diagnostic Testing: Radiology Impression Chest X-Ray 06/18/22 17:10 IMPRESSION: No acute radiographic abnormalities. Endotracheal tube is present with tip 6.5 cm below the zbigniew. No pneumothorax. Electronically Signed: Timmy Crenshaw MD at 17:38 EST , Physical Exam Resp Resp Narrative: Slightly coarse bilaterally. Mechanical ventilation. GI GI Narrative: Tightly distended, absent bowel sounds. Dressings dry and intact. COLETTE drain serosanguineous Assessment & Plan Assessment/Plan (1) Hypotension after procedure: PLAN: Plan Ongoing critical patient. Leukocytosis likely stress reaction to her procedure. At the completion a good washout had been achieved and the bowel appeared quite viable and approximation. Proximal bowel was grossly distended with longstanding enteric contents dark in nature consistent with upper GI bleeding likely from her erosive gastritis in part aggravated by her NG tube. As noted during surgery an attempt was made endoscopically to place the NG tube into the duodenum. Not clear as to whether it is currently in that position. BUN has increased and the patient is notably oliguric. She was found hypotensive this morning with a systolic of 71. IV fluids have been running at 125 cc an hour of lactated Ringer's and she still has TPN running as well. It is likely due to her preop hospitalization with NG tube management then conversion to oral diet with diminishment in her IV fluids with her having had significant diarrhea with the Gastrografin small bowel study and then need to replace the NG tube that she is behind on fluids. She will not tolerate at age 87 prolonged hypotension and of course acute kidney injury will lead to her demise. We will provide a saline bolus. We will ask for review of all medications complicating hypotension with attempts to minimize them. Obviously the norepinephrine as helpful and harmful effects. The ongoing heavier sedation also complicating features as does her atrial fibrillation and requirement for rate control. If this patient can be medically maximized I anticipate from her abdominal surgical standpoint that she should have a good result. Rajan Álvarez M.D., F.A.C.S.
--- NOTE | 2022-06-19 06:00 | CON.PCM.CC_ITS ---
Assessment & Plan Assessment/Plan (1) Sepsis: PLAN: Plan RECOMMENDATIONS: 1. Continue assist-control mode mechanical ventilation. Wean FiO2 and PEEP to maintain saturations at or above 90%. 2. Continue broad-spectrum antimicrobials as ordered. 3. Continue amiodarone for rate/rhythm control. 4. Minimize sedation as tolerated. Goal to maintain a RASS of -1 to 1. 5. Gentle IV fluid hydration. 6. TPN for nutritional support. 7. Vasopressors, if needed, to maintain a mean arterial pressure at or above 65 mmHg. 8. Continue PPI therapy for GI prophylaxis. 9. Obtain follow-up ABG this morning. IMPRESSIONS: 1. Distributive/hypovolemic shock The patient's presenting hypotension postoperatively was likely multifactorial in etiology. I do suspect that there was still residual effects of anesthesia contributing as well as intravascular volume depletion and evolving sepsis. The patient did receive additional IV fluids and was transiently on vasopressor support to maintain hemodynamic stability. She has since been weaned from L evophed as of this morning and remains a stable from a hemodynamic perspective. We will continue to monitor the patient's blood pressures closely. Levophed can be restarted, if needed, to maintain a mean arterial pressure at or above 65 mmHg. In the interim, I agree with continuing broad-spectrum antimicrobials, pending infectious work-up. 2. Small bowel obstruction, now POD #1 s/p ex lap with lysis of adhesions and enterectomy Continue routine postoperative care per general surgery recommendations. Continue nutritional support with TPN as ordered. 3. Acute respiratory failure with hypoxia The patient was initially left intubated postoperatively over concerns for significant fluid shifts which could lead to clinical instability. The patient is doing well from a respiratory perspective this morning. I would recommend the cautious use of ongoing supplemental IV fluids, given the patient's history of underlying heart failure with preserved ejection fraction. We will repeat ABG this morning. 4. Hypomagnesemia Aggressive electrolyte repletion as ordered. Check phosphorus level as well. Continue to monitor electrolytes daily. 5. Paroxysmal atrial fibrillation Clinically stable at this time on amiodarone, which will be continued without change. 6. History of diabetes mellitus/hypothyroidism/hyperlipidemia/hypertension Complicates care, management, recovery and prognosis. Maintain sliding scale insulin for now. Continue to hold home antihypertensives. TIME: 42 minutes of critical care time, independent of procedures, was spent addressing the patient's distributive/hypovolemic shock, small bowel obstruc tion, respiratory failure, hypomagnesemia, paroxysmal atrial fibrillation, review of all data and collaboration with the care team. HPI Consult Data Date of Consult: 06/19/22 HPI Narrative HPI Narrative: The patient is an 87-year-old female, with a history as outlined below, who presented on June 13 with abdominal pain, nausea and vomiting. The patient has been followed by general surgery on an outpatient basis. She is status post colonoscopy with polypectomy performed on June 05, 2022, which revealed a tubular adenoma. After the procedure, the patient developed some gas related pain. She went on to develop multiple episodes of emesis. The patient received supplemental IV fluids for dehydration and a CT abdomen/pelvis was obtained which demonstrated a small bowel obstruction, which is a recurrent issue for the patient. The patient was initially managed conservatively with NG tube and fluids. The patient was progressing clinically until June 17. Ultimately, the patient was taken to the OR on June 18 where she underwent an exploratory laparotomy with lysis of adhesions and enterectomy of mid small bowel. Postoperatively, the patient was transferred to the medical intensive care unit for further management. At the present time, the patient has been maintained on assist control mode of mechanical ventilation with an FiO2 requirement of 35% and PEEP of 5. Although the patient was initially on Levophed to maintain hemodynamic stability, the patient has since been weaned from vasopressor support. Her atrial fibrillation is currently under control on amiodarone. White count is elevated at 20,000. Serum bicarbonate was noted to be 20 with a creatinine of 0.96. Magnesium was low at 1.3. Phosphorus was within normal limits at 3.4. Her magnesium is currently being repleted. COUNT INCLUDES THE [facility] Medical History (Updated 06/19/22 @ 08:[address] Jose Roberto Bonilla, ) Ambulates with cane Convertio Co Breast CA Cancer Cardiology follow-up encounter DCIS (ductal carcinoma in situ) Diabetes Endometrial cancer Essential (primary) hypertension Generalized osteoarthritis Hemorrhoid High cholesterol History of breast cancer History of diverticulitis History of echocardiogram History of GI bleed History of stress test Hx of fracture of humerus Hyperlipidemia Hypertriglyceridemia Hypothyroidism (acquired) Infection of total knee replacement Loss of hearing Non-smoker Obesity Osteoarthritis Paroxysmal atrial fibrillation Paroxysmal atrial tachycardia Post-menopausal Premature atrial contractions Sleep apnea Thyroid disease Transient atrial fibrillation or flutter Type 2 diabetes mellitus Wears glasses Wears hearing aid Home Medications aspirin 81 mg chewable tablet 81 mg PO QODAY Check with primary doctor 09/10/14 [History Last Taken 08/17/21] atorvastatin 40 mg tablet 40 mg PO QHS Check with primary doctor 09/10/14 [History Last Taken 09/09/14] levothyroxine 50 mcg tablet 50 mcg PO DAILY hypothyroidism 09/10/14 [History Last Taken 06/10/22] glipizide 2.5 mg tablet, extended release 24 hr 2.5 mg PO DAILY Check with primary doctor 04/28/19 [History Last Taken 06/10/22] fluticasone propionate 50 mcg/actuation nasal spray,suspension 2 spray intranasal DAILY PRN PRN Allergic Reaction 05/03/20 [History Last Taken 08/16/21] metformin 500 mg tablet,extended release 24 hr 500 mg PO QHS Check with primary doctor 05/03/20 [History Last Taken 06/10/22] latanoprost 0.005 % eye drops 1 drp ophthalmic (eye) QHS glaucoma 05/02/21 [History Last Taken 06/10/22] losartan 50 mg tablet See Rx Instructions .Route .COMPLEX hypertension 06/13/22 [History Last Taken 06/10/22] metoprolol succinate 50 mg tablet,extended release 24 hr 50 mg PO DAILY Check with primary doctor 06/13/22 [History Last Taken 06/10/22] omeprazole 20 mg capsule,delayed release 20 mg PO DAILY #30 caps 06/15/22 [Rx Last Taken Unknown] Allergy/AdvReac Type Severity Reaction Status Date / Time Penicillins Allergy Severe Chest Verified 06/12/22 13:36 tightness aspartame Allergy Diarrhea Verified 06/12/22 13:36 rofecoxib AdvReac Severe Itching Verified 06/12/22 13:36 adhesive tape [tape] AdvReac Mild Itching Verified 06/12/22 13:36 codeine AdvReac Mild Nausea/Vomi Verified 06/12/22 13:36 ting hydrocodone [Hydrocodone] AdvReac Mild Nausea/Vomi Verified 06/12/22 13:36 ting morphine AdvReac Mild Nausea/Vomi Verified 06/12/22 13:36 ting oxycodone [Oxycodone] AdvReac Mild Nausea Verified 06/12/22 13:36 Family History Mother Hypertension Heart disease CVA (cerebral vascular accident) Parkinsons disease Father CVA (cerebral vascular accident) Parkinsons disease Other COPD (chronic obstructive pulmonary disease) Diabetes Surgical History H/O total hysterectomy History of incisional hernia repair History of knee replacement History of lumpectomy of left breast History of right hip replacement Social History household members: none Smoking Status: Never smoker second hand exposure: No alcohol intake: never details: occasional substance use type: does not use ROS Review of Systems ROS Unobtainable: due to endotracheal tube and due to mental status Physical Exam Const Constitutional Narrative: Intubated, sedated and mechanically ventilated. No ventilator dyssynchrony. HEENT normocephalic and head/scalp atraumatic HEENT Narrative: Nasogastric tube in place. Mouth: endotracheal tube in place Eyes PERRL and conjunctivae normal Neck supple General: trachea midline Chest inspection of chest normal Resp Resp Narrative: Coarse mechanical breath sounds bilaterally. Cardio S1 normal heart sound and S2 normal heart sound Rhythm: abnormal rhythm GI GI Narrative: Distended abdomen with surgical dressings in place and COLETTE drain with serosan guineous drainage Extremity no clubbing, cyanosis or edema Skin no rashes or lesions noted Neuro Sensorium / Orientation: sedated on vent Lab / Micro Data Result Diagrams: 06/19/22 03:45 06/19/22 03:45 Labs: Laboratory Results - last 24 hr 06/18/22 03:00: Potassium 3.3 L, Magnesium 2.0 06/18/22 06:40: POC Glucose 185 H 06/18/22 16:53: POC Glucose 219 H 06/18/22 17:00: WBC 5.5, RBC 3.97 L, Hgb 11.8 L, Hct 36.7 L, MCV 92.4, MCH 29.7, MCHC 32.2, RDW Std Deviation 45.9 H, RDW Coeff of Juan 13.6, Plt Count 324, MPV 10.2, Immature Gran % (Auto) 0.400, Neut % (Auto) 78.4 H, Lymph % (Auto) 16.5 L, [place] % (Auto) 3.8, Eos % (Auto) 0.7, Baso % (Auto) 0.2, Absolute Neuts (auto) 4.3, Absolute Lymphs (auto) 0.91, Nucleated RBC % 0 06/18/22 17:00: Sodium 140, Potassium 3.8, Chloride 109 H, Carbon Dioxide 24.0, Anion Gap 7, BUN 20 H, Creatinine 0.69, Estim Creat Clear Calc 31.94, Est GFR (MDRD) Af Amer 104, Est GFR (MDRD) Non-Af 86, BUN/Creatinine Ratio 29.0 H, Glucose 280 H, Calcium 7.8 L 06/18/22 22:11: POC Glucose 202 H 06/19/22 03:45: WBC 20.4 H, RBC 3.93 L, Hgb 11.8 L, Hct 36.1 L, MCV 91.9, MCH 30.0, MCHC 32.7, RDW Std Deviation 46.4 H, RDW Coeff of Juan 13.6, Plt Count 257, MPV 10.3, Immature Gran % (Auto) 0.500, Neut % (Auto) 90.4 H, Lymph % (Auto) 2.6 L, [place] % (Auto) 5.5, Eos % (Auto) 0.6, Baso % (Auto) 0.4, Absolute Neuts (auto) 18.4 H, Absolute Lymphs (auto) 0.53 L, Nucleated RBC % 0 06/19/22 03:45: Sodium 138, Potassium 4.4, Chloride 108 H, Carbon Dioxide 20.0 L , Anion Gap 10, BUN 26 H, Creatinine 0.96, Estim Creat Clear Calc 33.27, Est GFR (MDRD) Af Amer 71, Est GFR (MDRD) Non-Af 59 L, BUN/Creatinine Ratio 27.1 H, Glucose 259 H, Calcium 7.4 L, Phosphorus 3.4, Magnesium 1.3 L, Total Bilirubin 0.50, AST 9 L, ALT 11 L, Alkaline Phosphatase 59, Total Protein 4.6 L, Albumin 1.8 L, Globulin 2.8, Albumin/Globulin Ratio 0.6 L ABG Data ABG results: ABG 06/18/22 17:21 Specimen Type ART Sample Site Art Line pH 7.36 Bicarbonate Actual 20.9 L Total CO2 22 Base Excess -5 L O2 Saturation 98 O2 % 65 ABG pCO2 37.1 ABG pO2 102 H Respiration Rate 14 O2 Delivery Device AeroMask Vent Mode AC Tidal Volume 400 POC PEEP 5 Radiology Impression Chest X-Ray 06/18/22 17:10 IMPRESSION: No acute radiographic abnormalities. Endotracheal tube is present with tip 6.5 cm below the zbigniew. No pneumothorax. Electronically Signed: Timmy Crenshaw MD at 17:38 EST , Charges/Coding Procedures Hospitalists Procedures: 41024 Critial Care 1st Hr
--- NOTE | 2022-06-19 06:04 | RAD_ITS ---
STUDY: X-RAY CHEST REASON FOR EXAM: Female, 87 years old. hypotension TECHNIQUE: AP portable. 6:20 AM. COMPARISON: 06/18/2022. FINDINGS: LINES/DEVICES: Tip of the endotracheal tube approximately 5 cm above the zbigniew. NG tube tip in the stomach. PICC unchanged. LUNGS: Minimal opacities in the lung bases greater on the right, increased compared to prior, with likely a small right pleural effusion. No consolidation. No pneumothorax. MEDIASTINUM: Unremarkable. CARDIAC SILHOUETTE: Not enlarged. BONES AND SOFT TISSUES: Surgical hardware in the right humerus. RAD/Chest 1 View (Portable) IMPRESSION: Increased bibasilar atelectasis and small right pleural effusion. Electronically Signed: Briana Toribio MD at 7:04 EST ,
[2022-06-19] MEDS: Insulin Lispro 100 UNIT/ML INSULN.PEN SC ×5 (06:58→23:25)
[2022-06-19] MEDS: Lactated Ringers 1,000 ML 125 ML IV ×3 (06:58→22:41)
[2022-06-19 07:17] LABS: Lactic Acid 2.7 mmol/L (0.4-1.9)
--- NOTE | 2022-06-19 07:18 | PN.HOSP_ITS ---
Subjective Subjective DOS 06/19/2020 Chief complaint: Unable to voice secondary to intubation and sedation Presently on amiodarone drip and receiving a bolus of fluids, off levo at this time. On 125 of fentanyl, O2 sat decent. Up in weight with suboptimal urine output Objective Data Objective Data Vital Signs: Vital Signs Temp Pulse Resp BP Pulse Ox O2 Del Method FiO2 97.3 F L 85 14 133/77 H 97 Mechanical Ventilator 35 06/19/22 06:00 06/19/22 07:15 06/19/22 07:15 06/19/22 07:00 06/19/22 07:15 06/19/22 07:00 06/19/22 07:15 Oxygen Delivery Method Mechanical Ventilator Weight: 90.4 kg Body Mass Index (BMI) 34.9 Intake & Output: Intake and Output for Last 24 Hours 06/17/22 06/18/22 06/19/22 23:59 23:59 23:59 Intake Total 1994.0 / 2019.0 4278.97 / 4327.12 195.57 / 1954.57 Output Total 2049 1400 / 1505 300 / 300 Balance -55.0 / -30.0 2878.97 / 2822.12 1655.57 / 1655.57 Lab / Micro Data Result Diagrams: 06/19/22 03:45 06/19/22 03:45 Labs: Laboratory Results - last 24 hr 06/18/22 06:40: POC Glucose 185 H 06/18/22 16:53: POC Glucose 219 H 06/18/22 17:00: WBC 5.5, RBC 3.97 L, Hgb 11.8 L, Hct 36.7 L, MCV 92.4, MCH 29.7, MCHC 32.2, RDW Std Deviation 45.9 H, RDW Coeff of Juan 13.6, Plt Count 324, MPV 10.2, Immature Gran % (Auto) 0.400, Neut % (Auto) 78.4 H, Lymph % (Auto) 16.5 L, [place] % (Auto) 3.8, Eos % (Auto) 0.7, Baso % (Auto) 0.2, Absolute Neuts (auto) 4.3, Absolute Lymphs (auto) 0.91, Nucleated RBC % 0 06/18/22 17:00: Sodium 140, Potassium 3.8, Chloride 109 H, Carbon Dioxide 24.0, Anion Gap 7, BUN 20 H, Creatinine 0.69, Estim Creat Clear Calc 31.94, Est GFR (MDRD) Af Amer 104, Est GFR (MDRD) Non-Af 86, BUN/Creatinine Ratio 29.0 H, Glucose 280 H, Calcium 7.8 L 06/18/22 22:11: POC Glucose 202 H 06/19/22 03:45: WBC 20.4 H, RBC 3.93 L, Hgb 11.8 L, Hct 36.1 L, MCV 91.9, MCH 30.0, MCHC 32.7, RDW Std Deviation 46.4 H, RDW Coeff of Juan 13.6, Plt Count 257, MPV 10.3, Immature Gran % (Auto) 0.500, Neut % (Auto) 90.4 H, Lymph % (Auto) 2.6 L, [place] % (Auto) 5.5, Eos % (Auto) 0.6, Baso % (Auto) 0.4, Absolute Neuts (auto) 18.4 H, Absolute Lymphs (auto) 0.53 L, Nucleated RBC % 0 06/19/22 03:45: Sodium 138, Potassium 4.4, Chloride 108 H, Carbon Dioxide 20.0 L , Anion Gap 10, BUN 26 H, Creatinine 0.96, Estim Creat Clear Calc 33.27, Est GFR (MDRD) Af Amer 71, Est GFR (MDRD) Non-Af 59 L, BUN/Creatinine Ratio 27.1 H, Glucose 259 H, Calcium 7.4 L, Phosphorus 3.4, Magnesium 1.3 L, Total Bilirubin 0.50, AST 9 L, ALT 11 L, Alkaline Phosphatase 59, Total Protein 4.6 L, Albumin 1.8 L, Globulin 2.8, Albumin/Globulin Ratio 0.6 L 06/19/22 06:35: Lactic Acid 2.7 H* ABG Data ABG results: ABG 06/18/22 17:21 Specimen Type ART Sample Site Art Line pH 7.36 Bicarbonate Actual 20.9 L Total CO2 22 Base Excess -5 L O2 Saturation 98 O2 % 65 ABG pCO2 37.1 ABG pO2 102 H Respiration Rate 14 O2 Delivery Device AeroMask Vent Mode AC Tidal Volume 400 POC PEEP 5 Radiography Diagnostic Testing: Radiology Impression Chest X-Ray 06/18/22 17:10 IMPRESSION: No acute radiographic abnormalities. Endotracheal tube is present with tip 6.5 cm below the zbigniew. No pneumothorax. Electronically Signed: Timmy Crenshaw MD at 17:38 EST , Chest X-Ray 06/19/22 06:04 IMPRESSION: Increased bibasilar atelectasis and small right pleural effusion. Electronically Signed: Briana Toribio MD at 7:04 EST , Physical Exam Const Constitutional Narrative: Intubated and sedated, does wake up to some extent HEENT head/scalp atraumatic HEENT Narrative: ET tube and NG tube placed Eyes Eyes Narrative: Did open eyes spontaneously Resp Resp Narrative: Mechanically ventilated Cardio regular rate and regular rhythm GI GI Narrative: Is soft, dressing over surgical site Extremity Extremity Narrative: Trace edema in bilateral lower EXTR Neuro Neuro Narrative: Presently sedated Psych Psych Narrative: Unable to participate in exam due to intubated and sedated Assessment & Plan Assessment/Plan (1) Small bowel obstruction: PLAN: Plan 87 old female with history of colonoscopy 06/[address] Álvarez. Tolerated this well but the following day developed nausea and bloating. She had contacted the office for diet medication recommendations and called multiple times daily after colonoscopy and ended up having an episode of vomiting and was evaluated in the office. Does have a history of small bowel obstruction earlier this year and was hospitalized. Ultimately was a direct admit to the hospital and diagnosed with a small bowel obstruction. Hospitalist consulted 06/17 as she was to have an NG tube placed and it was requested TPN be initiated. #Hypotension Had ex lap yesterday which was complicated by hypotension She was taken to the ICU intubated and on Delroy-Synephrine Was also in A. fib with RVR Transitioned to Levophed which helped improve blood pressure to some extent and was given an amnio bolus and drip which improved heart rate Has been receiving fluids On [place] ICU team on board Remains mechanically ventilated and sedated on fentanyl #Diabetes mellitus type 2 Given she is on the ventilator at this time we will change sliding scale to every 4 hours, TPN held at this time Metformin held Monitor for need for basal insulin #Hypothyroidism Not tolerating p.o. Synthroid IV #Paroxysmal atrial fibrillation Did have A. fib with RVR yesterday after surgery, on amnio drip at this time with heart rate improved #Hypertension Has been hypotensive, levo held at this time but blood pressure tenuous Receiving fluids #Recurrent small bowel obstruction Similar issue August 2021 with non op management Had a Gastrografin small bowel follow-through NG tube placed PICC line ordered, TPN Likely ex lap today with Dr. Álvarez 06/19: Had ex lap 06/19 and had episode of hypotension requiring pressors, transferred to ICU intubated on pressors. Levo currently on hold. Patient will likely have delayed closure. Management per surgery #Inability to maintain nutrition Due to small bowel obstruction NG per surgery PICC line placed, will need TPN 06/19: TPN held, slightly improved today compared to yesterday, will likely be able to resume soon #DVT ppx: SCDs Divya Gonzales MD Charges/Coding Visit Charges Inpatient E&M: 51167 Subs Hosp L2
[2022-06-19 07:20] LABS: Bedside Glucose 211 mg/dL (74-106)
--- NOTE | 2022-06-19 07:39 | NURSING ---
NG withdrawn 4 cm per MD communication order. NG secured.
[2022-06-19] MEDS: Chlorhexidine 15 ML PO ×2 (08:33→21:49)
--- NOTE | 2022-06-19 09:08 | WOUNDNOTE ---
wound photo: abdomen
[2022-06-19] MEDS: Potassium Chloride 20mEq/100mL 20 MEQ/100 ML IV.SOLN. 100 MEQ IV BOLUS ×2 (09:23→10:24)
[2022-06-19 09:30] LABS: Base Excess -2 mmol/L (-2 to +2); Bicarbonate 21.7 mmol/L (22-26); Blood Gas Specimen Type ART; FI02 35; Mode AC; O2 Delivery Device Adult Vent; PEEP 5; PO2 100 mmHG (75-100); RR 14; SITE Art Line; SO2 98 % (95-99); Total Carbon Dioxide 23 mmol/L; Vt 400; pCO2 29.4 mmHg (35-45); pH 7.48 (7.35-7.45)
[2022-06-19 10:41] LABS: Reflex Lactate? Y
[2022-06-19 10:50] LABS: Bedside Glucose 240 mg/dL (74-106)
[2022-06-19 11:39] LABS: Lactic Acid 1.9 mmol/L (0.4-1.9)
--- NOTE | 2022-06-19 11:40 | CHAPLAIN ---
Type of Pastoral Visit ___ Initial Visit _x__ Follow-up Visit ___ On-call Visit ___ General Patient Visit ___ Spiritual Assessment ___ Family Conference ___ Bereavement ___ Rapid Response ___ Code Blue ___ Other (describe below) Pastoral Care Referral From ___ Patient _x__ Family ___ Nurse ___ Physician ___ Chief Service Dispatcher ___ Customer Service Cashier ___ Other (describe below) Sacrament/Intervention ___ Active listening ___ Anointing ___ Taoism ___ Bereavement ___ Communion ___ Marcela exploration ___ ___ Life review _x__ Prayer ___ Reconciliation ___ Sacrament of Sick _x__ Supportive presence ___ Wedding ___ Other (describe below) Pastoral Comments patient had surgery yesterday and was moved to ICU on a vent; pt unable to communicate but her niece is in the room and welcomes the support and prayers; niece requests that her yarsani and insole toe snipping machine operator be contacted which was then done by this clock and watch assembler; offer of ongoing support through presence and prayer given to nishayne
[2022-06-19 15:26] LABS: Bedside Glucose 182 mg/dL (74-106)
--- NOTE | 2022-06-19 16:21 | PN.SURG_ITS ---
Subjective Subjective Made progress today. Blood pressure responded to early fluid bolus but recently she dipped again and had to be restarted on norepinephrine. Urine output has improved slightly today. Objective Data Objective Data Vital Signs: Vital Signs Temp Pulse Resp BP Pulse Ox O2 Del Method FiO2 99.0 F 88 19 H 106/52 L 98 Mechanical Ventilator 30 06/19/22 16:00 06/19/22 16:00 06/19/22 16:00 06/19/22 16:15 06/19/22 16:00 06/19/22 16:00 06/19/22 16:00 Oxygen Delivery Method Mechanical Ventilator Weight: 199 lb 4.766 oz Body Mass Index (BMI) 34.9 Intake & Output: Intake and Output for Last 24 Hours 06/17/22 06/18/22 06/19/22 23:59 23:59 23:59 Intake Total 1994.0 / 2020.0 4278.97 / 4327.12 3830.39 / 3830.39 Output Total 2049 / 2049 1400 / 1505 1025 / 1025 Balance -55.0 / -30.0 2878.97 / 2822.12 2805.39 / 2805.39 Lab / Micro Data Result Diagrams: 06/19/22 03:45 06/19/22 03:45 Labs: Laboratory Results - last 24 hr 06/18/22 16:53: POC Glucose 219 H 06/18/22 17:00: WBC 5.5, RBC 3.97 L, Hgb 11.8 L, Hct 36.7 L, MCV 92.4, MCH 29.7, MCHC 32.2, RDW Std Deviation 45.9 H, RDW Coeff of Juan 13.6, Plt Count 324, MPV 10.2, Immature Gran % (Auto) 0.400, Neut % (Auto) 78.4 H, Lymph % (Auto) 16.5 L, [place] % (Auto) 3.8, Eos % (Auto) 0.7, Baso % (Auto) 0.2, Absolute Neuts (auto) 4.3, Absolute Lymphs (auto) 0.91, Nucleated RBC % 0 06/18/22 17:00: Sodium 140, Potassium 3.8, Chloride 109 H, Carbon Dioxide 24.0, Anion Gap 7, BUN 20 H, Creatinine 0.69, Estim Creat Clear Calc 31.94, Est GFR (MDRD) Af Amer 104, Est GFR (MDRD) Non-Af 86, BUN/Creatinine Ratio 29.0 H, Glucose 280 H, Calcium 7.8 L 06/18/22 22:11: POC Glucose 202 H 06/19/22 03:45: WBC 20.4 H, RBC 3.93 L, Hgb 11.8 L, Hct 36.1 L, MCV 91.9, MCH 30.0, MCHC 32.7, RDW Std Deviation 46.4 H, RDW Coeff of Juan 13.6, Plt Count 257, MPV 10.3, Immature Gran % (Auto) 0.500, Neut % (Auto) 90.4 H, Lymph % (Auto) 2.6 L, [place] % (Auto) 5.5, Eos % (Auto) 0.6, Baso % (Auto) 0.4, Absolute Neuts (auto) 18.4 H, Absolute Lymphs (auto) 0.53 L, Nucleated RBC % 0 06/19/22 03:45: Sodium 138, Potassium 4.4, Chloride 108 H, Carbon Dioxide 20.0 L , Anion Gap 10, BUN 26 H, Creatinine 0.96, Estim Creat Clear Calc 33.27, Est GFR (MDRD) Af Amer 71, Est GFR (MDRD) Non-Af 59 L, BUN/Creatinine Ratio 27.1 H, Glucose 259 H, Calcium 7.4 L, Phosphorus 3.4, Magnesium 1.3 L, Total Bilirubin 0.50, AST 9 L, ALT 11 L, Alkaline Phosphatase 59, Total Protein 4.6 L, Albumin 1.8 L, Globulin 2.8, Albumin/Globulin Ratio 0.6 L 06/19/22 06:35: Lactic Acid 2.7 H* 06/19/22 06:57: POC Glucose 211 H 06/19/22 10:22: POC Glucose 240 H 06/19/22 11:00: Lactic Acid 1.9 06/19/22 14:58: POC Glucose 182 H Micro: Microbiology 06/18/22 17:23 Sputum, Induced/Lukens Gram Stain - Final ABG Data ABG results: ABG 06/18/22 06/19/22 17:21 09:25 Specimen Type ART ART Sample Site Art Line Art Line pH 7.36 7.48 H Bicarbonate Actual 20.9 L 21.7 L Total CO2 22 23 Base Excess -5 L -2 O2 Saturation 98 98 O2 % 65 35 ABG pCO2 37.1 29.4 L ABG pO2 102 H 100 Chris Test N/A Respiration Rate 14 14 O2 Delivery Device AeroMask Adult Vent Vent Mode AC AC Tidal Volume 400 400 POC PEEP 5 5 Radiography Diagnostic Testing: Radiology Impression Chest X-Ray 06/18/22 17:10 IMPRESSION: No acute radiographic abnormalities. Endotracheal tube is present with tip 6.5 cm below the zbigniew. No pneumothorax. Electronically Signed: Timmy Crenshaw MD at 17:38 EST , Chest X-Ray 06/19/22 06:04 IMPRESSION: Increased bibasilar atelectasis and small right pleural effusion. Electronically Signed: Briana Toribio MD at 7:04 EST , Physical Exam GI GI Narrative: Frequently tender, patient slightly awakens. Assessment & Plan Assessment/Plan (1) Sepsis: PLAN: Plan Small fluid bolus. Continue to monitor. Hopefully will extubate her tomorrow. Rajan Álvarez M.D., F.A.C.S.
[2022-06-19] MEDS: TPN - Clinimix E 8%-14% Soln 2,000 ML with Multivitamins 10 ML, Trace Elements 1 ML, Fo... 42 ML IV (16:27)
[2022-06-19 18:56] LABS: Bedside Glucose 206 mg/dL (74-106)
[2022-06-19] MEDS: TITRATION PARAMETER CHANGE 1 EACH IV (19:35)
[2022-06-19] MEDS: Latanoprost 0.005% 1 Bottle 1 DRP OPHTHALMIC (21:49)
[2022-06-19 23:55] LABS: Bedside Glucose 257 mg/dL (74-106)
[2022-06-20] VITALS (43 sets, daily range): BP systolic 113–169; BP diastolic 51–100; PULSE 61–112; RESP 14–30; TEMP 35.9–37; O2SAT 93–98
[2022-06-20] MEDS: CHLORHEXIDINE GLUC 2% CLOTH 1 EACH TOWELETTE TOPICAL (02:45)
[2022-06-20] MEDS: Amiodarone 360 MG in Dextrose 5% Viaflo Bag 192.8 ML 16.7 MG CONT INF ×2 (02:45→14:37)
[2022-06-20 03:09] LABS: Absolute Lymphocyte Count 0.54 X10^3/uL (0.83-4.51); Absolute Neutrophil Count 11.6 X10^3/uL (2.0-7.7); Basophil# 0.02 X10^3/uL; Basophil% 0.2 % (0-1); Hematocrit 29.7 % (37-47); Hemoglobin 9.9 g/dL (12.0-15.0); Lymphocyte # 0.54 X10^3/ul (0.83-4.51); Lymphocyte % 4.1 % (19-41); Mean Corp Hgb Conc 33.3 g/dL (32-36); Mean Platelet Vol. 10.5 fl (6.2-12.0); Monocyte# 0.91 X10^3/uL; Monocyte% 6.9 % (0-10); NRBC Flagged by Analyzer 0 % (0-5); Neutrophil # 11.62 X10^3/uL (2.7-7.7); Neutrophil % 88.3 % (47-70); POSITIVE DIFFERENTIAL YES; Platelet Count 228 K/mm3 (150-450); RBC Distribution Width CV 13.9 % (11.6-14.6); RBC Distribution Width SD 45.3 fl (35.1-43.9); White Blood Count 13.2 K/mm3 (4.4-11.0)
[2022-06-20 03:14] LABS: Differential Indicated SCAN CRITERIA MET
[2022-06-20 03:53] LABS: ALB/GLOB Ratio 0.6 RATIO (0.9-2.4); AST(SGOT) 9 U/L (15-37); Alanine Aminotransfer ALT/SGPT 11 U/L (13-56); Albumin, Serum 1.7 g/dL (3.2-5.0); Alkaline Phosphatase 71 U/L (45-117); Anion Gap 5 (5-15); BUN 21 mg/dL (7-18); BUN/Creat Ratio 27.6 RATIO (10-20); Calcium,Total 7.7 mg/dL (8.5-10.1); Chloride 109 mmol/L (98-107); Creatinine, Serum 0.76 mg/dL (0.55-1.02); EST Glomerular Filtration Rate 77 mL/min (>60); Est Glom Filt Rate - Afr Amer 93 mL/min (>60); Estimated Creatinine Clearance 31.94 ml/min; Glucose 287 mg/dL (74-106); Phosphorus 2.1 mg/dL (2.5-4.9); Protein, Total 4.7 g/dL (6.4-8.2); Sodium Level 137 mmol/L (136-145)
[2022-06-20] MEDS: Insulin Lispro 100 UNIT/ML INSULN.PEN SC ×5 (03:53→20:26)
[2022-06-20 04:16] LABS: Bedside Glucose 254 mg/dL (74-106)
--- NOTE | 2022-06-20 05:57 | PCM.PN.SRG ---
Subjective Subjective Patient appears very comfortable on the ventilator. Objective Data Objective Data Vital Signs: Vital Signs Temp Pulse Resp BP Pulse Ox O2 Del Method FiO2 96.6 F L 68 18 134/62 H 97 Mechanical Ventilator 30 06/20/22 04:30 06/20/22 05:45 06/20/22 05:05 06/20/22 05:45 06/20/22 05:05 06/20/22 05:00 06/20/22 05:00 Oxygen Delivery Method Mechanical Ventilator Weight: 206 lb 12.697 oz Body Mass Index (BMI) 34.9 Intake & Output: Intake and Output for Last 24 Hours 06/18/22 06/19/22 06/20/22 23:59 23:59 23:59 Intake Total 4278.97 / 4327.12 5598.45 / 5672.85 423.25 / 423.25 Output Total 1400 / 1505 1700 / 1700 420 / 420 Balance 2878.97 / 2822.12 3898.45 / 3972.85 3.25 / 3.25 Lab / Micro Data Result Diagrams: 06/20/22 03:01 06/20/22 03:01 Labs: Laboratory Results - last 24 hr 06/19/22 06:35: Lactic Acid 2.7 H* 06/19/22 06:57: POC Glucose 211 H 06/19/22 10:22: POC Glucose 240 H 06/19/22 11:00: Lactic Acid 1.9 06/19/22 14:58: POC Glucose 182 H 06/19/22 18:32: POC Glucose 206 H 06/19/22 23:23: POC Glucose 257 H 06/20/22 03:01: WBC 13.2 H, RBC 3.30 L, Hgb 9.9 L, Hct 29.7 L, MCV 90.0, MCH 30.0, MCHC 33.3, RDW Std Deviation 45.3 H, RDW Coeff of Juan 13.9, Plt Count 228, MPV 10.5, Immature Gran % (Auto) 0.500, Neut % (Auto) 88.3 H, Lymph % (Auto) 4.1 L, [place] % (Auto) 6.9, Eos % (Auto) 0.0, Baso % (Auto) 0.2, Absolute Neuts (auto) 11.6 H, Absolute Lymphs (auto) 0.54 L, Nucleated RBC % 0 06/20/22 03:01: Sodium 137, Potassium 4.0, Chloride 109 H, Carbon Dioxide 23.0, Anion Gap 5, BUN 21 H, Creatinine 0.76, Estim Creat Clear Calc 31.94, Est GFR (MDRD) Af Amer 93, Est GFR (MDRD) Non-Af 77, BUN/Creatinine Ratio 27.6 H, Glucose 287 H, Calcium 7.7 L, Phosphorus 2.1 L, Magnesium 2.0, Total Bilirubin 0.30, AST 9 L, ALT 11 L, Alkaline Phosphatase 71, Total Protein 4.7 L, Albumin 1.7 L, Globulin 3.0, Albumin/Globulin Ratio 0.6 L 06/20/22 03:51: POC Glucose 254 H Micro: Microbiology 06/18/22 17:23 Sputum, Induced/Lukens Gram Stain - Final ABG Data ABG results: ABG 06/19/22 09:25 Specimen Type ART Sample Site Art Line pH 7.48 H Bicarbonate Actual 21.7 L Total CO2 23 Base Excess -2 O2 Saturation 98 O2 % 35 ABG pCO2 29.4 L ABG pO2 100 Chris Test N/A Respiration Rate 14 O2 Delivery Device Adult Vent Vent Mode AC Tidal Volume 400 POC PEEP 5 Radiography Diagnostic Testing: Radiology Impression Chest X-Ray 06/19/22 06:04 IMPRESSION: Increased bibasilar atelectasis and small right pleural effusion. Electronically Signed: Briana Toribio MD at 7:04 EST Reading Location ID and State: [facility] / [place] Tel , Service support , Physical Exam Resp clear to auscultation bilaterally GI GI Narrative: Abdomen is softer, generally seemingly slightly less tender, dressings are dry Assessment & Plan Assessment/Plan (1) Small bowel obstruction due to adhesions: PLAN: NG tube a dark bilious return COLETTE abdominal drain minimal serosanguineous Urine output improved and clear Will decrease LR to 30 cc an hour. Patient is currently on TPN at 42 cc an hour. She appears to be starting to mobilize third space fluids. Pending the ability to completely wean the Delroy-Synephrine to off and potentially extubate the patient I would consider recommending stopping the LR and possibly even giving a low-dose of furosemide diuretic to facilitate diuresis. As she mobilizes her third space fluids she again is at risk for atrial stretch and recurrent atrial fibrillation I am very pleased with her current progress. All laboratory appears to be trending in a favorable fashion. Renal function in particular appears improved by output and laboratory Abdominal COLETTE drain very benign appearing material. Likely will remove the drain tomorrow. Anticipate a delayed primary closure of her abdominal wound likely on Saturday, June 25 Patient is currently on proton pump inhibitor pantoprazole IV with the addition of famotidine in her TPN. Appearance of the NG tube output appears to be slowly improving and appears now to be more like a dark bilious material rather than clarisa coffee-ground. Hemoglobin change likely secondary to hemodilution and fluid changes. I very much appreciate the assistance of the intensive care service and hospitalist service Rajan Álvarez M.D., F.A.C.S.
[2022-06-20] MEDS: TITRATION PARAMETER CHANGE 1 EACH IV (05:59)
[2022-06-20] MEDS: Lactated Ringers 1,000 ML 30 ML IV (06:37)
--- NOTE | 2022-06-20 06:55 | PN.CC_ITS ---
Assessment & Plan Assessment/Plan (1) Sepsis: PLAN: Plan RECOMMENDATIONS: 1. Proceed with a trial of extubation this morning. 2. Once extubated, wean supplemental oxygen to maintain saturations at or above 90%. 3. Encourage incentive spirometer use. 4. If the patient remains hemodynamically stable later today, will consider a trial of IV diuresis. 5. Continue broad-spectrum antimicrobials as ordered. 6. Continue amiodarone for rate/rhythm control. 7. TPN for nutritional support. 8. Continue PPI therapy for GI prophylaxis. IMPRESSIONS: 1. Distributive/hypovolemic shock Improved. The patient's presenting hypotension postoperatively was likely multifactorial in etiology. I do suspect that there was still residual effects of anesthesia contributing as well as intravascular volume depletion and evolving sepsis. The patient did receive additional IV fluids and was transiently on vasopressor support to maintain hemodynamic stability. We will continue to monitor the patient clinically and continue broad-spectrum antimicrobials as ordered. 2. Small bowel obstruction, now POD #2 s/p ex lap with lysis of adhesions and enterectomy Continue routine postoperative care per general surgery recommendations. Continue nutritional support with TPN as ordered. 3. Acute respiratory failure with hypoxia The patient was initially left intubated postoperatively over concerns for significant fluid shifts which could lead to clinical instability. The patient is doing well from a respiratory perspective this morning. The patient passed her spontaneous breathing trial and will therefore be extubated. Once extubated, supplemental oxygen will be weaned to maintain saturations at or above 90%. Incentive spirometer use will be encouraged. If the patient remains hemodynamically stable later this morning, a trial of IV diuresis will be considered. 4. Paroxysmal atrial fibrillation Clinically stable at this time on amiodarone, which will be continued without change. 5. History of diabetes mellitus/hypothyroidism/hyperlipidemia/hypertension Complicates care, management, recovery and prognosis. Maintain sliding scale insulin for now. Continue to hold home antihypertensives. TIME: 34 minutes of critical care time, independent of procedures, was spent addressing the patient's distributive/hypovolemic shock, small bowel obstruction, respiratory failure, paroxysmal atrial fibrillation, review of all data and collaboration with the care team. Subjective Subjective The patient was seen and examined at the bedside this morning. Events from the last 24 hours have been reviewed. The patient is currently afebrile, hemodynamically stable and maintaining appropriate oxygen saturations on spontaneous mode mechanical ventilation with an FiO2 of 30%. The patient did remarkably well overnight. Her sedation is currently on hold. The patient passed her spontaneous breathing trial and is alert and appropriately interactive. She is currently documented to be overall net +12.7 L for the hospitalization. White count has improved to 13,000. Creatinine remains normal. Urine output has picked up. Objective Data Objective Data The patient's most recent lab work, culture data and imaging studies have all been personally reviewed. Sputum culture is pending. Vital Signs: Vital Signs Temp Pulse Resp BP Pulse Ox O2 Del Method FiO2 96.6 F L 68 20 H 113/55 L 97 Mechanical Ventilator 30 06/20/22 04:30 06/20/22 06:00 06/20/22 06:00 06/20/22 06:00 06/20/22 06:00 06/20/22 06:00 06/20/22 06:00 Oxygen Delivery Method Mechanical Ventilator Weight: 206 lb 12.697 oz Body Mass Index (BMI) 34.9 Intake & Output: Intake and Output for Last 24 Hours 06/18/22 06/19/22 06/20/22 23:59 23:59 23:59 Intake Total 4278.97 / 4327.12 5598.45 / 5672.85 1370.10 / 1370.10 Output Total 1400 / 1505 1700 / 1700 595 / 595 Balance 2878.97 / 2822.12 3898.45 / 3972.85 775.10 / 775.10 Lab / Micro Data Attestation: I reviewed the patient's lab results. Result Diagrams: 06/20/22 03:01 06/20/22 03:01 Labs: Laboratory Results - last 24 hr 06/19/22 06:35: Lactic Acid 2.7 H* 06/19/22 06:57: POC Glucose 211 H 06/19/22 10:22: POC Glucose 240 H 06/19/22 11:00: Lactic Acid 1.9 06/19/22 14:58: POC Glucose 182 H 06/19/22 18:32: POC Glucose 206 H 06/19/22 23:23: POC Glucose 257 H 06/20/22 03:01: WBC 13.2 H, RBC 3.30 L, Hgb 9.9 L, Hct 29.7 L, MCV 90.0, MCH 30.0, MCHC 33.3, RDW Std Deviation 45.3 H, RDW Coeff of Juan 13.9, Plt Count 228, MPV 10.5, Immature Gran % (Auto) 0.500, Neut % (Auto) 88.3 H, Lymph % (Auto) 4.1 L, [place] % (Auto) 6.9, Eos % (Auto) 0.0, Baso % (Auto) 0.2, Absolute Neuts (auto) 11.6 H, Absolute Lymphs (auto) 0.54 L, Nucleated RBC % 0 06/20/22 03:01: Sodium 137, Potassium 4.0, Chloride 109 H, Carbon Dioxide 23.0, Anion Gap 5, BUN 21 H, Creatinine 0.76, Estim Creat Clear Calc 31.94, Est GFR (MDRD) Af Amer 93, Est GFR (MDRD) Non-Af 77, BUN/Creatinine Ratio 27.6 H, G lucose 287 H, Calcium 7.7 L, Phosphorus 2.1 L, Magnesium 2.0, Total Bilirubin 0.30, AST 9 L, ALT 11 L, Alkaline Phosphatase 71, Total Protein 4.7 L, Albumin 1.7 L, Globulin 3.0, Albumin/Globulin Ratio 0.6 L 06/20/22 03:51: POC Glucose 254 H Micro: Microbiology 06/18/22 17:23 Sputum, Induced/Lukens Gram Stain - Final ABG Data ABG results: ABG 06/19/22 09:25 Specimen Type ART Sample Site Art Line pH 7.48 H Bicarbonate Actual 21.7 L Total CO2 23 Base Excess -2 O2 Saturation 98 O2 % 35 ABG pCO2 29.4 L ABG pO2 100 Chris Test N/A Respiration Rate 14 O2 Delivery Device Adult Vent Vent Mode AC Tidal Volume 400 POC PEEP 5 Radiography Diagnostic Testing: Radiology Impression Chest X-Ray 06/19/22 06:04 IMPRESSION: Increased bibasilar atelectasis and small right pleural effusion. Electronically Signed: Briana Toribio MD at 7:04 EST , Physical Exam Const Constitutional Narrative: Intubated and mechanically ventilated. HEENT normocephalic and head/scalp atraumatic HEENT Narrative: Nasogastric tube in place. Mouth: endotracheal tube in place Eyes PERRL and conjunctivae normal Neck supple General: trachea midline Chest inspection of chest normal Resp Resp Narrative: Coarse mechanical breath sounds bilaterally. Cardio S1 normal heart sound and S2 normal heart sound Rhythm: abnormal rhythm GI GI Narrative: Distended abdomen with surgical dressings in place and COLETTE drain with serosanguineous drainage Extremity no clubbing, cyanosis or edema Skin no rashes or lesions noted Neuro Neuro Narrative: The patient is alert and able to follow simple commands without issue. Charges/Coding Procedures Hospitalists Procedures: [id number] Critial Care 1st Hr
--- NOTE | 2022-06-20 07:40 | PCM.PN.HOSP ---
Subjective Subjective Intubated, lowered sedation this a.m. for breathing trial. Resting comfortably. Minimal levo requirement of 1 at this time with good BP. On amnio drip and heart rate in 60s. Objective Data Objective Data Vital Signs: Vital Signs Temp Pulse Resp BP Pulse Ox O2 Del Method O2 Flow Rate 96.6 F L 64 18 115/51 L 95 Nasal Cannula 2 06/20/22 04:30 06/20/22 07:00 06/20/22 07:00 06/20/22 07:00 06/20/22 07:07 06/20/22 07:07 06/20/22 07:07 FiO2 30 06/20/22 06:00 Oxygen Flow Rate (L/min) 2 Oxygen Delivery Method Nasal Cannula Weight: 93.8 kg Body Mass Index (BMI) 34.9 Intake & Output: Intake and Output for Last 24 Hours 06/18/22 06/19/22 06/20/22 23:59 23:59 23:59 Intake Total 4278.97 / 4327.12 5598.45 / 5672.85 1375.05 / 1375.05 Output Total 1400 / 1505 1700 / 1700 595 / 595 Balance 2878.97 / 2822.12 3898.45 / 3972.85 780.05 / 780.05 Lab / Micro Data Result Diagrams: 06/20/22 03:01 06/20/22 03:01 Labs: Laboratory Results - last 24 hr 06/19/22 10:22: POC Glucose 240 H 06/19/22 11:00: Lactic Acid 1.9 06/19/22 14:58: POC Glucose 182 H 06/19/22 18:32: POC Glucose 206 H 06/19/22 23:23: POC Glucose 257 H 06/20/22 03:01: WBC 13.2 H, RBC 3.30 L, Hgb 9.9 L, Hct 29.7 L, MCV 90.0, MCH 30.0, MCHC 33.3, RDW Std Deviation 45.3 H, RDW Coeff of Juan 13.9, Plt Count 228, MPV 10.5, Immature Gran % (Auto) 0.500, Neut % (Auto) 88.3 H, Lymph % (Auto) 4.1 L, [place] % (Auto) 6.9, Eos % (Auto) 0.0, Baso % (Auto) 0.2, Absolute Neuts (auto) 11.6 H, Absolute Lymphs (auto) 0.54 L, Nucleated RBC % 0 06/20/22 03:01: Sodium 137, Potassium 4.0, Chloride 109 H, Carbon Dioxide 23.0, Anion Gap 5, BUN 21 H, Creatinine 0.76, Estim Creat Clear Calc 31.94, Est GFR (MDRD) Af Amer 93, Est GFR (MDRD) Non-Af 77, BUN/Creatinine Ratio 27.6 H, Glucose 287 H, Calcium 7.7 L, Phosphorus 2.1 L, Magnesium 2.0, Total Bilirubin 0.30, AST 9 L, ALT 11 L, Alkaline Phosphatase 71, Total Protein 4.7 L, Albumin 1.7 L, Globulin 3.0, Albumin/Globulin Ratio 0.6 L 06/20/22 03:51: POC Glucose 254 H Micro: Microbiology 06/18/22 17:23 Sputum, Induced/Lukens Gram Stain - Final ABG Data ABG results: ABG 06/19/22 09:25 Specimen Type ART Sample Site Art Line pH 7.48 H Bicarbonate Actual 21.7 L Total CO2 23 Base Excess -2 O2 Saturation 98 O2 % 35 ABG pCO2 29.4 L ABG pO2 100 Chris Test N/A Respiration Rate 14 O2 Delivery Device Adult Vent Vent Mode AC Tidal Volume 400 POC PEEP 5 Physical Exam Const Constitutional Narrative: Intubated, on breathing trial HEENT head/scalp atraumatic HEENT Narrative: ET tube and NG tube placed Eyes Eyes Narrative: Had been opening eyes spontaneously Neck Neck Narrative: ET tube Resp Resp Narrative: Mechanically ventilated Cardio regular rate and regular rhythm GI GI Narrative: Is soft, dressing over surgical site Extremity Extremity Narrative: Trace edema in bilateral lower EXTR Neuro Neuro Narrative: Presently sedated Psych Psych Narrative: Unable to participate in exam due to intubated and sedated Assessment & Plan Assessment/Plan (1) Small bowel obstruction: PLAN: Plan 87 old female with history of colonoscopy 06/[address] Álvarez. Tolerated this well but the following day developed nausea and bloating. She had contacted the office for diet medication recommendations and called multiple times daily after colonoscopy and ended up having an episode of vomiting and was evaluated in the office. Does have a history of small bowel obstruction earlier this year and was hospitalized. Ultimately was a direct admit to the hospital and diagnosed with a small bowel obstruction. Hospitalist consulted 06/17 as she was to have an NG tube placed and it was requested TPN be initiated. #Hypotension Had ex lap yesterday which was complicated by hypotension She was taken to the ICU intubated and on Delroy-Synephrine Was also in A. fib with RVR Transitioned to Levophed which helped improve blood pressure to some extent and was given an amnio bolus and drip which improved heart rate Has been receiving fluids On Merrem ICU team on board Remains mechanically ventilated and sedated on fentanyl 06/20: On 1 of levo at this time, BP adequate but is sensitive to this being turned off. Remains in ICU. Sedation weaned for breathing trial this a.m., on fluids #Diabetes mellitus type 2 Given she is on the ventilator at this time we will change sliding scale to every 4 hours, TPN held at this time Metformin held Monitor for need for basal insulin 06/20: Now that TPN resumed glucose has been persistently elevated, will add 5 units of long-acting insulin #Hypothyroidism Not tolerating p.o. Synthroid IV #Paroxysmal atrial fibrillation Did have A. fib with RVR yesterday after surgery, on amnio drip at this time with heart rate improved 06/20: Doing well on amnio drip #Recurrent small bowel obstruction Similar issue August 2021 with non op management Had a Gastrografin small bowel follow-through NG tube placed PICC line ordered, TPN Likely ex lap today with Dr. Álvarez 06/19: Had ex lap 06/19 and had episode of hypotension requiring pressors, transferred to ICU intubated on pressors. Levo currently on hold. Patient will likely have delayed closure. Management per surgery 06/20: Remains intubated in ICU, on meropenem. White count improving. Management per surgery #Inability to maintain nutrition Due to small bowel obstruction NG per surgery PICC line placed, will need TPN 06/19: TPN held, slightly improved today compared to yesterday, will likely be able to resume soon 06/20: TPN resumed, doing well #DVT ppx: SCDs Divya Gonzales MD Charges/Coding Visit Charges Inpatient E&M: 06012 Subs Hosp L2
[2022-06-20 07:46] LABS: Bedside Glucose 231 mg/dL (74-106)
[2022-06-20] MEDS: 0.9% Saline Lock 10 ML Syringe IV ×4 (10:43→22:16)
[2022-06-20] MEDS: Insulin Glargine-YFGN 100 UNIT/ML Pen SC (10:44)
[2022-06-20 11:05] LABS: Bedside Glucose 213 mg/dL (74-106)
[2022-06-20] MEDS: Furosemide 20 MG/2 ML VIAL IV (13:21)
[2022-06-20 15:05] LABS: Bedside Glucose 205 mg/dL (74-106)
[2022-06-20] MEDS: Fat Emulsions 20% 250 ML IV (16:25)
[2022-06-20] MEDS: TPN - Clinimix E 8%-14% Soln 2,000 ML with Multivitamins 10 ML, Trace Elements 1 ML, Fo... 63 ML IV (16:26)
[2022-06-20 16:43] LABS: Potassium 4.5 mmol/L (3.5-5.1)
[2022-06-20 20:36] LABS: Bedside Glucose 261 mg/dL (74-106)
[2022-06-20] MEDS: Latanoprost 0.005% 1 Bottle 1 DRP OPHTHALMIC (22:08)
[2022-06-20] MEDS: Metoprolol Tartrate 25 MG Tablet GT (22:09)
[2022-06-20] MEDS: Acetaminophen 500 MG Tablet PO (22:15)
[2022-06-21] VITALS (20 sets, daily range): BP systolic 146–171; BP diastolic 75–107; PULSE 79–115; RESP 21–30; TEMP 36.6–37.2; O2SAT 91–100
[2022-06-21] LABS: Bedside Glucose 273 mg/dL (74-106)
[2022-06-21] MEDS: Insulin Lispro 100 UNIT/ML INSULN.PEN SC ×6 (00:30→18:27)
[2022-06-21] MEDS: Amiodarone 360 MG in Dextrose 5% Viaflo Bag 192.8 ML 16.7 MG CONT INF (02:36)
[2022-06-21 03:36] LABS: Bedside Glucose 253 mg/dL (74-106)
[2022-06-21 04:03] LABS: Absolute Lymphocyte Count 0.73 X10^3/uL (0.83-4.51); Absolute Neutrophil Count 14.8 X10^3/uL (2.0-7.7); Basophil# 0.02 X10^3/uL; Basophil% 0.1 % (0-1); Eosinophil# 0.07 X10^3/uL; Eosinophils% 0.4 % (0-5); Hemoglobin 9.5 g/dL (12.0-15.0); Lymphocyte # 0.73 X10^3/ul (0.83-4.51); Lymphocyte % 4.4 % (19-41); Mean Corp Hgb Conc 32.8 g/dL (32-36); Mean Corpuscular Volume 88.4 fL (81-99); Mean Platelet Vol. 10.7 fl (6.2-12.0); Monocyte# 0.88 X10^3/uL; Monocyte% 5.3 % (0-10); NRBC Flagged by Analyzer 0 % (0-5); Neutrophil # 14.82 X10^3/uL (2.7-7.7); Neutrophil % 88.7 % (47-70); Platelet Count 217 K/mm3 (150-450); RBC Distribution Width CV 13.5 % (11.6-14.6); Red Blood Count 3.28 M/mm3 (4.2-5.4); White Blood Count 16.7 K/mm3 (4.4-11.0)
[2022-06-21 04:19] LABS: ALB/GLOB Ratio 0.5 RATIO (0.9-2.4); AST(SGOT) 10 U/L (15-37); Alanine Aminotransfer ALT/SGPT 10 U/L (13-56); Albumin, Serum 1.6 g/dL (3.2-5.0); Alkaline Phosphatase 81 U/L (45-117); Anion Gap 8 (5-15); BUN 22 mg/dL (7-18); BUN/Creat Ratio 31.2 RATIO (10-20); Calcium,Total 8.2 mg/dL (8.5-10.1); Chloride 103 mmol/L (98-107); EST Glomerular Filtration Rate 84 mL/min (>60); Est Glom Filt Rate - Afr Amer 101 mL/min (>60); Estimated Creatinine Clearance 31.94 ml/min; Globulin 3.4 g/dL (2.2-4.2); Glucose 317 mg/dL (74-106); Magnesium 2.1 mg/dL (1.6-2.6); Phosphorus 1.9 mg/dL (2.5-4.9); Sodium Level 136 mmol/L (136-145)
[2022-06-21] MEDS: Potassium Chloride 10mEq/100mL 10 MEQ/100 ML IV.SOLN. 100 MEQ IV BOLUS ×3 (05:27→08:23)
--- NOTE | 2022-06-21 05:50 | PN.SURG_ITS ---
Subjective Subjective Patient little anxious this morning. Complaining of spitting up phlegm. Complaining of right hand pain with the IV. States that she has not gotten any consistent rest. Just generally uncomfortable and fussy. At rest she denies abdominal pain. There is been no stool or flatus. Objective Data Objective Data Vital Signs: Vital Signs Temp Pulse Resp BP Pulse Ox O2 Del Method O2 Flow Rate 98.7 F 100 25 H 170/82 H 95 Room Air 1 06/21/22 04:00 06/21/22 05:00 06/21/22 05:00 06/21/22 05:00 06/21/22 05:00 06/21/22 05:00 06/20/22 14:00 FiO2 30 06/20/22 06:00 Oxygen Flow Rate (L/min) 1 Oxygen Delivery Method Room Air Weight: 197 lb 8.547 oz Body Mass Index (BMI) 34.9 Intake & Output: Intake and Output for Last 24 Hours 06/19/22 06/20/22 06/21/22 23:59 23:59 23:59 Intake Total 5598.45 / 5672.85 2179.85 / 3002.50 1136.70 / 1136.70 Output Total 1700 / 1700 4255 / 5285 1930 / 1930 Balance 3898.45 / 3972.85 -2075.15 / -2282.50 -793.30 / -793.30 Lab / Micro Data Result Diagrams: 06/21/22 03:48 06/21/22 03:48 Labs: Laboratory Results - last 24 hr 06/20/22 07:26: POC Glucose 231 H 06/20/22 10:39: POC Glucose 213 H 06/20/22 14:35: POC Glucose 205 H 06/20/22 16:25: Potassium 4.5 06/20/22 20:16: POC Glucose 261 H 06/20/22 23:39: POC Glucose 273 H 06/21/22 03:15: POC Glucose 253 H 06/21/22 03:48: WBC 16.7 H, RBC 3.28 L, Hgb 9.5 L, Hct 29.0 L, MCV 88.4, MCH 29.0, MCHC 32.8, RDW Std Deviation 44.0 H, RDW Coeff of Juan 13.5, Plt Count 217, MPV 10.7, Immature Gran % (Auto) 1.100 H, Neut % (Auto) 88.7 H, Lymph % (Auto) 4.4 L, [place] % (Auto) 5.3, Eos % (Auto) 0.4, Baso % (Auto) 0.1, Absolute Neuts (auto) 14.8 H, Absolute Lymphs (auto) 0.73 L, Nucleated RBC % 0 06/21/22 03:48: Sodium 136, Potassium 3.0 L, Chloride 103, Carbon Dioxide 25.0, Anion Gap 8, BUN 22 H, Creatinine 0.70, Estim Creat Clear Calc 31.94, Est GFR (MDRD) Af Amer 101, Est GFR (MDRD) Non-Af 84, BUN/Creatinine Ratio 31.2 H, Glucose 317 H, Calcium 8.2 L, Phosphorus 1.9 L, Magnesium 2.1, Total Bilirubin 0.30, AST 10 L, ALT 10 L, Alkaline Phosphatase 81, Total Protein 5.0 L, Albumin 1.6 L, Globulin 3.4, Albumin/Globulin Ratio 0.5 L Micro: Microbiology 06/18/22 17:23 Sputum, Induced/Lukens Gram Stain - Final Physical Exam Const oriented x3 Resp normal respiratory effort Resp Narrative: Diminished in the bases. GI GI Narrative: Distended, infrequent low bowel sounds, mildly diffusely tender to palpation, dressings dry and intact, COLETTE drain turning more serous Extremity Extremity Narrative: Calves are supple and nontender Assessment & Plan Assessment/Plan (1) Small bowel obstruction due to adhesions: PLAN: White blood cell count slightly elevated again. Etiology not clear. We will continue meropenem. COLETTE out from the abdomen very serous and benign. Plan for COLETTE drain removal today Patient has gone from being hypotensive now to hypertensive. Metoprolol has been restarted at 25 mg orally per NG tube twice daily Hypokalemia secondary to large volume urine output and NG tube output. NG tube output clearly light bilious reflecting NG tube within the duodenum. I will now have it withdrawn to the first line. Awaiting return of bowel function. We w ill replace potassium. Generalized debility. I have vigorously encouraged the patient to work with nursing staff on getting mobilized. I am very hopeful she will be able to get out of bed today. She will require post discharge for further rehabilitation. She is interested in the TCU Ongoing wet-to-dry dressing changes to the abdominal wound. I anticipate delayed primary closure on June 25. Sutures have already been placed Patient is hopeful to get out of the ICU when medically feasible. I very much appreciate ongoing medical assistance. Rajan Álvarez M.D., F.A.C.S.
--- NOTE | 2022-06-21 06:14 | PCM.PN.INT ---
Assessment & Plan Assessment/Plan (1) Sepsis: PLAN: Plan RECOMMENDATIONS: 1. Continue to encourage incentive spirometer use and mobilize patient as tolerated. 2. Administer low-dose Lasix x1 this morning. 3. Continue metoprolol as ordered. Restart losartan if additional blood pressure control is needed. 4. Continue broad-spectrum antimicrobials as ordered. 5. Continue amiodarone for rate/rhythm control. 6. TPN for nutritional support. 7. Continue PPI therapy for GI prophylaxis. IMPRESSIONS: 1. Distributive/hypovolemic shock Resolved. The patient's presenting hypotension postoperatively was likely multifactorial in etiology. I do suspect that there was still residual effects of anesthesia contributing as well as intravascular volume depletion and evolving sepsis. The patient did receive additional IV fluids and was transiently on vasopressor support to maintain hemodynamic stability. We will continue to monitor the patient clinically and continue broad-spectrum antimicrobials as ordered. 2. Small bowel obstruction, now POD #3 s/p ex lap with lysis of adhesions and enterectomy Continue routine postoperative care per general surgery recommendations. Continue nutritional support with TPN as ordered. 3. Acute respiratory failure with hypoxia Resolved. The patient was initially left intubated postoperatively over concerns for significant fluid shifts which could lead to clinical instability. The patient improved clinically and was able to be successfully extubated without complication. She is currently maintaining appropriate oxygen saturations on room air. In light of her current volume status, will administer low-dose Lasix again this morning. Plan to encourage incentive spirometer use and mobilize patient as tolerated. 4. Paroxysmal atrial fibrillation Clinically stable at this time on amiodarone, which will be continued without change. Continue home beta-darby regimen. 5. History of diabetes mellitus/hypothyroidism/hyperlipidemia/hypertension Complicates care, management, recovery and prognosis. Maintain sliding scale insulin for now. Home losartan can be restarted today if additional blood pressure control is needed. This note was generated with [employer] dictation software. It may contain incorrect words, spelling, and punctuation that were not noted in checking the note before signing. Subjective Subjective The patient was seen and examined at the bedside this morning. Events from the last 24 hours have been reviewed. The patient is currently afebrile, hemodynamically stable and maintaining appropriate oxygen saturations on room air. The patient is currently documented to be overall net +9 L for the hospitalization. She did receive a one-time dose of IV Lasix yesterday. Potassium is low this morning at 3.0 with a normal creatinine. The patient has been coughing up clear phlegm and reports some mild abdominal discomfort. Objective Data Objective Data The patient's most recent lab work, culture data and imaging studies have all been personally reviewed. Sputum culture is pending. Vital Signs: Vital Signs Temp Pulse Resp BP Pulse Ox O2 Del Method O2 Flow Rate 98.7 F 100 25 H 170/82 H 95 Room Air 1 06/21/22 04:00 06/21/22 05:00 06/21/22 05:00 06/21/22 05:00 06/21/22 05:00 06/21/22 05:00 06/20/22 14:00 FiO2 30 06/20/22 06:00 Oxygen Flow Rate (L/min) 1 Oxygen Delivery Method Room Air Weight: 197 lb 8.547 oz Body Mass Index (BMI) 34.9 Intake & Output: Intake and Output for Last 24 Hours 06/19/22 06/20/22 06/21/22 23:59 23:59 23:59 Intake Total 5598.45 / 5672.85 2179.85 / 3002.50 1136.70 / 1136.70 Output Total 1700 / 1700 4255 / 5285 1930 / 1930 Balance 3898.45 / 3972.85 -2075.15 / -2282.50 -793.30 / -793.30 Lab / Micro Data Attestation: I reviewed the patient's lab results. Result Diagrams: 06/21/22 03:48 06/21/22 03:48 Labs: Laboratory Results - last 24 hr 06/20/22 07:26: POC Glucose 231 H 06/20/22 10:39: POC Glucose 213 H 06/20/22 14:35: POC Glucose 205 H 06/20/22 16:25: Potassium 4.5 06/20/22 20:16: POC Glucose 261 H 06/20/22 23:39: POC Glucose 273 H 06/21/22 03:15: POC Glucose 253 H 06/21/22 03:48: WBC 16.7 H, RBC 3.28 L, Hgb 9.5 L, Hct 29.0 L, MCV 88.4, MCH 29.0, MCHC 32.8, RDW Std Deviation 44.0 H, RDW Coeff of Juna 13.5, Plt Count 217, MPV 10.7, Immature Gran % (Auto) 1.100 H, Neut % (Auto) 88.7 H, Lymph % (Auto) 4.4 L, [place] % (Auto) 5.3, Eos % (Auto) 0.4, Baso % (Auto) 0.1, Absolute Neuts (auto) 14.8 H, Absolute Lymphs (auto) 0.73 L, Nucleated RBC % 0 06/21/22 03:48: Sodium 136, Potassium 3.0 L, Chloride 103, Carbon Dioxide 25.0, Anion Gap 8, BUN 22 H, Creatinine 0.70, Estim Creat Clear Calc 31.94, Est GFR (MDRD) Af Amer 101, Est GFR (MDRD) Non-Af 84, BUN/Creatinine Ratio 31.2 H, Glucose 317 H, Calcium 8.2 L, Phosphorus 1.9 L, Magnesium 2.1, Total Bilirubin 0.30, AST 10 L, ALT 10 L, Alkaline Phosphatase 81, Total Protein 5.0 L, Albumin 1.6 L, Globulin 3.4, Albumin/Globulin Ratio 0.5 L Micro: Microbiology 06/18/22 17:23 Sputum, Induced/Lukens Gram Stain - Final ABG Data ABG results: ABG 06/19/22 09:25 Specimen Type ART Sample Site Art Line pH 7.48 H Bicarbonate Actual 21.7 L Total CO2 23 Base Excess -2 O2 Saturation 98 O2 % 35 ABG pCO2 29.4 L ABG pO2 100 Chris Test N/A Respiration Rate 14 O2 Delivery Device Adult Vent Vent Mode AC Tidal Volume 400 POC PEEP 5 Radiography Diagnostic Testing: Radiology Impression Chest X-Ray 06/19/22 06:04 IMPRESSION: Increased bibasilar atelectasis and small right pleural effusion. Electronically Signed: Briana Toribio MD at 7:04 EST , Physical Exam Const alert and no apparent distress General Appearance: cooperative Nutritional Appearance: obese HEENT normocephalic and head/scalp atraumatic HEENT Narrative: Nasogastric tube in place. Eyes PERRL and conjunctivae normal Neck supple General: trachea midline Chest inspection of chest normal Resp Auscultation: Negative for rales, rhonchi, wheezes or diminished lung sounds Cardio S1 normal heart sound and S2 normal heart sound Rhythm: abnormal rhythm GI GI Narrative: Distended abdomen with surgical dressings in place and COLETTE drain with serosanguineous drainage Extremity no clubbing, cyanosis or edema Skin no rashes or lesions noted Neuro oriented x3, CN's II-XII intact bilaterally and no focal motor deficits Psych cooperative and affect normal Charges/Coding Visit Charges Inpatient E&M: 75646 Subs Hosp L3
--- NOTE | 2022-06-21 06:15 | RAD_ITS ---
EXAM: XR ABDOMEN, 1 VIEW CLINICAL INDICATION: NG placement NG placement TECHNIQUE: Frontal supine view of the abdomen/pelvis. This report was created using [employer] technology. COMPARISON: None. FINDINGS: LOWER THORAX: There is increased density along the left lung base which may represent a pleural effusion, atelectasis, or infiltrate. GASTROINTESTINAL TRACT: Limited demonstration.. Non-obstructive. No bowel or stomach distention. ORGANS: Unremarkable as visualized. No organomegaly. No abnormal calcifications. BONES/JOINTS: There are multilevel degenerative changes in the visualized spine. SOFT TISSUES: No acute pathology. TUBES, LINES AND DEVICES: There is a nasogastric tube with its tip and sidehole in the body of the stomach. RAD/Abdomen Single View (Portable) IMPRESSION: Nasogastric tube is in adequate position. Electronically Signed: Alessio Kimble MD at 6:37 EST Reading Location ID and State: [facility] / [place] , Service support ,
[2022-06-21 07:30] LABS: Bedside Glucose 258 mg/dL (74-106)
[2022-06-21] MEDS: Furosemide 20 MG/2 ML VIAL IV (07:39)
--- NOTE | 2022-06-21 08:27 | PCM.PN.HOSP ---
Subjective Subjective Reports NG tube makes her gag which is making her not feel very well but that the pain in her abdomen is improving. Has not been passing gas, has Ambrosio still in place. No chest pain or shortness of breath. No other complaints today Objective Data Objective Data Vital Signs: Vital Signs Temp Pulse Resp BP Pulse Ox O2 Del Method O2 Flow Rate 98.7 F 101 H 21 H 171/96 H 94 Room Air 1 06/21/22 04:00 06/21/22 07:00 06/21/22 07:00 06/21/22 07:00 06/21/22 07:00 06/21/22 07:00 06/20/22 14:00 FiO2 30 06/20/22 06:00 Oxygen Flow Rate (L/min) 1 Oxygen Delivery Method Room Air Weight: 89.6 kg Body Mass Index (BMI) 34.9 Intake & Output: Intake and Output for Last 24 Hours 06/19/22 06/20/22 06/21/22 23:59 23:59 23:59 Intake Total 5598.45 / 5672.85 2179.85 / 3002.50 1860.23 / 1860.23 Output Total 1700 / 1700 4255 / 5285 2530 / 2530 Balance 3898.45 / 3972.85 -2075.15 / -2282.50 -669.77 / -669.77 Lab / Micro Data Result Diagrams: 06/21/22 03:48 06/21/22 03:48 Labs: Laboratory Results - last 24 hr 06/20/22 10:39: POC Glucose 213 H 06/20/22 14:35: POC Glucose 205 H 06/20/22 16:25: Potassium 4.5 06/20/22 20:16: POC Glucose 261 H 06/20/22 23:39: POC Glucose 273 H 06/21/22 03:15: POC Glucose 253 H 06/21/22 03:48: WBC 16.7 H, RBC 3.28 L, Hgb 9.5 L, Hct 29.0 L, MCV 88.4, MCH 29.0, MCHC 32.8, RDW Std Deviation 44.0 H, RDW Coeff of Juan 13.5, Plt Count 217, MPV 10.7, Immature Gran % (Auto) 1.100 H, Neut % (Auto) 88.7 H, Lymph % (Auto) 4.4 L, [place] % (Auto) 5.3, Eos % (Auto) 0.4, Baso % (Auto) 0.1, Absolute Neuts (auto) 14.8 H, Absolute Lymphs (auto) 0.73 L, Nucleated RBC % 0 06/21/22 03:48: Sodium 136, Potassium 3.0 L, Chloride 103, Carbon Dioxide 25.0, Anion Gap 8, BUN 22 H, Creatinine 0.70, Estim Creat Clear Calc 31.94, Est GFR (MDRD) Af Amer 101, Est GFR (MDRD) Non-Af 84, BUN/Creatinine Ratio 31.2 H, Glucose 317 H, Calcium 8.2 L, Phosphorus 1.9 L, Magnesium 2.1, Total Bilirubin 0.30, AST 10 L, ALT 10 L, Alkaline Phosphatase 81, Total Protein 5.0 L, Albumin 1.6 L, Globulin 3.4, Albumin/Globulin Ratio 0.5 L 06/21/22 07:05: POC Glucose 258 H Micro: Microbiology 06/18/22 17:23 Sputum, Induced/Lukens Gram Stain - Final Radiography Diagnostic Testing: Radiology Impression KUB X-Ray 06/21/22 06:15 IMPRESSION: Nasogastric tube is in adequate position. Electronically Signed: Alessio Kimble MD at 6:37 EST Reading Location ID and State: [facility] / [place] , Service support , Physical Exam Const alert Constitutional Narrative: Oriented HEENT normocephalic and head/scalp atraumatic HEENT Narrative: NG tube in place Eyes Eyes Narrative: EOM grossly intact, anicteric Neck supple Resp normal respiratory effort and clear to auscultation bilaterally Cardio regular rate and regular rhythm GI soft to palpation and non-distended GI Narrative: Mild tenderness to palpation without rebound, guarding, rigidity Extremity Extremity Narrative: No edema appreciated Neuro moves all extremities Neuro Narrative: No overt focal deficits appreciated Psych Psych Narrative: Cooperative Assessment & Plan Assessment/Plan (1) Small bowel obstruction: PLAN: Plan 87 old female with history of colonoscopy 06/[address] Álvarez. Tolerated this well but the following day developed nausea and bloating. She had contacted the office for diet medication recommendations and called multiple times daily after colonoscopy and ended up having an episode of vomiting and was evaluated in the office. Does have a history of small bowel obstruction earlier this year and was hospitalized. Ultimately was a direct admit to the hospital and diagnosed with a small bowel obstruction. Hospitalist consulted 06/17 as she was to have an NG tube placed and it was requested TPN be initiated. #Recurrent small bowel obstruction Similar issue August 2021 with non op management Had a Gastrografin small bowel follow-through NG tube placed PICC line ordered, TPN Likely ex lap today with Dr. Álvarez 06/19: Had ex lap 06/19 and had episode of hypotension requiring pressors, transferred to ICU intubated on pressors. Levo currently on hold. Patient will likely have delayed closure. Management per surgery 06/20: Remains intubated in ICU, on meropenem. White count improving. Management per surgery 06/21: Continues to be on Merrem. Reports pain is improving. TPN for nutritional support, has NG tube in place. Postop care per surgery. White blood cell count is up slightly but clinically has been improving #Hypotension?resolved Had ex lap yesterday which was complicated by hypotension She was taken to the ICU intubated and on Delroy-Synephrine Was also in A. fib with RVR Transitioned to Levophed which helped improve blood pressure to some extent and was given an amnio bolus and drip which improved heart rate Has been receiving fluids On Merrem ICU team on board Remains mechanically ventilated and sedated on fentanyl 06/20: On 1 of levo at this time, BP adequate but is sensitive to this being turned off. Remains in ICU. Sedation weaned for breathing trial this a.m., on fluids 06/21: Has resolved now that she is extubated and off sedation. Home metoprolol resumed. Resume home losartan #Diabetes mellitus type 2 Given she is on the ventilator at this time we will change sliding scale to every 4 hours, TPN held at this time Metformin held Monitor for need for basal insulin 06/20: Now that TPN resumed glucose has been persistently elevated, will add 5 units of long-acting insulin 06/21: Will increase long-acting to 10 units #Hypothyroidism Not tolerating p.o. Synthroid IV #Paroxysmal atrial fibrillation Did have A. fib with RVR yesterday after surgery, on amnio drip at this time with heart rate improved 06/20: Doing well on amnio drip 06/21: Remains on amnio drip, metoprolol started as well #Inability to maintain nutrition Due to small bowel obstruction NG per surgery PICC line placed, will need TPN 06/19: TPN held, slightly improved today compared to yesterday, will likely be able to resume soon 06/20: TPN resumed, doing well #DVT ppx: SCDs Divya Gonzales MD Charges/Coding Visit Charges Inpatient E&M: 48735 Subs Hosp L2
[2022-06-21] MEDS: 0.9% Saline Lock 10 ML Syringe IV ×2 (08:54→21:53)
--- NOTE | 2022-06-21 09:35 | WOUNDNOTE ---
COLETTE drain removed per FERNANDO Reece. Pt tolerated well. new dressing applied.
[2022-06-21] MEDS: Amiodarone 200 MG Tablet PO ×2 (09:50→21:59)
[2022-06-21] MEDS: Metoprolol Tartrate 25 MG Tablet GT (09:51)
[2022-06-21] MEDS: Losartan Potassium 50 MG Tablet PO (09:51)
--- NOTE | 2022-06-21 09:53 | WOUNDNOTE ---
wound photo: abdomen
--- NOTE | 2022-06-21 10:10 | CASEMGMT ---
ANGELITA POLLARD NOTE: PT/OT notes from yesterday have been reviewed. Pt requiring max assist of 2. RN ATUL to room to talk w/pt and niece, Shanice, who is at bedside. Discussed discharge planning. Pt states she would like to discharge to TCU. She states she has been there twice in the past and loved it there. A list of SNF providers including quality and resource use data and consistent with the patient?s preferred geographic region, medical needs, and insurance network were provided from the [facility] Guide. As stated above, pt's 1st preference is TCU. NIRANJAN Jorgensen, made aware. 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 List of family members she would allow to visit provided to this ANGELITA POLLARD and then given to ICU audio visual secretary. RNHaleigh, also made aware. Pt and dtr deny having other discharge planning needs or concerns. Shannen THRASHER RN, CM
--- NOTE | 2022-06-21 10:21 | CASEMGMT ---
Per RN CM patient would like to go to [facility] TCU. SW spoke with Sanjuana in TCU and placed her name on the list. SW to follow. Joslyn GARCIA
[2022-06-21] MEDS: Insulin Glargine-YFGN 100 UNIT/ML Pen 15 UNIT SC (10:26)
[2022-06-21 10:50] LABS: Bedside Glucose 281 mg/dL (74-106)
--- NOTE | 2022-06-21 12:35 | RAD_ITS ---
STUDY: X-RAY - ABDOMEN/PELVIS REASON FOR EXAM: Female, 87 years old. ng placement -- partially pulled out, re-advanced TECHNIQUE: Single AP view of the abdomen / pelvis. COMPARISON: Comparison is made with prior examination done earlier today at 6:09 AM. FINDINGS: The tip of the nasogastric tube is in the first portion of the duodenum. RAD/Abdomen Single View (Portable) IMPRESSION: The tip of the nasogastric tube is in the first portion of the duodenum. Electronically Signed: Carlos Morocho MD at 13:12 EST ,
--- NOTE | 2022-06-21 13:27 | RAD_ITS ---
STUDY: X-RAY - ABDOMEN/PELVIS REASON FOR EXAM: Female, 87 years old. ng placement TECHNIQUE: Single AP view of the abdomen / pelvis. COMPARISON: Comparison is made with prior examination done earlier today at 12:27 PM. FINDINGS: The tip of the nasogastric tube is in the second portion of the duodenum. RAD/Abdomen Single View (Portable) IMPRESSION: The tip of the nasogastric tube is in the second portion of the duodenum. Electronically Signed: Carlos Morocho MD at 15:38 EST ,
--- NOTE | 2022-06-21 13:30 | RAD_ITS ---
STUDY: X-RAY - ABDOMEN/PELVIS REASON FOR EXAM: Female, 87 years old. NG TUBE PLACEMENT #2 TECHNIQUE: Single AP view of the abdomen / pelvis. COMPARISON: Comparison is made with prior examination done earlier today at 12:19 PM. FINDINGS: The tip of the nasogastric tube is in the proximal second portion of the duodenum. RAD/Abdomen Single View (Portable) IMPRESSION: The tip of the nasogastric tube is in the proximal portion of the second portion of the duodenum. Electronically Signed: Carlos Morocho MD at 15:39 EST ,
--- NOTE | 2022-06-21 13:35 | RAD_ITS ---
STUDY: X-RAY - ABDOMEN/PELVIS REASON FOR EXAM: Female, 87 years old. NG TUBE PLACEMENT #3 TECHNIQUE: Single AP view of the abdomen / pelvis. COMPARISON: Comparison is made with prior study dated 06/21/2022 at 1:36 PM. FINDINGS: The tip of the nasogastric tube is seen in the region of the duodenal bulb. RAD/Abdomen Single View (Portable) IMPRESSION: The tip of the nasogastric tube is seen in the region of the duodenal bulb. Electronically Signed: Carlos Morocho MD at 14:36 EST ,
[2022-06-21 15:01] LABS: Bedside Glucose 265 mg/dL (74-106)
[2022-06-21] MEDS: Acetaminophen 500 MG Tablet PO ×2 (15:27→21:53)
[2022-06-21] MEDS: TPN - Clinimix E 8%-14% Soln 2,000 ML with Multivitamins 10 ML, Trace Elements 1 ML, Fo... 63 ML IV (16:20)
[2022-06-21 18:30] LABS: Bedside Glucose 192 mg/dL (74-106)
[2022-06-21] MEDS: Latanoprost 0.005% 1 Bottle 1 DRP OPHTHALMIC (22:00)
[2022-06-21] MEDS: Carvedilol 12.5 MG Tablet PO (22:01)
[2022-06-22] VITALS (11 sets, daily range): BP systolic 116–149; BP diastolic 63–92; PULSE 63–86; RESP 16–25; TEMP 36.5–36.8; O2SAT 94–98
[2022-06-22 00:11] LABS: Bedside Glucose 268 mg/dL (74-106)
[2022-06-22] MEDS: Insulin Lispro 100 UNIT/ML INSULN.PEN SC ×7 (00:30→23:20)
[2022-06-22 04:01] LABS: Bedside Glucose 290 mg/dL (74-106)
[2022-06-22 04:49] LABS: Absolute Neutrophil Count 9.7 X10^3/uL (2.0-7.7); Basophil# 0.02 X10^3/uL; Basophil% 0.2 % (0-1); Eosinophil# 0.11 X10^3/uL; Eosinophils% 0.9 % (0-5); Hemoglobin 9.4 g/dL (12.0-15.0); Lymphocyte % 5.2 % (19-41); Mean Corp Hgb Conc 32.4 g/dL (32-36); Mean Corpuscular Hgb 28.5 pg (27.0-32.0); Mean Corpuscular Volume 87.9 fL (81-99); Mean Platelet Vol. 10.5 fl (6.2-12.0); Monocyte# 1.01 X10^3/uL; Monocyte% 8.7 % (0-10); NRBC Flagged by Analyzer 0 % (0-5); Neutrophil # 9.71 X10^3/uL (2.7-7.7); Neutrophil % 83.5 % (47-70); POSITIVE DIFFERENTIAL YES; Platelet Count 237 K/mm3 (150-450); RBC Distribution Width CV 13.7 % (11.6-14.6); RBC Distribution Width SD 44.2 fl (35.1-43.9); White Blood Count 11.6 K/mm3 (4.4-11.0)
[2022-06-22 04:51] LABS: Differential Indicated SCAN CRITERIA MET
[2022-06-22 05:07] LABS: ALB/GLOB Ratio 0.5 RATIO (0.9-2.4); AST(SGOT) 25 U/L (15-37); Alanine Aminotransfer ALT/SGPT 25 U/L (13-56); Albumin, Serum 1.6 g/dL (3.2-5.0); Alkaline Phosphatase 96 U/L (45-117); Anion Gap 6 (5-15); BUN 26 mg/dL (7-18); BUN/Creat Ratio 46.1 RATIO (10-20); Calcium,Total 8.1 mg/dL (8.5-10.1); Chloride 105 mmol/L (98-107); Creatinine, Serum 0.56 mg/dL (0.55-1.02); EST Glomerular Filtration Rate 108 mL/min (>60); Est Glom Filt Rate - Afr Amer 131 mL/min (>60); Estimated Creatinine Clearance 31.94 ml/min; Globulin 3.4 g/dL (2.2-4.2); Glucose 265 mg/dL (74-106); Magnesium 1.9 mg/dL (1.6-2.6); Phosphorus 2.9 mg/dL (2.5-4.9); Potassium 3.3 mmol/L (3.5-5.1); Sodium Level 138 mmol/L (136-145)
[2022-06-22 05:35] LABS: Differential Comment SCANNED
[2022-06-22] MEDS: Acetaminophen 500 MG Tablet PO (05:47)
[2022-06-22] MEDS: Levothyroxine 50 MCG Tablet GT (05:47)
[2022-06-22] MEDS: Potassium Chloride 10mEq/100mL 10 MEQ/100 ML IV.SOLN. 100 MEQ IV BOLUS ×4 (05:56→10:28)
--- NOTE | 2022-06-22 06:22 | PCM.PN.SRG ---
Subjective Subjective Patient states that yesterday she constantly was hacking phlegm against the NG tube. She was able to get some sleep overnight. No flatus yet but she has felt some rumbles. At rest no significant abdominal pain. Objective Data Objective Data Vital Signs: Vital Signs Temp Pulse Resp BP Pulse Ox O2 Del Method O2 Flow Rate 97.9 F 71 19 H 116/75 96 Room Air 1 06/22/22 04:00 06/22/22 04:00 06/22/22 04:00 06/22/22 04:00 06/22/22 04:00 06/22/22 04:00 06/20/22 14:00 FiO2 30 06/20/22 06:00 Oxygen Flow Rate (L/min) 1 Oxygen Delivery Method Room Air Weight: 191 lb 9.307 oz Body Mass Index (BMI) 34.9 Intake & Output: Intake and Output for Last 24 Hours 06/20/22 06/21/22 06/22/22 23:59 23:59 23:59 Intake Total 2179.85 / 3002.50 3609.63 / 3639.63 301 / 301 Output Total 4255 / 5285 6380 / 6880 1000 / 1000 Balance -2075.15 / -2282.50 -2770.37 / -3240.37 -699 / -699 Lab / Micro Data Result Diagrams: 06/22/22 04:40 06/22/22 04:40 Labs: Laboratory Results - last 24 hr 06/21/22 07:05: POC Glucose 258 H 06/21/22 10:25: POC Glucose 281 H 06/21/22 14:36: POC Glucose 265 H 06/21/22 18:13: POC Glucose 192 H 06/21/22 23:48: POC Glucose 268 H 06/22/22 03:30: WBC Cancelled, Corrected WBC Cancelled, RBC Cancelled, Hgb Cancelled, Hct Cancelled, MCV Cancelled, MCH Cancelled, MCHC Cancelled, RDW Std Deviation Cancelled, RDW Coeff of Jaun Cancelled, Plt Count Cancelled, MPV Cancelled, Immature Gran % (Auto) Cancelled, Neut % (Auto) Cancelled, Lymph % (Auto) Cancelled, Winn % (Auto) Cancelled, Eos % (Auto) Cancelled, Baso % (Auto) Cancelled, Absolute Neuts (auto) Cancelled, Absolute Lymphs (auto) Cancelled, Total Counted Cancelled, Neutrophils % (Manual) Cancelled, Band Neutrophils % Cancelled, Lymphocytes % (Manual) Cancelled, Monocytes % (Manual) Cancelled, Eosinophils % (Manual) Cancelled, Basophils % (Manual) Cancelled, Metamyelocytes % Cancelled, Myelocytes % Cancelled, Promyelocytes % Cancelled, Blast Cells % Cancelled, Plasma Cell % (Manual) Cancelled, Other Cells % Cancelled, Nucleated RBC % Cancelled, Nucleated RBCs/100 WBC Cancelled, Differential Comment Cancelled, Diff Path Review Cancelled, Hypersegmented Neuts Cancelled, Atypical Lymphocytes Cancelled, Reactive Lymphocytes Cancelled, Smudge Cells Cancelled, Toxic Granulation Cancelled, Toxic Vacuolation Cancelled, Dohle Bodies Cancelled, Kim Rods Cancelled, Platelet Estimate Cancelled, Plt Morphology Comment Cancelled, RBC Morphology Cancelled, Polychromasia Cancelled, Hypochromasia Cancelled, Poikilocytosis Cancelled, Basophilic Stippling Cancelled, Anisocytosis Cancelled, Microcytosis Cancelled, Macrocytosis Cancelled, Spherocytes Cancelled, Sickle Cells Cancelled, Target Cells Cancelled, Tear Drop Cells Cancelled, Ovalocytes Cancelled, Stomatocytes Cancelled, Ovalle-[place] Bodies Cancelled, [place] Cells Cancelled, Bite Cells Cancelled, Crenated Cell Cancelled, Acanthocytes (Spur) Cancelled, Rouleaux Cancelled, Schistocytes Cancelled 06/22/22 03:30: Sodium Cancelled, Potassium Cancelled, Chloride Cancelled, Carbon Dioxide Cancelled, Anion Gap Cancelled, BUN Cancelled, Creatinine Cancelled, Estim Creat Clear Calc Cancelled, Est GFR (MDRD) Af Amer Cancelled, Est GFR (MDRD) Non-Af Cancelled, BUN/Creatinine Ratio Cancelled, Glucose Cancelled, Calcium Cancelled, Phosphorus Cancelled, Magnesium Cancelled, Total Bilirubin Cancelled, AST Cancelled, ALT Cancelled, Alkaline Phosphatase Cancelled, Total Protein Cancelled, Albumin Cancelled, Globulin Cancelled, Albumin/Globulin Ratio Cancelled 06/22/22 03:38: POC Glucose 290 H 06/22/22 04:40: Sodium 138, Potassium 3.3 L, Chloride 105, Carbon Dioxide 27.0, Anion Gap 6, BUN 26 H, Creatinine 0.56, Estim Creat Clear Calc 31.94, Est GFR (MDRD) Af Amer 131, Est GFR (MDRD) Non-Af 108, BUN/Creatinine Ratio 46.1 H, Glucose 265 H, Calcium 8.1 L, Phosphorus 2.9, Magnesium 1.9, Total Bilirubin 0.40, AST 25, ALT 25, Alkaline Phosphatase 96, Total Protein 5.0 L, Albumin 1.6 L, Globulin 3.4, Albumin/Globulin Ratio 0.5 L 06/22/22 04:40: WBC 11.6 H, RBC 3.30 L, Hgb 9.4 L, Hct 29.0 L, MCV 87.9, MCH 28.5, MCHC 32.4, RDW Std Deviation 44.2 H, RDW Coeff of Juan 13.7, Plt Count 237, MPV 10.5, Immature Gran % (Auto) 1.500 H, Neut % (Auto) 83.5 H, Lymph % (Auto) 5.2 L, Winn % (Auto) 8.7, Eos % (Auto) 0.9, Baso % (Auto) 0.2, Absolute Neuts (auto) 9.7 H, Absolute Lymphs (auto) 0.60 L, Nucleated RBC % 0, Differential Comment SCANNED Micro: Microbiology 06/18/22 17:23 Sputum, Induced/Lukens Gram Stain - Final 06/18/22 17:23 Sputum, Induced/Lukens Respiratory Culture - Preliminary 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 Electronically Signed: Alessio Kimble MD at 6:37 EST , KUB X-Ray 06/21/22 12:35 IMPRESSION: The tip of the nasogastric tube is in the first portion of the duodenum. Electronically Signed: Carlos Morocho MD at 13:12 EST , KUB X-Ray 06/21/22 13:27 IMPRESSION: The tip of the nasogastric tube is in the second portion of the duodenum. Electronically Signed: Carlos Morocho MD at 15:38 EST , KUB X-Ray 06/21/22 13:30 IMPRESSION: The tip of the nasogastric tube is in the proximal portion of the second portion of the duodenum. Electronically Signed: Carlos Morocho MD at 15:39 EST , KUB X-Ray 06/21/22 13:35 IMPRESSION: The tip of the nasogastric tube is seen in the region of the duodenal bulb. Electronically Signed: Carlos Morocho MD at 14:36 EST , Physical Exam Narrative Patient developed a coughing spell. Not producing any phlegm. Dry mouth. Noted to then have onset of bilateral wheezing Const oriented x3 Constitutional Narrative: Patient appears more frail today. Resp Resp Narrative: Bilateral upper lobe wheezing GI GI Narrative: Abdomen remains distended, infrequent bowel sounds, dressings clean and dry, COLETTE is been previously removed Extremity Extremity Narrative: Generalized extremity swelling is improved from yesterday Assessment & Plan Assessment/Plan (1) Small bowel obstruction due to adhesions: PLAN: NG tube output has decreased to only 75 cc. Although she has not had flatus currently the NG tube appears to be a source of significant discomfort and partial airway obstruction. Onset of wheezing noted after coughing spell. I will remove the NG tube. We will allow sips and chips of ice. She is not yet ready to start a diet as I am still awaiting flatus. In the past 2 days she has had a significant urinary diuresis. This was also accompanied by large NG tube output causing significant negative fluid shift. BUN has slightly increased. Urine output remains appropriate but is still being measured. Leukocytosis has improved now approaching normal. Hemoglobin hematocrit remained stable Abdominal wound per enterostomal wound nursing management therapy appears clean with minimal inferior drainage. Anticipate delayed approximation on June 25 Continued patient mobilization and physical therapy rehabilitation critically important at this time. I will defer pulmonary treatment/wheezing to pulmonology/internal medicine Potassium back down to 3.3 secondary to strong diuresis. Will continue with replacement. Magnesium level is normal TPN continues. At this moment meropenem continues as well likely for today at and then hopefully with resumption of bowel function and complete correction of white count can discontinue tomorrow
--- NOTE | 2022-06-22 06:40 | PN.CC_ITS ---
Assessment & Plan Assessment/Plan (1) Sepsis: PLAN: Plan RECOMMENDATIONS: 1. Continue to encourage incentive spirometer use and mobilize patient as tolerated. 2. Continue metoprolol and losartan for blood pressure control. 3. Continue broad-spectrum antimicrobials as ordered. 4. TPN for nutritional support. 5. Continue PPI therapy. 6. Given the patient's lack of further ICU or pulmonary needs, will sign off. Please call with any additional questions. IMPRESSIONS: 1. Distributive/hypovolemic shock Resolved. The patient's presenting hypotension postoperatively was likely multifactorial in etiology. I do suspect that there was still residual effects of anesthesia contributing as well as intravascular volume depletion and evolv ing sepsis. The patient did receive additional IV fluids and was transiently on vasopressor support to maintain hemodynamic stability. We will continue to monitor the patient clinically and continue broad-spectrum antimicrobials as ordered. 2. Small bowel obstruction, now POD #4 s/p ex lap with lysis of adhesions and enterectomy Continue routine postoperative care per general surgery recommendations. Continue nutritional support with TPN as ordered. 3. Acute respiratory failure with hypoxia Resolved. The patient was initially left intubated postoperatively over concerns for significant fluid shifts which could lead to clinical instability. The patient improved clinically and was able to be successfully extubated without complication. She is currently maintaining appropriate oxygen saturations on room air. Plan to encourage incentive spirometer use and mobilize patient as tolerated. 4. Paroxysmal atrial fibrillation Clinically stable at this time on PO amiodarone. Continue home beta-darby reg imen. 5. History of diabetes mellitus/hypothyroidism/hyperlipidemia/hypertension Complicates care, management, recovery and prognosis. Maintain sliding scale insulin for now. Continue home antihypertensive medications. This note was generated with [employer] dictation software. It may contain incorrect words, spelling, and punctuation that were not noted in checking the note before signing. Subjective Subjective The patient was seen and examined at the bedside this morning. Events from the last 24 hours have been reviewed. The patient is currently afebrile, hemody namically stable and maintaining appropriate oxygen saturations on room air. The patient is documented to be overall net +6.4 L for the hospitalization. White count has come down to 11,000. Potassium is low at 3.3. Creatinine remains within normal limits. Objective Data Objective Data The patient's most recent lab work, culture data and imaging studies have all been personally reviewed. Vital Signs: Vital Signs Temp Pulse Resp BP Pulse Ox O2 Del Method O2 Flow Rate 97.9 F 71 19 H 116/75 96 Room Air 1 06/22/22 04:00 06/22/22 04:00 06/22/22 04:00 06/22/22 04:00 06/22/22 04:00 06/22/22 04:00 06/20/22 14:00 FiO2 30 06/20/22 06:00 Oxygen Flow Rate (L/min) 1 Oxygen Delivery Method Room Air Weight: 191 lb 9.307 oz Body Mass Index (BMI) 34.9 Intake & Output: Intake and Output for Last 24 Hours 06/20/22 06/21/22 06/22/22 23:59 23:59 23:59 Intake Total 2179.85 / 3002.50 3609.63 / 3639.63 301 / 301 Output Total 4255 / 5285 6380 / 6880 1000 / 1000 Balance -2075.15 / -2282.50 -2770.37 / -3240.37 -699 / -699 Lab / Micro Data Attestation: I reviewed the patient's lab results. Result Diagrams: 06/22/22 04:40 06/22/22 04:40 Labs: Laboratory Results - last 24 hr 06/21/22 07:05: POC Glucose 258 H 06/21/22 10:25: POC Glucose 281 H 06/21/22 14:36: POC Glucose 265 H 06/21/22 18:13: POC Glucose 192 H 06/21/22 23:48: POC Glucose 268 H 06/22/22 03:30: WBC Cancelled, Corrected WBC Cancelled, RBC Cancelled, Hgb Cancelled, Hct Cancelled, MCV Cancelled, MCH Cancelled, MCHC Cancelled, RDW Std Deviation Cancelled, RDW Coeff of Juan Cancelled, Plt Count Cancelled, MPV Cancelled, Immature Gran % (Auto) Cancelled, Neut % (Auto) Cancelled, Lymph % (Auto) Cancelled, [place] % (Auto) Cancelled, Eos % (Auto) Cancelled, Baso % (Auto) Cancelled, Absolute Neuts (auto) Cancelled, Absolute Lymphs (auto) Cancelled, Total Counted Cancelled, Neutrophils % (Manual) Cancelled, Band Neutrophils % Cancelled, Lymphocytes % (Manual) Cancelled, Monocytes % (Manual) Cancelled, Eosinophils % (Manual) Cancelled, Basophils % (Manual) Cancelled, Metamyelocytes % Cancelled, Myelocytes % Cancelled, Promyelocytes % Cancelled, Blast Cells % Cancelled, Plasma Cell % (Manual) Cancelled, Other Cells % Cancelled, Nucleated RBC % Cancelled, Nucleated RBCs/100 WBC Cancelled, Differential Comment Cancelled, Diff Path Review Cancelled, Hypersegmented Neuts Cancelled, Atypical Lymphocytes Cancelled, Reactive Lymphocytes Cancelled, Smudge Cells Cancelled, Toxic Granulation Cancelled, Toxic Vacuolation Cancelled, Dohle Bodies Cancelled, Kim Rods Cancelled, Platelet Estimate Cancelled, Plt Morphology Comment Cancelled, RBC Morphology Cancelled, Polychromasia Cancelled, Hypochromasia Cancelled, Poikilocytosis Cancelled, Basophilic Stippling Cancelled, Anisocytosis Cancelled, Microcytosis Cancelled, Macrocytosis Cancelled, Spherocytes Cancelled, Sickle Cells Cancelled, Target Cells Cance lled, Tear Drop Cells Cancelled, Ovalocytes Cancelled, Stomatocytes Cancelled, Ovalle-[place] Bodies Cancelled, Juan Cells Cancelled, Bite Cells Cancelled, Crenated Cell Cancelled, Acanthocytes (Spur) Cancelled, Rouleaux Cancelled, Schistocytes Cancelled 06/22/22 03:30: Sodium Cancelled, Potassium Cancelled, Chloride Cancelled, Carbon Dioxide Cancelled, Anion Gap Cancelled, BUN Cancelled, Creatinine Cancelled, Estim Creat Clear Calc Cancelled, Est GFR (MDRD) Af Amer Cancelled, Est GFR (MDRD) Non-Af Cancelled, BUN/Creatinine Ratio Cancelled, Glucose Cancelled, Calcium Cancelled, Phosphorus Cancelled, Magnesium Cancelled, Total Bilirubin Cancelled, AST Cancelled, ALT Cancelled, Alkaline Phosphatase Cancelled, Total Protein Cancelled, Albumin Cancelled, Globulin Cancelled, Albumin/Globulin Ratio Cancelled 06/22/22 03:38: POC Glucose 290 H 06/22/22 04:40: Sodium 138, Potassium 3.3 L, Chloride 105, Carbon Dioxide 27.0, Anion Gap 6, BUN 26 H, Creatinine 0.56, Estim Creat Clear Calc 31.94, Est GFR (MDRD) Af Amer 131, Est GFR (MDRD) Non-Af 108, BUN/Creatinine Ratio 46.1 H, Glucose 265 H, Calcium 8.1 L, Phosphorus 2.9, Magnesium 1.9, Total Bilirubin 0.40, AST 25, ALT 25, Alkaline Phosphatase 96, Total Protein 5.0 L, Albumin 1.6 L, Globulin 3.4, Albumin/Globulin Ratio 0.5 L 06/22/22 04:40: WBC 11.6 H, RBC 3.30 L, Hgb 9.4 L, Hct 29.0 L, MCV 87.9, MCH 28.5, MCHC 32.4, RDW Std Deviation 44.2 H, RDW Coeff of Juan 13.7, Plt Count 237, MPV 10.5, Immature Gran % (Auto) 1.500 H, Neut % (Auto) 83.5 H, Lymph % (Auto) 5.2 L, [place] % (Auto) 8.7, Eos % (Auto) 0.9, Baso % (Auto) 0.2, Absolute Neuts (auto) 9.7 H, Absolute Lymphs (auto) 0.60 L, Nucleated RBC % 0, Differential Comment SCANNED Micro: Microbiology 06/18/22 17:23 Sputum, Induced/Lukens Gram Stain - Final 06/18/22 17:23 Sputum, Induced/Lukens Respiratory Culture - 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 Electronically Signed: Carlos Morocho MD at 13:12 EST , KUB X-Ray 06/21/22 13:27 IMPRESSION: The tip of the nasogastric tube is in the second portion of the duodenum. Electronically Signed: Carlos Morocho MD at 15:38 EST , KUB X-Ray 06/21/22 13:30 IMPRESSION: The tip of the nasogastric tube is in the proximal portion of the second portion of the duodenum. Electronically Signed: Carlos Morocho MD at 15:39 EST , KUB X-Ray 06/21/22 13:35 IMPRESSION: The tip of the nasogastric tube is seen in the region of the duodenal bulb. Electronically Signed: Cralos Morocho MD at 14:36 EST , Physical Exam Const alert and no apparent distress General Appearance: cooperative and frail Nutritional Appearance: obese HEENT normocephalic and head/scalp atraumatic HEENT Narrative: Nasogastric tube in place. Eyes PERRL and conjunctivae normal Neck supple General: trachea midline Chest inspection of chest normal Resp normal respiratory effort Resp Narrative: Patient continues to frequently suction clear phlegm from her mouth Auscultation: Negative for rales, rhonchi, wheezes or diminished lung sounds Cardio S1 normal heart sound and S2 normal heart sound Rhythm: abnormal rhythm GI GI Narrative: Distended abdomen with surgical dressings in place. Extremity no clubbing, cyanosis or edema Skin no rashes or lesions noted Neuro oriented x3, CN's II-XII intact bilaterally and no focal motor deficits Psych cooperative and affect normal Charges/Coding Visit Charges Inpatient E&M: 15634 Subs Hosp L3
--- NOTE | 2022-06-22 06:40 | NURSING ---
06/22/22- CATHIE DC per Dr. Álvarez. Patient tolerated well. Marely Kennedy RN
[2022-06-22 06:51] LABS: Bedside Glucose 224 mg/dL (74-106)
[2022-06-22] MEDS: Losartan Potassium 50 MG Tablet PO (08:14)
[2022-06-22] MEDS: Amiodarone 200 MG Tablet PO ×2 (08:14→23:13)
[2022-06-22] MEDS: Insulin Glargine-YFGN 100 UNIT/ML Pen 15 UNIT SC (08:15)
[2022-06-22] MEDS: Carvedilol 12.5 MG Tablet PO ×2 (08:15→23:12)
[2022-06-22] MEDS: CHLORHEXIDINE GLUC 2% CLOTH 1 EACH TOWELETTE TOPICAL (08:17)
--- NOTE | 2022-06-22 08:21 | PCM.PN.HOSP ---
Subjective Subjective G-tube out and feeling significantly better. Not nauseous, does have slight cough, denies any color or blood in sputum. No chest pain or shortness of breath. Abdomen continues to feel better. Did report she started passing flatus recently, no bowel movement Objective Data Objective Data Vital Signs: Vital Signs Temp Pulse Resp BP Pulse Ox O2 Del Method O2 Flow Rate 97.9 F 71 19 H 116/75 96 Room Air 1 06/22/22 04:00 06/22/22 04:00 06/22/22 04:00 06/22/22 04:00 06/22/22 04:00 06/22/22 04:00 06/20/22 14:00 FiO2 30 06/20/22 06:00 Oxygen Flow Rate (L/min) 1 Oxygen Delivery Method Room Air Weight: 86.9 kg Body Mass Index (BMI) 34.9 Intake & Output: Intake and Output for Last 24 Hours 06/20/22 06/21/22 06/22/22 23:59 23:59 23:59 Intake Total 2179.85 / 3002.50 3609.63 / 3639.63 401 / 401 Output Total 4255 / 5285 6380 / 6880 1000 / 1000 Balance -2075.15 / -2282.50 -2770.37 / -3240.37 -599 / -599 Lab / Micro Data Result Diagrams: 06/22/22 04:40 06/22/22 04:40 Labs: Laboratory Results - last 24 hr 06/21/22 10:25: POC Glucose 281 H 06/21/22 14:36: POC Glucose 265 H 06/21/22 18:13: POC Glucose 192 H 06/21/22 23:48: POC Glucose 268 H 06/22/22 03:30: WBC Cancelled, Corrected WBC Cancelled, RBC Cancelled, Hgb Cancelled, Hct Cancelled, MCV Cancelled, MCH Cancelled, MCHC Cancelled, RDW Std Deviation Cancelled, RDW Coeff of Juan Cancelled, Plt Count Cancelled, MPV Cancelled, Immature Gran % (Auto) Cancelled, Neut % (Auto) Cancelled, Lymph % (Auto) Cancelled, Garland % (Auto) Cancelled, Eos % (Auto) Cancelled, Baso % (Auto) Cancelled, Absolute Neuts (auto) Cancelled, Absolute Lymphs (auto) Cancelled, Total Counted Cancelled, Neutrophils % (Manual) Cancelled, Band Neutrophils % Cancelled, Lymphocytes % (Manual) Cancelled, Monocytes % (Manual) Cancelled, Eosinophils % (Manual) Cancelled, Basophils % (Manual) Cancelled, Metamyelocytes % Cancelled, Myelocytes % Cancelled, Promyelocytes % Cancelled, Blast Cells % Cancelled, Plasma Cell % (Manual) Cancelled, Other Cells % Cancelled, Nucleated RBC % Cancelled, Nucleated RBCs/100 WBC Cancelled, Differential Comment Cancelled, Diff Path Review Cancelled, Hypersegmented Neuts Cancelled, Atypical Lymphocytes Cancelled, Reactive Lymphocytes Cancelled, Smudge Cells Cancelled, Toxic Granulation Cancelled, Toxic Vacuolation Cancelled, Dohle Bodies Cancelled, Kim Rods Cancelled, Platelet Estimate Cancelled, Plt Morphology Comment Cancelled, RBC Morphology Cancelled, Polychromasia Cancelled, Hypochromasia Cancelled, Poikilocytosis Cancelled, Basophilic Stippling Cancelled, Anisocytosis Cancelled, Microcytosis Cancelled, Macrocytosis Cancelled, Spherocytes Cancelled, Sickle Cells Cancelled, Target Cells Cancelled, Tear Drop Cells Cancelled, Ovalocytes Cancelled, Stomatocytes Cancelled, Ovalle-St. [place] Bodies Cancelled, Juan Cells Cancelled, Bite Cells Cancelled, Crenated Cell Cancelled, Acanthocytes (Spur) Cancelled, Rouleaux Cancelled, Schistocytes Cancelled 06/22/22 03:30: Sodium Cancelled, Potassium Cancelled, Chloride Cancelled, Carbon Dioxide Cancelled, Anion Gap Cancelled, BUN Cancelled, Creatinine Cancelled, Estim Creat Clear Calc Cancelled, Est GFR (MDRD) Af Amer Cancelled, Est GFR (MDRD) Non-Af Cancelled, BUN/Creatinine Ratio Cancelled, Glucose Cancelled, Calcium Cancelled, Phosphorus Cancelled, Magnesium Cancelled, Total Bilirubin Cancelled, AST Cancelled, ALT Cancelled, Alkaline Phosphatase Cancelled, Total Protein Cancelled, Albumin Cancelled, Globulin Cancelled, Albumin/Globulin Ratio Cancelled 06/22/22 03:38: POC Glucose 290 H 06/22/22 04:40: Sodium 138, Potassium 3.3 L, Chloride 105, Carbon Dioxide 27.0, Anion Gap 6, BUN 26 H, Creatinine 0.56, Estim Creat Clear Calc 31.94, Est GFR (MDRD) Af Amer 131, Est GFR (MDRD) Non-Af 108, BUN/Creatinine Ratio 46.1 H, Glucose 265 H, Calcium 8.1 L, Phosphorus 2.9, Magnesium 1.9, Total Bilirubin 0.40, AST 25, ALT 25, Alkaline Phosphatase 96, Total Protein 5.0 L, Albumin 1.6 L, Globulin 3.4, Albumin/Globulin Ratio 0.5 L 06/22/22 04:40: WBC 11.6 H, RBC 3.30 L, Hgb 9.4 L, Hct 29.0 L, MCV 87.9, MCH 28.5, MCHC 32.4, RDW Std Deviation 44.2 H, RDW Coeff of Juan 13.7, Plt Count 237, MPV 10.5, Immature Gran % (Auto) 1.500 H, Neut % (Auto) 83.5 H, Lymph % (Auto) 5.2 L, [place] % (Auto) 8.7, Eos % (Auto) 0.9, Baso % (Auto) 0.2, Absolute Neuts (auto) 9.7 H, Absolute Lymphs (auto) 0.60 L, Nucleated RBC % 0, Differential Comment SCANNED 06/22/22 06:31: POC Glucose 224 H Micro: Microbiology 06/18/22 17:23 Sputum, Induced/Lukens Gram Stain - Final 06/18/22 17:23 Sputum, Induced/Lukens Respiratory Culture - Final Enterobacter cloacae complex Radiography Diagnostic Testing: Radiology Impression KUB X-Ray 06/21/22 12:35 IMPRESSION: The tip of the nasogastric tube is in the first portion of the duodenum. Electronically Signed: Carlos Morocho MD at 13:12 EST , KUB X-Ray 06/21/22 13:27 IMPRESSION: The tip of the nasogastric tube is in the second portion of the duodenum. Electronically Signed: Carlos Morocho MD at 15:38 EST , KUB X-Ray 06/21/22 13:30 IMPRESSION: The tip of the nasogastric tube is in the proximal portion of the second portion of the duodenum. Electronically Signed: Carlos Morocho MD at 15:39 EST , KUB X-Ray 06/21/22 13:35 IMPRESSION: The tip of the nasogastric tube is seen in the region of the duodenal bulb. Electronically Signed: Carlos Morocho MD at 14:36 EST , Physical Exam Const alert Constitutional Narrative: Oriented HEENT normocephalic and head/scalp atraumatic HEENT Narrative: NG tube in place Eyes Eyes Narrative: EOM grossly intact, anicteric Neck supple Resp normal respiratory effort and clear to auscultation bilaterally Cardio regular rate and regular rhythm GI soft to palpation and non-distended GI Narrative: Mild tenderness to palpation without rebound, guarding, rigidity Extremity Extremity Narrative: No edema appreciated Neuro moves all extremities Neuro Narrative: No overt focal deficits appreciated Psych Psych Narrative: Cooperative Assessment & Plan Assessment/Plan (1) Small bowel obstruction: PLAN: Plan 87 old female with history of colonoscopy 06/[address] Álvarez. Tolerated this well but the following day developed nausea and bloating. She had contacted the office for diet medication recommendations and called multiple times daily after colonoscopy and ended up having an episode of vomiting and was evaluated in the office. Does have a history of small bowel obstruction earlier this year and was hospitalized. Ultimately was a direct admit to the hospital and diagnosed with a small bowel obstruction. Hospitalist consulted 06/17 as she was to have an NG tube placed and it was requested TPN be initiated. #Recurrent small bowel obstruction Similar issue August 2021 with non op management Had a Gastrografin small bowel follow-through NG tube placed PICC line ordered, TPN Likely ex lap today with Dr. Álvarez 06/19: Had ex lap 06/19 and had episode of hypotension requiring pressors, transferred to ICU intubated on pressors. Levo currently on hold. Patient will likely have delayed closure. Management per surgery 06/20: Remains intubated in ICU, on meropenem. White count improving. Management per surgery 06/21: Continues to be on Merrem. Reports pain is improving. TPN for nutritional support, has NG tube in place. Postop care per surgery. White blood cell count is up slightly but clinically has been improving 06/22: NG tube removed and she is feeling much better. Wound care for abdominal wound. Physical therapy. On Merrem #Hypotension?resolved Had ex lap yesterday which was complicated by hypotension She was taken to the ICU intubated and on Delroy-Synephrine Was also in A. fib with RVR Transitioned to Levophed which helped improve blood pressure to some extent and was given an amnio bolus and drip which improved heart rate Has been receiving fluids On Merrem ICU team on board Remains mechanically ventilated and sedated on fentanyl 06/20: On 1 of levo at this time, BP adequate but is sensitive to this being turned off. Remains in ICU. Sedation weaned for breathing trial this a.m., on fluids 06/21: Has resolved now that she is extubated and off sedation. Home metoprolol resumed. Resume home losartan 06/22: Has been hypertensive, losartan, metoprolol changed to Coreg, hydralazine as needed #Diabetes mellitus type 2 Given she is on the ventilator at this time we will change sliding scale to every 4 hours, TPN held at this time Metformin held Monitor for need for basal insulin 06/20: Now that TPN resumed glucose has been persistently elevated, will add 5 units of long-acting insulin 06/21: Will increase long-acting to 10 units 06/22: ICU team increased insulin to 15 units #Hypothyroidism Not tolerating p.o. Synthroid IV #Paroxysmal atrial fibrillation Did have A. fib with RVR yesterday after surgery, on amnio drip at this time with heart rate improved 06/20: Doing well on amnio drip 06/21: Remains on amnio drip, metoprolol started as well 06/22: Coreg, p.o. amnio #Inability to maintain nutrition Due to small bowel obstruction NG per surgery PICC line placed, will need TPN 06/19: TPN held, slightly improved today compared to yesterday, will likely be able to resume soon 06/20: TPN resumed, doing well #DVT ppx: SCDs Divya Gonzales MD Charges/Coding Visit Charges Inpatient E&M: 73141 Subs Hosp L2
[2022-06-22 08:40] LABS: Bedside Glucose 258 mg/dL (74-106)
[2022-06-22 12:01] LABS: Bedside Glucose 274 mg/dL (74-106)
--- NOTE | 2022-06-22 12:31 | NURSING ---
report called to [facility] for transfer to room 119transferred per chair with belongings
[2022-06-22] MEDS: Fat Emulsions 20% 250 ML IV (18:38)
[2022-06-22] MEDS: TPN - Clinimix E 8%-14% Soln 2,000 ML with Multivitamins 10 ML, Trace Elements 1 ML, Fo... 63 ML IV (18:38)
[2022-06-22 19:26] LABS: Bedside Glucose 244 mg/dL (74-106)
[2022-06-22 19:26] LABS: Bedside Glucose 252 mg/dL (74-106)
[2022-06-22] MEDS: Ondansetron 4 MG/2 ML Vial IV (23:18)
[2022-06-22] MEDS: Latanoprost 0.005% 1 Bottle 1 DRP OPHTHALMIC (23:21)
[2022-06-23] VITALS (15 sets, daily range): BP systolic 117–142; BP diastolic 62–78; PULSE 61–77; RESP 16–18; TEMP 36.6–36.9; O2SAT 93–96
[2022-06-23 01:11] LABS: Bedside Glucose 253 mg/dL (74-106)
[2022-06-23] MEDS: Insulin Lispro 100 UNIT/ML INSULN.PEN SC ×6 (04:26→22:33)
[2022-06-23] MEDS: BENZOCAINE/MENTHOL 1 LOZENGE MUCOUS MEM (04:34)
[2022-06-23] MEDS: Levothyroxine 50 MCG Tablet GT (05:52)
--- NOTE | 2022-06-23 05:52 | PN.SURG_ITS ---
Subjective Subjective Complains of constant phlegm. She is not able to clear it from her lungs. Makes her feel short of breath. It seems to clearly be the current primary comfort complaint. No abdominal pain at rest. Flatus but no stool Objective Data Objective Data Vital Signs: Vital Signs Temp Pulse Resp BP Pulse Ox O2 Del Method O2 Flow Rate 98.3 F 77 18 117/75 95 Room Air 1 06/23/22 04:42 06/23/22 04:42 06/23/22 04:42 06/23/22 04:42 06/23/22 04:42 06/23/22 04:42 06/20/22 14:00 FiO2 30 06/20/22 06:00 Oxygen Flow Rate (L/min) 1 Oxygen Delivery Method Room Air Weight: 191 lb 9.307 oz Body Mass Index (BMI) 34.9 Intake & Output: Intake and Output for Last 24 Hours 06/21/22 06/22/22 06/23/22 23:59 23:59 23:59 Intake Total 3609.63 / 3639.63 2827.9 / 2827.9 120 / 120 Output Total 6380 / 6880 1975 / 2225 700 / 700 Balance -2770.37 / -3240.37 852.9 / 602.9 -580 / -580 Lab / Micro Data Result Diagrams: 06/22/22 04:40 06/22/22 04:40 Labs: Laboratory Results - last 24 hr 06/22/22 06:31: POC Glucose 224 H 06/22/22 07:54: POC Glucose 258 H 06/22/22 11:31: POC Glucose 274 H 06/22/22 16:11: POC Glucose 252 H 06/22/22 19:01: POC Glucose 244 H 06/22/22 23:04: POC Glucose 253 H Micro: Microbiology 06/18/22 17:23 Sputum, Induced/Lukens Gram Stain - Final 06/18/22 17:23 Sputum, Induced/Lukens Respiratory Culture - Final Enterobacter cloacae complex Physical Exam Narrative Patient has suction apparatus and chronic cough productive of very small amount Resp Resp Narrative: Clear apices GI GI Narrative: Abdomen is distended, quiet, appropriately tender Extremity Extremity Narrative: No calf tenderness Assessment & Plan Assessment/Plan (1) Small bowel obstruction due to adhesions: PLAN: I have continued to encourage and be supportive the patient. I am hopeful that she will spend a lot of time out of bed sitting in a chair in a position be tter able to perform pulmonary toilet. I have course of continue to encourage ambulation. I am hopeful that hospitalist service will review her constant intractable cough and phlegm production to see if additional therapies would be appropriate. Laboratory pending. We will respond appropriately Will remove Ambrosio today. We will initiate clear liquids. I do anticipate TPN continuing at least today. Her abdomen is distended and quiet and she likely will not be taking in significant nutrition today Rajan Álvarez M.D., F.A.C.S.
[2022-06-23 06:31] LABS: Absolute Lymphocyte Count 0.81 X10^3/uL (0.83-4.51); Basophil# 0.06 X10^3/uL; Basophil% 0.6 % (0-1); Eosinophil# 0.22 X10^3/uL; Eosinophils% 2.4 % (0-5); Hematocrit 29.1 % (37-47); Hemoglobin 9.3 g/dL (12.0-15.0); Lymphocyte # 0.81 X10^3/ul (0.83-4.51); Lymphocyte % 8.7 % (19-41); Mean Corpuscular Hgb 28.9 pg (27.0-32.0); Mean Corpuscular Volume 90.4 fL (81-99); Mean Platelet Vol. 10.7 fl (6.2-12.0); Monocyte# 1.03 X10^3/uL; NRBC Flagged by Analyzer 0 % (0-5); Neutrophil # 6.95 X10^3/uL (2.7-7.7); Neutrophil % 74.2 % (47-70); Platelet Count 249 K/mm3 (150-450); RBC Distribution Width CV 13.7 % (11.6-14.6); RBC Distribution Width SD 45.4 fl (35.1-43.9); Red Blood Count 3.22 M/mm3 (4.2-5.4); White Blood Count 9.4 K/mm3 (4.4-11.0)
[2022-06-23 06:59] LABS: ALB/GLOB Ratio 0.5 RATIO (0.9-2.4); AST(SGOT) 55 U/L (15-37); Alanine Aminotransfer ALT/SGPT 72 U/L (13-56); Albumin, Serum 1.6 g/dL (3.2-5.0); Alkaline Phosphatase 126 U/L (45-117); Anion Gap 8 (5-15); BUN 26 mg/dL (7-18); BUN/Creat Ratio 46.1 RATIO (10-20); Calcium,Total 8.2 mg/dL (8.5-10.1); Chloride 107 mmol/L (98-107); Creatinine, Serum 0.56 mg/dL (0.55-1.02); EST Glomerular Filtration Rate 108 mL/min (>60); Est Glom Filt Rate - Afr Amer 131 mL/min (>60); Estimated Creatinine Clearance 31.94 ml/min; Globulin 3.5 g/dL (2.2-4.2); Glucose 259 mg/dL (74-106); Magnesium 2.3 mg/dL (1.6-2.6); Phosphorus 2.9 mg/dL (2.5-4.9); Potassium 3.7 mmol/L (3.5-5.1); Protein, Total 5.1 g/dL (6.4-8.2); Sodium Level 137 mmol/L (136-145)
[2022-06-23 07:25] LABS: Bedside Glucose 235 mg/dL (74-106)
[2022-06-23 07:25] LABS: Bedside Glucose 305 mg/dL (74-106)
[2022-06-23] MEDS: Carvedilol 12.5 MG Tablet PO ×2 (08:33→21:56)
[2022-06-23] MEDS: Amiodarone 200 MG Tablet PO ×2 (08:33→21:56)
[2022-06-23] MEDS: Losartan Potassium 50 MG Tablet PO (08:33)
[2022-06-23] MEDS: Insulin Glargine-YFGN 100 UNIT/ML Pen 20 UNIT SC (11:25)
--- NOTE | 2022-06-23 11:36 | PCM.PN.HOSP ---
Subjective Subjective Reports feeling somewhat better today although slightly discouraged her slow progress. Has NG tube out and is going to try clear liquids today. Had a small bowel movement. No nausea. Still has slight cough but feels it is improving. Objective Data Objective Data Vital Signs: Vital Signs Temp Pulse Resp BP Pulse Ox O2 Del Method O2 Flow Rate 98.4 F 71 16 142/78 H 95 Room Air 1 06/23/22 10:46 06/23/22 10:46 06/23/22 10:46 06/23/22 10:46 06/23/22 10:46 06/23/22 10:46 06/23/22 10:46 FiO2 30 06/23/22 10:46 Oxygen Flow Rate (L/min) 1 Oxygen Delivery Method Room Air Weight: 86.9 kg Body Mass Index (BMI) 34.9 Intake & Output: Intake and Output for Last 24 Hours 06/21/22 06/22/22 06/23/22 23:59 23:59 23:59 Intake Total 3609.63 / 3639.63 2827.9 / 2827.9 480 / 480 Output Total 6380 / 6880 1975 / 2225 700 / 700 Balance -2770.37 / -3240.37 852.9 / 602.9 -220 / -220 Lab / Micro Data Result Diagrams: 06/23/22 05:50 06/23/22 05:50 Labs: Laboratory Results - last 24 hr 06/22/22 11:31: POC Glucose 274 H 06/22/22 16:11: POC Glucose 252 H 06/22/22 19:01: POC Glucose 244 H 06/22/22 23:04: POC Glucose 253 H 06/23/22 04:25: POC Glucose 305 H 06/23/22 05:50: WBC 9.4, RBC 3.22 L, Hgb 9.3 L, Hct 29.1 L, MCV 90.4, MCH 28.9, MCHC 32.0, RDW Std Deviation 45.4 H, RDW Coeff of Juan 13.7, Plt Count 249, MPV 10.7, Immature Gran % (Auto) 3.100 H, Neut % (Auto) 74.2 H, Lymph % (Auto) 8.7 L, [place] % (Auto) 11.0 H, Eos % (Auto) 2.4, Baso % (Auto) 0.6, Absolute Neuts (auto) 7.0, Absolute Lymphs (auto) 0.81 L, Nucleated RBC % 0 06/23/22 05:50: Sodium 137, Potassium 3.7, Chloride 107, Carbon Dioxide 22.0, Anion Gap 8, BUN 26 H, Creatinine 0.56, Estim Creat Clear Calc 31.94, Est GFR (MDRD) Af Amer 131, Est GFR (MDRD) Non-Af 108, BUN/Creatinine Ratio 46.1 H, Glucose 259 H, Calcium 8.2 L, Phosphorus 2.9, Magnesium 2.3, Total Bilirubin 0.20, AST 55 H, ALT 72 H, Alkaline Phosphatase 126 H, Total Protein 5.1 L, Albumin 1.6 L, Globulin 3.5, Albumin/Globulin Ratio 0.5 L 06/23/22 06:22: POC Glucose 235 H Micro: Microbiology 06/18/22 17:23 Sputum, Induced/Lukens Gram Stain - Final 06/18/22 17:23 Sputum, Induced/Lukens Respiratory Culture - Final Enterobacter cloacae complex Physical Exam Const alert Constitutional Narrative: Oriented HEENT normocephalic and head/scalp atraumatic Eyes Eyes Narrative: EOM grossly intact, anicteric Neck supple Resp normal respiratory effort and clear to auscultation bilaterally Cardio regular rate and regular rhythm GI soft to palpation and non-distended GI Narrative: Mild tenderness to palpation without rebound, guarding, rigidity Extremity Extremity Narrative: No edema appreciated Neuro moves all extremities Neuro Narrative: No overt focal deficits appreciated Psych Psych Narrative: Cooperative Assessment & Plan Assessment/Plan (1) Small bowel obstruction: PLAN: Plan 87 old female with history of colonoscopy 06/[address] Álvarez. Tolerated this well but the following day developed nausea and bloating. She had contacted the office for diet medication recommendations and called multiple times daily after colonoscopy and ended up having an episode of vomiting and was evaluated in the office. Does have a history of small bowel obstruction earlier this year and was hospitalized. Ultimately was a direct admit to the hospital and diagnosed with a small bowel obstruction. Hospitalist consulted 06/17 as she was to have an NG tube placed and it was requested TPN be initiated. #Recurrent small bowel obstruction Similar issue August 2021 with non op management Had a Gastrografin small bowel follow-through NG tube placed PICC line ordered, TPN Likely ex lap today with Dr. Álvarez 06/19: Had ex lap 06/19 and had episode of hypotension requiring pressors, transferred to ICU intubated on pressors. Levo currently on hold. Patient will likely have delayed closure. Management per surgery 06/20: Remains intubated in ICU, on meropenem. White count improving. Management per surgery 06/21: Continues to be on Merrem. Reports pain is improving. TPN for nutritional support, has NG tube in place. Postop care per surgery. White blood cell count is up slightly but clinically has been improving 06/22: NG tube removed and she is feeling much better. Wound care for abdominal wound. Physical therapy. On Merrem 06/23: Doing well with NG tube out, had small bowel movement, going to try to tolerate clears. If tolerating clears can likely DC TPN tomorrow. Physical therapy. White count normalized #Hypotension?resolved Was present after ex lap and was on levo for period of time, contributed by Roma godwin with RVR which has resolved Has been hypertensive and is on losartan, Toprol changed to Coreg, hydralazine as needed #Diabetes mellitus type 2 Insulin increased to 20 units #Hypothyroidism Now back on oral Synthroid #Paroxysmal atrial fibrillation Did have A. fib with RVR yesterday after surgery, on amnio drip at this time with heart rate improved 06/20: Doing well on amnio drip 06/21: Remains on amnio drip, metoprolol started as well 06/22: Coreg, p.o. amio #Inability to maintain nutrition Due to small bowel obstruction NG per surgery PICC line placed, will need TPN 06/19: TPN held, slightly improved today compared to yesterday, will likely be able to resume soon 06/20: TPN resumed, doing well 06/23: If tolerating clears can likely DC TPN #Slight increase in LFTs Unclear etiology at this time but just very minimally increased Continue to trend #DVT ppx: SCDs Divya Gonzales MD Charges/Coding Visit Charges Inpatient E&M: 42603 Subs Hosp L2
[2022-06-23 12:00] LABS: Bedside Glucose 287 mg/dL (74-106)
[2022-06-23 16:31] LABS: Bedside Glucose 269 mg/dL (74-106)
[2022-06-23] MEDS: TPN - Clinimix E 8%-14% Soln 2,000 ML with Multivitamins 10 ML, Trace Elements 1 ML, Fo... 42 ML IV (16:34)
[2022-06-23 18:56] LABS: Bedside Glucose 259 mg/dL (74-106)
[2022-06-23] MEDS: Latanoprost 0.005% 1 Bottle 1 DRP OPHTHALMIC (21:56)
[2022-06-23 22:56] LABS: Bedside Glucose 236 mg/dL (74-106)
[2022-06-24] VITALS (16 sets, daily range): BP systolic 106–143; BP diastolic 59–76; PULSE 59–74; RESP 16–18; TEMP 36.6–36.9; O2SAT 96–98
[2022-06-24] MEDS: Insulin Lispro 100 UNIT/ML INSULN.PEN SC ×5 (03:32→22:47)
[2022-06-24 03:51] LABS: Bedside Glucose 255 mg/dL (74-106)
[2022-06-24] MEDS: Levothyroxine 50 MCG Tablet GT (05:30)
--- NOTE | 2022-06-24 06:03 | PN.SURG_ITS ---
Subjective Subjective Patient complains of being intermittently short of breath. She does state that her cough is much improved and much less phlegm production. She claims she just got to bed from the chair has not been able to sleep since 2 AM. She is concerned that she is not making progress. She is concerned that she might evolve into pneumonia. Her appetite is minimal. Everything tastes too sweet. She has not had any much oral intake. She continues to pass flatus. She has had a couple small loose stools. Objective Data Objective Data Vital Signs: Vital Signs Temp Pulse Resp BP Pulse Ox O2 Del Method O2 Flow Rate 98.5 F 59 L 18 106/59 L 96 Room Air 1 06/24/22 03:42 06/24/22 04:37 06/24/22 03:42 06/24/22 03:42 06/24/22 03:42 06/24/22 03:42 06/23/22 23:00 FiO2 30 06/23/22 15:45 Oxygen Flow Rate (L/min) 1 Oxygen Delivery Method Room Air Weight: 191 lb 9.307 oz Body Mass Index (BMI) 34.9 Intake & Output: Intake and Output for Last 24 Hours 06/22/22 06/23/22 06/24/22 23:59 23:59 23:59 Intake Total 2827.9 / 2827.9 3433.35 / 3433.35 420 / 420 Output Total 1974 / 2224 700 / 700 Balance 852.9 / 602.9 2733.35 / 2733.35 420 / 420 Lab / Micro Data Result Diagrams: 06/23/22 05:50 06/23/22 05:50 Labs: Laboratory Results - last 24 hr 06/23/22 04:25: POC Glucose 305 H 06/23/22 05:50: WBC 9.4, RBC 3.22 L, Hgb 9.3 L, Hct 29.1 L, MCV 90.4, MCH 28.9, MCHC 32.0, RDW Std Deviation 45.4 H, RDW Coeff of Juan 13.7, Plt Count 249, MPV 10.7, Immature Gran % (Auto) 3.100 H, Neut % (Auto) 74.2 H, Lymph % (Auto) 8.7 L , [place] % (Auto) 11.0 H, Eos % (Auto) 2.4, Baso % (Auto) 0.6, Absolute Neuts (auto) 7.0, Absolute Lymphs (auto) 0.81 L, Nucleated RBC % 0 06/23/22 05:50: Sodium 137, Potassium 3.7, Chloride 107, Carbon Dioxide 22.0, Anion Gap 8, BUN 26 H, Creatinine 0.56, Estim Creat Clear Calc 31.94, Est GFR (MDRD) Af Amer 131, Est GFR (MDRD) Non-Af 108, BUN/Creatinine Ratio 46.1 H, Glucose 259 H, Calcium 8.2 L, Phosphorus 2.9, Magnesium 2.3, Total Bilirubin 0.20, AST 55 H, ALT 72 H, Alkaline Phosphatase 126 H, Total Protein 5.1 L, Albumin 1.6 L, Globulin 3.5, Albumin/Globulin Ratio 0.5 L 06/23/22 06:22: POC Glucose 235 H 06/23/22 11:23: POC Glucose 287 H 06/23/22 16:03: POC Glucose 269 H 06/23/22 18:32: POC Glucose 259 H 06/23/22 22:31: POC Glucose 236 H 06/24/22 03:29: POC Glucose 255 H Micro: Microbiology 06/18/22 17:23 Sputum, Induced/Lukens Gram Stain - Final 06/18/22 17:23 Sputum, Induced/Lukens Respiratory Culture - Final Enterobacter cloacae complex Physical Exam Narrative Patient appears old and fatigued and weary Resp Resp Narrative: Diminished in the bases, clear in the apices GI GI Narrative: Softer, still distended, low bowel sounds, dressings dry, appropriately tender to deeper palpation Extremity Extremity Narrative: All extremities are diminishing and fluid retention, no palpable cords. Assessment & Plan Assessment/Plan (1) Small bowel obstruction due to adhesions: PLAN: Plan We will advance the diet to full liquids to try to convert away from IV sweetene d fluids. Hopefully this will encourage the patient to eat. Bowel function appears to be resuming though clearly has not completely returned to normal. Her white blood cell count normalized yesterday. She remains afebrile. Her cough and sputum appears to have markedly diminished. I will stop the meropenem. The patient's been on twice daily IV pantoprazole. I will convert to once daily orally per age Because of the patient's complaint of shortness of breath I will obtain a chest x-ray. I will also initiate subcu Lovenox in addition to her sequential venous compression devices. The patient does not appear to be in distress. We will need to continue to observe to see if additional inspection for possible PE is warranted. Anticipate wound closure tomorrow
--- NOTE | 2022-06-24 06:20 | RAD_ITS ---
STUDY: X-RAY CHEST REASON FOR EXAM: Female, 87 years old. Shortness of breath. TECHNIQUE: Single AP portable view of the chest. COMPARISON: June 19, 2022. FINDINGS: Right PICC line tip at the caval atrial junction. No focal infiltrates or effusions. Scattered bibasilar subsegmental atelectasis. No pneumothorax. There is borderline cardiomegaly. Normal mediastinum and susan. Normal visualized pulmonary arteries. Normal visualized aortic arch and descending thoracic aorta. Normal visualized thoracic spine. Surgical hardware right humerus. There is no demonstrated abnormality of the visualized soft tissue structures of the upper abdomen. RAD/Chest 1 View (Portable) IMPRESSION: No acute cardiopulmonary disease. Electronically Signed: Gabino Gonzalez MD at 7:28 EST Reading Location ID and State: [id number] / , Service support ,
[2022-06-24] MEDS: Insulin Glargine-YFGN 100 UNIT/ML Pen 20 UNIT SC (08:25)
[2022-06-24] MEDS: Carvedilol 12.5 MG Tablet PO ×2 (08:27→22:48)
[2022-06-24] MEDS: Amiodarone 200 MG Tablet PO ×2 (08:27→22:48)
[2022-06-24] MEDS: Losartan Potassium 50 MG Tablet PO (08:27)
[2022-06-24] MEDS: Enoxaparin 30 MG/0.3 ML Syringe SC (08:27)
[2022-06-24] MEDS: Pantoprazole Sodium 40 MG Tablet PO (08:27)
[2022-06-24 09:00] LABS: Bedside Glucose 245 mg/dL (74-106)
[2022-06-24 11:55] LABS: Bedside Glucose 253 mg/dL (74-106)
--- NOTE | 2022-06-24 15:03 | PCM.PN.HOSP ---
Subjective Subjective Continues to have good and bad moments, abdominal pain overall improving. Small bowel movements and passing gas. Tolerating liquid diet today. Get slightly winded when moving around too much, still has slight cough Objective Data Objective Data Vital Signs: Vital Signs Temp Pulse Resp BP Pulse Ox O2 Del Method O2 Flow Rate 98.1 F 70 16 134/67 H 96 Room Air 1 06/24/22 14:24 06/24/22 14:26 06/24/22 14:24 06/24/22 14:24 06/24/22 14:24 06/24/22 14:24 06/24/22 10:00 FiO2 30 06/24/22 10:00 Oxygen Flow Rate (L/min) 1 Oxygen Delivery Method Room Air Weight: 86.9 kg Body Mass Index (BMI) 34.9 Intake & Output: Intake and Output for Last 24 Hours 06/22/22 06/23/22 06/24/22 23:59 23:59 23:59 Intake Total 2827.9 / 2827.9 3433.35 / 3433.35 1146 / 1146 Output Total 1975 / 2225 700 / 700 Balance 852.9 / 602.9 2733.35 / 2733.35 1146 / 1146 Lab / Micro Data Result Diagrams: 06/23/22 05:50 06/23/22 05:50 Labs: Laboratory Results - last 24 hr 06/23/22 16:03: POC Glucose 269 H 06/23/22 18:32: POC Glucose 259 H 06/23/22 22:31: POC Glucose 236 H 06/24/22 03:29: POC Glucose 255 H 06/24/22 08:24: POC Glucose 245 H 06/24/22 11:29: POC Glucose 253 H Micro: Microbiology 06/18/22 17:23 Sputum, Induced/Lukens Gram Stain - Final 06/18/22 17:23 Sputum, Induced/Lukens Respiratory Culture - Final Enterobacter cloacae complex Radiography Diagnostic Testing: Radiology Impression Chest X-Ray 06/24/22 06:20 IMPRESSION: No acute cardiopulmonary disease. Electronically Signed: Gabino Gonzalez MD at 7:28 EST Reading Location ID and State: [id number] / , Service support , Physical Exam Const alert Constitutional Narrative: Oriented HEENT normocephalic and head/scalp atraumatic Eyes Eyes Narrative: EOM grossly intact, anicteric Neck supple Resp normal respiratory effort and clear to auscultation bilaterally Cardio regular rate and regular rhythm GI soft to palpation and non-distended GI Narrative: Mild tenderness to palpation without rebound, guarding, rigidity Extremity Extremity Narrative: No edema appreciated Neuro moves all extremities Neuro Narrative: No overt focal deficits appreciated Psych Psych Narrative: Cooperative Assessment & Plan Assessment/Plan (1) Small bowel obstruction: PLAN: Plan 87 old female with history of colonoscopy 06/[address] Álvarez. Tolerated this well but the following day developed nausea and bloating. She had contacted the office for diet medication recommendations and called multiple times daily after colonoscopy and ended up having an episode of vomiting and was evaluated in the office. Does have a history of small bowel obstruction earlier this year and was hospitalized. Ultimately was a direct admit to the hospital and diagnosed with a small bowel obstruction. Hospitalist consulted 06/17 as she was to have an NG tube placed and it was requested TPN be initiated. #Recurrent small bowel obstruction Similar issue August 2021 with non op management Had a Gastrografin small bowel follow-through NG tube placed PICC line ordered, TPN Likely ex lap today with Dr. Álvarez 06/19: Had ex lap 06/19 and had episode of hypotension requiring pressors, transferred to ICU intubated on pressors. Levo currently on hold. Patient will likely have delayed closure. Management per surgery 06/20: Remains intubated in ICU, on meropenem. White count improving. Management per surgery 06/21: Continues to be on Merrem. Reports pain is improving. TPN for nutritional support, has NG tube in place. Postop care per surgery. White blood cell count is up slightly but clinically has been improving 06/22: NG tube removed and she is feeling much better. Wound care for abdominal wound. Physical therapy. On Merrem 06/23: Doing well with NG tube out, had small bowel movement, going to try to tolerate clears. If tolerating clears can likely DC TPN tomorrow. Physical therapy. White count normalized 06/24: Tolerating clears, will stop TPN after current bag is done. #Hypotension?resolved Was present after ex lap and was on levo for period of time, contributed by Hillary. fib with RVR which has resolved Has been hypertensive and is on losartan, Toprol changed to Coreg, hydralazine as needed #Diabetes mellitus type 2 Insulin increased to 20 units 06/24: Given that we are stopping TPN and oral intake unclear we will continue the insulin at current dosing, can adjust further to match p.o. intake #Hypothyroidism Now back on oral Synthroid #Paroxysmal atrial fibrillation Did have A. fib with RVR yesterday after surgery, on amnio drip at this time with heart rate improved 06/20: Doing well on amnio drip 06/21: Remains on amnio drip, metoprolol started as well 06/22: Coreg, p.o. amio #Inability to maintain nutrition Due to small bowel obstruction NG per surgery PICC line placed, will need TPN 06/19: TPN held, slightly improved today compared to yesterday, will likely be able to resume soon 06/20: TPN resumed, doing well 06/23: If tolerating clears can likely DC TPN 06/24: Tolerating liquids, DC TPN #Slight increase in LFTs Unclear etiology at this time but just very minimally increased Continue to trend 06/24: CMP in the morning #DVT ppx: SCDs Divya Gonzales MD Charges/Coding Visit Charges Inpatient E&M: 44343 Subs Hosp L2
[2022-06-24 16:21] LABS: Bedside Glucose 278 mg/dL (74-106)
[2022-06-24] MEDS: Latanoprost 0.005% 1 Bottle 1 DRP OPHTHALMIC (22:48)
[2022-06-24 23:21] LABS: Bedside Glucose 189 mg/dL (74-106)
[2022-06-25] VITALS (15 sets, daily range): BP systolic 111–138; BP diastolic 63–87; PULSE 57–67; RESP 16–18; TEMP 36.3–37.1; O2SAT 93–96
[2022-06-25 06:05] LABS: Absolute Lymphocyte Count 1.05 X10^3/uL (0.83-4.51); Absolute Neutrophil Count 8.1 X10^3/uL (2.0-7.7); Basophil# 0.05 X10^3/uL; Basophil% 0.5 % (0-1); Eosinophils% 1.9 % (0-5); Hematocrit 29.5 % (37-47); Hemoglobin 9.3 g/dL (12.0-15.0); Lymphocyte # 1.05 X10^3/ul (0.83-4.51); Mean Corp Hgb Conc 31.5 g/dL (32-36); Mean Corpuscular Hgb 28.2 pg (27.0-32.0); Mean Corpuscular Volume 89.4 fL (81-99); Mean Platelet Vol. 10.4 fl (6.2-12.0); Monocyte# 0.91 X10^3/uL; Monocyte% 8.7 % (0-10); NRBC Flagged by Analyzer 0 % (0-5); Neutrophil # 8.07 X10^3/uL (2.7-7.7); Neutrophil % 76.6 % (47-70); Platelet Count 295 K/mm3 (150-450); RBC Distribution Width CV 13.7 % (11.6-14.6); White Blood Count 10.5 K/mm3 (4.4-11.0)
--- NOTE | 2022-06-25 06:32 | PCM.PN.SRG ---
Subjective Subjective Patient states that her oral intake is poor. Sweet foods do not taste well to her. She cannot take aspartame. She can take boost for supplement. She has not been moving her bowels. She is passing flatus and feels movement inside her abdomen. No pain at rest. No current nausea. She does have some dyspnea on exertion. Objective Data Objective Data Vital Signs: Vital Signs Temp Pulse Resp BP Pulse Ox O2 Del Method O2 Flow Rate 98.8 F 57 L 18 135/87 H 95 Room Air 1 06/25/22 04:00 06/25/22 04:00 06/25/22 04:00 06/25/22 04:00 06/25/22 04:00 06/25/22 04:00 06/25/22 04:00 FiO2 30 06/25/22 04:00 Oxygen Flow Rate (L/min) 1 Oxygen Delivery Method Room Air Weight: 193 lb 1.999 oz Body Mass Index (BMI) 34.9 Intake & Output: Intake and Output for Last 24 Hours 06/23/22 06/24/22 06/25/22 23:59 23:59 23:59 Intake Total 3433.35 / 3433.35 2806.15 / 3006.15 200 / 200 Output Total 700 / 700 Balance 2733.35 / 2733.35 2806.15 / 3006.15 200 / 200 Lab / Micro Data Result Diagrams: 06/25/22 05:14 06/23/22 05:50 Labs: Laboratory Results - last 24 hr 06/24/22 08:24: POC Glucose 245 H 06/24/22 11:29: POC Glucose 253 H 06/24/22 15:54: POC Glucose 278 H 06/24/22 22:46: POC Glucose 189 H 06/25/22 05:14: WBC 10.5, RBC 3.30 L, Hgb 9.3 L, Hct 29.5 L, MCV 89.4, MCH 28.2, MCHC 31.5 L, RDW Std Deviation 45.0 H, RDW Coeff of Juan 13.7, Plt Count 295, MPV 10.4, Immature Gran % (Auto) 2.300 H, Neut % (Auto) 76.6 H, Lymph % (Auto) 10.0 L, [place] % (Auto) 8.7, Eos % (Auto) 1.9, Baso % (Auto) 0.5, Absolute Neuts (auto) 8.1 H, Absolute Lymphs (auto) 1.05, Nucleated RBC % 0 Micro: Microbiology 06/18/22 17:23 Sputum, Induced/Lukens Gram Stain - Final 06/18/22 17:23 Sputum, Induced/Lukens Respiratory Culture - Final Enterobacter cloacae complex Radiography Diagnostic Testing: Radiology Impression Chest X-Ray 06/24/22 06:20 IMPRESSION: No acute cardiopulmonary disease. Electronically Signed: Gabino Gonzalez MD at 7:28 EST Reading Location ID and State: [id number] / , Service support , Physical Exam Narrative Patient continues to appear weak and frail Resp Resp Narrative: Clear in the apices diminished in the bases GI GI Narrative: Distended but softly so, diminished bowel sounds, dressings dry and intact Extremity Extremity Narrative: Nontender Assessment & Plan Assessment/Plan (1) Small bowel obstruction due to adhesions: PLAN: The patient is concerned about her ability to gain nourishment. TPN will be off for 24 hours. I will increase the patient to a diabetic regular diet. Extensive encouragement continue to be given. She is not interested in tube feedings or PEG tube and I would concur based upon her operative findings and the chronicity of which her bowels have been obstructed. It is of note that her oral intake is minimal currently Chest x-ray yesterday was not remarkable. She has been encouraged to continue mobilization and working with PT. She will need postdischarge rehabilitation. Laboratory pending. Rajan Álvarez M.D., F.A.C.S.
[2022-06-25 06:47] LABS: ALB/GLOB Ratio 0.5 RATIO (0.9-2.4); AST(SGOT) 74 U/L (15-37); Alanine Aminotransfer ALT/SGPT 122 U/L (13-56); Albumin, Serum 1.8 g/dL (3.2-5.0); Alkaline Phosphatase 197 U/L (45-117); Anion Gap 5 (5-15); BUN 17 mg/dL (7-18); BUN/Creat Ratio 34.1 RATIO (10-20); Calcium,Total 8.8 mg/dL (8.5-10.1); Chloride 107 mmol/L (98-107); EST Glomerular Filtration Rate 125 mL/min (>60); Est Glom Filt Rate - Afr Amer 151 mL/min (>60); Estimated Creatinine Clearance 31.94 ml/min; Globulin 3.8 g/dL (2.2-4.2); Glucose 174 mg/dL (74-106); Protein, Total 5.6 g/dL (6.4-8.2); Sodium Level 137 mmol/L (136-145)
[2022-06-25] MEDS: Levothyroxine 50 MCG Tablet GT (06:58)
[2022-06-25] MEDS: Insulin Lispro 100 UNIT/ML INSULN.PEN SC ×4 (06:58→22:18)
[2022-06-25 07:20] LABS: Bedside Glucose 175 mg/dL (74-106)
--- NOTE | 2022-06-25 08:11 | PCM.PN.HOSP ---
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 Admitted since 06/13. Patient is fatigue Objective Data Objective Data Vital Signs: Vital Signs Temp Pulse Resp BP Pulse Ox O2 Del Method O2 Flow Rate 97.9 F 62 16 138/70 H 96 Room Air 1 06/25/22 07:03 06/25/22 07:03 06/25/22 07:03 06/25/22 07:03 06/25/22 07:03 06/25/22 07:03 06/25/22 04:00 FiO2 30 06/25/22 04:00 Oxygen Flow Rate (L/min) 1 Oxygen Delivery Method Room Air Weight: 193 lb 1.999 oz Body Mass Index (BMI) 34.9 Intake & Output: Intake and Output for Last 24 Hours 06/23/22 06/24/22 06/25/22 23:59 23:59 23:59 Intake Total 3433.35 / 3433.35 2806.15 / 3006.15 200 / 200 Output Total 700 / 700 Balance 2733.35 / 2733.35 2806.15 / 3006.15 200 / 200 Lab / Micro Data Result Diagrams: 06/25/22 05:14 06/25/22 05:14 Labs: Laboratory Results - last 24 hr 06/24/22 08:24: POC Glucose 245 H 06/24/22 11:29: POC Glucose 253 H 06/24/22 15:54: POC Glucose 278 H 06/24/22 22:46: POC Glucose 189 H 06/25/22 05:14: WBC 10.5, RBC 3.30 L, Hgb 9.3 L, Hct 29.5 L, MCV 89.4, MCH 28.2, MCHC 31.5 L, RDW Std Deviation 45.0 H, RDW Coeff of Juan 13.7, Plt Count 295, MPV 10.4, Immature Gran % (Auto) 2.300 H, Neut % (Auto) 76.6 H, Lymph % (Auto) 10.0 L, [place] % (Auto) 8.7, Eos % (Auto) 1.9, Baso % (Auto) 0.5, Absolute Neuts (auto) 8.1 H, Absolute Lymphs (auto) 1.05, Nucleated RBC % 0 06/25/22 05:14: Sodium 137, Potassium 4.0, Chloride 107, Carbon Dioxide 25.0, Anion Gap 5, BUN 17, Creatinine 0.50 L, Estim Creat Clear Calc 31.94, Est GFR (MDRD) Af Amer 151, Est GFR (MDRD) Non-Af 125, BUN/Creatinine Ratio 34.1 H, Glucose 174 H, Calcium 8.8, Total Bilirubin 0.50, AST 74 H, ALT 122 H, Alkaline Phosphatase 197 H, Total Protein 5.6 L, Albumin 1.8 L, Globulin 3.8, Albumin/Globulin Ratio 0.5 L 06/25/22 06:54: POC Glucose 175 H Micro: Microbiology 06/18/22 17:23 Sputum, Induced/Lukens Gram Stain - Final 06/18/22 17:23 Sputum, Induced/Lukens Respiratory Culture - Final Enterobacter cloacae complex Physical Exam Narrative Seen and examined. Patient had breakfast tray in front but not able to eat much. Suboptimal nutritional intake. Discussed with residential service technician and TPN resumed. Physical exam General: Alert, Oriented x3, Cooperative, fatigue, low pitched voice. HEENT: Atraumatic, PERRLA, EOMI, Normocephalic Oral: No Gingival or Mucosal Lesions/ Ulcerations Neck: Supple, No JVD, Negative Carotid Bruits Lungs: Dyspnea on minimal exertion. Air entry diminished in bilateral lung bases. No crepitation/rhonchi Cardiovascular: Regular rate, Regular Rhythm, Normal S1, Normal S2, No murmurs Abdomen: Bowel Sounds present. Surgical dressing dry. No acute tenderness. : No renal angle tenderness. No suprapubic tenderness. Extremities: No edema, Capillary Refill Less than 3 Seconds Skin: No rashes, No breakdown Musculoskeletal: No Tenderness to Palpation of Joints or Extremities. Decreased muscle bulk of extremities. Neurological: Cranial nerves II-XII grossly intact, DTR 2+/4 and Symmetrical, Neuro grossly intact Psych/Mental Status: Flat affect. Assessment & Plan Assessment/Plan (1) Small bowel obstruction: PLAN: Plan 87 old female with history of colonoscopy 06/[address] Álvarez. Tolerated this well but the following day developed nausea and bloating. She had contacted the office for diet medication recommendations and called multiple times daily after colonoscopy and ended up having an episode of vomiting and was evaluated in the office. Does have a history of small bowel obstruction earlier this year and was hospitalized. Ultimately was a direct admit to the hospital and diagnosed with a small bowel obstruction. Hospitalist consulted 06/17 as she was to have an NG tube placed and it was requested TPN be initiated. #Recurrent small bowel obstruction: Patient had PICC line and TPN. Gastrografin showed small bowel obstruction with no improvement patient had exploratory laparotomy with adhesiolysis, enterotomy and antrectomy of mid small bowel. 06/25: Diet advanced to soft regular diet. Initially Dr. Álvarez recommended to stop TPN but was resumed because patient has suboptimal oral intake and cannot meet her calorie requirement. Customer Order Clerk talk to Dr. Bazan and TPN regimen. #Hypotension?resolved Was present after ex lap and was on levo for period of time, contributed by Roma godwin with RVR which has resolved. Patient was in ICU after surgery. Has been hypertensive and is on losartan, Toprol changed to Coreg, hydralazine as needed #Diabetes mellitus type 2 Insulin increased to 20 units 06/24: Given that we are stopping TPN and oral intake unclear we will continue the insulin at current dosing, can adjust further to match p.o. intake 06/25 glucose is between 150?200 . #Hypothyroidism Now back on oral Synthroid #Paroxysmal atrial fibrillation Did have AAnisa godwin with RVR yesterday after surgery, on amnio drip at this time with heart rate improved Continue Coreg, p.o. amio #Inability to maintain nutrition: TPN as mentioned above Due to small bowel obstruction #Slight increase in LFTs Unclear etiology at this time but just very minimally increased Continue to trend 06/24: CMP in the morning #DVT ppx: SCDs Laboratory Results 06/24/22 22:46: POC Glucose 189 H 06/25/22 05:14: WBC 10.5, RBC 3.30 L, Hgb 9.3 L, Hct 29.5 L, MCV 89.4, MCH 28.2, MCHC 31.5 L, RDW Std Deviation 45.0 H, RDW Coeff of Juan 13.7, Plt Count 295, MPV 10.4, Immature Gran % (Auto) 2.300 H, Neut % (Auto) 76.6 H, Lymph % (Auto) 10.0 L, [place] % (Auto) 8.7, Eos % (Auto) 1.9, Baso % (Auto) 0.5, Absolute Neuts (auto) 8.1 H, Absolute Lymphs (auto) 1.05, Nucleated RBC % 0 06/25/22 05:14: Sodium 137, Potassium 4.0, Chloride 107, Carbon Dioxide 25.0, Anion Gap 5, BUN 17, Creatinine 0.50 L, Estim Creat Clear Calc 31.94, Est GFR (MDRD) Af Amer 151, Est GFR (MDRD) Non-Af 125, BUN/Creatinine Ratio 34.1 H, Glucose 174 H, Calcium 8.8, Total Bilirubin 0.50, AST 74 H, ALT 122 H, Alkaline Phosphatase 197 H, Total Protein 5.6 L, Albumin 1.8 L, Globulin 3.8, Albumin/Globulin Ratio 0.5 L 06/25/22 06:54: POC Glucose 175 H 06/25/22 11:37: POC Glucose 200 H Charges/Coding Visit Charges Inpatient E&M: 73105 Subs Hosp L2
[2022-06-25] MEDS: Amiodarone 200 MG Tablet PO ×2 (09:22→22:18)
[2022-06-25] MEDS: Carvedilol 12.5 MG Tablet PO ×2 (09:22→22:18)
[2022-06-25] MEDS: Enoxaparin 30 MG/0.3 ML Syringe SC (09:23)
[2022-06-25] MEDS: Pantoprazole Sodium 40 MG Tablet PO (09:23)
[2022-06-25] MEDS: Losartan Potassium 50 MG Tablet PO (09:23)
[2022-06-25] MEDS: Insulin Glargine-YFGN 100 UNIT/ML Pen 20 UNIT SC (11:40)
[2022-06-25] MEDS: Ondansetron 4 MG/2 ML Vial IV (12:12)
[2022-06-25] MEDS: 0.9% Saline Lock 10 ML Syringe IV ×2 (12:14→22:26)
[2022-06-25 12:25] LABS: Bedside Glucose 200 mg/dL (74-106)
--- NOTE | 2022-06-25 13:02 | CHAPLAIN ---
Type of Pastoral Visit ___ Initial Visit _x__ Follow-up Visit ___ On-call Visit ___ General Patient Visit ___ Spiritual Assessment ___ Family Conference ___ Bereavement ___ Rapid Response ___ Code Blue ___ Other (describe below) Pastoral Care Referral From _x__ Patient ___ Family ___ Nurse ___ Physician ___ Filler And Trimmer ___ Soloist Dancer ___ Other (describe below) Sacrament/Intervention _x__ Active listening ___ Anointing ___ Islam ___ Bereavement ___ Communion _x__ Marcela exploration ___ ___ Life review _x__ Prayer ___ Reconciliation ___ Sacrament of Sick _x__ Supportive presence ___ Wedding ___ Other (describe below) Pastoral Comments patient is back in PCU after stay in ICU; pt remembers this looseleaf binder coverer and expresses thanks for previous visits even when in ICU and unable to talk; pt has just very limited family support; pt expresses that she just wants to feel better and get through this; pt starts to quote some hymns and scriptures verses which this looseleaf binder coverer joins in with as well; pt asks questions about marcela and assurance of God's promises; affirmations, listening, and prayer support given; pt again thanks this looseleaf binder coverer for the spiritual care support;
[2022-06-25] MEDS: TPN - Clinimix E 8%-14% Soln 2,000 ML with Multivitamins 10 ML, Trace Elements 1 ML, Fo... 42 ML IV (16:08)
--- NOTE | 2022-06-25 16:26 | PCM.PN.BLA ---
Progress Note Patient evaluated at bedside. Patient's abdomen was prepped with Betadine. A total of 25 cc of Lidocaine was used to inject along the Nylon sutures. Nylon sutures were tied and all clips were removed. There is a small opening at the base of the incision. This was packed with saline dampened gauze and ABD pad was applied. Assessment & Plan Assessment/Plan (1) Small bowel obstruction due to adhesions: PLAN: Recommend continued wet to dry dressing changes BID starting tomorrow again
[2022-06-25 18:26] LABS: Bedside Glucose 184 mg/dL (74-106)
[2022-06-25] MEDS: Latanoprost 0.005% 1 Bottle 1 DRP OPHTHALMIC (22:19)
[2022-06-25 22:46] LABS: Bedside Glucose 286 mg/dL (74-106)
[2022-06-26] VITALS (12 sets, daily range): BP systolic 111–137; BP diastolic 55–72; PULSE 59–75; RESP 16–18; TEMP 36.1–36.7; O2SAT 93–95
--- NOTE | 2022-06-26 06:04 | PN.SURG_ITS ---
Subjective Subjective And had slightly more to eat yesterday. Claims to be passing significant flatus. She is very concerned that she has not had a bowel movement for several days. No current abdominal pain. Objective Data Objective Data Vital Signs: Vital Signs Temp Pulse Resp BP Pulse Ox O2 Del Method O2 Flow Rate 97 F L 59 L 18 125/63 H 95 Room Air 1 06/26/22 03:12 06/26/22 03:12 06/26/22 03:12 06/26/22 03:12 06/26/22 03:12 06/26/22 03:14 06/26/22 03:12 FiO2 30 06/26/22 03:12 Oxygen Flow Rate (L/min) 1 Oxygen Delivery Method Room Air Weight: 193 lb 1.999 oz Body Mass Index (BMI) 34.9 Intake & Output: Intake and Output for Last 24 Hours 06/24/22 06/25/22 06/26/22 23:59 23:59 23:59 Intake Total 2806.15 / 3006.15 1160 / 1640 480 / 480 Balance 2806.15 / 3006.15 1160 / 1640 480 / 480 Lab / Micro Data Result Diagrams: 06/25/22 05:14 06/25/22 05:14 Labs: Laboratory Results - last 24 hr 06/25/22 05:14: WBC 10.5, RBC 3.30 L, Hgb 9.3 L, Hct 29.5 L, MCV 89.4, MCH 28.2, MCHC 31.5 L, RDW Std Deviation 45.0 H, RDW Coeff of Juan 13.7, Plt Count 295, MPV 10.4, Immature Gran % (Auto) 2.300 H, Neut % (Auto) 76.6 H, Lymph % (Auto) 10.0 L, [place] % (Auto) 8.7, Eos % (Auto) 1.9, Baso % (Auto) 0.5, Absolute Neuts (auto) 8.1 H, Absolute Lymphs (auto) 1.05, Nucleated RBC % 0 06/25/22 05:14: Sodium 137, Potassium 4.0, Chloride 107, Carbon Dioxide 25.0, Anion Gap 5, BUN 17, Creatinine 0.50 L, Estim Creat Clear Calc 31.94, Est GFR (MDRD) Af Amer 151, Est GFR (MDRD) Non-Af 125, BUN/Creatinine Ratio 34.1 H, Glucose 174 H, Calcium 8.8, Total Bilirubin 0.50, AST 74 H, ALT 122 H, Alkaline Phosphatase 197 H, Total Protein 5.6 L, Albumin 1.8 L, Globulin 3.8, Albumin /Globulin Ratio 0.5 L 06/25/22 06:54: POC Glucose 175 H 06/25/22 11:37: POC Glucose 200 H 06/25/22 17:05: POC Glucose 184 H 06/25/22 22:02: POC Glucose 286 H Micro: Microbiology 06/18/22 17:23 Sputum, Induced/Lukens Gram Stain - Final 06/18/22 17:23 Sputum, Induced/Lukens Respiratory Culture - Final Enterobacter cloacae complex Physical Exam GI GI Narrative: Soft, distended, active bowel sounds, dressings dry and intact Assessment & Plan Assessment/Plan (1) Small bowel obstruction due to adhesions: PLAN: We will initiate MiraLAX for bowel function. Patient temporarily back on TPN. Need to check liver function test. Glucose control has been very high throughout her postoperative period and remains high currently. Patient is approaching maximal hospitalized benefit. Hopefully efforts are being made to find her a bed in TCU. Potential surgical discharge tomorrow Abdominal wound has been approximated. I would anticipate current nylon sutures to be in for at least 7 to 10 days. I would anticipate retention sutures to be in for at least 2-3 more weeks. Patient continues to require significant encouragement. Rajan Álvarez M.D., F.A.C.S.
[2022-06-26] MEDS: Insulin Lispro 100 UNIT/ML INSULN.PEN SC ×4 (06:29→22:59)
[2022-06-26] MEDS: Levothyroxine 50 MCG Tablet GT (06:29)
[2022-06-26] MEDS: Polyethylene Glycol 3350 17 GM PACKET 34 GM PO (06:45)
[2022-06-26 06:55] LABS: Bedside Glucose 242 mg/dL (74-106)
[2022-06-26 07:26] LABS: AST(SGOT) 23 U/L (15-37); Alanine Aminotransfer ALT/SGPT 90 U/L (13-56); Albumin, Serum 1.7 g/dL (3.2-5.0); Alkaline Phosphatase 174 U/L (45-117); Bilirubin, Direct 0.08 mg/dL (0.00-0.30); Globulin 3.9 g/dL (2.2-4.2); Protein, Total 5.6 g/dL (6.4-8.2)
[2022-06-26] MEDS: Amiodarone 200 MG Tablet PO ×2 (08:13→23:00)
[2022-06-26] MEDS: Pantoprazole Sodium 40 MG Tablet PO (08:13)
[2022-06-26] MEDS: Carvedilol 12.5 MG Tablet PO ×2 (08:13→23:00)
[2022-06-26] MEDS: Losartan Potassium 50 MG Tablet PO (08:14)
[2022-06-26] MEDS: Enoxaparin 30 MG/0.3 ML Syringe SC (08:14)
--- NOTE | 2022-06-26 08:45 | CM.UR ---
Call from Shanell Anderson, Dr. Álvarez's PA, and she states pt will continue with TPN today then it will be shut off and pt can d/c to TCU tomorrow. Pt aware that pt has bed in TCU and will not need a precert when ready for d/c. Per Shanell, she closed pt's wound yesterday afternoon. Herbert UREÑA updated, voices understanding. SStrenea GOLDSTEIN CM
--- NOTE | 2022-06-26 09:48 | PN.SURG_ITS ---
Subjective Subjective Additional data information. Reflection regarding patient's liver function test elevations. Objective Data Objective Data Vital Signs: Vital Signs Temp Pulse Resp BP Pulse Ox O2 Del Method O2 Flow Rate 98.1 F 75 16 111/72 94 Room Air 1 06/26/22 09:42 06/26/22 09:42 06/26/22 09:42 06/26/22 09:42 06/26/22 09:42 06/26/22 09:42 06/26/22 03:12 FiO2 30 06/26/22 03:12 Oxygen Flow Rate (L/min) 1 Oxygen Delivery Method Room Air Weight: 164 lb 10.965 oz Body Mass Index (BMI) 34.9 Intake & Output: Intake and Output for Last 24 Hours 06/24/22 06/25/22 06/26/22 23:59 23:59 23:59 Intake Total 2806.15 / 3006.15 1160 / 1640 720 / 720 Balance 2806.15 / 3006.15 1160 / 1640 720 / 720 Lab / Micro Data Result Diagrams: 06/25/22 05:14 06/25/22 05:14 Labs: Laboratory Results - last 24 hr 06/25/22 11:37: POC Glucose 200 H 06/25/22 17:05: POC Glucose 184 H 06/25/22 22:02: POC Glucose 286 H 06/26/22 06:28: POC Glucose 242 H 06/26/22 06:51: Total Bilirubin 0.30, Direct Bilirubin 0.08, AST 23, ALT 90 H, Alkaline Phosphatase 174 H, Total Protein 5.6 L, Albumin 1.7 L, Globulin 3.9 Micro: Microbiology 06/18/22 17:23 Sputum, Induced/Lukens Gram Stain - Final 06/18/22 17:23 Sputum, Induced/Lukens Respiratory Culture - Final Enterobacter cloacae complex Assessment & Plan Assessment/Plan (1) Abnormal liver function tests: PLAN: After 24 hours of no TPN the patient's liver function tests are returning to normal. I suspect that this is related to the TPN. She is now back on a 24- hour course. We are hopeful that the patient will initiate better oral intake and progress from there so that the TPN can be permanently held. We are currently hoping for a potential transfer to the TCU tomorrow pending ongoing patient progress Rajan Álvarez M.D., F.A.C.S.
[2022-06-26] MEDS: Insulin Glargine-YFGN 100 UNIT/ML Pen 30 UNIT SC (11:12)
[2022-06-26 11:35] LABS: Bedside Glucose 343 mg/dL (74-106)
--- NOTE | 2022-06-26 11:47 | WOUNDNOTE ---
wound photo: abdomen
--- NOTE | 2022-06-26 14:53 | CASEMGMT ---
NIRANJAN let Sanjuana in TCU know that patient will likely be ready tomorrow. Plan: d/c to [facility] TCU Joslyn GARCIA
--- NOTE | 2022-06-26 15:11 | PN.HOSP_ITS ---
Subjective Subjective Follow-up for post op laparotomy for small bowel obstruction On TPN for inadequate diet and high calorie requirement Blood sugars are also elevated Objective Data Objective Data Vital Signs: Vital Signs Temp Pulse Resp BP Pulse Ox O2 Del Method O2 Flow Rate 97.4 F L 60 16 111/66 93 Room Air 1 06/26/22 14:07 06/26/22 14:07 06/26/22 14:07 06/26/22 14:07 06/26/22 14:07 06/26/22 14:07 06/26/22 03:12 FiO2 30 06/26/22 03:12 Oxygen Flow Rate (L/min) 1 Oxygen Delivery Method Room Air Weight: 193 lb 1.999 oz Body Mass Index (BMI) 34.9 Intake & Output: Intake and Output for Last 24 Hours 06/24/22 06/25/22 06/26/22 23:59 23:59 23:59 Intake Total 2806.15 / 3006.15 1160 / 1640 1320 / 1320 Balance 2806.15 / 3006.15 1160 / 1640 1320 / 1320 Lab / Micro Data Result Diagrams: 06/25/22 05:14 06/25/22 05:14 Labs: Laboratory Results - last 24 hr 06/25/22 17:05: POC Glucose 184 H 06/25/22 22:02: POC Glucose 286 H 06/26/22 06:28: POC Glucose 242 H 06/26/22 06:51: Total Bilirubin 0.30, Direct Bilirubin 0.08, AST 23, ALT 90 H, Alkaline Phosphatase 174 H, Total Protein 5.6 L, Albumin 1.7 L, Globulin 3.9 06/26/22 11:10: POC Glucose 343 H Micro: Microbiology 06/18/22 17:23 Sputum, Induced/Lukens Gram Stain - Final 06/18/22 17:23 Sputum, Induced/Lukens Respiratory Culture - Final Enterobacter cloacae complex Physical Exam Narrative Seen and examined. Patient had some solid food today. Diet and appetite better than yesterday. Plan to continue TPN today. Discussed with tower helper Physical exam General: Alert, Oriented x3, Cooperative, fatigue. HEENT: Atraumatic, PERRLA, EOMI, Normocephalic Oral: No Gingival or Mucosal Lesions/ Ulcerations. Neck: Supple, No JVD, Negative Carotid Bruits Lungs: Dyspnea on minimal exertion. Air entry diminished in bilateral lung bases. No crepitation/rhonchi Cardiovascular: Regular rate, Regular Rhythm, Normal S1, Normal S2, No murmurs Abdomen: Bowel Sounds present. Dressing was changed. : No renal angle tenderness. No suprapubic tenderness. Extremities: No edema, Capillary Refill Less than 3 Seconds Skin: No rashes, No breakdown Musculoskeletal: No Tenderness to Palpation of Joints or Extremities. Decreased muscle bulk of extremities. Neurological: Cranial nerves II-XII grossly intact, DTR 2+/4 and Symmetrical, Neuro grossly intact Psych/Mental Status: Flat affect. Assessment & Plan Assessment/Plan (1) Small bowel obstruction: PLAN: Plan 87 old female with history of colonoscopy 06/[address] Álvarez. Tolerated this well but the following day developed nausea and bloating. She had contacted the office for diet medication recommendations and called multiple times daily after colonoscopy and ended up having an episode of vomiting and was evaluated in the office. Does have a history of small bowel obstruction earlier this year and was hospitalized. Ultimately was a direct admit to the hospital and diagnosed with a small bowel obstruction. Hospitalist consulted 06/17 as she was to have an NG tube placed and it was requested TPN be initiated. #Recurrent small bowel obstruction: Patient had PICC line and TPN. Gastrografin showed small bowel obstruction with no improvement patient had exploratory laparotomy with adhesiolysis, enterotomy and antrectomy of mid small bowel. 06/25: Diet advanced to soft regular diet. Initially Dr. Álvarez recommended to stop TPN but was resumed because patient has suboptimal oral intake and cannot meet her calorie requirement. Outside Plant Cable Engineer talk to Dr. Bazan and TPN regimen. 06/26 plan to continue TPN diet. Oral intake reinforced. . surgical clips were removed A small opening at the base of the incision, packed with saline gauze. Dressing changed. #Hypotension?resolved Was present after ex lap and was on levo for period of time, contributed by Roma godwin with RVR which has resolved. Patient was in ICU after surgery. Has been hypertensive and is on losartan, Toprol changed to Coreg, hydralazine as needed #Diabetes mellitus type 2 Insulin increased to 20 units 06/24: Given that we are stopping TPN and oral intake unclear we will continue the insulin at current dosing, can adjust further to match p.o. intake 06/25 glucose is between 150?200 06/26: Glucose between 200 250. Lantus dose 30 units subcutaneous daily. Glucose is high due to TPN. Need to readjust dose after she is off TPN #Hypothyroidism Now back on oral Synthroid #Paroxysmal atrial fibrillation Did have A. fib with RVR yesterday after surgery, on amnio drip at this time with heart rate improved Continue Coreg, p.o. amio #Inability to maintain nutrition: TPN as mentioned above Due to small bowel obstruction #Slight increase in LFTs Unclear etiology at this time but just very minimally increased Continue to trend 06/24: CMP in the morning #DVT ppx: SCDs Laboratory Results 06/25/22 17:05: POC Glucose 184 H 06/25/22 22:02: POC Glucose 286 H 06/26/22 06:28: POC Glucose 242 H 06/26/22 06:51: Total Bilirubin 0.30, Direct Bilirubin 0.08, AST 23, ALT 90 H, Alkaline Phosphatase 174 H, Total Protein 5.6 L, Albumin 1.7 L, Globulin 3.9 06/26/22 11:10: POC Glucose 343 H Charges/Coding Visit Charges Inpatient E&M: 45227 Subs Hosp L2
[2022-06-26] MEDS: TPN - Clinimix E 8%-14% Soln 2,000 ML with Multivitamins 10 ML, Trace Elements 1 ML, Fo... 42 ML IV (16:46)
[2022-06-26 17:05] LABS: Bedside Glucose 210 mg/dL (74-106)
[2022-06-26] MEDS: Ondansetron 4 MG/2 ML Vial IV (22:42)
[2022-06-26] MEDS: 0.9% Saline Lock 10 ML Syringe IV (22:43)
[2022-06-26] MEDS: BENZOCAINE/MENTHOL 1 LOZENGE MUCOUS MEM (22:43)
[2022-06-26] MEDS: Latanoprost 0.005% 1 Bottle 1 DRP OPHTHALMIC (22:58)
[2022-06-27] VITALS (15 sets, daily range): BP systolic 103–131; BP diastolic 53–63; PULSE 60–68; RESP 18–22; TEMP 36.6–36.9; O2SAT 92–99
[2022-06-27 00:10] LABS: Bedside Glucose 347 mg/dL (74-106)
--- NOTE | 2022-06-27 04:28 | NURSING ---
pt requested to be put on O2 d/t difficultly coughing out secretions and being mildly tachypneic. Pt lungs sounds dim, no wheezes/crackles, currently on 2L O2 97%. Pt satting was 92-93% on RA. will continue to monitor.
[2022-06-27 06:14] LABS: Absolute Lymphocyte Count 0.83 X10^3/uL (0.83-4.51); Absolute Neutrophil Count 9.3 X10^3/uL (2.0-7.7); Basophil# 0.03 X10^3/uL; Basophil% 0.3 % (0-1); Eosinophil# 0.17 X10^3/uL; Eosinophils% 1.5 % (0-5); Hemoglobin 8.9 g/dL (12.0-15.0); Lymphocyte # 0.83 X10^3/ul (0.83-4.51); Lymphocyte % 7.4 % (19-41); Mean Corp Hgb Conc 30.7 g/dL (32-36); Mean Corpuscular Hgb 28.3 pg (27.0-32.0); Mean Corpuscular Volume 92.4 fL (81-99); Mean Platelet Vol. 10.1 fl (6.2-12.0); Monocyte# 0.81 X10^3/uL; Monocyte% 7.2 % (0-10); NRBC Flagged by Analyzer 0 % (0-5); Neutrophil # 9.27 X10^3/uL (2.7-7.7); Platelet Count 394 K/mm3 (150-450); RBC Distribution Width SD 47.3 fl (35.1-43.9); Red Blood Count 3.14 M/mm3 (4.2-5.4); White Blood Count 11.3 K/mm3 (4.4-11.0)
--- NOTE | 2022-06-27 06:21 | PCM.PN.SRG ---
Subjective Subjective Patient states that she continues to pass flatus easily. She had 1 small stool. Denies nausea. She feels that her appetite is slowly returning. No complaints of abdominal pain. Her primary concerns are shortness of breath and she was placed back on oxygen last night. She is concerned about inability to sleep. She continues to have concerns about moving her bowels. She is concerned about her elevated glucose levels. Objective Data Objective Data Vital Signs: Vital Signs Temp Pulse Resp BP Pulse Ox O2 Del Method O2 Flow Rate 98.3 F 65 22 H 131/60 H 97 Nasal Cannula 2 06/27/22 04:24 06/27/22 04:24 06/27/22 04:32 06/27/22 04:24 06/27/22 04:32 06/27/22 04:32 06/27/22 04:32 FiO2 30 06/26/22 03:12 Oxygen Flow Rate (L/min) 2 Oxygen Delivery Method Nasal Cannula Weight: 192 lb 7.417 oz Body Mass Index (BMI) 34.9 Intake & Output: Intake and Output for Last 24 Hours 06/25/22 06/26/22 06/27/22 23:59 23:59 23:59 Intake Total 1160 / 1640 2936.4 / 2936.4 Balance 1160 / 1640 2936.4 / 2936.4 Lab / Micro Data Result Diagrams: 06/25/22 05:14 06/25/22 05:14 Labs: Laboratory Results - last 24 hr 06/26/22 06:28: POC Glucose 242 H 06/26/22 06:51: Total Bilirubin 0.30, Direct Bilirubin 0.08, AST 23, ALT 90 H, Alkaline Phosphatase 174 H, Total Protein 5.6 L, Albumin 1.7 L, Globulin 3.9 06/26/22 11:10: POC Glucose 343 H 06/26/22 16:28: POC Glucose 210 H 06/26/22 22:39: POC Glucose 347 H Micro: Microbiology 06/18/22 17:23 Sputum, Induced/Lukens Gram Stain - Final 06/18/22 17:23 Sputum, Induced/Lukens Respiratory Culture - Final Enterobacter cloacae complex Physical Exam GI GI Narrative: Soft, distended, dressings dry, bowel sounds more active, no focal tenderness Assessment & Plan Assessment/Plan (1) Small bowel obstruction due to adhesions: PLAN: Plan Primary current concerns patient's complaint of shortness of breath and replacement on oxygen and elevated glucose levels and inability to sleep. Bowel function is slowly returning with copious flatus and onset of small stool. The patient was reinitiated on MiraLAX yesterday. From a incision and bowel standpoint patient would be ready for transfer to TCU. On going medical concerns pending. Rajan Álvarez M.D., F.A.C.S.
[2022-06-27 06:42] LABS: ALB/GLOB Ratio 0.5 RATIO (0.9-2.4); AST(SGOT) 21 U/L (15-37); Alanine Aminotransfer ALT/SGPT 74 U/L (13-56); Albumin, Serum 1.8 g/dL (3.2-5.0); Alkaline Phosphatase 168 U/L (45-117); Anion Gap 4 (5-15); BUN 24 mg/dL (7-18); BUN/Creat Ratio 37.2 RATIO (10-20); Calcium,Total 8.5 mg/dL (8.5-10.1); Chloride 104 mmol/L (98-107); Creatinine, Serum 0.65 mg/dL (0.55-1.02); EST Glomerular Filtration Rate 93 mL/min (>60); Est Glom Filt Rate - Afr Amer 112 mL/min (>60); Estimated Creatinine Clearance 31.94 ml/min; Globulin 3.9 g/dL (2.2-4.2); Glucose 304 mg/dL (74-106); Potassium 4.4 mmol/L (3.5-5.1); Protein, Total 5.7 g/dL (6.4-8.2); Sodium Level 135 mmol/L (136-145)
[2022-06-27] MEDS: Insulin Lispro 100 UNIT/ML INSULN.PEN SC ×4 (06:47→22:46)
[2022-06-27] MEDS: Levothyroxine 50 MCG Tablet GT (06:47)
[2022-06-27 07:05] LABS: Bedside Glucose 285 mg/dL (74-106)
--- NOTE | 2022-06-27 07:34 | CT_ITS ---
EXAM: CT ANGIOGRAPHY CHEST WITHOUT AND WITH INTRAVENOUS CONTRAST CLINICAL INDICATION: Rule out pulmonary embolism TECHNIQUE: Helically acquired angiography images were obtained of the chest without and with intravenous contrast. This CT exam was performed using one or more of the following dose reduction techniques: automated exposure control, adjustment of the mA and/or kV according to patient size, and/or use of iterative reconstruction technique. This report was created using [employer] report generation technology. MIP reconstructed images were created and reviewed. CONTRAST: IV 100mL Isovue-370 COMPARISON: None. FINDINGS: PULMONARY ARTERIES: Filling defects are noted within the bilateral upper and lower lobe pulmonary artery branches consistent with acute pulmonary embolism. Normal in caliber. AORTA: Normal. Normal in caliber. No evidence of dissection. GREAT VESSELS OF AORTIC ARCH: Normal. Normal in caliber. No evidence of dissection. LUNGS AND PLEURAL SPACES: Normal. No mass. No consolidation or edema. No pleural effusion or thickening. No pneumothorax. HEART: Right ventricular volume appears increased consistent with an element of right heart strain. Mild to moderate cardiomegaly with left ventricular hypertrophy. No pericardial effusion. MEDIASTINUM: Normal. No mediastinal or hilar adenopathy. Esophagus is unremarkable. No hiatal hernia. THYROID: Normal. No thyroid lesions. BONES/JOINTS: Normal. No suspicious lytic or blastic abnormality. CT/CTA Chest W/WO Contrast IMPRESSION: 1. Acute bilateral pulmonary embolism with evidence of right heart strain. 2. Mild to moderate cardiomegaly. Electronically Signed: Chepe Bowman MD at 8:03 EST ,
[2022-06-27] MEDS: Losartan Potassium 50 MG Tablet PO (08:13)
[2022-06-27] MEDS: Amiodarone 200 MG Tablet PO ×2 (08:13→22:45)
[2022-06-27] MEDS: Enoxaparin 30 MG/0.3 ML Syringe SC (08:13)
[2022-06-27] MEDS: Carvedilol 12.5 MG Tablet PO ×2 (08:13→22:45)
[2022-06-27] MEDS: Pantoprazole Sodium 40 MG Tablet PO (08:13)
[2022-06-27] MEDS: Polyethylene Glycol 3350 17 GM PACKET 34 GM PO (08:14)
[2022-06-27] MEDS: Insulin Glargine-YFGN 100 UNIT/ML Pen 30 UNIT SC (08:18)
--- NOTE | 2022-06-27 08:38 | ECHOL_ITS ---
Reason For Study: B/L PE, RIGHT HEART STRAIN Procedure This was a limited 2D transthoracic echocardiogram. Myocardial strain analysis was performed in this exam to aid in the assessment of cardiac function. Exam performed portable in patient room. Left Ventricle Normal LV size. D shaped septum in diastole. Left ventricular systolic function is normal. The estimated ejection fraction is 70 %. No regional wall motion abnormalities noted. Right Ventricle Mildly dilated right ventricle. Abnormal right ventricular diastolic function. Apical sparing is noted,in the RV. Atria Normal left atrium. The right atrium is mildly enlarged. Mitral Valve Normal mitral valve. Tricuspid Valve Normal tricuspid valve. Mild (1+) tricuspid valve insufficiency. Pulmonary artery systolic pressure is 38 mmHg. Great Vessels Normal aortic root. The pulmonary artery is normal size. Inferior vena cava collapse with respiration. Pericardium/Pleural No pericardial effusion. MMode/2D Measurements & Calculations LVIDd: 4.8 cm IVSd: 0.89 cm LVAd ap4: 28.5 cm2 LVIDs: 2.8 cm LVPWd: 0.85 cm LVLd ap4: 7.7 cm FS: 41.4 % EDV(MOD-sp4): 88.5 ml EDV(sp4-el): 89.1 ml LVAs ap4: 15.4 cm2 LVLs ap4: 6.7 cm ESV(MOD-sp4): 29.9 ml ESV(sp4-el): 30.1 ml EF(MOD-sp4): 66.2 % EF(sp4-el): 66.2 % SV(MOD-sp4): 58.6 ml SV(sp4-el): 59.0 ml RA A4 area: 21.8 cm2 Doppler Measurements & Calculations TR max dee: 294.1 cm/sec TR max P.6 mmHg ECHO/Echo, Limited Study Interpretation Summary Normal LV size. Left ventricular systolic function is normal. The estimated ejection fraction is 70 %. D shaped septum in diastole. The right atrium is mildly enlarged. Apical sparing is noted,in the RV Ordering Physician: Keenan Altamirano Referring Physician: JEREMY COFFEY Performed By: Jamison Alston RVT
--- NOTE | 2022-06-27 08:40 | PN.HOSP_ITS ---
Subjective Subjective Follow-up for bilateral PE, lobar pulmonary artery level along with multiple comorbidities. On TPN. Patient had CTPA done, she was more short of breath last night. Objective Data Objective Data Vital Signs: Vital Signs Temp Pulse Resp BP Pulse Ox O2 Del Method O2 Flow Rate 98.1 F 65 18 120/63 94 Nasal Cannula 2 06/27/22 08:08 06/27/22 08:08 06/27/22 08:08 06/27/22 08:08 06/27/22 08:10 06/27/22 08:10 06/27/22 08:10 FiO2 30 06/26/22 03:12 Oxygen Flow Rate (L/min) 2 Oxygen Delivery Method Nasal Cannula Weight: 192 lb 7.417 oz Body Mass Index (BMI) 34.9 Intake & Output: Intake and Output for Last 24 Hours 06/25/22 06/26/22 06/27/22 23:59 23:59 23:59 Intake Total 1160 / 1640 2936.4 / 2936.4 620.2 / 620.2 Balance 1160 / 1640 2936.4 / 2936.4 620.2 / 620.2 Lab / Micro Data Result Diagrams: 06/27/22 05:43 06/27/22 05:43 Labs: Laboratory Results - last 24 hr 06/26/22 11:10: POC Glucose 343 H 06/26/22 16:28: POC Glucose 210 H 06/26/22 22:39: POC Glucose 347 H 06/27/22 05:43: WBC 11.3 H, RBC 3.14 L, Hgb 8.9 L, Hct 29.0 L, MCV 92.4, MCH 28.3, MCHC 30.7 L, RDW Std Deviation 47.3 H, RDW Coeff of Juan 14.0, Plt Count 394, MPV 10.1, Immature Gran % (Auto) 1.600 H, Neut % (Auto) 82.0 H, Lymph % (Auto) 7.4 L, Maury % (Auto) 7.2, Eos % (Auto) 1.5, Baso % (Auto) 0.3, Absolute Neuts (auto) 9.3 H, Absolute Lymphs (auto) 0.83, Nucleated RBC % 0 06/27/22 05:43: Sodium 135 L, Potassium 4.4, Chloride 104, Carbon Dioxide 27.0, Anion Gap 4 L, BUN 24 H, Creatinine 0.65, Estim Creat Clear Calc 31.94, Est GFR (MDRD) Af Amer 112, Est GFR (MDRD) Non-Af 93, BUN/Creatinine Ratio 37.2 H, Glucose 304 H, Calcium 8.5, Total Bilirubin 0.30, AST 21, ALT 74 H, Alkaline Phosphatase 168 H, Total Protein 5.7 L, Albumin 1.8 L, Globulin 3.9, Albumin/Globulin Ratio 0.5 L 06/27/22 06:46: POC Glucose 285 H Micro: Microbiology 06/18/22 17:23 Sputum, Induced/Lukens Gram Stain - Final 06/18/22 17:23 Sputum, Induced/Lukens Respiratory Culture - Final Enterobacter cloacae complex Radiography Diagnostic Testing: Radiology Impression Chest CTA 06/27/22 07:34 IMPRESSION: 1. Acute bilateral pulmonary embolism with evidence of right heart strain. 2. Mild to moderate cardiomegaly. Electronically Signed: Chepe Bowman MD at 8:03 EST , ADDENDUM: 06/27/22 0813 IMPRESSION: 1. Acute bilateral pulmonary embolism with evidence of right heart strain. 2. Mild to moderate cardiomegaly. N.B. : The above Results were Read Back by Chepe Bowman MD to FERNANDO Gotti, and understanding confirmed on 06/27/2022 08:07:01 (ET). Electronically Signed: Chepe Bowman MD at 8:03 EST , Physical Exam Narrative Seen and examined. Patient oral intake increased. Started on IV heparin drip. Discussed with the patient's power of compliance manager, Mrs. Maribeth Hernandez near the bedside. Patient's dyspnea increased last night. Had a small bowel movement. Physical exam General: Alert, Oriented x3, Cooperative, fatigue. HEENT: Atraumatic, PERRLA, EOMI, Normocephalic Oral: No Gingival or Mucosal Lesions/ Ulcerations. Neck: Supple, No JVD, Negative Carotid Bruits Lungs: Dyspnea on minimal exertion. Air entry diminished in bilateral lung ba ses. No crepitation/rhonchi Cardiovascular: Regular rate, Regular Rhythm, Normal S1, Normal S2, No murmurs Abdomen: Bowel Sounds present. Dressing was changed. : No renal angle tenderness. No suprapubic tenderness. Extremities: No edema, Capillary Refill Less than 3 Seconds Skin: No rashes, No breakdown Musculoskeletal: No Tenderness to Palpation of Joints or Extremities. Decreased muscle bulk of extremities. Neurological: Cranial nerves II-XII grossly intact, DTR 2+/4 and Symmetrical, Neuro grossly intact Psych/Mental Status: Flat affect. Const Constitutional Narrative: Oriented Eyes Eyes Narrative: EOM grossly intact, anicteric Neck Neck Narrative: ET tube Resp Resp Narrative: Mechanically ventilated Cardio Cardio Narrative: Heart rate and rhythm is irregular GI GI Narrative: Mild tenderness to palpation without rebound, guarding, rigidity Extremity Extremity Narrative: No edema appreciated Neuro Neuro Narrative: No overt focal deficits appreciated Psych Psych Narrative: Cooperative Assessment & Plan Assessment/Plan (1) Small bowel obstruction: PLAN: Plan 87 old female with history of colonoscopy 06/[address] Álvarez. Tolerated this well but the following day developed nausea and bloating. She had contacted the office for diet medication recommendations and called multiple times daily after colonoscopy and ended up having an episode of vomiting and was evaluated in the office. Does have a history of small bowel obstruction earlier this year and was hospitalized. Ultimately was a direct admit to the hospital and diagnosed with a small bowel obstruction. Hospitalist consulted 06/17 as she was to have an NG tube placed and it was requested TPN be initiated. Acute cor pulmonale due to bilateral upper and lower lobes pulmonary artery branches pulmonary embolism: Patient is more short of breath than normal, respiratory rate 2022/min, pulse ox 93% on 2 L of oxygen. Dyspnea on minimal exertion. CTPA was done and individually reviewed. It shows filling defect in bilateral upper and lower lobe pulmonary artery branches consistent with acute bilateral lobar pulmonary embolism. It also shows right ventricular enlargement raising suspicion of right heart strain. Patient had small bowel surgery on 06/18 therefore comparatively less chances of bleeding after 9 days. Discussed with the surgical FERNANDO Mejía and agreed for starting on IV heparin drip with bolus. Patient was on DVT dose of Lovenox was discontinued. Continue IV heparin drip for 24 hours and if she does not bleed, will need to change to either therapeutic dose of Lovenox or NOACs. 2D echo shows mildly dilated RV with abnormal RV diastolic function. Mild TR PASP 30-80. Patient did not had hypotension. Blood pressure on lower side 103/53. Patient does not have indication for thrombolytics.BNP mildly elevated. Troponin normal. #Recurrent small bowel obstruction: Patient had PICC line and TPN. Gastrografin showed small bowel obstruction with no improvement patient had exploratory laparotomy with adhesiolysis, enterotomy and antrectomy of mid small bowel. 06/25: Diet advanced to soft regular diet. Initially Dr. Álvarez recommended to stop TPN but was resumed because patient has suboptimal oral intake and cannot meet her calorie requirement. Tube And Rod Straightener talk to Dr. Bazan and TPN regimen. 06/26 plan to continue TPN diet. Oral intake reinforced. . surgical clips were removed A small opening at the base of the incision, packed with saline gauze. Dressing changed. #Hypotension?resolved Was present after ex lap and was on levo for period of time, contributed by A. fib with RVR which has resolved. Patient was in ICU after surgery. Has been hypertensive and is on losartan, Toprol changed to Coreg, hydralazine as needed #Diabetes mellitus type 2 Insulin increased to 20 units 06/24: Given that we are stopping TPN and oral intake unclear we will continue the insulin at current dosing, can adjust further to match p.o. intake 06/25 glucose is between 150?200 06/26: Glucose between 200 250. Lantus dose 30 units subcutaneous daily. Glucose is high due to TPN. Need to readjust dose after she is off TPN 06/27: Blood sugar has been high. It is between 300-350. Lantus dose increas ed. Patient also started on Humalog insulin. #Hypothyroidism Now back on oral Synthroid #Paroxysmal atrial fibrillation Did have A. fib with RVR yesterday after surgery, on amnio drip at this time w ith heart rate improved Continue Coreg, p.o. amio #Inability to maintain nutrition: TPN as mentioned above Due to small bowel obstruction #Slight increase in LFTs Unclear etiology at this time but just very minimally increased Continue to trend 06/24: CMP in the morning #DVT ppx: SCDs Total time of the visit including total time spent in counseling or coordination of care, (more than 50% of the total time, spent in obtaining medical information from nurses and other ancillary care providers,explaining to the patient about labs, imaging, diagnosis and management of active complex medical conditions), discussion with the surgeon, clinical update given to POA, review of labs and imaging is 40 minutes. Laboratory Results 06/26/22 16:28: POC Glucose 210 H 06/26/22 22:39: POC Glucose 347 H 06/27/22 05:43: WBC 11.3 H, RBC 3.14 L, Hgb 8.9 L, Hct 29.0 L, MCV 92.4, MCH 28.3, MCHC 30.7 L, RDW Std Deviation 47.3 H, RDW Coeff of Juan 14.0, Plt Count 394, MPV 10.1, Immature Gran % (Auto) 1.600 H, Neut % (Auto) 82.0 H, Lymph % (Auto) 7.4 L, Maury % (Auto) 7.2, Eos % (Auto) 1.5, Baso % (Auto) 0.3, Absolute Neuts (auto) 9.3 H, Absolute Lymphs (auto) 0.83, Nucleated RBC % 0 06/27/22 05:43: Sodium 135 L, Potassium 4.4, Chloride 104, Carbon Dioxide 27.0, Anion Gap 4 L, BUN 24 H, Creatinine 0.65, Estim Creat Clear Calc 31.94, Est GFR (MDRD) Af Amer 112, Est GFR (MDRD) Non-Af 93, BUN/Creatinine Ratio 37.2 H, Glucose 304 H, Calcium 8.5, Total Bilirubin 0.30, AST 21, ALT 74 H, Alkaline Phosphatase 168 H, Total Protein 5.7 L, Albumin 1.8 L, Globulin 3.9, Albumin/Globulin Ratio 0.5 L 06/27/22 05:43: Troponin I High Sens 7 06/27/22 05:43: B-Natriuretic Peptide 183.0 H 06/27/22 06:46: POC Glucose 285 H 06/27/22 10:09: PT 15.3 H, INR 1.2, APTT 33.8 06/27/22 10:26: POC Glucose 326 H Charges/Coding Visit Charges Inpatient E&M: 06190 Subs Hosp L3
[2022-06-27 09:00] LABS: Troponin-I HS 7 pg/mL (3.0-54.0)
[2022-06-27 10:53] LABS: International Normalized Ratio 1.2; Partial Thromboplast Time 33.8 Seconds (24.1-36.2); Prothrombin Time (Protime)PT. 15.3 SECONDS (11.7-14.9)
[2022-06-27 10:56] LABS: Bedside Glucose 326 mg/dL (74-106)
--- NOTE | 2022-06-27 11:04 | CASEMGMT ---
Pt now with bilat PE's and placed on heparin gtt, plan is to d/c pt to TCU tomorrow, 06/28. Green sheet will be on chart. Agustín GOLDSTEIN CM
[2022-06-27] MEDS: HEPARIN/D5w 25,000 UNITS 25,000 UNITS/250 ML IV.SOLN. 10 UNITS CONT INF (11:08)
[2022-06-27] MEDS: Heparin Injection (Vial) 5,000 UNIT/ML VIAL 4000 UNIT IV (11:09)
--- NOTE | 2022-06-27 12:06 | CHAPLAIN ---
Type of Pastoral Visit ___ Initial Visit _x__ Follow-up Visit ___ On-call Visit ___ General Patient Visit ___ Spiritual Assessment ___ Family Conference ___ Bereavement ___ Rapid Response ___ Code Blue ___ Other (describe below) Pastoral Care Referral From _x__ Patient _x__ Family ___ Nurse ___ Physician ___ Opener ___ Law Enforcement Instructor ___ Other (describe below) Sacrament/Intervention ___ Active listening ___ Anointing ___ Adventism ___ Bereavement ___ Communion ___ Marcela exploration ___ ___ Life review _x__ Prayer ___ Reconciliation ___ Sacrament of Sick _x__ Supportive presence ___ Wedding ___ Other (describe below) Pastoral Comments patient reports that blood clots were discovered and that she is very weak/tired; niece of pt is with her; both welcome presence, prayer, and then quiet so pt can rest
[2022-06-27] MEDS: Insulin Lispro 100 UNIT/ML INSULN.PEN 15 UNIT SC ×2 (13:32→16:30)
[2022-06-27 16:07] LABS: Bedside Glucose 201 mg/dL (74-106)
[2022-06-27] MEDS: Insulin Glargine-YFGN 100 UNIT/ML Pen 15 UNIT SC (16:30)
[2022-06-27] MEDS: TPN - Clinimix E 8%-14% Soln 2,000 ML with Multivitamins 10 ML, Trace Elements 1 ML, Fo... 42 ML IV (16:30)
[2022-06-27 17:31] LABS: Partial Thromboplast Time 62.3 Seconds (24.1-36.2)
[2022-06-27] MEDS: Latanoprost 0.005% 1 Bottle 1 DRP OPHTHALMIC (22:44)
[2022-06-27 23:20] LABS: Bedside Glucose 207 mg/dL (74-106)
[2022-06-28] VITALS (11 sets, daily range): BP systolic 115–156; BP diastolic 57–93; PULSE 61–76; RESP 16–18; TEMP 36.4–36.9; O2SAT 92–98
[2022-06-28 00:15] LABS: Partial Thromboplast Time 58.5 Seconds (24.1-36.2)
[2022-06-28] MEDS: Levothyroxine 50 MCG Tablet GT (05:54)
[2022-06-28 06:06] LABS: Absolute Lymphocyte Count 0.95 X10^3/uL (0.83-4.51); Absolute Neutrophil Count 8.5 X10^3/uL (2.0-7.7); Basophil# 0.03 X10^3/uL; Basophil% 0.3 % (0-1); Eosinophil# 0.15 X10^3/uL; Eosinophils% 1.4 % (0-5); Hematocrit 27.5 % (37-47); Hemoglobin 8.7 g/dL (12.0-15.0); Lymphocyte # 0.95 X10^3/ul (0.83-4.51); Lymphocyte % 9.1 % (19-41); Mean Corp Hgb Conc 31.6 g/dL (32-36); Mean Corpuscular Hgb 29.3 pg (27.0-32.0); Mean Corpuscular Volume 92.6 fL (81-99); Mean Platelet Vol. 9.8 fl (6.2-12.0); Monocyte% 6.7 % (0-10); NRBC Flagged by Analyzer 0 % (0-5); Neutrophil # 8.45 X10^3/uL (2.7-7.7); Neutrophil % 81.2 % (47-70); Platelet Count 413 K/mm3 (150-450); RBC Distribution Width CV 13.8 % (11.6-14.6); Red Blood Count 2.97 M/mm3 (4.2-5.4); White Blood Count 10.4 K/mm3 (4.4-11.0)
[2022-06-28 06:17] LABS: Partial Thromboplast Time 51.3 Seconds (24.1-36.2)
[2022-06-28 06:31] LABS: ALB/GLOB Ratio 0.4 RATIO (0.9-2.4); AST(SGOT) 24 U/L (15-37); Alanine Aminotransfer ALT/SGPT 68 U/L (13-56); Albumin, Serum 1.8 g/dL (3.2-5.0); Alkaline Phosphatase 154 U/L (45-117); Anion Gap 4 (5-15); BUN 24 mg/dL (7-18); BUN/Creat Ratio 36.1 RATIO (10-20); Chloride 102 mmol/L (98-107); Creatinine, Serum 0.66 mg/dL (0.55-1.02); EST Glomerular Filtration Rate 90 mL/min (>60); Est Glom Filt Rate - Afr Amer 108 mL/min (>60); Estimated Creatinine Clearance 31.94 ml/min; Globulin 4.1 g/dL (2.2-4.2); Glucose 278 mg/dL (74-106); Potassium 4.9 mmol/L (3.5-5.1); Protein, Total 5.9 g/dL (6.4-8.2); Sodium Level 136 mmol/L (136-145)
--- NOTE | 2022-06-28 08:24 | PCM.PN.SRG ---
Subjective Subjective Patient is having active bowel movements. Still having some slight nausea. Objective Data Objective Data Abdomen is soft dressings are dry. No rebound guarding or peritoneal signs. Vital Signs: Vital Signs Temp Pulse Resp BP Pulse Ox O2 Del Method O2 Flow Rate 98.5 F 67 18 129/67 H 93 Room Air 2 06/28/22 04:14 06/28/22 07:00 06/28/22 04:14 06/28/22 04:14 06/28/22 07:49 06/28/22 07:49 06/28/22 04:14 FiO2 30 06/27/22 14:33 Oxygen Flow Rate (L/min) 2 Oxygen Delivery Method Room Air Weight: 199 lb 8.293 oz Body Mass Index (BMI) 34.9 Intake & Output: Intake and Output for Last 24 Hours 06/26/22 06/27/22 06/28/22 23:59 23:59 23:59 Intake Total 2936.4 / 2936.4 2077.6 / 2077.6 197.5 / 197.5 Balance 2936.4 / 2936.4 2077.6 / 2077.6 197.5 / 197.5 Lab / Micro Data Result Diagrams: 06/28/22 05:30 06/28/22 05:30 Labs: Laboratory Results - last 24 hr 06/27/22 05:43: Troponin I High Sens 7 06/27/22 05:43: B-Natriuretic Peptide 183.0 H 06/27/22 10:09: PT 15.3 H, INR 1.2, APTT 33.8 06/27/22 10:26: POC Glucose 326 H 06/27/22 15:42: POC Glucose 201 H 06/27/22 17:00: APTT 62.3 H 06/27/22 22:43: POC Glucose 207 H 06/27/22 23:35: APTT 58.5 H 06/28/22 05:30: WBC 10.4, RBC 2.97 L, Hgb 8.7 L, Hct 27.5 L, MCV 92.6, MCH 29.3, MCHC 31.6 L, RDW Std Deviation 47.0 H, RDW Coeff of Juan 13.8, Plt Count 413, MPV 9.8, Immature Gran % (Auto) 1.300 H, Neut % (Auto) 81.2 H, Lymph % (Auto) 9.1 L, [place] % (Auto) 6.7, Eos % (Auto) 1.4, Baso % (Auto) 0.3, Absolute Neuts (auto) 8.5 H, Absolute Lymphs (auto) 0.95, Nucleated RBC % 0 06/28/22 05:30: Sodium 136, Potassium 4.9, Chloride 102, Carbon Dioxide 30.0, Anion Gap 4 L, BUN 24 H, Creatinine 0.66, Estim Creat Clear Calc 31.94, Est GFR (MDRD) Af Amer 108, Est GFR (MDRD) Non-Af 90, BUN/Creatinine Ratio 36.1 H, Glucose 278 H, Calcium 9.0, Total Bilirubin 0.40, AST 24, ALT 68 H, Alkaline Phosphatase 154 H, Total Protein 5.9 L, Albumin 1.8 L, Globulin 4.1, Albumin/Globulin Ratio 0.4 L 06/28/22 05:30: APTT 51.3 H Micro: Microbiology 06/18/22 17:23 Sputum, Induced/Lukens Gram Stain - Final 06/18/22 17:23 Sputum, Induced/Lukens Respiratory Culture - Final Enterobacter cloacae complex Radiography Diagnostic Testing: Radiology Impression Echocardiogram 06/27/22 08:38 Interpretation Summary Normal LV size. Left ventricular systolic function is normal. The estimated ejection fraction is 70 %. D shaped septum in diastole. The right atrium is mildly enlarged. Apical sparing is noted,in the RV Ordering Physician: Keenan Altamirano Referring Physician: JEREMY COFFEY Performed By: Jamison Alston RVT Assessment & Plan Assessment/Plan (1) Small bowel obstruction due to adhesions: PLAN: Continuing to make small progress. She still seems somewhat short of breath.
[2022-06-28] MEDS: HEPARIN/D5w 25,000 UNITS 25,000 UNITS/250 ML IV.SOLN. 11 UNITS CONT INF (09:15)
[2022-06-28] MEDS: Insulin Lispro 100 UNIT/ML INSULN.PEN SC ×3 (09:32→16:02)
[2022-06-28] MEDS: Losartan Potassium 50 MG Tablet PO (09:33)
[2022-06-28] MEDS: Carvedilol 12.5 MG Tablet PO ×2 (09:33→22:14)
[2022-06-28] MEDS: Insulin Lispro 100 UNIT/ML INSULN.PEN 15 UNIT SC ×3 (09:33→16:03)
[2022-06-28] MEDS: Amiodarone 200 MG Tablet PO ×2 (09:33→22:14)
[2022-06-28] MEDS: Polyethylene Glycol 3350 17 GM PACKET 34 GM PO (09:34)
[2022-06-28] MEDS: Insulin Glargine-YFGN 100 UNIT/ML Pen 40 UNIT SC (09:34)
[2022-06-28] MEDS: Pantoprazole Sodium 40 MG Tablet PO (09:35)
[2022-06-28] MEDS: Ondansetron 4 MG/2 ML Vial IV (09:36)
[2022-06-28] MEDS: 0.9% Saline Lock 10 ML Syringe IV ×2 (09:36→13:06)
[2022-06-28 10:30] LABS: Bedside Glucose 283 mg/dL (74-106)
--- NOTE | 2022-06-28 11:05 | PN.HOSP_ITS ---
Subjective Subjective Patient seen and examined. SHe said she still felt a bit weak, but she felt much better than when she came in. She is eating, but says she has lost a lot of appetite and is not eating as much as she would like. Review of systems is othewise negative. Objective Data Objective Data Vital Signs: Vital Signs Temp Pulse Resp BP Pulse Ox O2 Del Method O2 Flow Rate 98.2 F 70 16 156/93 H 95 Room Air 2 06/28/22 09:54 06/28/22 09:54 06/28/22 09:54 06/28/22 09:54 06/28/22 09:54 06/28/22 09:54 06/28/22 04:14 FiO2 30 06/27/22 14:33 Oxygen Flow Rate (L/min) 2 Oxygen Delivery Method Room Air Weight: 199 lb 8.293 oz Body Mass Index (BMI) 34.9 Intake & Output: Intake and Output for Last 24 Hours 06/26/22 06/27/22 06/28/22 23:59 23:59 23:59 Intake Total 2936.4 / 2936.4 2077.6 / 2077.6 223.53 / 223.53 Balance 2936.4 / 2936.4 2077.6 / 2077.6 223.53 / 223.53 Lab / Micro Data Result Diagrams: 06/28/22 05:30 06/28/22 05:30 Labs: Laboratory Results - last 24 hr 06/27/22 15:42: POC Glucose 201 H 06/27/22 17:00: APTT 62.3 H 06/27/22 22:43: POC Glucose 207 H 06/27/22 23:35: APTT 58.5 H 06/28/22 05:30: WBC 10.4, RBC 2.97 L, Hgb 8.7 L, Hct 27.5 L, MCV 92.6, MCH 29.3, MCHC 31.6 L, RDW Std Deviation 47.0 H, RDW Coeff of Juan 13.8, Plt Count 413, MPV 9.8, Immature Gran % (Auto) 1.300 H, Neut % (Auto) 81.2 H, Lymph % (Auto) 9.1 L, [place] % (Auto) 6.7, Eos % (Auto) 1.4, Baso % (Auto) 0.3, Absolute Neuts (auto) 8.5 H, Absolute Lymphs (auto) 0.95, Nucleated RBC % 0 06/28/22 05:30: Sodium 136, Potassium 4.9, Chloride 102, Carbon Dioxide 30.0, Anion Gap 4 L, BUN 24 H, Creatinine 0.66, Estim Creat Clear Calc 31.94, Est GFR (MDRD) Af Amer 108, Est GFR (MDRD) Non-Af 90, BUN/Creatinine Ratio 36.1 H, Glucose 278 H, Calcium 9.0, Total Bilirubin 0.40, AST 24, ALT 68 H, Alkaline Phosphatase 154 H, Total Protein 5.9 L, Albumin 1.8 L, Globulin 4.1, Albumin/Globulin Ratio 0.4 L 06/28/22 05:30: APTT 51.3 H 06/28/22 09:25: POC Glucose 283 H Micro: Microbiology 06/18/22 17:23 Sputum, Induced/Lukens Gram Stain - Final 06/18/22 17:23 Sputum, Induced/Lukens Respiratory Culture - Final Enterobacter cloacae complex Radiography Diagnostic Testing: Radiology Impression Echocardiogram 06/27/22 08:38 Interpretation Summary Normal LV size. Left ventricular systolic function is normal. The estimated ejection fraction is 70 %. D shaped septum in diastole. The right atrium is mildly enlarged. Apical sparing is noted,in the RV Ordering Physician: Keenan Altamirano Referring Physician: JEREMY COFFEY Performed By: Jamison Alston RVWagner Physical Exam Const alert, oriented x3 and no apparent distress Constitutional Narrative: frail HEENT head/scalp atraumatic, moist oral mucous membranes and oropharynx normal Head and Scalp: normocephalic Mouth: oral and palatal mucosa normal Eyes PERRL, EOMs intact bilaterally and conjunctivae normal Neck no lymphadenopathy and supple Resp normal respiratory effort, no retractions, no use of accessory muscles and clear to auscultation bilaterally Cardio regular rate, regular rhythm, S1 normal heart sound, S2 normal heart sound and no murmurs GI normal to inspection, nondistended, normoactive bowel sounds, soft to palpation and non-tender GI Narrative: intact dressing over surgical site, colostomy bag in place, contains watery stool Extremity normal to inspection, full ROM and no clubbing, cyanosis or edema Neuro oriented x3, CN's II-XII intact bilaterally, moves all extremities and no focal motor deficits Sensorium / Orientation: awake and alert Motor Exam: strength 5/5 throughout Psych affect normal Assessment & Plan Assessment/Plan (1) Small bowel obstruction due to adhesions: (2) Pulmonary embolism: PLAN: Plan #Bilateral PE * now on room air * CTA showed filling defects in bilateraly upper and lower lobe pulmonary artery branches with right ventricular enlargement concerning for right heart strain * on heparin drip. No bleeding so far, so will switch to PO eliquis * #Small bowel obstruction s/o exploratory laparotomy with adhesiolysis, enterotomy and antrectomy of mid small bowel * on TPN to supplement oral nutrition due to decreaesd oral intake * intact dressing with colostomy bag in place * management as per general surgery * #Hypotension: resolved #TYpe 2 diabetes mellitus * on lantus 30 units daily * ISS> Accuchecks ACHS * on glipizide * #HYpothyroidism: on synthroid #Paroxysmal afib: * had afib with RVR after surgery, and was placed on amiodarone drip which was transitioned off. * ON coreg and amiodarone #Hypertension: on coreg nad losartan #Severe protein calorie malnutrition * remains on TPN to supplement oral diet * nuitritionist on board. #ELevated liver enzymes * AST has normalised; AST nad ALP trending downwards. May be due to TPN. WIll monitor * DVT prophylaxis: not indicated as she is on heparin drip Charges/Coding Visit Charges Inpatient E&M: 96866 [facility] Hosp L3
[2022-06-28] MEDS: proCHLORPERazine 10 MG/2 ML Vial IV (13:01)
[2022-06-28 13:27] LABS: Partial Thromboplast Time 51.1 Seconds (24.1-36.2)
[2022-06-28 15:45] LABS: Bedside Glucose 221 mg/dL (74-106)
[2022-06-28] MEDS: APIXABAN 5 MG TABLET 10 MG PO ×2 (15:52→22:14)
[2022-06-28] MEDS: Insulin Glargine-YFGN 100 UNIT/ML Pen 15 UNIT SC (16:04)
[2022-06-28 17:50] LABS: Bedside Glucose 172 mg/dL (74-106)
[2022-06-28] MEDS: Latanoprost 0.005% 1 Bottle 1 DRP OPHTHALMIC (22:14)
[2022-06-28 22:40] LABS: Bedside Glucose 92 mg/dL (74-106)
[2022-06-29] VITALS (13 sets, daily range): BP systolic 101–142; BP diastolic 54–68; PULSE 64–73; RESP 16–18; TEMP 36.2–37.2; O2SAT 87–100
[2022-06-29 04:50] LABS: Bedside Glucose 119 mg/dL (74-106)
[2022-06-29] MEDS: 0.9% Saline Lock 10 ML Syringe IV ×2 (05:59→11:42)
[2022-06-29] MEDS: Levothyroxine 50 MCG Tablet GT (05:59)
[2022-06-29 06:25] LABS: Absolute Lymphocyte Count 1.02 X10^3/uL (0.83-4.51); Absolute Neutrophil Count 8.8 X10^3/uL (2.0-7.7); Basophil# 0.04 X10^3/uL; Basophil% 0.4 % (0-1); Eosinophil# 0.16 X10^3/uL; Eosinophils% 1.5 % (0-5); Hematocrit 27.1 % (37-47); Hemoglobin 8.8 g/dL (12.0-15.0); Lymphocyte # 1.02 X10^3/ul (0.83-4.51); Lymphocyte % 9.3 % (19-41); Mean Corp Hgb Conc 32.5 g/dL (32-36); Mean Corpuscular Volume 92.5 fL (81-99); Mean Platelet Vol. 9.7 fl (6.2-12.0); Monocyte# 0.77 X10^3/uL; NRBC Flagged by Analyzer 0 % (0-5); Neutrophil # 8.83 X10^3/uL (2.7-7.7); Neutrophil % 80.7 % (47-70); Platelet Count 479 K/mm3 (150-450); RBC Distribution Width CV 13.7 % (11.6-14.6); Red Blood Count 2.93 M/mm3 (4.2-5.4); White Blood Count 10.9 K/mm3 (4.4-11.0)
[2022-06-29 06:51] LABS: ALB/GLOB Ratio 0.4 RATIO (0.9-2.4); AST(SGOT) 40 U/L (15-37); Alanine Aminotransfer ALT/SGPT 77 U/L (13-56); Albumin, Serum 1.8 g/dL (3.2-5.0); Alkaline Phosphatase 157 U/L (45-117); Anion Gap 5 (5-15); BUN 18 mg/dL (7-18); BUN/Creat Ratio 28.5 RATIO (10-20); Calcium,Total 8.9 mg/dL (8.5-10.1); Chloride 103 mmol/L (98-107); Creatinine, Serum 0.63 mg/dL (0.55-1.02); EST Glomerular Filtration Rate 95 mL/min (>60); Est Glom Filt Rate - Afr Amer 115 mL/min (>60); Estimated Creatinine Clearance 31.94 ml/min; Globulin 4.2 g/dL (2.2-4.2); Glucose 116 mg/dL (74-106); Potassium 4.6 mmol/L (3.5-5.1); Sodium Level 136 mmol/L (136-145)
[2022-06-29 08:51] LABS: Bedside Glucose 103 mg/dL (74-106)
--- NOTE | 2022-06-29 09:56 | PN.HOSP_ITS ---
Subjective Subjective Patient seen and examined. HE had no active complaints and had an uneventful night. She is on 3L of oxygen today as she said she felt a bit short of breath this morning. SHe was eating breakfast. REview of systems is otherwise negative. Objective Data Objective Data Vital Signs: Vital Signs Temp Pulse Resp BP Pulse Ox O2 Del Method O2 Flow Rate 98.3 F 71 16 142/68 H 97 Nasal Cannula 3 06/29/22 07:29 06/29/22 07:29 06/29/22 07:29 06/29/22 07:29 06/29/22 07:29 06/29/22 08:27 06/29/22 08:27 FiO2 30 06/29/22 07:29 Oxygen Flow Rate (L/min) 3 Oxygen Delivery Method Nasal Cannula Weight: 201 lb 4.513 oz Body Mass Index (BMI) 34.9 Intake & Output: Intake and Output for Last 24 Hours 06/27/22 06/28/22 06/29/22 23:59 23:59 23:59 Intake Total 2077.6 / 2077.6 1857.05 / 1857.05 Balance 2077.6 / 2077.6 1857.05 / 1857.05 Lab / Micro Data Result Diagrams: 06/29/22 06:11 06/29/22 06:11 Labs: Laboratory Results - last 24 hr 06/28/22 09:25: POC Glucose 283 H 06/28/22 13:08: APTT 51.1 H 06/28/22 13:14: POC Glucose 221 H 06/28/22 16:01: POC Glucose 172 H 06/28/22 22:09: POC Glucose 92 06/29/22 04:17: POC Glucose 119 H 06/29/22 06:11: WBC 10.9, RBC 2.93 L, Hgb 8.8 L, Hct 27.1 L, MCV 92.5, MCH 30.0, MCHC 32.5, RDW Std Deviation 46.0 H, RDW Coeff of Juan 13.7, Plt Count 479 H, MPV 9.7, Immature Gran % (Auto) 1.100 H, Neut % (Auto) 80.7 H, Lymph % (Auto) 9.3 L, [place] % (Auto) 7.0, Eos % (Auto) 1.5, Baso % (Auto) 0.4, Absolute Neuts (auto) 8.8 H, Absolute Lymphs (auto) 1.02, Nucleated RBC % 0 06/29/22 06:11: Sodium 136, Potassium 4.6, Chloride 103, Carbon Dioxide 28.0, Anion Gap 5, BUN 18, Creatinine 0.63, Estim Creat Clear Calc 31.94, Est GFR (MDRD) Af Amer 115, Est GFR (MDRD) Non-Af 95, BUN/Creatinine Ratio 28.5 H, Glucose 116 H, Calcium 8.9, Total Bilirubin 0.30, AST 40 H, ALT 77 H, Alkaline Phosphatase 157 H, Total Protein 6.0 L, Albumin 1.8 L, Globulin 4.2, Albumin/Globulin Ratio 0.4 L 06/29/22 08:20: POC Glucose 103 Micro: Microbiology 06/18/22 17:23 Sputum, Induced/Lukens Gram Stain - Final 06/18/22 17:23 Sputum, Induced/Lukens Respiratory Culture - Final Enterobacter cloacae complex Physical Exam Const alert, oriented x3 and no apparent distress Constitutional Narrative: frail General Appearance: cooperative, well kempt and well developed Orientation / Consciousness: awake, oriented to person, oriented to place and oriented to time HEENT normocephalic, head/scalp atraumatic, moist oral mucous membranes and oropharynx normal Head and Scalp: normocephalic Mouth: oral and palatal mucosa normal Eyes PERRL, EOMs intact bilaterally and conjunctivae normal Neck no lymphadenopathy, supple, no JVD, thyroid normal and no carotid bruits General: trachea midline Resp Resp Narrative: diminished breath sounds bibasally, few bilateral crackles. On 3L of oxygen by nasal canula Auscultation: Negative for rales, rhonchi or wheezes Cardio regular rate, regular rhythm, S1 normal heart sound, S2 normal heart sound, no murmurs, no rub and no gallops GI normal to inspection, nondistended, normoactive bowel sounds, soft to palpation, non-tender and non-distended GI Narrative: intact dressing over surgical site, colostomy bag in place, contains watery stool Extremity normal to inspection, full ROM and no clubbing, cyanosis or edema Extremity Narrative: No edema appreciated Skin no rashes or lesions noted General Skin Exam: no breakdown Neuro oriented x3, CN's II-XII intact bilaterally, moves all extremities, no focal motor deficits and no sensory deficits noted Sensorium / Orientation: awake, alert, oriented to person, oriented to place and oriented to time Speech: speech normal Motor Exam: strength 5/5 throughout Psych affect normal Psych Narrative: Cooperative Assessment & Plan Assessment/Plan (1) Small bowel obstruction due to adhesions: (2) Pulmonary embolism: PLAN: Plan #Bilateral PE * CTA showed filling defects in bilateraly upper and lower lobe pulmonary artery branches with right ventricular enlargement concerning for right heart strain * now on PO eliquis. * #HYpoxia * on 3L of oxygen today. * concern is for possible fluid overload as she has some bilateral crackles * no output documented * give a dose of IV lasix 40mg x 1. * encouraged about incentive spirometry * breathing treatment with bronchodilators * titrate oxygen to maintain sats >90% * #Small bowel obstruction s/o exploratory laparotomy with adhesiolysis, enterotomy and antrectomy of mid small bowel * on TPN to supplement oral nutrition due to decreased oral intake * intact dressing with colostomy bag in place * management as per general surgery * #Hypotension: resolved #TYpe 2 diabetes mellitus * on lantus 30 units daily * ISS. Accuchecks ACHS * on glipizide * #HYpothyroidism: on synthroid #Paroxysmal afib: * had afib with RVR after surgery, and was placed on amiodarone drip which was transitioned off. * ON coreg and amiodarone #Hypertension: on coreg nad losartan #Severe protein calorie malnutrition * remains on TPN to supplement oral diet * nuitritionist on board. #ELevated liver enzymes * AST, ALT and ALP remain mildly elevated; * will monitor. LIkely due to TPN * DVT prophylaxis:on eliquis for PE treatment Charges/Coding Visit Charges Inpatient E&M: 27699 [facility] Hosp L2
[2022-06-29] MEDS: Amiodarone 200 MG Tablet PO ×2 (10:10→21:38)
[2022-06-29] MEDS: Pantoprazole Sodium 40 MG Tablet PO (10:10)
[2022-06-29] MEDS: Carvedilol 12.5 MG Tablet PO ×2 (10:11→21:38)
[2022-06-29] MEDS: Losartan Potassium 50 MG Tablet PO (10:11)
[2022-06-29] MEDS: APIXABAN 5 MG TABLET 10 MG PO ×2 (10:11→21:38)
[2022-06-29] MEDS: Polyethylene Glycol 3350 17 GM PACKET 34 GM PO (10:13)
--- NOTE | 2022-06-29 11:00 | CASEMGMT ---
Social Work PCU Spoke with Sanjuana in admissions at [facility]. Bed remains available for patient and can admit on the weekend if medically ready. Green sheet is on the chart to follow at time of discharge. Patient will need a COVID test the day of discharge. Plan: Short term skilled level of care at TCU. -AYLIN Yanes MSW
[2022-06-29] MEDS: Furosemide 40 MG/4 ML Vial IV (11:41)
[2022-06-29 12:06] LABS: Bedside Glucose 261 mg/dL (74-106)
[2022-06-29] MEDS: Insulin Lispro 100 UNIT/ML INSULN.PEN SC ×2 (12:11→21:43)
[2022-06-29] MEDS: Insulin Lispro 100 UNIT/ML INSULN.PEN 15 UNIT SC (12:12)
--- NOTE | 2022-06-29 13:24 | PN.SURG_ITS ---
Subjective Subjective Patient feels remarkably better today. Complaining of having too much bowel movements. Tolerating a diet not feeling nauseated. Objective Data Objective Data Abdomen is soft incision is clean dry no rebound guarding or peritoneal signs. Vital Signs: Vital Signs Temp Pulse Resp BP Pulse Ox O2 Del Method O2 Flow Rate 97.2 F L 73 18 101/64 97 Nasal Cannula 2 06/29/22 10:05 06/29/22 11:00 06/29/22 10:05 06/29/22 10:05 06/29/22 10:05 06/29/22 10:05 06/29/22 10:05 FiO2 30 06/29/22 07:29 Oxygen Flow Rate (L/min) 2 Oxygen Delivery Method Nasal Cannula Weight: 201 lb 4.513 oz Body Mass Index (BMI) 34.9 Intake & Output: Intake and Output for Last 24 Hours 06/27/22 06/28/22 06/29/22 23:59 23:59 23:59 Intake Total 2077.6 / 2077.6 1857.05 / 1857.05 360 / 360 Balance 2077.6 / 2077.6 1857.05 / 1857.05 360 / 360 Lab / Micro Data Result Diagrams: 06/29/22 06:11 06/29/22 06:11 Labs: Laboratory Results - last 24 hr 06/28/22 13:08: APTT 51.1 H 06/28/22 13:14: POC Glucose 221 H 06/28/22 16:01: POC Glucose 172 H 06/28/22 22:09: POC Glucose 92 06/29/22 04:17: POC Glucose 119 H 06/29/22 06:11: WBC 10.9, RBC 2.93 L, Hgb 8.8 L, Hct 27.1 L, MCV 92.5, MCH 30.0, MCHC 32.5, RDW Std Deviation 46.0 H, RDW Coeff of Juan 13.7, Plt Count 479 H, MPV 9.7, Immature Gran % (Auto) 1.100 H, Neut % (Auto) 80.7 H, Lymph % (Auto) 9.3 L, [place] % (Auto) 7.0, Eos % (Auto) 1.5, Baso % (Auto) 0.4, Absolute Neuts (auto) 8.8 H, Absolute Lymphs (auto) 1.02, Nucleated RBC % 0 06/29/22 06:11: Sodium 136, Potassium 4.6, Chloride 103, Carbon Dioxide 28.0, Anion Gap 5, BUN 18, Creatinine 0.63, Estim Creat Clear Calc 31.94, Est GFR (MDRD) Af Amer 115, Est GFR (MDRD) Non-Af 95, BUN/Creatinine Ratio 28.5 H, Glucose 116 H, Calcium 8.9, Total Bilirubin 0.30, AST 40 H, ALT 77 H, Alkaline Phosphatase 157 H, Total Protein 6.0 L, Albumin 1.8 L, Globulin 4.2, Albumin/Aliyah bulin Ratio 0.4 L 06/29/22 08:20: POC Glucose 103 06/29/22 11:39: POC Glucose 261 H Micro: Microbiology 06/18/22 17:23 Sputum, Induced/Lukens Gram Stain - Final 06/18/22 17:23 Sputum, Induced/Lukens Respiratory Culture - Final Enterobacter cloacae complex Assessment & Plan Assessment/Plan (1) Small bowel obstruction due to adhesions: PLAN: Patient continues to improve daily. In the process of getting her to the TCU. From a surgical standpoint she can go at any time.
[2022-06-29 16:46] LABS: Bedside Glucose 123 mg/dL (74-106)
[2022-06-29] MEDS: Latanoprost 0.005% 1 Bottle 1 DRP OPHTHALMIC (21:38)
[2022-06-29 23:11] LABS: Bedside Glucose 159 mg/dL (74-106)
[2022-06-30] VITALS (9 sets, daily range): BP systolic 111; BP diastolic 42–65; PULSE 60–69; RESP 18; TEMP 36.4–37.2; O2SAT 97–98
[2022-06-30] MEDS: Levothyroxine 50 MCG Tablet GT (05:49)
[2022-06-30 07:14] LABS: Absolute Lymphocyte Count 0.82 X10^3/uL (0.83-4.51); Absolute Neutrophil Count 8.9 X10^3/uL (2.0-7.7); Basophil# 0.04 X10^3/uL; Basophil% 0.4 % (0-1); Eosinophil# 0.12 X10^3/uL; Eosinophils% 1.1 % (0-5); Hematocrit 27.3 % (37-47); Hemoglobin 8.5 g/dL (12.0-15.0); Lymphocyte # 0.82 X10^3/ul (0.83-4.51); Lymphocyte % 7.7 % (19-41); Mean Corp Hgb Conc 31.1 g/dL (32-36); Mean Corpuscular Hgb 28.8 pg (27.0-32.0); Mean Corpuscular Volume 92.5 fL (81-99); Mean Platelet Vol. 9.8 fl (6.2-12.0); Monocyte# 0.73 X10^3/uL; Monocyte% 6.8 % (0-10); NRBC Flagged by Analyzer 0 % (0-5); Neutrophil # 8.89 X10^3/uL (2.7-7.7); Neutrophil % 83.2 % (47-70); Platelet Count 508 K/mm3 (150-450); RBC Distribution Width CV 13.7 % (11.6-14.6); RBC Distribution Width SD 46.4 fl (35.1-43.9); Red Blood Count 2.95 M/mm3 (4.2-5.4); White Blood Count 10.7 K/mm3 (4.4-11.0)
[2022-06-30 08:07] LABS: ALB/GLOB Ratio 0.4 RATIO (0.9-2.4); AST(SGOT) 21 U/L (15-37); Alanine Aminotransfer ALT/SGPT 62 U/L (13-56); Albumin, Serum 1.8 g/dL (3.2-5.0); Alkaline Phosphatase 149 U/L (45-117); Anion Gap 5 (5-15); BUN 19 mg/dL (7-18); BUN/Creat Ratio 24.6 RATIO (10-20); Calcium,Total 8.6 mg/dL (8.5-10.1); Chloride 102 mmol/L (98-107); Creatinine, Serum 0.77 mg/dL (0.55-1.02); EST Glomerular Filtration Rate 75 mL/min (>60); Est Glom Filt Rate - Afr Amer 91 mL/min (>60); Estimated Creatinine Clearance 31.94 ml/min; Globulin 4.3 g/dL (2.2-4.2); Glucose 213 mg/dL (74-106); Potassium 4.5 mmol/L (3.5-5.1); Protein, Total 6.1 g/dL (6.4-8.2); Sodium Level 136 mmol/L (136-145)
[2022-06-30] MEDS: Insulin Lispro 100 UNIT/ML INSULN.PEN SC ×2 (08:25→12:38)
[2022-06-30] MEDS: Insulin Lispro 100 UNIT/ML INSULN.PEN 15 UNIT SC ×2 (08:26→12:38)
[2022-06-30 08:56] LABS: Bedside Glucose 219 mg/dL (74-106)
--- NOTE | 2022-06-30 09:06 | PCM.PN.SRG ---
Subjective Subjective Patient continues to make improvements. Small bowel movement this morning. Would like a Coca-Cola Objective Data Objective Data Abdomen is soft dressings are dry. Incision clean Vital Signs: Vital Signs Temp Pulse Resp BP Pulse Ox O2 Del Method O2 Flow Rate 98.9 F 64 18 111/65 97 Nasal Cannula 2 06/30/22 07:26 06/30/22 07:26 06/30/22 07:26 06/30/22 07:26 06/30/22 07:26 06/30/22 08:30 06/30/22 08:30 FiO2 30 06/29/22 14:39 Oxygen Flow Rate (L/min) 2 Oxygen Delivery Method Nasal Cannula Weight: 197 lb 5.019 oz Body Mass Index (BMI) 34.9 Intake & Output: Intake and Output for Last 24 Hours 06/28/22 06/29/22 06/30/22 23:59 23:59 23:59 Intake Total 1857.05 / 1857.05 720 / 720 120 / 120 Balance 1857.05 / 1857.05 720 / 720 120 / 120 Lab / Micro Data Result Diagrams: 06/30/22 06:57 06/30/22 06:57 Labs: Laboratory Results - last 24 hr 06/29/22 11:39: POC Glucose 261 H 06/29/22 16:01: POC Glucose 123 H 06/29/22 21:43: POC Glucose 159 H 06/30/22 06:57: WBC 10.7, RBC 2.95 L, Hgb 8.5 L, Hct 27.3 L, MCV 92.5, MCH 28.8, MCHC 31.1 L, RDW Std Deviation 46.4 H, RDW Coeff of Juan 13.7, Plt Count 508 H, MPV 9.8, Immature Gran % (Auto) 0.800, Neut % (Auto) 83.2 H, Lymph % (Auto) 7.7 L, [place] % (Auto) 6.8, Eos % (Auto) 1.1, Baso % (Auto) 0.4, Absolute Neuts (auto) 8.9 H, Absolute Lymphs (auto) 0.82 L, Nucleated RBC % 0 06/30/22 06:57: Sodium 136, Potassium 4.5, Chloride 102, Carbon Dioxide 29.0, Anion Gap 5, BUN 19 H, Creatinine 0.77, Estim Creat Clear Calc 31.94, Est GFR (MDRD) Af Amer 91, Est GFR (MDRD) Non-Af 75, BUN/Creatinine Ratio 24.6 H, Glucose 213 H, Calcium 8.6, Total Bilirubin 0.40, AST 21, ALT 62 H, Alkaline Phosphatase 149 H, Total Protein 6.1 L, Albumin 1.8 L, Globulin 4.3 H, Albumin/Globulin Ratio 0.4 L 06/30/22 08:24: POC Glucose 219 H Micro: Microbiology 06/18/22 17:23 Sputum, Induced/Lukens Gram Stain - Final 06/18/22 17:23 Sputum, Induced/Lukens Respiratory Culture - Final Enterobacter cloacae complex Assessment & Plan Assessment/Plan (1) Small bowel obstruction due to adhesions: PLAN: We will get patient into the shower today. Okay for Coca-Cola
[2022-06-30] MEDS: Insulin Glargine-YFGN 100 UNIT/ML Pen 40 UNIT SC (09:41)
[2022-06-30] MEDS: Polyethylene Glycol 3350 17 GM PACKET 34 GM PO (09:44)
[2022-06-30] MEDS: Amiodarone 200 MG Tablet PO (09:44)
[2022-06-30] MEDS: APIXABAN 5 MG TABLET 10 MG PO (09:44)
[2022-06-30] MEDS: Losartan Potassium 50 MG Tablet PO (09:44)
[2022-06-30] MEDS: Carvedilol 12.5 MG Tablet PO (09:45)
[2022-06-30] MEDS: Pantoprazole Sodium 40 MG Tablet PO (09:45)
--- NOTE | 2022-06-30 09:51 | PN.HOSP_ITS ---
Subjective Subjective Patient seen and examined. She had no active complaints today and said she felt much better. She had an uneventful night. She is quite happy that she has been cleared by surgery to have soda. She has remained hemodynamically stable. Objective Data Objective Data Vital Signs: Vital Signs Temp Pulse Resp BP Pulse Ox O2 Del Method O2 Flow Rate 97.5 F L 66 18 111/42 L 98 Nasal Cannula 1 06/30/22 09:35 06/30/22 09:35 06/30/22 09:35 06/30/22 09:35 06/30/22 09:35 06/30/22 09:35 06/30/22 09:35 FiO2 30 06/29/22 14:39 Oxygen Flow Rate (L/min) 1 Oxygen Delivery Method Nasal Cannula Weight: 197 lb 5.019 oz Body Mass Index (BMI) 34.9 Intake & Output: Intake and Output for Last 24 Hours 06/28/22 06/29/22 06/30/22 23:59 23:59 23:59 Intake Total 1857.05 / 1857.05 720 / 720 120 / 120 Balance 1857.05 / 1857.05 720 / 720 120 / 120 Lab / Micro Data Result Diagrams: 06/30/22 06:57 06/30/22 06:57 Labs: Laboratory Results - last 24 hr 06/29/22 11:39: POC Glucose 261 H 06/29/22 16:01: POC Glucose 123 H 06/29/22 21:43: POC Glucose 159 H 06/30/22 06:57: WBC 10.7, RBC 2.95 L, Hgb 8.5 L, Hct 27.3 L, MCV 92.5, MCH 28.8, MCHC 31.1 L, RDW Std Deviation 46.4 H, RDW Coeff of Juan 13.7, Plt Count 508 H, MPV 9.8, Immature Gran % (Auto) 0.800, Neut % (Auto) 83.2 H, Lymph % (Auto) 7.7 L, [place] % (Auto) 6.8, Eos % (Auto) 1.1, Baso % (Auto) 0.4, Absolute Neuts (auto) 8.9 H, Absolute Lymphs (auto) 0.82 L, Nucleated RBC % 0 06/30/22 06:57: Sodium 136, Potassium 4.5, Chloride 102, Carbon Dioxide 29.0, Anion Gap 5, BUN 19 H, Creatinine 0.77, Estim Creat Clear Calc 31.94, Est GFR (MDRD) Af Amer 91, Est GFR (MDRD) Non-Af 75, BUN/Creatinine Ratio 24.6 H, Glucose 213 H, Calcium 8.6, Total Bilirubin 0.40, AST 21, ALT 62 H, Alkaline Phosphatase 149 H, Total Protein 6.1 L, Albumin 1.8 L, Globulin 4.3 H, Albumin/Globulin Ratio 0.4 L 06/30/22 08:24: POC Glucose 219 H Micro: Microbiology 06/18/22 17:23 Sputum, Induced/Lukens Gram Stain - Final 06/18/22 17:23 Sputum, Induced/Lukens Respiratory Culture - Final Enterobacter cloacae complex Physical Exam Const alert, oriented x3 and no apparent distress Constitutional Narrative: frail General Appearance: cooperative, well kempt and well developed Orientation / Consciousness: awake, oriented to person, oriented to place and oriented to time HEENT normocephalic, head/scalp atraumatic, moist oral mucous membranes and oropharynx normal Eyes PERRL, EOMs intact bilaterally and conjunctivae normal Eyes Narrative: EOM grossly intact, anicteric Neck no lymphadenopathy, supple, no JVD, thyroid normal and no carotid bruits Neck Narrative: ET tube General: trachea midline Resp normal respiratory effort, no retractions, no use of accessory muscles and clear to auscultation bilaterally Resp Narrative: diminished breath sounds bibasally, few bilateral crackles. On 3L of oxygen by nasal canula Auscultation: Negative for rales, rhonchi or wheezes Cardio regular rate, regular rhythm, S1 normal heart sound, S2 normal heart sound, no murmurs, no rub and no gallops Cardio Narrative: Heart rate and rhythm is irregular GI normal to inspection, nondistended, normoactive bowel sounds, soft to palpation, non-tender and non-distended GI Narrative: intact dressing over surgical site, colostomy bag in place, contains watery stool Extremity normal to inspection, full ROM and no clubbing, cyanosis or edema Extremity Narrative: No edema appreciated Skin no rashes or lesions noted General Skin Exam: no breakdown Neuro oriented x3, CN's II-XII intact bilaterally, moves all extremities, no focal motor deficits and no sensory deficits noted Neuro Narrative: No overt focal deficits appreciated Sensorium / Orientation: awake, alert, oriented to person, oriented to place and oriented to time Speech: speech normal Motor Exam: strength 5/5 throughout Psych affect normal Psych Narrative: Cooperative Assessment & Plan Assessment/Plan (1) Small bowel obstruction due to adhesions: (2) Pulmonary embolism: PLAN: Plan #Bilateral PE * CTA showed filling defects in bilateraly upper and lower lobe pulmonary artery branches with right ventricular enlargement concerning for right heart strain * now on PO eliquis. * #HYpoxia * on 3L of oxygen today. * concern is for possible fluid overload as she has some bilateral crackles * no output documented * give a dose of IV lasix 40mg x 1. * encouraged about incentive spirometry * breathing treatment with bronchodilators * titrate oxygen to maintain sats >90% * #Small bowel obstruction s/o exploratory laparotomy with adhesiolysis, enterotomy and antrectomy of mid small bowel * on TPN to supplement oral nutrition due to decreased oral intake * intact dressing with colostomy bag in place * management as per general surgery * #Hypotension: resolved #TYpe 2 diabetes mellitus * on lantus 30 units daily * ISS. Accuchecks ACHS * on glipizide * #HYpothyroidism: on synthroid #Paroxysmal afib: * had afib with RVR after surgery, and was placed on amiodarone drip which was transitioned off. * ON coreg and amiodarone #Hypertension: on coreg nad losartan #Severe protein calorie malnutrition * remains on TPN to supplement oral diet * nuitritionist on board. #ELevated liver enzymes * AST, ALT and ALP remain mildly elevated; * will monitor. LIkely due to TPN * DVT prophylaxis:on eliquis for PE treatment
[2022-06-30 11:40] LABS: Bedside Glucose 270 mg/dL (74-106)
--- NOTE | 2022-06-30 12:31 | PCM.TXEXTCAR ---
Diet Diet Order/Speech Therapy: 06/30/22 11:46 Diet: Carbohydrate Controlled Is pt able to select menu?: Yes Routine Orders/Code Status Code Status: Full Code Wound(s) mid abdominal: Wound Type: surgical incision with retention sutures Dressing Change: NS wet to dry at the inferior wound edge lft abd: Wound Type: Surgical Incision Suggestions for Active Care Change Position every (hours): 2 Times a day to sit in chair: 3 Therapies Weight Bearing: Full weight bearing Physical Therapy: Eval and Treat Problem/Diagnosis (1) Small bowel obstruction due to adhesions: Status: Acute Code(s): K56.50 - Intestinal adhesions [bands], unspecified as to partial versus complete obstruction Plan: Small bowel obstruction resolved. Routine wound care as prescribedd. (2) Pulmonary embolism: Status: Acute Code(s): I26.99 - Other pulmonary embolism without acute cor pulmonale Plan: Medical treatment with Eliquis Plan Patient has advanced to a diabetic regular diet. She will need ongoing glucose management. Pulmonary embolism being treated with Eliquis anticoagulation. Ongoing medical treatment General debilitation. Ongoing general rehabilitation and physical therapy Majority of abdominal wound has been approximated and continues to be secured with retention stitches. Very inferior portion is being treated with saline wet-to-dry dressing changes. Future management of sutures and retention stitches per surgery Rajan Álvarez M.D., F.A.C.S. Allergies/Procedures Done in Hospital Allergies Penicillins Allergy (Severe, Verified 06/12/22 13:36) Chest tightness rofecoxib Adverse Reaction (Severe, Verified 06/12/22 13:36) Itching adhesive tape [tape] Adverse Reaction (Mild, Verified 06/12/22 13:36) Itching codeine Adverse Reaction (Mild, Verified 06/12/22 13:36) Nausea/Vomiting hydrocodone [Hydrocodone] Adverse Reaction (Mild, Verified 06/12/22 13:36) Nausea/Vomiting morphine Adverse Reaction (Mild, Verified 06/12/22 13:36) Nausea/Vomiting oxycodone [Oxycodone] Adverse Reaction (Mild, Verified 06/12/22 13:36) Nausea aspartame Adverse Reaction (Verified 06/19/22 16:25) Diarrhea Procedures: PICC line placement Type of Care/Length of Stay Estimated LOS: Convalescent Care Less Than 30 days Type of Care Needed: Skilled Rehab Potential: Good Prognosis: Good Additional Orders/Day of Discharge Day of Discharge: 06/30/22 Dietary and Speech Recommendations Dietitian Recommendations/Changes: Pt taking Original Boost (240 kcal/10 gm pro/37 gm CHO) from home. Will continue magic cup to chocolate w/ lunch meal only per pt preference. Pt likes 2 OJ w/ meals and pineapple or lemon sherbet and canned peaches or pears. Follow Up Care Please follow up with your Primary Care Physician in: 2 weeks Please Follow Up With: Rajan Álvarez MD When: Surgical follow-up in 2 weeks Discharge Plan Admission Admit Date/Time: 06/13/22 16:10 Primary Reason for Your Visit: Partial small bowel obstruction Attending Provider: Rajan Álvarez Primary Care Provider: Jyoti Mackey Consulting Providers: Divya Gonzales ; Kishor Goodwin ; Rashmi Mcfarland ; Gustavo Jacinto ; Jose Roberto Bonilla ; Rodger Montano ; Ramirez Rojas ; Dolores Lopez NP ; Keenan Altamirano ; Keysha Hunter Discharge Orders/Prescriptions Prescriptions: New omeprazole 20 mg capsule,delayed release(DR/EC) 20 mg PO DAILY Qty: 30 0RF polyethylene glycol 3350 [Miralax] 17 gram/dose powder 17 g PO DAILY Qty: 850 1RF losartan 50 mg Tablet 50 mg PO DAILY Qty: 30 0RF carvedilol 12.5 mg Tablet 12.5 mg PO BID Qty: 30 0RF amiodarone 200 mg Tablet 200 mg PO BID Qty: 30 0RF levothyroxine 50 mcg Tablet 50 mcg G-tube 0600 Qty: 30 0RF insulin lispro [Humalog KwikPen Insulin] 100 unit/mL Insulin Pen See Protocol subcut ACHS Qty: 15 0RF Protocol: 5. Sliding Scale Insulin High Dosing Condition: 150-209 mg/dl = 3 units Condition: 210-259 mg/dl = 6 units Condition: 260-324 mg/dl = 9 units Condition: 325-374 mg/dl = 12 units Condition: 375-409 mg/dl = 14 units Condition: 410-449 mg/dl = 16 units Condition: Greater than 449 call physician Protocol Text: - Use for Total Daily Dose of Insulin 81-120 units - Very insulin resistant or septic patients HIGH DOSING ALGORITHM insulin lispro [Humalog KwikPen Insulin] 100 unit/mL Insulin Pen 15 unit subcut TIDAC Qty: 15 0RF Chloraseptic Sore Throat 6-10 mg Lozenge 1 flip mucous membrane Q2H PRN PRN (Reason: SORE THROAT) Qty: 30 0RF Eliquis 5 mg Tablet 10 mg PO BID Qty: 30 0RF insulin glargine-yfgn 100 unit/mL (3 mL) Insulin Pen 15 unit subcut DINNER Qty: 15 0RF insulin glargine-yfgn 100 unit/mL (3 mL) Insulin Pen 40 unit subcut DAILY Qty: 15 0RF Continued glipizide 2.5 mg tablet extended release 24hr 2.5 mg PO DAILY metformin 500 mg tablet extended release 24 hr 500 mg PO QHS latanoprost 0.005 % drops 1 drp ophthalmic (eye) QHS levothyroxine 50 MCG tablet 50 mcg PO DAILY Label Comments: thyroid atorvastatin 40 MG tablet 40 mg PO QHS Label Comments: cholesterol aspirin 81 MG tablet,chewable 81 mg PO QODAY Label Comments: for heart, per pt usually takes every other day, last taken about a week ago and can go back on the meds now fluticasone propionate 50 mcg/actuation spray,suspension 2 spray INTRANASAL DAILY PRN PRN (Reason: Allergic Reaction) Label Comments: nasal dryness losartan 50 mg tablet See Rx Instructions .ROUTE .COMPLEX Rx Instructions: TAKE 1 TABLET EVERY DAY metoprolol succinate 50 mg tablet extended release 24 hr 50 mg PO DAILY Referrals / Follow Up: Jyoti Mackey MD [Primary Care Provider] - Disposition Disposition (needs filled in before D/C Order can be placed): Intermediate Facility
--- NOTE | 2022-06-30 12:59 | DS.PCM_ITS ---
Providers Date of Admission: 06/13/22 Primary Care Physician: Dr. Jyoti Mackey MD Consultations 06/17/22 07:11 Consult: Hospitalist Routine Consulting Provider: Kishor Goodwin Reason for Consult: Medical management diabetes, hypertension, malnutrition, general care EMERGENT Consult: No MD Notified: Yes Date Notified: 06/17/22 Time Notified: 07:15 Method of Notification: Verbal 06/18/22 16:48 Consult: Glass Unloading Equipment Tender / Pulmonary Medicine Routine Consulting Provider: Pulmonary Medicine juliet Alonso Reason for Consult: ICU critical management EMERGENT Consult: Yes MD Notified: Yes Date Notified: 06/18/22 Time Notified: 15:41 Method of Notification: Verbal Method of Consult:: In-Person Consult: Onc/Wound/shirring machine operator Routine Comment: Reason for Consult:: wound care Comments:: Loose nylon sutures are in place for delayed approximat Reason For Visit: SMALL BOWEL OBSTRUCTION Diagnosis Discharge Diagnosis (1) Small bowel obstruction due to adhesions: Status: Acute Code(s): K56.50 - Intestinal adhesions [bands], unspecified as to partial versus complete obstruction Plan: Small bowel obstruction resolved. Routine wound care as prescribed. Patient was trialed with NG tube decompression and conservative measures. She failed that was taken to the operating room underwent a exploratory laparotomy with extensive lysis of adhesions. This required a small bowel resection of traumatized bowel. Primary anastomosis was performed. 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 The majority the wound healing now spontaneously with the very inferior portion being treated with saline wet-to-dry dressing changes and with minimal drainage. She did have a COLETTE drain that exited from the left lower quadrant site that had been placed to the pelvis. That is draining a small amount. (2) Pulmonary embolism: Status: Acute Code(s): I26.99 - Other pulmonary embolism without acute cor pulmonale Plan: Medical treatment with Eliquis. Prior to anticipated discharge the patient was complaining of shortness of breath. Chest x-ray was not remarkable. Oxygen requirements increased and I requested a CTA of the chest. Identified that the patient had bilateral pulmonary emboli and then requested assistance from the hospitalist service to treat. The patient had been treated preoperatively and perioperatively with mobilization sequential venous compression devices. After the risk of bleeding postop he was felt to have been accomplished she was initiated on prophylactic doses of Lovenox. This was prior to her diagnosis of pulmonary embolism. (3) Abnormal liver function tests: Status: Acute Code(s): R79.89 - Other specified abnormal findings of blood chemistry Plan: The patient was initiated on TPN prior to her operation due to her extended chronic illness with poor oral intake and generalized debility. During her postoperative course she was found to have intermittently elevated liver function tests. The TPN inadvertently got held for 1 day and the liver function tests improved. It is my impression that the liver function tests were response to the TPN. She seems to be generally improving in that regard. CT scan preoperatively demonstrated a distended gallbladder but no signs of inflammation and no signs of stones. The patient has not had abdominal pain for now an extended period of time postoperatively. She is not demonstrating any signs of an acute surgical abdomen at this time nor does she have any abdominal complaints. (4) Sepsis: Status: Acute Code(s): A41.9 - Sepsis, unspecified organism Plan: After the patient's operation she was sent to the intensive care unit. There had been spillage of bowel contents intraoperatively during the extraordinary difficult adhesion lysis and small bowel resection from chronically damaged bowel. She did have hypotension required pressors in the form of Levophed post procedure. She required intensive this consultation. She was kept intubated and ventilated initially postoperatively. With fluid and antibiotic and pressor management these issues resolved. (5) Hypotension after procedure: Status: Acute Code(s): I95.81 - Postprocedural hypotension Plan: As noted above (6) Gastritis: Status: Acute Code(s): K29.70 - Gastritis, unspecified, without bleeding Plan: Preoperatively the patient was noted to have an NG tube in place and had coffee-ground material. She was treated with pantoprazole. At the time of her operation with exploratory laparotomy lysis of adhesions a upper endoscopy was performed at the completion. That demonstrated gastric erosions. She was continued to be treated medically with seeming resolution with lack of abnormal NG tube return and no evidence of ongoing melena (7) Abdominal pain: Status: Acute Code(s): R10.9 - Unspecified abdominal pain Plan: Abdominal pain resolved with surgical resolution of the small bowel obstruction (8) Dyspnea on exertion: Status: Acute Code(s): R06.00 - Dyspnea, unspecified Plan: Patient is currently being treated for bilateral pulmonary embolism. She is deconditioned and is still on oxygen therapy and require requiring rehabilitation. (9) Nausea & vomiting: Status: Acute Code(s): R11.2 - Nausea with vomiting, unspecified Plan: Nausea and vomiting resolved status post surgical treatment of her small bowel obstruction Plan Patient has advanced to a diabetic regular diet. She will need ongoing glucose management. Pulmonary embolism being treated with Eliquis anticoagulation. Ongoing medical treatment General debilitation. Ongoing general rehabilitation and physical therapy Majority of abdominal wound has been approximated and continues to be secured with retention stitches. Very inferior portion is being treated with saline wet-to-dry dressing changes. Future management of sutures and retention stitches per surgery Rajan Álvarez M.D., F.A.C.S. Medications at Discharge Home Medications aspirin 81 mg chewable tablet 81 mg PO QODAY Check with primary doctor 09/10/14 atorvastatin 40 mg tablet 40 mg PO QHS Check with primary doctor 09/10/14 levothyroxine 50 mcg tablet 50 mcg PO DAILY hypothyroidism 09/10/14 glipizide 2.5 mg tablet, extended release 24 hr 2.5 mg PO DAILY Check with primary doctor 04/28/19 fluticasone propionate 50 mcg/actuation nasal spray,suspension 2 spray i ntranasal DAILY PRN PRN Allergic Reaction 05/03/20 metformin 500 mg tablet,extended release 24 hr 500 mg PO QHS Check with primary doctor 05/03/20 latanoprost 0.005 % eye drops 1 drp ophthalmic (eye) QHS glaucoma 05/02/21 losartan 50 mg tablet See Rx Instructions .Route .COMPLEX hypertension 06/13/22 metoprolol succinate 50 mg tablet,extended release 24 hr 50 mg PO DAILY Check with primary doctor 06/13/22 omeprazole 20 mg capsule,delayed release 20 mg PO DAILY #30 caps 06/15/22 amiodarone 200 mg tablet 200 mg PO BID #30 tabs 06/30/22 apixaban 5 mg tablet (Eliquis) 10 mg PO BID #30 tabs 06/30/22 benzocaine 6 mg-menthol 10 mg lozenges (Chloraseptic Sore Throat) 1 flip mucous membrane Q2H PRN PRN SORE THROAT #30 ea 06/30/22 carvedilol 12.5 mg tablet 12.5 mg PO BID #30 tabs 06/30/22 insulin glargine-yfgn 100 unit/mL (3 mL) subcutaneous pen 15 unit (0.15 mL) subcut DINNER #15 mL 06/30/22 insulin glargine-yfgn 100 unit/mL (3 mL) subcutaneous pen 40 unit (0.4 mL) subcut DAILY #15 mL 06/30/22 insulin lispro 100 unit/mL subcutaneous pen (Humalog KwikPen (U-100) Insulin) 15 unit (0.15 mL) subcut TIDAC #15 mL 06/30/22 insulin lispro 100 unit/mL subcutaneous pen (Humalog KwikPen (U-100) Insulin) See Protocol subcut ACHS #15 mL 06/30/22 levothyroxine 50 mcg tablet 50 mcg G-tube 0600 #30 tabs 06/30/22 losartan 50 mg tablet 50 mg PO DAILY #30 tabs 06/30/22 polyethylene glycol 3350 17 gram/dose oral powder (Miralax) 17 g PO DAILY #850 grams 06/30/22 Hospital Course Summary of Care Provided Hospital Course: The patient was hospitalized with chronic ongoing nausea abdominal pain consti [place]iot[place]. She was found to have a small bowel obstruction. She had been previously admitted August 2021 with a similar finding. She had not been well for weeks if not longer. NG tube was placed. She was treated conservatively. NG tube was removed. She was initiated on a diet and failed. NG tube was replaced coffee-ground material noted. She was initiated on pantoprazole and treated for stress gastritis. She was then taken to the operating room underwent exploratory laparotomy extensive complicated adhesions and significant dilatation of small bowel encountered. Small bowel resection was required. There was spillage of enteric contents. Primary anastomosis was completed the patient was left intubated and taken to the intensive care unit. She was hypotensive postoperatively and given a diagnosis of sepsis. She was treated with antibiotics and IV fluids and pressors and ongoing ventilation. She was consulted on by the hospitalist service as well as the log feeder service. She recovered and regained normal blood pressure and was taken off the pressors and was extubated. She has chronic atrial fibrillation which required rate control during the intensive care stay as well and continue postoperatively. Her abdominal incision was left open with sutures placed for delayed closure retention sutures were placed as well. During the postoperative period her sutures were approximated to allow for delayed reapproximation of the wound. The retention sutures were left in place. Inferior portion of the wound continue to be treated with saline wet to dry dressing changes. She was also treated with a COLETTE drain in the left lower quadrant the time of surgery and this was removed postoperatively. Her glucoses ran high throughout her entire postoperative period. She had been initiated on TPN preoperatively and this was continued postoperatively. Liver function tests elevated at her. Her TPN to been intermittently held and her liver function test seem to improve. I suspect the abnormal liver function test secondary to the TPN. The patient had a CT scan preoperatively which demonstrated an enlarged gallbladder but no signs of acute inflammation. For an extended period of the patient's postoperative hospital time she had no abdominal complaints of pain. At the time of discharge she had been advanced to a diabetic regular diet. She been on that actually for several days. She was passing stool and flatus. Abdominal incision was being treated as noted. She did complain of shortness of breath. Chest x-ray was nonremarkable she continued to complain and had increased oxygen requirements so a chest CTA was ordered by myself. This demonstrated pulm embolization. She was then treated by medicine. At the time of discharge abdominal incision was intact. She was tolerating a diet. Nausea and abdominal pain at all and resolved. She was passing stool and flatus. Ongoing medical treatment per medicine. Weight / BMI Weight Weight: 197 lb 5.019 oz Body Mass Index (BMI) 34.9 ABG / Lab / Microbiology Data Result Diagrams: 06/30/22 06:57 06/30/22 06:57 Laboratory: Laboratory Results - last 24 hr 06/29/22 16:01: POC Glucose 123 H 06/29/22 21:43: POC Glucose 159 H 06/30/22 06:57: WBC 10.7, RBC 2.95 L, Hgb 8.5 L, Hct 27.3 L, MCV 92.5, MCH 28.8, MCHC 31.1 L, RDW Std Deviation 46.4 H, RDW Coeff of Juan 13.7, Plt Count 508 H, MPV 9.8, Immature Gran % (Auto) 0.800, Neut % (Auto) 83.2 H, Lymph % (Auto) 7.7 L, [place] % (Auto) 6.8, Eos % (Auto) 1.1, Baso % (Auto) 0.4, Absolute Neuts (auto) 8.9 H, Absolute Lymphs (auto) 0.82 L, Nucleated RBC % 0 06/30/22 06:57: Sodium 136, Potassium 4.5, Chloride 102, Carbon Dioxide 29.0, Anion Gap 5, BUN 19 H, Creatinine 0.77, Estim Creat Clear Calc 31.94, Est GFR (MDRD) Af Amer 91, Est GFR (MDRD) Non-Af 75, BUN/Creatinine Ratio 24.6 H, Glucose 213 H, Calcium 8.6, Total Bilirubin 0.40, AST 21, ALT 62 H, Alkaline Phosphatase 149 H, Total Protein 6.1 L, Albumin 1.8 L, Globulin 4.3 H, Albumin/Globulin Ratio 0.4 L 06/30/22 08:24: POC Glucose 219 H 06/30/22 11:09: POC Glucose 270 H Microbiology: Microbiology 06/18/22 17:23 Sputum, Induced/Lukens Gram Stain - Final 06/18/22 17:23 Sputum, Induced/Lukens Respiratory Culture - Final Enterobacter cloacae complex D/C Instructions Discharge Diet: Light diet - advance as tolerated May shower in (days): 1 Please Follow Up With: Rajan Álvarez MD When: Please follow-up please in approximately 10 days. [phone] Meaningful Use Info Meaningful Use Diagnoses (Choose all that apply): VTE VTE Anticoag overlap given w/in hospital stay or rx'd at dc?: Yes Pt receive overlap for 5 days?: Yes Discharge Plan Admission Admit Date/Time: 06/13/22 16:10 Primary Reason for Your Visit: Partial small bowel obstruction Attending Provider: Rajan Álvarez Primary Care Provider: Jyoti Mackey Consulting Providers: Divya Gonzales ; Kishor Goodwin ; Rashmi Mcfarland ; Gustavo Jacinto ; Jose Roberto Bonilla ; Rodger Montano ; Ramirez Rojas ; Dolores Lopez NP ; Keenan Altamirano ; Keysha Hunter Discharge Orders/Prescriptions Prescriptions: New omeprazole 20 mg capsule,delayed release(DR/EC) 20 mg PO DAILY Qty: 30 0RF polyethylene glycol 3350 [Miralax] 17 gram/dose powder 17 g PO DAILY Qty: 850 1RF losartan 50 mg Tablet 50 mg PO DAILY Qty: 30 0RF carvedilol 12.5 mg Tablet 12.5 mg PO BID Qty: 30 0RF amiodarone 200 mg Tablet 200 mg PO BID Qty: 30 0RF levothyroxine 50 mcg Tablet 50 mcg G-tube 0600 Qty: 30 0RF insulin lispro [Humalog KwikPen Insulin] 100 unit/mL Insulin Pen See Protocol subcut ACHS Qty: 15 0RF Protocol: 5. Sliding Scale Insulin High Dosing Condition: 150-209 mg/dl = 3 units Condition: 210-259 mg/dl = 6 units Condition: 260-324 mg/dl = 9 units Condition: 325-374 mg/dl = 12 units Condition: 375-409 mg/dl = 14 units Condition: 410-449 mg/dl = 16 units Condition: Greater than 449 call physician Protocol Text: - Use for Total Daily Dose of Insulin 81-120 units - Very insulin resistant or septic patients HIGH DOSING ALGORITHM insulin lispro [Humalog KwikPen Insulin] 100 unit/mL Insulin Pen 15 unit subcut TIDAC Qty: 15 0RF Chloraseptic Sore Throat 6-10 mg Lozenge 1 flip mucous membrane Q2H PRN PRN (Reason: SORE THROAT) Qty: 30 0RF Eliquis 5 mg Tablet 10 mg PO BID Qty: 30 0RF insulin glargine-yfgn 100 unit/mL (3 mL) Insulin Pen 15 unit subcut DINNER Qty: 15 0RF insulin glargine-yfgn 100 unit/mL (3 mL) Insulin Pen 40 unit subcut DAILY Qty: 15 0RF Continued glipizide 2.5 mg tablet extended release 24hr 2.5 mg PO DAILY metformin 500 mg tablet extended release 24 hr 500 mg PO QHS latanoprost 0.005 % drops 1 drp ophthalmic (eye) QHS levothyroxine 50 MCG tablet 50 mcg PO DAILY Label Comments: thyroid atorvastatin 40 MG tablet 40 mg PO QHS Label Comments: cholesterol aspirin 81 MG tablet,chewable 81 mg PO QODAY Label Comments: for heart, per pt usually takes every other day, last taken about a week ago and can go back on the meds now fluticasone propionate 50 mcg/actuation spray,suspension 2 spray INTRANASAL DAILY PRN PRN (Reason: Allergic Reaction) Label Comments: nasal dryness losartan 50 mg tablet See Rx Instructions .ROUTE .COMPLEX Rx Instructions: TAKE 1 TABLET EVERY DAY metoprolol succinate 50 mg tablet extended release 24 hr 50 mg PO DAILY Referrals / Follow Up: Jyoti Mackey MD [Primary Care Provider] - Disposition Disposition (needs filled in before D/C Order can be placed): [facility]
--- NOTE | 2022-06-30 14:24 | NURSING ---
Report called to nurse Lauren for pt to be tx to TCU.
== END 2022-06-30 15:51 | disposition skilled nursing facility (03) | DRG 329 ==
LOC: PCU 06-18 06:34 → ICU 06-18 15:55 → PCU 06-22 13:06
PROVIDERS: Internal Medicine; Student in an Organized Health Care Education/Training Program; Admitting Provider Surgery; PCP Family Medicine; Visit Provider Surgery
PROC: 0DB80ZZ Excision of Small Intestine, Open Approach (ICD-10-PCS; CPT 49000; principal; 2022-06-18 11:30)
DX: K56.50 Intestinal adhesions [bands], unspecified as to partial versus complete obstruction (principal); J96.01 Acute respiratory failure with hypoxia; I26.99 Other pulmonary embolism without acute cor pulmonale; R57.1 Hypovolemic shock; A41.9 Sepsis, unspecified organism; E43 Unspecified severe protein-calorie malnutrition; I50.32 Chronic diastolic (congestive) heart failure; I48.20 Chronic atrial fibrillation, unspecified; I11.0 Hypertensive heart disease with heart failure; E11.65 Type 2 diabetes mellitus with hyperglycemia; Z79.4 Long term (current) use of insulin; I48.0 Paroxysmal atrial fibrillation; Z93.3 Colostomy status; D12.0 Benign neoplasm of cecum; E86.9 Volume depletion, unspecified; E03.9 Hypothyroidism, unspecified; K21.9 Gastro-esophageal reflux disease without esophagitis; E78.5 Hyperlipidemia, unspecified; K29.60 Other gastritis without bleeding; E78.00 Pure hypercholesterolemia, unspecified; E83.42 Hypomagnesemia; I95.81 Postprocedural hypotension; E87.6 Hypokalemia; K82.8 Other specified diseases of gallbladder; E86.0 Dehydration; N73.6 Female pelvic peritoneal adhesions (postinfective); Z79.82 Long term (current) use of aspirin; Z82.3 Family history of stroke; R10.9 Unspecified abdominal pain
CPT/HCPCS: 31720; 36415; 36569; 71045; 71275; 74018; 74019; 74177; 74250; 80048; 80053; 80076; 82803; 82962; 83605; 83735; 83880; 84100; 84132; 84478; 84484; 85025; 85610; 85652; 85730; 87070; 87077; 87186; 87205; 87426; 88307; 93005; 93308; 94002; 94003; 94660; 97110; 97116; 97162; 97163; 97167; 97530; 97535; 97802; 97803; 99251; J2185; J7030; J7050; J7120; Q9967; A4216; G0463; J1940; J2405; J3010; J3490

== ENCOUNTER → 2022-06-13 | Outpatient (CLI) | payer MEDICARE, OTHER, SELFPAY ==
--- NOTE | 2022-06-13 14:41 | CT_ITS ---
STUDY: CT ABDOMEN AND PELVIS WITH CONTRAST REASON FOR EXAM: Female, 87 years old. Abdominal pain, nausea, vomiting -- s/p colonoscopy RADIATION DOSAGE (If Supplied By Facility): CTDIvol = ( 20.44 ) mGy, DLP = ( 1026.79 ) mGycm TECHNIQUE: Transaxial images were obtained from the dome of the diaphragm to the symphysis pubis without oral contrast. IV 100mL Isovue-300 was administered. Sagittal and coronal images were reconstructed. Individualized dose optimization techniques were used for this CT. COMPARISON: Comparison is made with prior study 05/11/2022. FINDINGS: The visualized lung bases are unremarkable. Coronary artery calcification. There is decreased attenuation of the liver consistent with steatosis. Stable 1 cm cyst in the dome of the right lobe of the liver medially. Normal gallbladder and extrahepatic biliary system. Normal spleen. Normal pancreas. Normal bilateral adrenal glands. Normal right kidney. 1 cm cyst in the anterior midportion of the left kidney. Fluid distention of the stomach. There are dilated loops of the small intestine with a non-distended colon consistent with a small bowel obstruction. The transition point is in the distal ileum. There are multiple colonic diverticula consistent with diverticulosis. There is non-visualization of the appendix. There is diffuse atherosclerotic calcification of the abdominal aorta, without a demonstrated aneurysm. Normal inferior vena cava. Normal retroperitoneum. Normal urinary bladder. There is absence of the uterus consistent with a prior hysterectomy. There is evidence of a prior ventral hernia repair with a mesh. There are diffuse degenerative changes of the visualized lumbar spine. Loss of the normal lumbar lordosis. Prior right total hip replacement. CT/Abdomen/Pelvis WITH Contrast IMPRESSION: Small bowel obstruction with the dilated small bowel loops and fluid filled stomach. The transition point is in the distal ileum. Small amount of fecal material is seen in the colon. The remainder of the examination is unchanged. Electronically Signed: Carlos Morocho MD at 15:18 EST ,
== END | disposition home or self-care (01) ==
PROVIDERS: PCP Family Medicine; Referring Provider Physician Assistant; Visit Provider Physician Assistant
DX: R10.9 Unspecified abdominal pain (principal)
CPT/HCPCS: 74177; Q9967; A4216

== ENCOUNTER 2022-06-30 15:55 | Inpatient (IN) | payer MEDICARE, OTHER, SELFPAY ==
[2022-06-30 16:05] VITALS: BP 116/62; PULSE 60; RESP 18; TEMP 36.5; O2SAT 97; BMI 34.4
[2022-06-30] MEDS: Carvedilol 12.5 MG Tablet PO (17:55)
[2022-06-30] MEDS: Insulin Glargine-YFGN 100 UNIT/ML Pen 15 UNIT SC (17:55)
[2022-06-30] MEDS: Insulin Lispro 100 UNIT/ML INSULN.PEN 15 UNIT SC (17:56)
[2022-06-30] MEDS: metFORMIN (XR) 500 MG Tablet PO (17:59)
[2022-06-30] MEDS: APIXABAN 5 MG TABLET 10 MG PO (18:09)
--- NOTE | 2022-06-30 18:35 | HP.PCM_ITS ---
HPI - General General Date of Admission: 06/30/22 Date of Service: 07/02/22 Chief Complaint: Here for rehabilitation. HPI Narrative 06/13/2022 GIAN HUBER, is a 87 Female who presents to [facility] with abdominal pain, nausea, vomiting. IV fluids, bowel rest, NG tube, for small bowel obstruction. 06/14/2022 Feeling better, loose stool. OOB, ambulate. Gastrografin SBFT to evaluate small bowel obstruction. 06/15/2022 Improved, NG tube out, passing dark stool. 06/16/2022 Feeling quite well. Protonix IV, Carafate, avoid EGD for gastritis. 06/17/2022 Vomited multiple times overnight. Reinsert NG tube. Anticipate PICC line, TPN. 06/18/2022 Little better. PICC placed. 06/18/2022 Dr. Álvarez performed exploratory laparotomy, lysis of adhesions, enterotomy, enterectomy of mid small bowel. 06/18/2022 Neosynephrine for low blood pressure. Meropenem for sepsis coverage. 06/19/2022 Intubated. Amiodarone drip, IV fluid bolus, off Levophed. TPN resumed. 06/21/2022 Pain improved. Extubated, hypotension resolved. Continue TPN. 06/22/2022 NG out, abdominal pain better, passing flatus. 06/23/2022 Clears today, stop TPN if tolerating. 06/24/2022 Abdominal pain improving. Stop TPN. 06/25/2022 Soft regular diet, resume TPN. 06/26/2022 Continue TPN, surgical clips removed, small opening of incision. 06/27/2022 Echo Normal LV size. LVSF normal. EF 70%. 06/28/2022 Feels weak, but better. CTA chest shows bilateral pulmonary embolism, heparin drip to oral Eliquis. Continue TPN. 06/29/2022 Oxygen 2 liters per nasal cannula. Lasix 40mg IV x 1 dose. 06/30/2022 Feels much better. Eliquis twice daily for bilateral pulmonary embolism. 06/30/2022 Admit to TCU with debility, here for rehabilitation, strengthening, prior to discharge home alone. [facility] Medical History (Updated 06/30/22 @ 18:[address] Vikas Huerta MD) Ambulates with cane Anxiety Breast CA Cancer Cardiology follow-up encounter DCIS (ductal carcinoma in situ) Diabetes Endometrial cancer Essential (primary) hypertension Generalized osteoarthritis Hemorrhoid High cholesterol History of breast cancer History of diverticulitis History of echocardiogram History of GI bleed History of stress test Hx of fracture of humerus Hyperlipidemia Hypertriglyceridemia Hypothyroidism (acquired) Infection of total knee replacement Loss of hearing Non-smoker Obesity Osteoarthritis Paroxysmal atrial fibrillation Paroxysmal atrial tachycardia Post-menopausal Premature atrial contractions Sleep apnea Thyroid disease Transient atrial fibrillation or flutter Type 2 diabetes mellitus Wears glasses Wears hearing aid Home Medications aspirin 81 mg chewable tablet 81 mg PO QODAY Check with primary doctor 09/10/14 [History Last Taken 08/17/21] atorvastatin 40 mg tablet 40 mg PO QHS Cholestrol 09/10/14 [History Last Taken 09/09/14] levothyroxine 50 mcg tablet 50 mcg PO 0600 hypothyroidism 09/10/14 [History Last Taken 06/10/22] fluticasone propionate 50 mcg/actuation nasal spray,suspension 2 spray intranasal DAILY PRN PRN Allergic Reaction 05/03/20 [History Last Taken 08/16/21] metformin 500 mg tablet,extended release 24 hr 500 mg PO QHS Diabetes 05/03/20 [History Last Taken 06/10/22] latanoprost 0.005 % eye drops 1 drp ophthalmic (eye) QHS glaucoma 05/02/21 [History Last Taken 06/10/22] losartan 50 mg tablet See Rx Instructions .Route .COMPLEX hypertension 06/13/22 [History Last Taken 06/10/22] acetaminophen 325 mg capsule 325 mg PO Q6H PRN Pain #1 cap 06/30/22 [Rx Last Taken Unknown] amiodarone 200 mg tablet 200 mg PO DAILY BP 06/30/22 [History Last Taken Unknown] apixaban 5 mg (74 tabs) tablets in a dose pack (Eliquis DVT-PE Treat 30D Start) 5 mg PO BID Blood thinner 06/30/22 [History Last Taken Unknown] benzocaine 6 mg-menthol 10 mg lozenges (Chloraseptic Sore Throat) 1 flip mucous membrane Q2H PRN PRN SORE THROAT #30 ea 06/30/22 [Rx Last Taken Unknown] carvedilol 12.5 mg tablet 12.5 mg PO BID Heart 06/30/22 [History Last Taken Unknown] insulin glargine-yfgn 100 unit/mL (3 mL) subcutaneous pen 15 unit subcut DINNER BS 06/30/22 [History Last Taken Unknown] insulin glargine-yfgn 100 unit/mL (3 mL) subcutaneous pen 40 unit subcut DAILY BS 06/30/22 [History Last Taken Unknown] insulin lispro 100 unit/mL subcutaneous pen (Humalog KwikPen (U-100) Insulin) 15 unit subcut TIDAC BS 06/30/22 [History Last Taken Unknown] insulin lispro 100 unit/mL subcutaneous pen (Humalog KwikPen (U-100) Insulin) See Protocol subcut ACHS BS 06/30/22 [History Last Taken Unknown] levothyroxine 50 mcg tablet 50 mcg G-tube 0600 #30 tabs 06/30/22 [Rx Last Taken Unknown] losartan 50 mg tablet 50 mg PO DAILY BP 06/30/22 [History Last Taken Unknown] omeprazole 20 mg capsule,delayed release 20 mg PO DAILY GERD 06/30/22 [History Last Taken Unknown] polyethylene glycol 3350 17 gram/dose oral powder (Miralax) 17 g PO DAILY Stool softner 06/30/22 [History Last Taken Unknown] Allergy/AdvReac Type Severity Reaction Status Date / Time Penicillins Allergy Severe Chest Verified 06/12/22 13:36 tightness rofecoxib AdvReac Severe Itching Verified 06/12/22 13:36 adhesive tape [tape] AdvReac Mild Itching Verified 06/12/22 13:36 codeine AdvReac Mild Nausea/Vomi Verified 06/12/22 13:36 ting hydrocodone [Hydrocodone] AdvReac Mild Nausea/Vomi Verified 06/12/22 13:36 ting morphine AdvReac Mild Nausea/Vomi Verified 06/12/22 13:36 ting oxycodone [Oxycodone] AdvReac Mild Nausea Verified 06/12/22 13:36 aspartame AdvReac Diarrhea Verified 06/19/22 16:25 Family History Mother Hypertension Heart disease CVA (cerebral vascular accident) Parkinsons disease Father CVA (cerebral vascular accident) Parkinsons disease Other COPD (chronic obstructive pulmonary disease) Diabetes Surgical History (Updated 06/30/22 @ 18:[address] Vikas Huerta MD) H/O total hysterectomy History of exploratory laparotomy History of incisional hernia repair History of knee replacement History of lumpectomy of left breast History of right hip replacement Social History household members: none Smoking Status: Never smoker second hand exposure: No alcohol intake: never details: occasional substance use type: does not use ROS Constitutional Constitutional: Denies chills, fever(s) or weight gain ENT HEENT: Denies headache(s), nasal congestion or nasal discharge Cardiovascular Cardiovascular: Denies chest pain or palpitations Respiratory/Chest Respiratory/Chest: Denies cough, excessive phlegm production or shortness of breath with exertion Gastrointestinal Gastrointestinal: Denies abdominal pain, nausea or vomiting Genitourinary Genitourinary: Denies dysuria Musculoskeletal Musculoskeletal: Denies joint pain or joint swelling Integumentary Integumentary: Denies rash or wounds Neurologic Neurologic: Denies focal weakness, numbness or tingling Psychiatric Psychiatric: Denies anxiety, auditory hallucinations, depression, homicidal ideation or suicidal ideation Vital Signs Vital Signs Vital Signs: 06/30/22 16:05 Temperature 97.7 F L Temperature Source Temporal Pulse Rate 60 Respiratory Rate 18 Blood Pressure 116/62 Blood Pressure Mean 80 Blood Pressure Source Monitor Blood Pressure Position Supine Blood Pressure Location Right Leg Pulse Ox 97 Oxygen Delivery Method Room Air Weight Weight: 85.36 kg Body Mass Index (BMI) 34.4 Physical Exam Const alert General Appearance: cooperative HEENT normocephalic Eyes PERRL and EOMs intact bilaterally Neck supple, no JVD and no carotid bruits Resp normal respiratory effort, normal air movement and clear to auscultation bilaterally Cardio regular rate and regular rhythm GI normal to inspection, nondistended, normoactive bowel sounds, non-tender and non-distended Extremity normal capillary refill General Extremity: Negative for edema Skin no rashes or lesions noted General Skin Exam: no breakdown Psych affect normal Appearance: appropriate Results Lab / Micro Data Result Diagrams: 07/01/22 05:15 07/01/22 05:15 Assessment & Plan Assessment/Plan (1) Debility: (2) Small bowel obstruction: (3) Acute respiratory failure with hypoxia: (4) Bilateral pulmonary embolism: (5) Gastritis: (6) Hyperlipidemia: (7) Hypothyroidism: (8) Diabetes mellitus: (9) Allergic rhinitis: (10) Glaucoma: (11) Hypertension: PLAN: Plan 87 year old female with below past medical history hospitalized for small bowel obstruction, underwent exploratory laparotomy with lysis of adhesions 06/18/[address] Álvarez, complicated by TPN requirement, hypotension, acute respiratory failure with hypoxia, bilateral pulmonary embolism, admitted to TCU with debility, here for rehabilitation, strengthening, prior to discharge home alone. * Debility - PT/OT. * Pain - Tylenol 1000mg q6h prn pain (1-10). * Bowel - Miralax 17gm daily prn constipation, senna/colace 1 tablet bid prn constipation, MOM 30ml daily prn. * Adult immunization - Administer pneumonia vaccine, covid19 vaccine, flu vaccine as appropriate. * DVT prophylaxis - Not necessary, on Eliquis. * Atrial fibrillation - Coreg 12.5mg bid, Amiodarone 200mg daily, Eliquis 10mg bid thru , then Eliquis 5mg bid. * CV prophylaxis - Aspirin 81mg every other day to start 09/28/2022. * Hyperlipidemia - Atorvastatin 40mg qhs. * Sore throat - Cepacol 1 lozenge q2h prn. * Hypertension - Coreg 12.5mg bid, Losartan 50mg daily. * Allergic Rhinitis - Flonase nasal spray 2 sprays daily prn. * Diabetes Mellitus II - Metformin XR 500mg dinner, Glargine 40 units am, Humalog 13 units tidac. * Glaucoma - Latanoprost 1gtt ou qhs. * Hypothyroidism - Levothyroxine 50ncg daily. * Gastritis - Pantoprazole 20mg daily.
[2022-06-30] MEDS: Atorvastatin Calcium 40 MG Tablet PO (20:11)
[2022-06-30] MEDS: Senna/Docusate Sodium 1 Tablet PO (20:11)
[2022-06-30] MEDS: Menthol/Lanolin/Calamine/Znox 113 GM Tube 1 APPLIC TOPICAL (20:11)
[2022-06-30] MEDS: Latanoprost 0.005% 1 Bottle 1 DRP OPHTHALMIC (20:12)
[2022-06-30 20:23] VITALS: TEMP 35.8
[2022-06-30 21:56] LABS: Bedside Glucose 99 mg/dL (74-106)
[2022-07-01 05:58] LABS: Absolute Lymphocyte Count 1.06 X10^3/uL (0.83-4.51); Absolute Neutrophil Count 8.9 X10^3/uL (2.0-7.7); Basophil# 0.04 X10^3/uL; Basophil% 0.4 % (0-1); Eosinophil# 0.22 X10^3/uL; Eosinophils% 1.9 % (0-5); Hematocrit 29.5 % (37-47); Hemoglobin 9.4 g/dL (12.0-15.0); Lymphocyte # 1.06 X10^3/ul (0.83-4.51); Lymphocyte % 9.4 % (19-41); Mean Corp Hgb Conc 31.9 g/dL (32-36); Mean Corpuscular Hgb 29.6 pg (27.0-32.0); Mean Corpuscular Volume 92.8 fL (81-99); Mean Platelet Vol. 9.8 fl (6.2-12.0); Monocyte# 1.04 X10^3/uL; Monocyte% 9.2 % (0-10); NRBC Flagged by Analyzer 0 % (0-5); Neutrophil # 8.87 X10^3/uL (2.7-7.7); Neutrophil % 78.5 % (47-70); Platelet Count 505 K/mm3 (150-450); RBC Distribution Width CV 13.7 % (11.6-14.6); RBC Distribution Width SD 46.3 fl (35.1-43.9); Red Blood Count 3.18 M/mm3 (4.2-5.4); White Blood Count 11.3 K/mm3 (4.4-11.0)
[2022-07-01 06:27] LABS: Anion Gap 5 (5-15); BUN 22 mg/dL (7-18); BUN/Creat Ratio 26.7 RATIO (10-20); Calcium,Total 8.9 mg/dL (8.5-10.1); Chloride 100 mmol/L (98-107); Creatinine, Serum 0.82 mg/dL (0.55-1.02); EST Glomerular Filtration Rate 70 mL/min (>60); Est Glom Filt Rate - Afr Amer 84 mL/min (>60); Estimated Creatinine Clearance 38.95 ml/min; Glucose 68 mg/dL (74-106); Potassium 4.3 mmol/L (3.5-5.1); Sodium Level 136 mmol/L (136-145)
[2022-07-01] MEDS: Polyethylene Glycol 3350 17 GM PACKET PO (06:50)
[2022-07-01 06:51] LABS: Bedside Glucose 76 mg/dL (74-106)
[2022-07-01] MEDS: Senna/Docusate Sodium 1 Tablet PO (06:51)
[2022-07-01] MEDS: Levothyroxine 50 MCG Tablet PO (06:51)
[2022-07-01] MEDS: Losartan Potassium 50 MG Tablet PO (06:51)
[2022-07-01] MEDS: Pantoprazole Sodium 20 MG Tablet PO (06:52)
[2022-07-01] MEDS: APIXABAN 5 MG TABLET 10 MG PO ×2 (06:52→17:19)
[2022-07-01] MEDS: Insulin Glargine-YFGN 100 UNIT/ML Pen 40 UNIT SC (06:56)
[2022-07-01] MEDS: Menthol/Lanolin/Calamine/Znox 113 GM Tube 1 APPLIC TOPICAL ×2 (07:00→17:17)
[2022-07-01 07:03] VITALS: BP 100/64; PULSE 69
[2022-07-01] MEDS: Tuberculin,Purif.prot.deriv. 50 TU/ML Vial 0.1 ML ID (09:31)
[2022-07-01] MEDS: Amiodarone 200 MG Tablet PO (09:32)
[2022-07-01] MEDS: Carvedilol 12.5 MG Tablet PO ×2 (09:32→17:15)
[2022-07-01 11:45] LABS: Bedside Glucose 146 mg/dL (74-106)
[2022-07-01] MEDS: Insulin Lispro 100 UNIT/ML INSULN.PEN 15 UNIT SC ×2 (13:20→17:14)
[2022-07-01 15:14] VITALS: BP 111/71; PULSE 72; RESP 20; TEMP 36.4; O2SAT 96
[2022-07-01 17:06] LABS: Bedside Glucose 155 mg/dL (74-106)
[2022-07-01] MEDS: metFORMIN (XR) 500 MG Tablet PO (17:16)
[2022-07-01] MEDS: Insulin Glargine-YFGN 100 UNIT/ML Pen 15 UNIT SC (17:16)
[2022-07-01 21:46] LABS: Bedside Glucose 148 mg/dL (74-106)
[2022-07-01] MEDS: Latanoprost 0.005% 1 Bottle 1 DRP OPHTHALMIC (23:08)
[2022-07-01] MEDS: Atorvastatin Calcium 40 MG Tablet PO (23:09)
[2022-07-01] MEDS: Acetaminophen 500 MG Tablet 1000 MG PO (23:55)
[2022-07-02] MEDS: Losartan Potassium 50 MG Tablet PO (06:37)
[2022-07-02] MEDS: Levothyroxine 50 MCG Tablet PO (06:38)
[2022-07-02] MEDS: Pantoprazole Sodium 20 MG Tablet PO (06:38)
[2022-07-02] MEDS: APIXABAN 5 MG TABLET 10 MG PO ×2 (06:39→17:40)
[2022-07-02] MEDS: Menthol/Lanolin/Calamine/Znox 113 GM Tube 1 APPLIC TOPICAL ×2 (06:39→17:40)
--- NOTE | 2022-07-02 06:45 | NURSING ---
FBS 65 this am. Pt was unaware of blood sugar level being low. Given two dups of orange juice, one package of Jenny Doone cookies, and a cup of vanilla pudding. Pt able to converse w/ this nurse but repeats some questions asked. Speech is clear. Pt is diaphoretic. Lantus held. Will report to oncoming nurse and continue to monitor.
[2022-07-02 06:50] VITALS: BP 118/59; PULSE 79; TEMP 35.7
[2022-07-02 06:56] LABS: Bedside Glucose 64 mg/dL (74-106)
--- NOTE | 2022-07-02 07:28 | NURSING ---
Dr. Álvarez in to see pt this am. No new orders.
--- NOTE | 2022-07-02 07:29 | PCM.PN.SRG ---
Subjective Subjective Patient states that she has her ups and downs. She denies any abdominal pain. She notes copious diarrhea yesterday and asked for the MiraLAX to be held. She notes puffiness of bilateral lower extremities. She continues to have a tickle in her throat causing her cough. Objective Data Objective Data Vital Signs: Vital Signs Temp Pulse Resp BP Pulse Ox O2 Del Method 96.2 F L 79 20 H 118/59 L 96 Room Air 07/02/22 06:50 07/02/22 06:50 07/01/22 15:14 07/02/22 06:50 07/01/22 15:14 07/01/22 23:15 Oxygen Delivery Method Room Air Weight: 188 lb 3 oz Body Mass Index (BMI) 34.4 Intake & Output: Intake and Output for Last 24 Hours 06/30/22 07/01/22 07/02/22 23:59 23:59 23:59 Intake Total 240 / 240 840 / 840 Balance 240 / 240 840 / 840 Lab / Micro Data Result Diagrams: 07/01/22 05:15 07/01/22 05:15 Labs: Laboratory Results - last 24 hr 07/01/22 11:27: POC Glucose 146 H 07/01/22 16:44: POC Glucose 155 H 07/01/22 21:05: POC Glucose 148 H 07/02/22 06:22: POC Glucose 64 L Physical Exam Narrative She appears not to be in any distress. Intermittent dry cough. She is on room air. GI GI Narrative: Abdominal incision is clean and dry. Abdomen less distended than during her hospitalization. Extremity Extremity Narrative: Significant bilateral extremity swelling noted. Assessment & Plan Assessment/Plan (1) Bilateral pulmonary embolism: (2) Small bowel obstruction: PLAN: Plan The patient appears to continue to recover from her surgery for her small bowel obstruction. Her respiratory status is improved as she has been treated for bilateral pulmonary embolism. She has concerns about her lower extremity swelling and thinks she will be treated with diuretic therapy for this. She is aware that I will continue to follow her intermittently and remotely Rajan Álvarez M.D., F.A.C.S.
[2022-07-02] MEDS: Amiodarone 200 MG Tablet PO (08:18)
[2022-07-02] MEDS: Carvedilol 12.5 MG Tablet PO ×2 (08:18→17:38)
[2022-07-02 08:46] LABS: Bedside Glucose 101 mg/dL (74-106)
--- NOTE | 2022-07-02 10:01 | PCM.PN.BLA ---
Progress Note Patient is an 87 y/o F I am following for incisional evaluation. Patient denies any abdominal pain. She notes the dressing has been changed twice daily. She notes her breathing has improved. She notes she is still not sleeping all night. Physical Exam GI normal to inspection, nondistended, normoactive bowel sounds GI Narrative: Incision intact with a small shallow opening at the base of the incision with minimal amount of yellowish drainage. All sutures are intact. Packing was pulled. Incision was cleansed. Two 4 x 4 gauze was applied followed by an ABD pad. Patient tolerated the dressing change well. No packing was placed. Assessment & Plan Assessment/Plan (1) Small bowel obstruction due to adhesions: PLAN: Continue twice daily changes with gauze and ABD pad No packing needed at the inferior aspect of the wound Cleanse the incision with saline and pat dry We will to monitor this patient Visit Charges Inpatient E&M: 07456 Init Hosp L1 (no charge; post-op)
--- NOTE | 2022-07-02 11:04 | PCM.PN.DRR ---
TCU RX Drug Regimen Review Subjective: TCU Admission. 87 YOF presented to the ER with abdominal pain, nausea and vomiting. Hospitalized for small bowel obstruction, underwent exploratory laparotomy with lysis of adhesions 06/18/[address] Álvarez, complicated by TPN requirement, hypotension, acute respiratory failure with hypoxia, bilateral pulmonary embolism. Admitted to TCU with debility for strengthening and rehabilitation. Objective: Allergies Penicillins Allergy (Severe, Verified 06/12/22 13:36) Chest tightness rofecoxib Adverse Reaction (Severe, Verified 06/12/22 13:36) Itching adhesive tape [tape] Adverse Reaction (Mild, Verified 06/12/22 13:36) Itching codeine Adverse Reaction (Mild, Verified 06/12/22 13:36) Nausea/Vomiting hydrocodone [Hydrocodone] Adverse Reaction (Mild, Verified 06/12/22 13:36) Nausea/Vomiting morphine Adverse Reaction (Mild, Verified 06/12/22 13:36) Nausea/Vomiting oxycodone [Oxycodone] Adverse Reaction (Mild, Verified 06/12/22 13:36) Nausea aspartame Adverse Reaction (Verified 06/19/22 16:25) Diarrhea Current Medications Generic Name Dose Route Start Last Admin Trade Name Freq PRN Reason Stop Dose Admin Acetaminophen 1,000 mg 06/30/22 18:57 07/01/22 23:55 Acetaminophen 500 Mg Tablet PO 1,000 mg Q6H PRN PRN Administration Pain Score 1-10 Amiodarone HCl 200 mg 07/01/22 08:00 07/02/22 08:18 Amiodarone 200 Mg Tablet PO 200 mg BREAKFAST [facility] Administration Apixaban 5 mg 07/05/22 06:00 Apixaban 5 Mg Tablet PO 09/28/22 23:55 BID SO Apixaban 10 mg 06/30/22 18:00 07/02/22 06:39 Apixaban 5 Mg Tablet PO 07/04/22 22:00 10 mg BID SO Administration Aspirin 81 mg 09/29/22 08:00 Aspirin 81 Mg Tab.Chew PO QODAY@0800 [facility] Atorvastatin Calcium 40 mg 06/30/22 22:00 07/01/22 23:09 Atorvastatin Calcium 40 Mg Tablet PO 40 mg QHS [facility] Administration Calamine/Phenol 1 applic 06/30/22 20:05 07/02/22 06:39 Menthol/Lanolin/Calamine/Znox 113 Gm Tube TOPICAL 1 applic BID SO Administration Protocol Carvedilol 12.5 mg 07/01/22 08:00 07/02/22 08:18 Carvedilol 12.5 Mg Tablet PO 12.5 mg BIDCM [facility] Administration Fluticasone Propionate 2 spray 06/30/22 16:26 Fluticasone 0.05% 1 [place] Nasal.Sry NASAL DAILY PRN PRN ALLERGIES Insulin Glargine 40 unit 07/01/22 06:00 07/02/22 06:38 Insulin Glargine-Yfgn 100 Unit/Ml Pen SC Not Given DAILY SO Insulin Human Lispro 13 unit 07/02/22 11:45 Insulin Lispro 100 Unit/Ml Insuln.Pen SC TIDAC [facility] Latanoprost 1 drp 06/30/22 22:00 07/01/22 23:08 Latanoprost 0.005% 1 Bottle OPHTHALMIC 1 drp QHS [facility] Administration Levothyroxine Sodium 50 mcg 07/01/22 06:00 07/02/22 06:38 Levothyroxine 50 Mcg Tablet PO 50 mcg 0600 [facility] Administration Losartan Potassium 50 mg 07/01/22 06:00 07/02/22 06:37 Losartan Potassium 50 Mg Tablet PO 50 mg DAILY [facility] Administration Magnesium Hydroxide 30 ml 06/30/22 18:56 Magnesium Hydroxide 30 Ml Udc PO DAILY PRN Constipation Metformin HCl 500 mg 06/30/22 17:00 07/01/22 17:16 Metformin (Xr) 500 Mg Tablet PO 500 mg DINNER [facility] Administration Pantoprazole Sodium 20 mg 07/01/22 06:00 07/02/22 06:38 Pantoprazole Sodium 20 Mg Tablet PO 20 mg DAILY [facility] Administration Polyethylene Glycol 17 gm 07/02/22 07:35 Polyethylene Glycol 3350 17 Gm Packet PO DAILY PRN Constipation Senna/Docusate Sodium 1 tablet 07/02/22 07:35 Senna/Docusate Sodium 1 Tablet PO BID PRN Constipation Sodium Chloride 10 - 40 ml 06/30/22 16:45 0.9% Saline Lock 10 Ml Syringe IV UD PRN SALINE FLUSH Throat Lozenges 1 lozenge 06/30/22 16:26 Benzocaine/Menthol 1 Lozenge MUCOUS MEM Q2H PRN PRN SORE THROAT Tuberculin PPD 0.1 ml 07/08/22 10:00 Tuberculin,Purif.Prot.Deriv. 50 Tu/Ml Vial ID 07/08/22 10:01 X1 ONE Problem List (Last Reviewed 06/30/22 @ 18:[address] Vikas Huerta MD) Hypertension (Chronic) Glaucoma (Acute) Allergic rhinitis (Acute) Diabetes mellitus (Acute) Hypothyroidism (Acute) Hyperlipidemia (Acute) Gastritis (Acute) Bilateral pulmonary embolism (Acute) Acute respiratory failure with hypoxia (Acute) Small bowel obstruction (Acute) Debility (Acute) Vital Signs Temp Pulse Resp BP Pulse Ox O2 Del Method 96.2 F L 79 20 H 118/59 L 96 Room Air 07/02/22 06:50 07/02/22 06:50 07/01/22 15:14 07/02/22 06:50 07/01/22 15:14 07/01/22 23:15 Oxygen Delivery Method Room Air Weight: 85.36 kg Body Mass Index (BMI) 34.4 Sodium 136 mmol/L (136-145) 07/01/22 05:15 Potassium 4.3 mmol/L (3.5-5.1) 07/01/22 05:15 Chloride 100 mmol/L (98-107) 07/01/22 05:15 Carbon Dioxide 31.0 mmol/L (21.0-32.0) 07/01/22 05:15 Anion Gap 5 (5-15) 07/01/22 05:15 BUN 22 mg/dL (7-18) H 07/01/22 05:15 Creatinine 0.82 mg/dL (0.55-1.02) 07/01/22 05:15 Est GFR (MDRD) Af Amer 84 mL/min (>60) 07/01/22 05:15 Est GFR (MDRD) Non-Af 70 mL/min (>60) 07/01/22 05:15 BUN/Creatinine Ratio 26.7 RATIO (10-20) H 07/01/22 05:15 Glucose 68 mg/dL (74-106) L 07/01/22 05:15 Assessment/Plan: 1. Pain: acetaminophen?1000 mg?PO Q6H PRN for pain scale (1-10).?Last dose 07/01/22 for pain scale 1/10 of the back. Please continue to?monitor?for increased pain and PRN usage.? 2. Bowel:?Miralax?17 gm PO daily PRN for constipation, senna/docusate 1 tablet PO BID PRN for constipation and MOM 30 mL daily PRN.?Patient?has not received any doses of medications yet. Last bowel movement 07/01/22 as diarrhea. Please continue to?monitor?for constipation and PRN usage.? 3. Atrial fibrillation/hypertension/DVT prophylaxis/CV prophylaxis: carvedilol?12.5 mg?PO BID, losartan 50mg PO daily, amiodarone?200 mg?PO daily, Eliquis?10 mg?PO BID through 07/04/22, then?Eliquis?5 mg?PO BID thru 09/28/22,?and?aspirin?81 mg?PO QOD starting 09/29/2022.?Please continue to?monitor?BP (118/59 mmHg), HR (78 bpm), kidney function, hemoglobin (last?9.4 mg/dL), and signs of a blood clot/bleed.? 4. Hyperlipidemia: atorvastatin?40 mg?PO QHS. Please continue to monitor LFT?(last 06/30/22), lipid panel (last 11/07/2021) and muscle pain. 5. Diabetes mellitus II: metformin XR?500 mg?PO with dinner, insulin glargine 40 units?subQ?daily in the morning, and insulin lispro 13 units?subQ?TIDAC.??Please continue to monitor blood sugar (last?101 mg/dL), hemoglobin A1c (last 7.4% 05/08/21), signs/symptoms of?low/high blood sugar, nausea/vomiting/diarrhea with metformin, and renal function.?Please consider ordering a hemoglobin A1c now and then every 3 months as clinically appropriate. Last A1c was 7.4% from 05/08/21. Thanks. 5. Glaucoma: latanoprost 0.05% 1?gtt?OU QHS. Please continue to?monitor?for pain and irritation of the?eyes and?increased intraocular pressure.? 6. Gastritis: pantoprazole?20 mg?PO daily.?Please continue to monitor LFT, magnesium (last 2.3 mg/dL on 06/23/22), diarrhea (BEERS for increased risk of C. diff infections) and symptoms of acid reflux.? 7. Hypothyroidism: levothyroxine 50 mcg PO daily.?Please continue to monitor TSH as clinically?appropriate (last 1.45?uIU/mL on 05/08/2021) and signs of hyper/hypothyroidism.?Please consider ordering a TSH now and then annually as clinically appropriate. Last TSH from 05/08/21). Thanks. 8. Allergic rhinitis: fluticasone?propionate 2 sprays in each nostril daily?PRN allergies. Please continue to monitor for S/S of allergies and PRN usage. 9. Sore throat: Cepacol?1 lozenge Q2H MM PRN sore throat.??Please continue to?monitor?for symptoms sore throat as well as PRN usage.?? Assessment/Plan for indications treated with psychotropic medications: None Medical chart and medication regimen reviewed. The following medication irregularities or issues were identified: *1. Metformin XR?500 mg?PO with dinner, insulin glargine 40 units?subQ?daily in the morning, and insulin lispro 13 units?subQ?TIDAC.??Please consider ordering a hemoglobin A1c now and then every 3 months as clinically appropriate. Last A1c was 7.4% from 05/08/21. Thanks. *2. Levothyroxine 50 mcg PO daily. Please consider ordering a TSH now and then annually as clinically appropriate. Last TSH from 05/08/21). Thanks. Date of Note:: 07/02/22
[2022-07-02 11:25] LABS: Bedside Glucose 108 mg/dL (74-106)
[2022-07-02] MEDS: Insulin Lispro 100 UNIT/ML INSULN.PEN 13 UNIT SC ×2 (11:52→17:37)
[2022-07-02 13:27] VITALS: BP 95/48; PULSE 71; RESP 18; TEMP 36.1; O2SAT 95
[2022-07-02 16:50] LABS: Bedside Glucose 161 mg/dL (74-106)
--- NOTE | 2022-07-02 17:04 | CHAPLAIN ---
Type of Pastoral Visit ___ Initial Visit _x__ Follow-up Visit ___ On-call Visit ___ General Patient Visit ___ Spiritual Assessment ___ Family Conference ___ Bereavement ___ Rapid Response ___ Code Blue ___ Other (describe below) Pastoral Care Referral From _x__ Patient ___ Family ___ Nurse ___ Physician ___ Environmental Protection Forester ___ [employer] Solution Architect ___ Other (describe below) Sacrament/Intervention _x__ Active listening ___ Anointing ___ Oriental Orthodox ___ Bereavement ___ Communion _x__ Marcela exploration ___ ___ Life review _x__ Prayer ___ Reconciliation ___ Sacrament of Sick _x__ Supportive presence ___ Wedding ___ Other (describe below) Pastoral Comments patient has been desirous of follow up and spiritual care visits; pt is welcoming and reports some improvement; pt still speaks of strong marcela but with expression of hope that it is all true concerning heaven and seeing family again; pt requests prayer support and the comfort of scriptural promises
[2022-07-02 17:05] LABS: Bedside Glucose 135 mg/dL (74-106)
--- NOTE | 2022-07-02 17:19 | CASEMGMT ---
Social Work See attached assessment for complete details. This social media marketing manager met with patient and patient nieceShanice in room. Introduced self and social media marketing manager role. Patient agreeable to speak with this social media marketing manager and provided verbal permission for this social media marketing manager to speak openly with Shanice present. Patient plans to return to home alone with Shanice to assist. This social media marketing manager provided patient with information on insurance benefits and encouraged patient to reach out to secondary insurance to confirm coverage after 21 days if patient still requires skilled care. Patient completed MOLST form and wishes to be a Full Code. Patient denies concerns on returning to home outside of need to be independent. Active support and listening provided. Social Work to continue to follow. Guillermo ROQUE, ANA
[2022-07-02 17:36] VITALS: BP 106/59
[2022-07-02] MEDS: metFORMIN (XR) 500 MG Tablet PO (17:39)
[2022-07-02] MEDS: Latanoprost 0.005% 1 Bottle 1 DRP OPHTHALMIC (20:42)
[2022-07-02] MEDS: Atorvastatin Calcium 40 MG Tablet PO (20:42)
[2022-07-02] MEDS: Acetaminophen 500 MG Tablet 1000 MG PO (20:57)
[2022-07-02 21:45] LABS: Bedside Glucose 121 mg/dL (74-106)
[2022-07-02 23:01] VITALS: PULSE 66; O2SAT 95
[2022-07-03] MEDS: Menthol/Lanolin/Calamine/Znox 113 GM Tube 1 APPLIC TOPICAL ×2 (05:03→21:26)
[2022-07-03] MEDS: Pantoprazole Sodium 20 MG Tablet PO (05:03)
[2022-07-03] MEDS: APIXABAN 5 MG TABLET 10 MG PO ×2 (05:03→17:35)
[2022-07-03] MEDS: Losartan Potassium 50 MG Tablet PO (05:03)
[2022-07-03] MEDS: Levothyroxine 50 MCG Tablet PO (05:03)
[2022-07-03 05:50] VITALS: BP 109/67; PULSE 76; RESP 16; TEMP 36.7; O2SAT 96
[2022-07-03] MEDS: Amiodarone 200 MG Tablet PO (08:11)
[2022-07-03] MEDS: Carvedilol 12.5 MG Tablet PO ×2 (08:11→17:35)
[2022-07-03 08:13] VITALS: BP 110/76; PULSE 82
[2022-07-03] MEDS: Insulin Lispro 100 UNIT/ML INSULN.PEN 7 UNIT SC (11:50)
[2022-07-03 12:14] LABS: Bedside Glucose 92 mg/dL (74-106)
[2022-07-03 12:14] LABS: Bedside Glucose 253 mg/dL (74-106)
[2022-07-03 13:17] VITALS: BP 107/51; PULSE 68; RESP 18; TEMP 36.4; O2SAT 96
--- NOTE | 2022-07-03 13:28 | WOUNDNOTE ---
Nurse states FERNANDO Reece had been in this am and changed the dressing. will assess wound in am.
--- NOTE | 2022-07-03 16:14 | CASEMGMT ---
Niece aware to bring in copies of advanced directives.
--- NOTE | 2022-07-03 16:52 | CASEMGMT ---
Social Work BIMS () and PHQ-9 (01/29) completed for MDS assessment. Pt reports to not sleeping well and taking Tylenol to help with sleep. NIRANJAN offered speaking with Dr about other options. Pt prefers natural options first. NIRANJAN left written communication for Dr. Eliane Yu, FRONT LOAD TRASH TRUCK DRIVER CD REACTOR OPERATOR HEAD
[2022-07-03 17:05] LABS: Bedside Glucose 126 mg/dL (74-106)
[2022-07-03] MEDS: metFORMIN (XR) 500 MG Tablet PO (17:35)
[2022-07-03 17:37] VITALS: BP 112/66; PULSE 66
[2022-07-03] MEDS: Atorvastatin Calcium 40 MG Tablet PO (21:21)
[2022-07-03] MEDS: Latanoprost 0.005% 1 Bottle 1 DRP OPHTHALMIC (21:21)
[2022-07-03] MEDS: Nystatin Powder 15gm Bottle 1 APPLIC TOPICAL (21:26)
[2022-07-03 21:50] LABS: Bedside Glucose 167 mg/dL (74-106)
[2022-07-04 06:41] LABS: Bedside Glucose 120 mg/dL (74-106)
[2022-07-04] MEDS: Levothyroxine 50 MCG Tablet PO (06:53)
[2022-07-04] MEDS: APIXABAN 5 MG TABLET 10 MG PO ×2 (06:54→18:10)
[2022-07-04] MEDS: Pantoprazole Sodium 20 MG Tablet PO (06:54)
[2022-07-04] MEDS: Losartan Potassium 50 MG Tablet PO (06:55)
[2022-07-04] MEDS: Insulin Glargine-YFGN 100 UNIT/ML Pen 30 UNIT SC (06:55)
[2022-07-04] MEDS: Carvedilol 12.5 MG Tablet PO ×2 (08:13→18:08)
[2022-07-04] MEDS: Amiodarone 200 MG Tablet PO (08:13)
[2022-07-04] MEDS: Insulin Lispro 100 UNIT/ML INSULN.PEN 10 UNIT SC ×3 (08:13→18:07)
[2022-07-04] MEDS: Senna/Docusate Sodium 1 Tablet PO (08:20)
[2022-07-04] MEDS: Nystatin Powder 15gm Bottle 1 APPLIC TOPICAL ×2 (08:25→18:09)
[2022-07-04] MEDS: Menthol/Lanolin/Calamine/Znox 113 GM Tube 1 APPLIC TOPICAL ×2 (08:25→18:08)
--- NOTE | 2022-07-04 08:40 | WOUNDNOTE ---
wound photo: abdomen
--- NOTE | 2022-07-04 08:49 | NURSING ---
Director Of Litigation Note; Activity Asset: Complete
--- NOTE | 2022-07-04 09:42 | CASEMGMT ---
Social Work IDT met with patient and dtr for care plan meeting. Discussed patient's progress in PT/OT/SN. Educated to Medicare benefit. Encouraged to contact secondary insurance to ensure copay coverage. Pts goal is to return home alone. Pt has a flight of steps at home. Pt has wound from SBO. SW to continue to follow for DC planning. Eliane Yu, GUNITE NOZZLE OPERATOR COIN ROLLING MACHINE OPERATOR
[2022-07-04 11:35] LABS: Bedside Glucose 128 mg/dL (74-106)
[2022-07-04 16:00] VITALS: BP 99/60; PULSE 72; RESP 15; TEMP 36.1; O2SAT 98
[2022-07-04 16:45] LABS: Bedside Glucose 102 mg/dL (74-106)
[2022-07-04] MEDS: metFORMIN (XR) 500 MG Tablet PO (18:08)
[2022-07-04 21:41] LABS: Bedside Glucose 154 mg/dL (74-106)
[2022-07-04] MEDS: Latanoprost 0.005% 1 Bottle 1 DRP OPHTHALMIC (22:47)
[2022-07-04] MEDS: Atorvastatin Calcium 40 MG Tablet PO (22:47)
[2022-07-05] MEDS: Menthol/Lanolin/Calamine/Znox 113 GM Tube 1 APPLIC TOPICAL ×2 (06:37→17:47)
[2022-07-05] MEDS: Nystatin Powder 15gm Bottle 1 APPLIC TOPICAL ×2 (06:38→17:47)
[2022-07-05] MEDS: APIXABAN 5 MG TABLET PO ×2 (06:38→17:42)
[2022-07-05] MEDS: Losartan Potassium 50 MG Tablet PO (06:38)
[2022-07-05] MEDS: Levothyroxine 50 MCG Tablet PO (06:39)
[2022-07-05] MEDS: Insulin Glargine-YFGN 100 UNIT/ML Pen 30 UNIT SC (06:39)
[2022-07-05] MEDS: Pantoprazole Sodium 20 MG Tablet PO (06:39)
[2022-07-05 06:45] LABS: Bedside Glucose 96 mg/dL (74-106)
[2022-07-05 06:52] VITALS: BP 115/72; PULSE 82
[2022-07-05] MEDS: Insulin Lispro 100 UNIT/ML INSULN.PEN 10 UNIT SC ×3 (08:28→17:43)
[2022-07-05] MEDS: Amiodarone 200 MG Tablet PO (08:28)
[2022-07-05] MEDS: Carvedilol 12.5 MG Tablet PO ×2 (08:28→17:43)
[2022-07-05 12:46] LABS: Bedside Glucose 131 mg/dL (74-106)
[2022-07-05 14:00] VITALS: BP 97/51; PULSE 68; RESP 16; TEMP 36.3; O2SAT 98
[2022-07-05 14:46] VITALS: BP 97/51; PULSE 67; RESP 14; TEMP 36.4; O2SAT 98
[2022-07-05 17:06] LABS: Bedside Glucose 158 mg/dL (74-106)
[2022-07-05] MEDS: metFORMIN (XR) 500 MG Tablet PO (17:42)
[2022-07-05] MEDS: Atorvastatin Calcium 40 MG Tablet PO (20:24)
[2022-07-05] MEDS: Latanoprost 0.005% 1 Bottle 1 DRP OPHTHALMIC (20:25)
[2022-07-06 01:16] LABS: Bedside Glucose 160 mg/dL (74-106)
[2022-07-06] MEDS: Losartan Potassium 50 MG Tablet PO (06:28)
[2022-07-06] MEDS: Levothyroxine 50 MCG Tablet PO (06:28)
[2022-07-06] MEDS: APIXABAN 5 MG TABLET PO ×2 (06:28→17:28)
[2022-07-06] MEDS: Menthol/Lanolin/Calamine/Znox 113 GM Tube 1 APPLIC TOPICAL ×2 (06:28→17:28)
[2022-07-06] MEDS: Pantoprazole Sodium 20 MG Tablet PO (06:28)
[2022-07-06] MEDS: Insulin Glargine-YFGN 100 UNIT/ML Pen 30 UNIT SC (06:31)
[2022-07-06 06:41] LABS: Bedside Glucose 109 mg/dL (74-106)
[2022-07-06] MEDS: Insulin Lispro 100 UNIT/ML INSULN.PEN 10 UNIT SC ×3 (08:11→17:28)
[2022-07-06] MEDS: Amiodarone 200 MG Tablet PO (08:13)
[2022-07-06] MEDS: Nystatin Powder 15gm Bottle 1 APPLIC TOPICAL ×2 (08:13→17:28)
[2022-07-06] MEDS: Carvedilol 12.5 MG Tablet PO ×2 (08:13→17:28)
[2022-07-06 08:17] VITALS: BP 101/60; PULSE 72
[2022-07-06 11:25] LABS: Bedside Glucose 130 mg/dL (74-106)
[2022-07-06 14:53] VITALS: BP 102/61; PULSE 75; RESP 16; TEMP 36.4; O2SAT 95
[2022-07-06 16:55] LABS: Bedside Glucose 147 mg/dL (74-106)
[2022-07-06] MEDS: metFORMIN (XR) 500 MG Tablet PO (17:28)
[2022-07-06 20:00] VITALS: PULSE 70; RESP 16; O2SAT 94
[2022-07-06] MEDS: Latanoprost 0.005% 1 Bottle 1 DRP OPHTHALMIC (20:24)
[2022-07-06] MEDS: Atorvastatin Calcium 40 MG Tablet PO (20:24)
[2022-07-06 23:45] LABS: Bedside Glucose 131 mg/dL (74-106)
[2022-07-07 06:41] LABS: Bedside Glucose 106 mg/dL (74-106)
[2022-07-07] MEDS: Pantoprazole Sodium 20 MG Tablet PO (06:53)
[2022-07-07] MEDS: APIXABAN 5 MG TABLET PO ×2 (06:53→17:55)
[2022-07-07] MEDS: Levothyroxine 50 MCG Tablet PO (06:53)
[2022-07-07] MEDS: Nystatin Powder 15gm Bottle 1 APPLIC TOPICAL ×2 (06:53→17:56)
[2022-07-07] MEDS: Menthol/Lanolin/Calamine/Znox 113 GM Tube 1 APPLIC TOPICAL ×2 (06:53→17:55)
[2022-07-07] MEDS: Losartan Potassium 50 MG Tablet PO (06:53)
[2022-07-07] MEDS: Insulin Glargine-YFGN 100 UNIT/ML Pen 30 UNIT SC (06:54)
[2022-07-07 08:43] VITALS: BP 106/66; PULSE 69; RESP 16; TEMP 36.7; O2SAT 94
[2022-07-07] MEDS: Amiodarone 200 MG Tablet PO (08:45)
[2022-07-07] MEDS: Carvedilol 12.5 MG Tablet PO ×2 (08:45→17:55)
[2022-07-07] MEDS: Insulin Lispro 100 UNIT/ML INSULN.PEN 10 UNIT SC ×3 (08:45→17:55)
[2022-07-07 11:50] LABS: Bedside Glucose 165 mg/dL (74-106)
[2022-07-07 15:53] VITALS: BP 117/61; PULSE 56; RESP 16; TEMP 36.7; O2SAT 96
[2022-07-07 17:00] LABS: Bedside Glucose 122 mg/dL (74-106)
[2022-07-07] MEDS: metFORMIN (XR) 500 MG Tablet PO (17:55)
[2022-07-07] MEDS: Latanoprost 0.005% 1 Bottle 1 DRP OPHTHALMIC (21:53)
[2022-07-07] MEDS: Atorvastatin Calcium 40 MG Tablet PO (21:53)
[2022-07-07 22:00] LABS: Bedside Glucose 121 mg/dL (74-106)
[2022-07-07] MEDS: Acetaminophen 500 MG Tablet 1000 MG PO (22:23)
[2022-07-08] MEDS: Pantoprazole Sodium 20 MG Tablet PO (06:42)
[2022-07-08] MEDS: APIXABAN 5 MG TABLET PO ×2 (06:44→17:23)
[2022-07-08] MEDS: Levothyroxine 50 MCG Tablet PO (06:44)
[2022-07-08] MEDS: Menthol/Lanolin/Calamine/Znox 113 GM Tube 1 APPLIC TOPICAL ×2 (06:44→17:24)
[2022-07-08] MEDS: Losartan Potassium 50 MG Tablet PO (06:46)
[2022-07-08] MEDS: Nystatin Powder 15gm Bottle 1 APPLIC TOPICAL ×2 (06:49→17:24)
[2022-07-08 06:55] LABS: Bedside Glucose 77 mg/dL (74-106)
[2022-07-08 07:52] LABS: Absolute Lymphocyte Count 0.97 X10^3/uL (0.83-4.51); Absolute Neutrophil Count 4.8 X10^3/uL (2.0-7.7); Basophil# 0.03 X10^3/uL; Basophil% 0.4 % (0-1); Eosinophil# 0.25 X10^3/uL; Eosinophils% 3.6 % (0-5); Hematocrit 28.6 % (37-47); Hemoglobin 8.7 g/dL (12.0-15.0); Lymphocyte # 0.97 X10^3/ul (0.83-4.51); Lymphocyte % 14.1 % (19-41); Mean Corp Hgb Conc 30.4 g/dL (32-36); Mean Corpuscular Hgb 28.3 pg (27.0-32.0); Mean Corpuscular Volume 93.2 fL (81-99); Mean Platelet Vol. 9.7 fl (6.2-12.0); Monocyte# 0.78 X10^3/uL; Monocyte% 11.3 % (0-10); NRBC Flagged by Analyzer 0 % (0-5); Neutrophil # 4.81 X10^3/uL (2.7-7.7); Neutrophil % 69.9 % (47-70); Platelet Count 461 K/mm3 (150-450); RBC Distribution Width CV 13.8 % (11.6-14.6); RBC Distribution Width SD 47.2 fl (35.1-43.9); Red Blood Count 3.07 M/mm3 (4.2-5.4); White Blood Count 6.9 K/mm3 (4.4-11.0)
[2022-07-08 08:13] LABS: Anion Gap 5 (5-15); BUN 14 mg/dL (7-18); BUN/Creat Ratio 18.5 RATIO (10-20); Calcium,Total 8.7 mg/dL (8.5-10.1); Chloride 102 mmol/L (98-107); Creatinine, Serum 0.76 mg/dL (0.55-1.02); EST Glomerular Filtration Rate 77 mL/min (>60); Est Glom Filt Rate - Afr Amer 93 mL/min (>60); Estimated Creatinine Clearance 31.94 ml/min; Glucose 106 mg/dL (74-106); Potassium 4.3 mmol/L (3.5-5.1); Sodium Level 139 mmol/L (136-145)
[2022-07-08] MEDS: Amiodarone 200 MG Tablet PO (09:27)
[2022-07-08] MEDS: Carvedilol 12.5 MG Tablet PO ×2 (09:27→17:24)
[2022-07-08] MEDS: Tuberculin,Purif.prot.deriv. 50 TU/ML Vial 0.1 ML ID (09:48)
[2022-07-08 11:51] LABS: Bedside Glucose 153 mg/dL (74-106)
[2022-07-08] MEDS: Insulin Lispro 100 UNIT/ML INSULN.PEN 10 UNIT SC (13:39)
[2022-07-08 15:56] VITALS: BP 102/61; PULSE 71; RESP 16; TEMP 36.5; O2SAT 97
[2022-07-08] MEDS: metFORMIN (XR) 500 MG Tablet PO (17:23)
[2022-07-08 17:51] LABS: Bedside Glucose 146 mg/dL (74-106)
[2022-07-08 21:40] LABS: Bedside Glucose 156 mg/dL (74-106)
[2022-07-08] MEDS: Acetaminophen 500 MG Tablet 1000 MG PO (23:19)
[2022-07-08] MEDS: Atorvastatin Calcium 40 MG Tablet PO (23:19)
[2022-07-08] MEDS: Latanoprost 0.005% 1 Bottle 1 DRP OPHTHALMIC (23:21)
[2022-07-09] MEDS: Levothyroxine 50 MCG Tablet PO (05:02)
[2022-07-09] MEDS: APIXABAN 5 MG TABLET PO ×2 (05:03→17:52)
[2022-07-09] MEDS: Losartan Potassium 50 MG Tablet PO (05:03)
[2022-07-09] MEDS: Pantoprazole Sodium 20 MG Tablet PO (05:03)
[2022-07-09] MEDS: Nystatin Powder 15gm Bottle 1 APPLIC TOPICAL ×2 (05:04→17:56)
[2022-07-09] MEDS: Menthol/Lanolin/Calamine/Znox 113 GM Tube 1 APPLIC TOPICAL ×2 (05:05→17:52)
[2022-07-09 05:12] VITALS: BP 116/59; PULSE 63
[2022-07-09 06:41] LABS: Bedside Glucose 120 mg/dL (74-106)
[2022-07-09] MEDS: Insulin Glargine-YFGN 100 UNIT/ML Pen 30 UNIT SC (08:22)
[2022-07-09] MEDS: Insulin Lispro 100 UNIT/ML INSULN.PEN 10 UNIT SC ×3 (08:22→17:51)
[2022-07-09] MEDS: Ascorbic Acid 500 MG Tablet PO (08:23)
[2022-07-09] MEDS: Carvedilol 12.5 MG Tablet PO ×2 (08:23→17:52)
[2022-07-09] MEDS: Amiodarone 200 MG Tablet PO (08:23)
[2022-07-09] MEDS: Iron Polysaccharide Complex 150 MG CAPSULE PO (08:23)
[2022-07-09 08:29] VITALS: BP 108/59; PULSE 74
--- NOTE | 2022-07-09 08:52 | NURSING ---
Dr Álvarez to room to see pt.
--- NOTE | 2022-07-09 09:18 | NURSING ---
Veneer Splicer Note; MDS Complete
[2022-07-09 09:51] VITALS: PULSE 74; RESP 18; O2SAT 95
--- NOTE | 2022-07-09 10:55 | WOUNDNOTE ---
wound photo: abdomen
[2022-07-09 11:21] LABS: Bedside Glucose 113 mg/dL (74-106)
[2022-07-09 15:50] VITALS: BP 108/59; PULSE 64; RESP 16; TEMP 36.5; O2SAT 97
[2022-07-09 17:26] LABS: Bedside Glucose 102 mg/dL (74-106)
[2022-07-09 17:26] LABS: Bedside Glucose 60 mg/dL (74-106)
[2022-07-09] MEDS: metFORMIN (XR) 500 MG Tablet PO (17:52)
[2022-07-09 22:06] LABS: Bedside Glucose 64 mg/dL (74-106)
[2022-07-09 22:06] LABS: Bedside Glucose 91 mg/dL (74-106)
[2022-07-09] MEDS: Latanoprost 0.005% 1 Bottle 1 DRP OPHTHALMIC (22:08)
[2022-07-09] MEDS: Atorvastatin Calcium 40 MG Tablet PO (22:08)
[2022-07-09] MEDS: Acetaminophen 500 MG Tablet 1000 MG PO (22:26)
[2022-07-10 05:44] LABS: Hematocrit 28.7 % (37-47); Hemoglobin 8.6 g/dL (12.0-15.0)
[2022-07-10 06:36] LABS: Bedside Glucose 88 mg/dL (74-106)
[2022-07-10] MEDS: Iron Polysaccharide Complex 150 MG CAPSULE PO (06:48)
[2022-07-10] MEDS: Losartan Potassium 50 MG Tablet PO (06:49)
[2022-07-10] MEDS: Levothyroxine 50 MCG Tablet PO (06:49)
[2022-07-10] MEDS: APIXABAN 5 MG TABLET PO ×2 (06:49→18:13)
[2022-07-10] MEDS: Pantoprazole Sodium 20 MG Tablet PO (06:49)
[2022-07-10] MEDS: Menthol/Lanolin/Calamine/Znox 113 GM Tube 1 APPLIC TOPICAL ×2 (06:52→18:16)
[2022-07-10] MEDS: Nystatin Powder 15gm Bottle 1 APPLIC TOPICAL ×2 (06:53→18:15)
[2022-07-10] MEDS: Amiodarone 200 MG Tablet PO (08:20)
[2022-07-10] MEDS: Ascorbic Acid 500 MG Tablet PO (08:20)
[2022-07-10] MEDS: Carvedilol 12.5 MG Tablet PO ×2 (08:21→18:13)
[2022-07-10 12:06] LABS: Bedside Glucose 259 mg/dL (74-106)
--- NOTE | 2022-07-10 14:05 | WOUNDNOTE ---
wound photo: abdomen
[2022-07-10 15:07] VITALS: BP 100/58; PULSE 66; RESP 18; TEMP 36.3; O2SAT 94
--- NOTE | 2022-07-10 15:41 | NURSING ---
WOUND NURSE AND SURGICAL PA HERE AND REMOVED PROXIMAL SUTURE D/T REDNESS, WOUND CULTURES SENT. PT PLACED ON CLEOCIN UNTIL 07/19/22. NEW DRESSING ORDERS WELL.
--- NOTE | 2022-07-10 15:54 | PCM.PN.BLA ---
Progress Note Patient's dressing was changed earlier this afternoon. There was a new erythematous area at the superior aspect of the incision with associated firmness No drainage at the superior aspect is noted. Patient has serous fluid noted to be draining at the inferior aspect of the incision. Physical Exam GI GI Narrative: Abdominal incision- retention sutures intact with erythema noted surrounding the retention sutures. Inferior aspect of the incision was noted to have healthy granulation tissue with seroma fluid noted. Superior aspect of the incision was prepped with Betadine, injected with 1 cc of 1% lidocaine, single Nylon suture was trimmed and removed. Hemostat was used to open up the area bloody seroma fluid was expressed. Culture was obtained. Open wound tunneled down approximately 1 cm. Plain packing was placed in the open wound. Patient tolerated the procedure well. Assessment & Plan Assessment/Plan (1) Wound infection: PLAN: Continue dressing and packing changes twice daily Culture sent. Await results Will start patient on Clindamycin Visit Charges Inpatient E&M: 19188 [facility] Hosp L1 (no charge)
[2022-07-10 17:01] LABS: Bedside Glucose 152 mg/dL (74-106)
[2022-07-10] MEDS: metFORMIN (XR) 500 MG Tablet PO (18:13)
[2022-07-10] MEDS: Clindamycin HCl 150 MG Capsule 300 MG PO (18:13)
[2022-07-10] MEDS: Atorvastatin Calcium 40 MG Tablet PO (21:34)
[2022-07-10] MEDS: Latanoprost 0.005% 1 Bottle 1 DRP OPHTHALMIC (21:34)
[2022-07-10] MEDS: Acetaminophen 500 MG Tablet 1000 MG PO (21:38)
[2022-07-10 22:15] VITALS: PULSE 81; RESP 16; O2SAT 99
[2022-07-10 22:46] LABS: Bedside Glucose 182 mg/dL (74-106)
[2022-07-11 04:56] VITALS: BP 118/70; PULSE 88
[2022-07-11] MEDS: Levothyroxine 50 MCG Tablet PO (04:56)
[2022-07-11] MEDS: Nystatin Powder 15gm Bottle 1 APPLIC TOPICAL ×2 (04:56→17:49)
[2022-07-11] MEDS: Pantoprazole Sodium 20 MG Tablet PO (04:56)
[2022-07-11] MEDS: APIXABAN 5 MG TABLET PO ×2 (04:57→17:47)
[2022-07-11] MEDS: Losartan Potassium 50 MG Tablet PO (04:57)
[2022-07-11] MEDS: Iron Polysaccharide Complex 150 MG CAPSULE PO (04:57)
[2022-07-11] MEDS: Clindamycin HCl 150 MG Capsule 300 MG PO ×3 (04:57→22:05)
[2022-07-11] MEDS: Menthol/Lanolin/Calamine/Znox 113 GM Tube 1 APPLIC TOPICAL ×2 (05:00→17:48)
[2022-07-11 06:40] LABS: Bedside Glucose 136 mg/dL (74-106)
[2022-07-11] MEDS: Carvedilol 12.5 MG Tablet PO ×2 (09:03→17:48)
[2022-07-11] MEDS: Amiodarone 200 MG Tablet PO (09:03)
[2022-07-11] MEDS: Ascorbic Acid 500 MG Tablet PO (09:03)
--- NOTE | 2022-07-11 10:27 | PCM.PN.BLA ---
Progress Note Evaluated patient. Packing removed. Gauze is noted to be saturated with seroma fluid. Erythema at the superior aspect of the incision has decreased in size since yesterday. Plain packing was removed and replaced. Dry gauze was placed at the inferior aspect of the incision and under the last two retention sutures. Dry gauze placed over top of the retention sutures followed by an ABD pad. Cultures are pending. Continue on Clindamycin until cultures have returned. Patient seems to be tolerating the antibiotic well. She denies any abdominal pain or discomfort except with movement. Patient is scheduled to follow-up in our office on 07/[address] Álvarez. At that time, retention sutures will be removed. We will order a CMP to follow-up on elevated liver enzymes the patient had while hospitalized and prealbumin as well. Assessment & Plan Assessment/Plan (1) Small bowel obstruction: PLAN: We will continue to monitor this patient
[2022-07-11 11:26] LABS: Bedside Glucose 172 mg/dL (74-106)
[2022-07-11 11:30] LABS: AST(SGOT) 10 U/L (15-37); Alanine Aminotransfer ALT/SGPT 20 U/L (13-56); Alkaline Phosphatase 112 U/L (45-117); Bilirubin, Direct 0.05 mg/dL (0.00-0.30); Globulin 3.8 g/dL (2.2-4.2); Prealbumin 13.3 mg/dL (20.0-40.0); Protein, Total 5.8 g/dL (6.4-8.2)
[2022-07-11 14:30] VITALS: BP 115/59; PULSE 72; RESP 15; TEMP 36.4; O2SAT 93
[2022-07-11 16:45] LABS: Bedside Glucose 187 mg/dL (74-106)
[2022-07-11] MEDS: metFORMIN (XR) 500 MG Tablet PO (17:48)
[2022-07-11 21:50] LABS: Bedside Glucose 197 mg/dL (74-106)
[2022-07-11] MEDS: Atorvastatin Calcium 40 MG Tablet PO (22:05)
[2022-07-11] MEDS: MELATONIN 10 MG TABLET PO (22:05)
[2022-07-11] MEDS: Latanoprost 0.005% 1 Bottle 1 DRP OPHTHALMIC (22:06)
[2022-07-12 05:50] LABS: Hematocrit 28.6 % (37-47); Hemoglobin 8.6 g/dL (12.0-15.0)
[2022-07-12] MEDS: Iron Polysaccharide Complex 150 MG CAPSULE PO (06:21)
[2022-07-12] MEDS: Losartan Potassium 50 MG Tablet PO (06:21)
[2022-07-12] MEDS: Levothyroxine 50 MCG Tablet PO (06:21)
[2022-07-12] MEDS: APIXABAN 5 MG TABLET PO ×2 (06:21→17:42)
[2022-07-12] MEDS: Pantoprazole Sodium 20 MG Tablet PO (06:21)
[2022-07-12] MEDS: Clindamycin HCl 150 MG Capsule 300 MG PO (06:22)
[2022-07-12] MEDS: Menthol/Lanolin/Calamine/Znox 113 GM Tube 1 APPLIC TOPICAL ×2 (06:25→17:42)
[2022-07-12] MEDS: Nystatin Powder 15gm Bottle 1 APPLIC TOPICAL ×2 (06:25→17:42)
[2022-07-12 06:50] LABS: Bedside Glucose 155 mg/dL (74-106)
--- NOTE | 2022-07-12 08:00 | PCM.PN.BLA ---
Progress Note Evaluated patient this morning. Patient's dressing was changed this morning. There was a smaller amount of serous drainage on the dressing this morning. Packing was pulled and changed. Very small amount of yellowish eschar on the packing from the superior aspect of the incision. Culture has returned as Enterobacter cloacae complex. Patient is currently on Clindamycin. This will be discontinued and changed to Bactrim BID x 5 days. Bactrim does interact with patient's losartan. I spoke with the pharmacist who mentioned the interaction is increase in Potassium level. Patient does have a repeat BMP scheduled for Saturday. Patient will continue with BID dressing changes. Overall the incision has drastically improved over the last 2 days. We will continue to monitor this patient. Visit Charges Inpatient E&M: 22724 [facility] Hosp L1 (No charge)
[2022-07-12 08:55] VITALS: BP 123/57; PULSE 78
[2022-07-12] MEDS: Ascorbic Acid 500 MG Tablet PO (08:57)
[2022-07-12] MEDS: Carvedilol 12.5 MG Tablet PO ×2 (08:57→17:41)
[2022-07-12] MEDS: Amiodarone 200 MG Tablet PO (08:57)
[2022-07-12] MEDS: Smz/Tmp Ds Tablet 1 TABLET PO (08:59)
--- NOTE | 2022-07-12 10:52 | MDS.RN ---
Information for the mds was obtained from review of the clinical record, interview of resident, staff, and direct observation of resident's care.
[2022-07-12 12:41] LABS: Bedside Glucose 177 mg/dL (74-106)
[2022-07-12 15:40] VITALS: BP 96/56; PULSE 57; RESP 20; TEMP 36.4; O2SAT 94
[2022-07-12 17:10] LABS: Bedside Glucose 167 mg/dL (74-106)
[2022-07-12] MEDS: Smz/Tmp Ds Tablet 0.5 TABLET PO (17:40)
[2022-07-12] MEDS: metFORMIN (XR) 500 MG Tablet PO (17:41)
[2022-07-12] MEDS: Latanoprost 0.005% 1 Bottle 1 DRP OPHTHALMIC (22:06)
[2022-07-12] MEDS: Atorvastatin Calcium 40 MG Tablet PO (22:07)
[2022-07-12] MEDS: MELATONIN 10 MG TABLET PO (22:07)
[2022-07-12 22:15] LABS: Bedside Glucose 174 mg/dL (74-106)
[2022-07-12 22:26] VITALS: PULSE 65; RESP 16; O2SAT 94
[2022-07-13] MEDS: Pantoprazole Sodium 20 MG Tablet PO (04:36)
[2022-07-13] MEDS: Iron Polysaccharide Complex 150 MG CAPSULE PO (04:36)
[2022-07-13] MEDS: Losartan Potassium 50 MG Tablet PO (04:36)
[2022-07-13] MEDS: Levothyroxine 50 MCG Tablet PO (04:36)
[2022-07-13] MEDS: Menthol/Lanolin/Calamine/Znox 113 GM Tube 1 APPLIC TOPICAL ×2 (04:36→17:31)
[2022-07-13] MEDS: Nystatin Powder 15gm Bottle 1 APPLIC TOPICAL ×2 (04:37→17:31)
[2022-07-13] MEDS: APIXABAN 5 MG TABLET PO ×2 (04:37→17:29)
[2022-07-13 06:45] LABS: Bedside Glucose 147 mg/dL (74-106)
[2022-07-13 07:57] VITALS: BP 130/73; PULSE 84; RESP 18; TEMP 36.4; O2SAT 94
[2022-07-13] MEDS: Amiodarone 200 MG Tablet PO (08:02)
[2022-07-13] MEDS: Smz/Tmp Ds Tablet 0.5 TABLET PO ×2 (08:03→17:28)
[2022-07-13] MEDS: Carvedilol 12.5 MG Tablet PO ×2 (08:04→17:27)
[2022-07-13] MEDS: Ascorbic Acid 500 MG Tablet PO (08:04)
[2022-07-13 11:35] LABS: Bedside Glucose 206 mg/dL (74-106)
[2022-07-13 14:25] VITALS: BP 100/52; PULSE 68; RESP 14; TEMP 36.6; O2SAT 94
[2022-07-13 17:05] LABS: Bedside Glucose 164 mg/dL (74-106)
[2022-07-13] MEDS: metFORMIN (XR) 500 MG Tablet PO (17:27)
[2022-07-13 21:36] LABS: Bedside Glucose 217 mg/dL (74-106)
[2022-07-13] MEDS: Atorvastatin Calcium 40 MG Tablet PO (21:45)
[2022-07-13] MEDS: MELATONIN 10 MG TABLET PO (21:45)
[2022-07-13] MEDS: Latanoprost 0.005% 1 Bottle 1 DRP OPHTHALMIC (21:46)
--- NOTE | 2022-07-14 05:43 | NURSING ---
Pt noted to voice that she has increased urination throughout the night. Denies dysuria and back pain. Urine smell normal and color yellow/straw. Will communicate to next shift.
[2022-07-14] MEDS: Levothyroxine 50 MCG Tablet PO (05:46)
[2022-07-14] MEDS: Iron Polysaccharide Complex 150 MG CAPSULE PO (05:46)
[2022-07-14] MEDS: Pantoprazole Sodium 20 MG Tablet PO (05:46)
[2022-07-14] MEDS: Losartan Potassium 50 MG Tablet PO (05:46)
[2022-07-14] MEDS: APIXABAN 5 MG TABLET PO ×2 (05:46→16:56)
[2022-07-14] MEDS: Menthol/Lanolin/Calamine/Znox 113 GM Tube 1 APPLIC TOPICAL ×2 (05:49→16:56)
[2022-07-14] MEDS: Nystatin Powder 15gm Bottle 1 APPLIC TOPICAL ×2 (05:49→16:56)
[2022-07-14 05:50] VITALS: BP 112/67; PULSE 64
[2022-07-14 06:40] LABS: Bedside Glucose 156 mg/dL (74-106)
[2022-07-14 08:14] LABS: Hematocrit 30.6 % (37-47); Hemoglobin 9.5 g/dL (12.0-15.0)
[2022-07-14 09:08] VITALS: BP 103/58; PULSE 79
[2022-07-14] MEDS: Smz/Tmp Ds Tablet 0.5 TABLET PO ×2 (09:09→16:56)
[2022-07-14] MEDS: Carvedilol 12.5 MG Tablet PO ×2 (09:09→16:55)
[2022-07-14] MEDS: Ascorbic Acid 500 MG Tablet PO (09:09)
[2022-07-14] MEDS: Amiodarone 200 MG Tablet PO (09:10)
[2022-07-14 10:55] LABS: Bedside Glucose 274 mg/dL (74-106)
[2022-07-14 13:30] VITALS: BP 96/54; PULSE 65; RESP 16; TEMP 36.6; O2SAT 95
[2022-07-14] MEDS: Insulin Lispro 100 UNIT/ML INSULN.PEN SC (13:42)
[2022-07-14 14:22] VITALS: RESP 16
[2022-07-14 16:54] VITALS: BP 104/62; PULSE 70
[2022-07-14 16:55] LABS: Bedside Glucose 139 mg/dL (74-106)
[2022-07-14] MEDS: metFORMIN (XR) 500 MG Tablet PO (16:56)
[2022-07-14] MEDS: Atorvastatin Calcium 40 MG Tablet PO (20:24)
[2022-07-14] MEDS: MELATONIN 10 MG TABLET PO (20:25)
[2022-07-14] MEDS: Latanoprost 0.005% 1 Bottle 1 DRP OPHTHALMIC (20:25)
[2022-07-14 21:50] LABS: Bedside Glucose 220 mg/dL (74-106)
[2022-07-15] MEDS: Menthol/Lanolin/Calamine/Znox 113 GM Tube 1 APPLIC TOPICAL ×2 (04:16→17:56)
[2022-07-15] MEDS: APIXABAN 5 MG TABLET PO ×2 (04:16→17:56)
[2022-07-15] MEDS: Pantoprazole Sodium 20 MG Tablet PO (04:16)
[2022-07-15] MEDS: Levothyroxine 50 MCG Tablet PO (04:16)
[2022-07-15] MEDS: Losartan Potassium 50 MG Tablet PO (04:16)
[2022-07-15] MEDS: Iron Polysaccharide Complex 150 MG CAPSULE PO (04:17)
[2022-07-15] MEDS: Nystatin Powder 15gm Bottle 1 APPLIC TOPICAL ×2 (04:17→17:57)
[2022-07-15 06:46] LABS: Bedside Glucose 145 mg/dL (74-106)
[2022-07-15 06:52] LABS: Basophil# 0.06 X10^3/uL; Basophil% 0.6 % (0-1); Eosinophil# 0.21 X10^3/uL; Eosinophils% 2.3 % (0-5); Hematocrit 32.9 % (37-47); Hemoglobin 10.4 g/dL (12.0-15.0); Lymphocyte % 12.9 % (19-41); Mean Corp Hgb Conc 31.6 g/dL (32-36); Mean Corpuscular Hgb 29.1 pg (27.0-32.0); Mean Corpuscular Volume 92.2 fL (81-99); Mean Platelet Vol. 9.2 fl (6.2-12.0); Monocyte# 0.82 X10^3/uL; Monocyte% 8.8 % (0-10); NRBC Flagged by Analyzer 0 % (0-5); Neutrophil # 6.97 X10^3/uL (2.7-7.7); Platelet Count 445 K/mm3 (150-450); Red Blood Count 3.57 M/mm3 (4.2-5.4); White Blood Count 9.3 K/mm3 (4.4-11.0)
[2022-07-15 07:16] LABS: Anion Gap 3 (5-15); BUN 12 mg/dL (7-18); Calcium,Total 9.4 mg/dL (8.5-10.1); Chloride 102 mmol/L (98-107); Creatinine, Serum 0.92 mg/dL (0.55-1.02); EST Glomerular Filtration Rate 61 mL/min (>60); Est Glom Filt Rate - Afr Amer 74 mL/min (>60); Estimated Creatinine Clearance 34.72 ml/min; Glucose 165 mg/dL (74-106); Potassium 4.5 mmol/L (3.5-5.1); Sodium Level 136 mmol/L (136-145)
[2022-07-15 08:07] VITALS: BP 121/76; PULSE 76; TEMP 36.7; O2SAT 98
[2022-07-15] MEDS: Smz/Tmp Ds Tablet 0.5 TABLET PO ×2 (08:08→17:55)
[2022-07-15] MEDS: Carvedilol 12.5 MG Tablet PO ×2 (08:09→17:56)
[2022-07-15] MEDS: Amiodarone 200 MG Tablet PO (08:09)
[2022-07-15] MEDS: Ascorbic Acid 500 MG Tablet PO (08:09)
[2022-07-15 10:15] VITALS: RESP 16; O2SAT 97
[2022-07-15 11:31] LABS: Bedside Glucose 256 mg/dL (74-106)
[2022-07-15 14:28] VITALS: BP 114/72; PULSE 76; RESP 16; TEMP 36.8; O2SAT 98
[2022-07-15 17:05] LABS: Bedside Glucose 187 mg/dL (74-106)
[2022-07-15] MEDS: metFORMIN (XR) 500 MG Tablet PO (17:56)
[2022-07-15] MEDS: MELATONIN 10 MG TABLET PO (20:57)
[2022-07-15] MEDS: Atorvastatin Calcium 40 MG Tablet PO (20:57)
[2022-07-15] MEDS: Latanoprost 0.005% 1 Bottle 1 DRP OPHTHALMIC (20:57)
[2022-07-15 21:40] LABS: Bedside Glucose 210 mg/dL (74-106)
[2022-07-16] MEDS: Menthol/Lanolin/Calamine/Znox 113 GM Tube 1 APPLIC TOPICAL ×2 (05:04→17:45)
[2022-07-16] MEDS: Nystatin Powder 15gm Bottle 1 APPLIC TOPICAL ×2 (05:05→17:46)
[2022-07-16] MEDS: Pantoprazole Sodium 20 MG Tablet PO (05:05)
[2022-07-16] MEDS: Iron Polysaccharide Complex 150 MG CAPSULE PO (05:05)
[2022-07-16] MEDS: APIXABAN 5 MG TABLET PO ×2 (05:05→17:45)
[2022-07-16] MEDS: Levothyroxine 50 MCG Tablet PO (05:05)
[2022-07-16] MEDS: Losartan Potassium 50 MG Tablet PO (05:05)
[2022-07-16 06:50] LABS: Bedside Glucose 188 mg/dL (74-106)
[2022-07-16] MEDS: Carvedilol 12.5 MG Tablet PO ×2 (08:05→17:45)
[2022-07-16] MEDS: Amiodarone 200 MG Tablet PO (08:06)
[2022-07-16] MEDS: Ascorbic Acid 500 MG Tablet PO (08:06)
[2022-07-16] MEDS: Smz/Tmp Ds Tablet 0.5 TABLET PO ×2 (08:06→17:45)
--- NOTE | 2022-07-16 08:33 | WOUNDNOTE ---
wound photo: abdomen
[2022-07-16 11:11] LABS: Bedside Glucose 236 mg/dL (74-106)
[2022-07-16 14:11] VITALS: BP 119/67; PULSE 76; RESP 18; TEMP 36.6; O2SAT 95
[2022-07-16 16:35] LABS: Bedside Glucose 169 mg/dL (74-106)
[2022-07-16] MEDS: metFORMIN (XR) 500 MG Tablet PO (17:45)
--- NOTE | 2022-07-16 20:42 | NURSING ---
Attempted to change abdominal dressing per order, patient declines stating It has already been changed twice today, the wound nurse did it this morning and the doctor changed it this afternoon and removed some stitches. Dressing observed dry and intact. Patient states leave it until tomorrow. A&Ox3. Call light in reach.
[2022-07-16] MEDS: Acetaminophen 500 MG Tablet 1000 MG PO (20:53)
[2022-07-16] MEDS: Atorvastatin Calcium 40 MG Tablet PO (20:55)
[2022-07-16] MEDS: Latanoprost 0.005% 1 Bottle 1 DRP OPHTHALMIC (20:55)
[2022-07-16] MEDS: MELATONIN 10 MG TABLET PO (20:55)
[2022-07-16 22:15] LABS: Bedside Glucose 233 mg/dL (74-106)
[2022-07-17] MEDS: Pantoprazole Sodium 20 MG Tablet PO (06:13)
[2022-07-17] MEDS: Menthol/Lanolin/Calamine/Znox 113 GM Tube 1 APPLIC TOPICAL ×2 (06:13→17:11)
[2022-07-17] MEDS: Losartan Potassium 50 MG Tablet PO (06:13)
[2022-07-17] MEDS: Iron Polysaccharide Complex 150 MG CAPSULE PO (06:13)
[2022-07-17] MEDS: Levothyroxine 50 MCG Tablet PO (06:13)
[2022-07-17] MEDS: APIXABAN 5 MG TABLET PO ×2 (06:14→17:09)
[2022-07-17] MEDS: Nystatin Powder 15gm Bottle 1 APPLIC TOPICAL ×2 (06:17→17:11)
[2022-07-17 06:40] LABS: Bedside Glucose 205 mg/dL (74-106)
--- NOTE | 2022-07-17 08:23 | WOUNDNOTE ---
wound photo: abdomen
[2022-07-17] MEDS: Smz/Tmp Ds Tablet 0.5 TABLET PO ×2 (09:10→17:09)
[2022-07-17] MEDS: Amiodarone 200 MG Tablet PO (09:10)
[2022-07-17] MEDS: Acetaminophen 500 MG Tablet 1000 MG PO ×3 (09:10→23:35)
[2022-07-17] MEDS: Ascorbic Acid 500 MG Tablet PO (09:10)
[2022-07-17] MEDS: Carvedilol 12.5 MG Tablet PO ×2 (09:10→17:09)
[2022-07-17 09:13] VITALS: BP 106/59; PULSE 79
[2022-07-17 12:06] LABS: Bedside Glucose 223 mg/dL (74-106)
[2022-07-17 16:25] LABS: Bedside Glucose 256 mg/dL (74-106)
[2022-07-17] MEDS: metFORMIN (XR) 500 MG Tablet PO (17:09)
[2022-07-17 17:58] VITALS: BP 94/54; PULSE 70; RESP 18; TEMP 36; O2SAT 94
[2022-07-17] MEDS: MELATONIN 10 MG TABLET PO (20:44)
[2022-07-17] MEDS: Atorvastatin Calcium 40 MG Tablet PO (20:44)
[2022-07-17] MEDS: Latanoprost 0.005% 1 Bottle 1 DRP OPHTHALMIC (20:44)
[2022-07-17 21:30] LABS: Bedside Glucose 202 mg/dL (74-106)
[2022-07-18 05:28] VITALS: BP 106/67; PULSE 58
[2022-07-18] MEDS: Pantoprazole Sodium 20 MG Tablet PO (05:32)
[2022-07-18] MEDS: Nystatin Powder 15gm Bottle 1 APPLIC TOPICAL ×2 (05:32→17:09)
[2022-07-18] MEDS: Losartan Potassium 50 MG Tablet PO (05:32)
[2022-07-18] MEDS: Menthol/Lanolin/Calamine/Znox 113 GM Tube 1 APPLIC TOPICAL ×2 (05:32→17:08)
[2022-07-18] MEDS: Levothyroxine 50 MCG Tablet PO (05:32)
[2022-07-18] MEDS: APIXABAN 5 MG TABLET PO ×2 (05:32→17:05)
[2022-07-18] MEDS: Iron Polysaccharide Complex 150 MG CAPSULE PO (05:32)
[2022-07-18 06:45] LABS: Bedside Glucose 162 mg/dL (74-106)
[2022-07-18 07:19] VITALS: BP 103/57; PULSE 60
[2022-07-18] MEDS: Smz/Tmp Ds Tablet 0.5 TABLET PO ×2 (07:19→17:04)
[2022-07-18] MEDS: Ascorbic Acid 500 MG Tablet PO (07:20)
[2022-07-18] MEDS: Amiodarone 200 MG Tablet PO (07:20)
[2022-07-18] MEDS: Carvedilol 12.5 MG Tablet PO ×2 (07:20→17:05)
[2022-07-18 11:31] LABS: Bedside Glucose 270 mg/dL (74-106)
[2022-07-18] MEDS: Acetaminophen 500 MG Tablet 1000 MG PO ×2 (13:39→20:00)
[2022-07-18 14:53] VITALS: BP 112/65; PULSE 75; RESP 16; TEMP 36.2; O2SAT 94
[2022-07-18 16:20] LABS: Bedside Glucose 163 mg/dL (74-106)
--- NOTE | 2022-07-18 16:48 | CASEMGMT ---
Social Work Spoke with pt about setting DC date as IDT and pt expressed she is ready. Offered DC 07/25. Pt agreeable. Niece confirmed she is able to assist pt with wound dressing changes. SW to coordinate C PT/OT/SN. Pt agreeable. SW provided printed list of skilled C agencies with quality and resource data via [employer]. no DME needs. Niece to transport. Plan: DC home alone 07/25, C PT/OT/SN JUDE ConnorW
[2022-07-18] MEDS: metFORMIN (XR) 500 MG Tablet PO (17:04)
--- NOTE | 2022-07-18 17:11 | NURSING ---
DR. PALMER AWARE OF BLOOD SUGARS. NO N.O. AT THIS TIME. R' DID NOT TAKE INSULIN AT HOME.
--- NOTE | 2022-07-18 18:03 | DS.PCM_ITS ---
Providers Date of Admission: 06/30/22 Primary Care Physician: Dr. Jyoti Mackey MD Consultations 06/30/22 17:09 Consult: Onc/Wound/paper box cutter Routine Comment: Surgical wound Reason For Visit: SMALL BOWEL OBSTRUCTION Diagnosis Discharge Diagnosis (1) Small bowel obstruction: Status: Acute Code(s): K56.609 - Unspecified intestinal obstruction, unspecified as to partial versus complete obstruction Plan 87 year old female with below past medical history hospitalized for small bowel obstruction, underwent exploratory laparotomy with lysis of adhesions 06/18/[address] Álvarez, complicated by TPN requirement, hypotension, acute respiratory failure with hypoxia, bilateral pulmonary embolism, admitted to TCU with debility, here for rehabilitation, strengthening, prior to discharge home alone. * Debility - PT/OT. * Pain - Tylenol 1000mg q6h prn pain (1-10). * Bowel - Miralax 17gm daily prn constipation, senna/colace 1 tablet bid prn constipation, MOM 30ml daily prn. * Adult immunization - Administer pneumonia vaccine, covid19 vaccine, flu vaccine as appropriate. * DVT prophylaxis - Not necessary, on Eliquis. * Atrial fibrillation - Coreg 12.5mg bid, Amiodarone 200mg daily, Eliquis 10mg bid thru , then Eliquis 5mg bid. * CV prophylaxis - Aspirin 81mg every other day to start 09/28/2022. * Hyperlipidemia - Atorvastatin 40mg qhs. * Sore throat - Cepacol 1 lozenge q2h prn. * Hypertension - Coreg 12.5mg bid, Losartan 50mg daily. * Allergic Rhinitis - Flonase nasal spray 2 sprays daily prn. * Diabetes Mellitus II - Metformin XR 500mg dinner, Glargine 40 units am, Humalog 13 units tidac. * Glaucoma - Latanoprost 1gtt ou qhs. * Hypothyroidism - Levothyroxine 50ncg daily. * Gastritis - Pantoprazole 20mg daily. Medications at Discharge Home Medications atorvastatin 40 mg tablet 40 mg PO QHS Cholestrol 09/10/14 levothyroxine 50 mcg tablet 50 mcg PO 0600 hypothyroidism 09/10/14 fluticasone propionate 50 mcg/actuation nasal spray,suspension 2 spray intranasal DAILY PRN PRN Allergic Reaction 09/29/20 metformin 500 mg tablet,extended release 24 hr 500 mg PO QHS Diabetes 05/03/20 latanoprost 0.005 % eye drops 1 drp ophthalmic (eye) QHS glaucoma 05/02/21 losartan 50 mg tablet 50 mg PO DAILY BP 06/30/22 acetaminophen 500 mg tablet 1,000 mg PO Q6H PRN PRN Pain Score 1-10 #0 tabs 07/18/22 amiodarone 200 mg tablet 200 mg PO BREAKFAST 30 days #30 tabs 07/18/22 apixaban 5 mg tablet (Eliquis) 5 mg PO BID 30 days #60 tabs 07/18/22 ascorbic acid (vitamin C) 500 mg tablet 500 mg PO BREAKFAST 30 days #30 tabs 07/18/22 carvedilol 12.5 mg tablet 12.5 mg PO BIDCM 30 days #60 tabs 07/18/22 pantoprazole 20 mg tablet,delayed release 20 mg PO DAILY 30 days #30 tabs 07/18/22 polysaccharide iron complex 150 mg iron capsule (Ferrex) 150 mg PO DAILY 30 days #30 caps 07/18/22 Hospital Course Operations - (exploratory laparotomy.) Procedures None Summary of Care Provided Minutes Spent on Discharge: 35 Hospital Course: 87 year old female with below past medical history hospitalized for small bowel obstruction, underwent exploratory laparotomy with lysis of adhesions 06/18/[address] Álvarez, complicated by TPN requirement, hypotension, acute respiratory failure with hypoxia, bilateral pulmonary embolism, admitted to TCU with debili ty, here for rehabilitation, strengthening, prior to discharge home alone. Discharge home alone 07/25/2022, Home Health Care PT/OT/SN. Physical Exam Const alert General Appearance: cooperative HEENT normocephalic Eyes PERRL and EOMs intact bilaterally Neck supple, no JVD and no carotid bruits Resp normal respiratory effort, normal air movement and clear to auscultation bilaterally Cardio regular rate and regular rhythm GI normal to inspection, nondistended, normoactive bowel sounds, non-tender and non-distended Extremity normal capillary refill General Extremity: Negative for edema Skin no rashes or lesions noted General Skin Exam: no breakdown Psych affect normal Appearance: appropriate Weight / BMI Weight Weight: 83.642 kg Body Mass Index (BMI) 34.4 ABG / Lab / Microbiology Data Result Diagrams: 07/15/22 06:39 07/15/22 06:39 Laboratory: Laboratory Results - last 24 hr 07/17/22 21:13: POC Glucose 202 H 07/18/22 06:20: POC Glucose 162 H 07/18/22 11:10: POC Glucose 270 H 07/18/22 16:00: POC Glucose 163 H Microbiology: Microbiology 07/10/22 14:45 Wound Drainage - Abdominal Gram Stain - Final 07/10/22 14:45 Wound Drainage - Abdominal Wound Culture - Final Enterobacter cloacae complex 07/10/22 14:45 Wound Drainage - Abdominal Anaerobic Culture - Final No anaerobic bacteria isolated. 07/04/22 06:30 Nasal Secretion SARS-CoV-2 Antigen (Rapid) - Final 07/02/22 12:12 Nasal Secretion SARS-CoV-2 Antigen (Rapid) - Final D/C Instructions Discharge Diet: No restrictions Discharge Activity: Return to Normal Activity, May Shower and Use Walker Weight Bearing Status: Weight bearing as tolerated Call your doctor if you observe: Fever of 101 or Higher, Inability to urinate, Inability to have a bowel movement, Shortness of breath, Dizziness, Fainting spells, Swelling in the ankles, Chest pain and Uncontrolled pain Additional Instructions: Discharge home alone 07/25/2022, Home Health Care PT/OT/SN. Please Follow Up With: Rajan Álvarez MD When: 07/26/2022. Meaningful Use Info Meaningful Use Diagnoses (Choose all that apply): None applicable Discharge Plan Admission Admit Date/Time: 06/30/22 15:55 Primary Reason for Your Visit: Debility. Attending Provider: Vikas Huerta Chi Primary Care Provider: Jyoti Mackey Instructions Additional Instructions / Restrictions: Discharge home alone 07/25/2022, Home Health Care PT/OT/SN. Discharge Orders/Prescriptions Prescriptions: New carvedilol 12.5 mg Tablet 12.5 mg PO BIDCM 30 Days Qty: 60 0RF amiodarone 200 mg Tablet 200 mg PO BREAKFAST 30 Days Qty: 30 0RF polysaccharide iron complex [Ferrex 150] 150 mg iron Capsule 150 mg PO DAILY 30 Days Qty: 30 0RF acetaminophen 500 mg Tablet 1,000 mg PO Q6H PRN PRN (Reason: Pain Score 1-10) Qty: 0 0RF pantoprazole 20 mg Tablet,Delayed Release (Dr/Ec) 20 mg PO DAILY 30 Days Qty: 30 0RF ascorbic acid (vitamin C) 500 mg Tablet 500 mg PO BREAKFAST 30 Days Qty: 30 0RF Eliquis 5 mg Tablet 5 mg PO BID 30 Days Qty: 60 0RF Continued metformin 500 mg tablet extended release 24 hr 500 mg PO QHS latanoprost 0.005 % drops 1 drp ophthalmic (eye) QHS levothyroxine 50 MCG tablet 50 mcg PO 0600 Label Comments: thyroid atorvastatin 40 MG tablet 40 mg PO QHS Label Comments: cholesterol fluticasone propionate 50 mcg/actuation spray,suspension 2 spray INTRANASAL DAILY PRN PRN (Reason: Allergic Reaction) Label Comments: nasal dryness losartan 50 mg tablet 50 mg PO DAILY Discontinued aspirin 81 MG tablet,chewable 81 mg PO QODAY Label Comments: for heart, per pt usually takes every other day, last taken about a week ago and can go back on the meds now losartan 50 mg tablet See Rx Instructions .ROUTE .COMPLEX Rx Instructions: TAKE 1 TABLET EVERY DAY levothyroxine 50 mcg Tablet 50 mcg G-tube 0600 Qty: 30 0RF Chloraseptic Sore Throat 6-10 mg Lozenge 1 flip mucous membrane Q2H PRN PRN (Reason: SORE THROAT) Qty: 30 0RF acetaminophen 325 mg Capsule 325 mg PO Q6H PRN (Reason: Pain) Qty: 1 0RF carvedilol 12.5 mg tablet 12.5 mg PO BID amiodarone 200 mg tablet 200 mg PO DAILY omeprazole 20 mg capsule,delayed release(DR/EC) 20 mg PO DAILY polyethylene glycol 3350 [Miralax] 17 gram/dose powder 17 g PO DAILY insulin lispro [Humalog KwikPen Insulin] 100 unit/mL insulin pen See Protocol subcut ACHS Protocol: 5. Sliding Scale Insulin High Dosing Condition: 150-209 mg/dl = 3 units Condition: 210-259 mg/dl = 6 units Condition: 260-324 mg/dl = 9 units Condition: 325-374 mg/dl = 12 units Condition: 375-409 mg/dl = 14 units Condition: 410-449 mg/dl = 16 units Condition: Greater than 449 call physician Protocol Text: - Use for Total Daily Dose of Insulin 81-120 units - Very insulin resistant or septic patients HIGH DOSING ALGORITHM insulin lispro [Humalog KwikPen Insulin] 100 unit/mL insulin pen 15 unit subcut TIDAC Eliquis DVT-PE Treat 30D Start 5 mg (74 tabs) tablets,dose pack 5 mg PO BID Rx Instructions: take eliquis 10mg (2 tablets) twice daily till 07/04/2022, then continue with 5mg (one tablet) twice daily. insulin glargine-yfgn 100 unit/mL (3 mL) insulin pen 15 unit subcut DINNER insulin glargine-yfgn 100 unit/mL (3 mL) insulin pen 40 unit subcut DAILY Referrals / Follow Up: Jyoti Mackey MD [Primary Care Provider] - Disposition Disposition (needs filled in before D/C Order can be placed): Home Health Service
--- NOTE | 2022-07-18 20:00 | NURSING ---
PT. REQUESTS DR. PALMER BE NOTIFIED IN AM FOR STRONGER PRN PAIN MED OPTION DUE TO VOICED INCREASED PAIN DURING AND AFTER THERAPY TO ABDOMINAL SURGICAL WOUND, WRITTEN COMMUNICATION LEFT FOR DR. PALMER PER PATIENT REQUEST.
[2022-07-18] MEDS: Atorvastatin Calcium 40 MG Tablet PO (20:01)
[2022-07-18] MEDS: Latanoprost 0.005% 1 Bottle 1 DRP OPHTHALMIC (20:01)
[2022-07-18] MEDS: MELATONIN 10 MG TABLET PO (20:01)
[2022-07-18 21:55] LABS: Bedside Glucose 200 mg/dL (74-106)
[2022-07-19] MEDS: Losartan Potassium 50 MG Tablet PO (05:49)
[2022-07-19] MEDS: APIXABAN 5 MG TABLET PO ×2 (05:49→17:56)
[2022-07-19] MEDS: Pantoprazole Sodium 20 MG Tablet PO (05:49)
[2022-07-19] MEDS: Iron Polysaccharide Complex 150 MG CAPSULE PO (05:49)
[2022-07-19] MEDS: Menthol/Lanolin/Calamine/Znox 113 GM Tube 1 APPLIC TOPICAL ×2 (05:50→17:56)
[2022-07-19] MEDS: Levothyroxine 50 MCG Tablet PO (05:50)
[2022-07-19] MEDS: Nystatin Powder 15gm Bottle 1 APPLIC TOPICAL ×2 (05:52→21:38)
[2022-07-19 06:18] VITALS: BP 115/69; PULSE 64; RESP 16
[2022-07-19 06:31] LABS: Bedside Glucose 161 mg/dL (74-106)
--- NOTE | 2022-07-19 08:24 | PCM.PN.BLA ---
Progress Note Patient evaluated this morning. Abdominal dressing was changed at bedside. Abdominal incision with retention sutures intact. Posterior aspect of the retention sutures were assessed and notable breakdown of skin was viewed. Silver nitrate was used throughout the incision to treat small granulomas. At the most superior retention suture silver nitrate was used to treat a small granuloma, 2 x 2 gauze was placed under all retention sutures as to take some pressure off of the skin to avoid further breakdown. I also used silver nitrate in 3 additional areas, 1 completed in the middle of the incision and other 2 areas at the inferior aspect of the incision. There may be a notable grayish drainage on the gauze dressing when changed the next time. Plain packing was placed in the superior opening. Inferior opening a 2x2 gauze was applied. Two 4 x 4 gauze dressings were placed over top of the entire incision followed by an ABD pad. Medipore tape was used to secure the dressing. Patient tolerated the dressing change well. Erythema noted at the ends of the retention sutures however this has been present. No new erythema or infection noted. Small amount of drainage noted from the superior and inferior openings which is serosanguineous. Patient is on day #7 of Bactrim. After today's dose of Bactrim (07/19), this may be discontinued (07/20). Patient notes she is scheduled to be discharged next Saturday with a follow-up appointment in our office on 07/26. Visit Charges Inpatient E&M: 07943 [facility] Hosp L1 (No charge; post-op)
[2022-07-19 08:27] VITALS: BP 117/69; PULSE 76
[2022-07-19] MEDS: Amiodarone 200 MG Tablet PO (08:28)
[2022-07-19] MEDS: Smz/Tmp Ds Tablet 0.5 TABLET PO ×2 (08:28→17:55)
[2022-07-19] MEDS: Carvedilol 12.5 MG Tablet PO ×2 (08:28→17:55)
[2022-07-19] MEDS: Ascorbic Acid 500 MG Tablet PO (08:28)
[2022-07-19 11:25] LABS: Bedside Glucose 214 mg/dL (74-106)
[2022-07-19 15:11] VITALS: BP 103/60; PULSE 72; RESP 16; TEMP 36.6; O2SAT 93
[2022-07-19 16:26] LABS: Bedside Glucose 202 mg/dL (74-106)
[2022-07-19 17:54] VITALS: BP 128/80; PULSE 81
[2022-07-19] MEDS: metFORMIN (XR) 500 MG Tablet PO (17:56)
[2022-07-19 21:26] LABS: Bedside Glucose 247 mg/dL (74-106)
[2022-07-19] MEDS: Latanoprost 0.005% 1 Bottle 1 DRP OPHTHALMIC (21:27)
[2022-07-19] MEDS: Atorvastatin Calcium 40 MG Tablet PO (21:32)
[2022-07-19] MEDS: MELATONIN 10 MG TABLET PO (21:32)
[2022-07-19 22:00] VITALS: PULSE 68; RESP 16; O2SAT 93
--- NOTE | 2022-07-19 23:23 | NURSING ---
Dressing changed to abdominal incision. Patient tolerated well. Patient states niece to be in tomorrow to begin to learn dressing change prior to patient's discharge.
[2022-07-20] MEDS: Iron Polysaccharide Complex 150 MG CAPSULE PO (05:39)
[2022-07-20] MEDS: Pantoprazole Sodium 20 MG Tablet PO (05:39)
[2022-07-20] MEDS: Losartan Potassium 50 MG Tablet PO (05:39)
[2022-07-20] MEDS: Levothyroxine 50 MCG Tablet PO (05:39)
[2022-07-20] MEDS: APIXABAN 5 MG TABLET PO ×2 (05:39→18:08)
[2022-07-20] MEDS: Menthol/Lanolin/Calamine/Znox 113 GM Tube 1 APPLIC TOPICAL ×2 (05:42→18:09)
[2022-07-20] MEDS: Nystatin Powder 15gm Bottle 1 APPLIC TOPICAL ×2 (05:43→18:09)
[2022-07-20 06:50] LABS: Bedside Glucose 164 mg/dL (74-106)
[2022-07-20 07:54] VITALS: BP 115/68; PULSE 77
[2022-07-20] MEDS: Carvedilol 12.5 MG Tablet PO ×2 (07:55→18:09)
[2022-07-20] MEDS: Amiodarone 200 MG Tablet PO (07:55)
[2022-07-20] MEDS: Ascorbic Acid 500 MG Tablet PO (07:56)
[2022-07-20 11:05] LABS: Bedside Glucose 234 mg/dL (74-106)
--- NOTE | 2022-07-20 11:20 | WOUNDNOTE ---
wound care teaching completed with patient's niece Maribeth. Maribeth denies questions and states she feels she can change the dressings at home.
[2022-07-20 13:50] VITALS: BP 114/60; PULSE 75; RESP 16; TEMP 36.3; O2SAT 96
[2022-07-20 14:00] VITALS: PULSE 75; RESP 16; O2SAT 96
--- NOTE | 2022-07-20 15:00 | CHAPLAIN ---
Type of Pastoral Visit ___ Initial Visit _x__ Follow-up Visit ___ On-call Visit ___ General Patient Visit ___ Spiritual Assessment ___ Family Conference ___ Bereavement ___ Rapid Response ___ Code Blue ___ Other (describe below) Pastoral Care Referral From _x__ Patient ___ Family ___ Nurse ___ Physician ___ Threading Machine Setter ___ Sugar Refinery Supervisor ___ Other (describe below) Sacrament/Intervention _x__ Active listening ___ Anointing ___ Jewish ___ Bereavement ___ Communion ___ Marcela exploration ___ ___ Life review _x__ Prayer ___ Reconciliation ___ Sacrament of Sick _x__ Supportive presence ___ Wedding ___ Other (describe below) Pastoral Comments patient is talkative, smiles often, and appears with more energy; pt is interested in talking about the life of this phlebotomist lab assistant and so gives 'other focused' healthy responses; pt is looking forward to going home next week; pt asks for prayer; pt asks for a final visit before she is dishcharged
[2022-07-20 16:52] LABS: Bedside Glucose 221 mg/dL (74-106)
[2022-07-20 18:07] VITALS: BP 118/66; PULSE 79
[2022-07-20] MEDS: metFORMIN (XR) 500 MG Tablet PO (18:08)
[2022-07-20 18:14] VITALS: BP 118/66; PULSE 79
[2022-07-20 21:36] LABS: Bedside Glucose 254 mg/dL (74-106)
[2022-07-20] MEDS: MELATONIN 10 MG TABLET PO (22:24)
[2022-07-20] MEDS: Atorvastatin Calcium 40 MG Tablet PO (22:24)
[2022-07-20] MEDS: Latanoprost 0.005% 1 Bottle 1 DRP OPHTHALMIC (22:25)
[2022-07-20] MEDS: Acetaminophen 500 MG Tablet 1000 MG PO (22:28)
[2022-07-21] MEDS: Iron Polysaccharide Complex 150 MG CAPSULE PO (06:20)
[2022-07-21] MEDS: APIXABAN 5 MG TABLET PO ×2 (06:20→17:05)
[2022-07-21] MEDS: Pantoprazole Sodium 20 MG Tablet PO (06:20)
[2022-07-21] MEDS: Losartan Potassium 50 MG Tablet PO (06:20)
[2022-07-21] MEDS: Nystatin Powder 15gm Bottle 1 APPLIC TOPICAL ×2 (06:20→17:05)
[2022-07-21] MEDS: Levothyroxine 50 MCG Tablet PO (06:20)
[2022-07-21] MEDS: Menthol/Lanolin/Calamine/Znox 113 GM Tube 1 APPLIC TOPICAL ×2 (06:20→17:05)
[2022-07-21 06:55] LABS: Bedside Glucose 167 mg/dL (74-106)
[2022-07-21] MEDS: Amiodarone 200 MG Tablet PO (07:57)
[2022-07-21] MEDS: Ascorbic Acid 500 MG Tablet PO (07:57)
[2022-07-21] MEDS: Carvedilol 12.5 MG Tablet PO ×2 (07:57→17:05)
[2022-07-21 08:00] VITALS: BP 105/64; PULSE 69
--- NOTE | 2022-07-21 11:39 | NURSING ---
dressing changed per orders.
[2022-07-21] MEDS: Acetaminophen 500 MG Tablet 1000 MG PO (15:29)
[2022-07-21 16:00] VITALS: BP 121/67; PULSE 75; RESP 16; TEMP 36.5; O2SAT 95
[2022-07-21] MEDS: metFORMIN (XR) 500 MG Tablet PO (17:05)
[2022-07-21 20:00] VITALS: RESP 14
[2022-07-21] MEDS: MELATONIN 10 MG TABLET PO (22:54)
[2022-07-21] MEDS: Atorvastatin Calcium 40 MG Tablet PO (22:54)
[2022-07-21] MEDS: Latanoprost 0.005% 1 Bottle 1 DRP OPHTHALMIC (22:54)
[2022-07-22] MEDS: Menthol/Lanolin/Calamine/Znox 113 GM Tube 1 APPLIC TOPICAL ×2 (05:28→17:29)
[2022-07-22] MEDS: Nystatin Powder 15gm Bottle 1 APPLIC TOPICAL ×2 (05:28→17:29)
[2022-07-22] MEDS: Losartan Potassium 50 MG Tablet PO (05:29)
[2022-07-22] MEDS: Iron Polysaccharide Complex 150 MG CAPSULE PO (05:29)
[2022-07-22] MEDS: APIXABAN 5 MG TABLET PO ×2 (05:29→17:27)
[2022-07-22] MEDS: Pantoprazole Sodium 20 MG Tablet PO (05:29)
[2022-07-22] MEDS: Levothyroxine 50 MCG Tablet PO (05:30)
[2022-07-22 05:36] VITALS: BP 107/65; PULSE 74; RESP 16
[2022-07-22 06:40] LABS: Bedside Glucose 190 mg/dL (74-106)
[2022-07-22 06:41] LABS: Absolute Lymphocyte Count 1.35 X10^3/uL (0.83-4.51); Absolute Neutrophil Count 5.9 X10^3/uL (2.0-7.7); Basophil# 0.04 X10^3/uL; Basophil% 0.5 % (0-1); Eosinophil# 0.14 X10^3/uL; Eosinophils% 1.7 % (0-5); Hematocrit 30.4 % (37-47); Hemoglobin 9.2 g/dL (12.0-15.0); Lymphocyte # 1.35 X10^3/ul (0.83-4.51); Lymphocyte % 16.2 % (19-41); Mean Corp Hgb Conc 30.3 g/dL (32-36); Mean Corpuscular Hgb 27.7 pg (27.0-32.0); Mean Corpuscular Volume 91.6 fL (81-99); Mean Platelet Vol. 9.3 fl (6.2-12.0); Monocyte# 0.81 X10^3/uL; Monocyte% 9.7 % (0-10); NRBC Flagged by Analyzer 0 % (0-5); Neutrophil # 5.92 X10^3/uL (2.7-7.7); Neutrophil % 71.2 % (47-70); Platelet Count 335 K/mm3 (150-450); RBC Distribution Width CV 14.4 % (11.6-14.6); RBC Distribution Width SD 48.1 fl (35.1-43.9); Red Blood Count 3.32 M/mm3 (4.2-5.4); White Blood Count 8.3 K/mm3 (4.4-11.0)
[2022-07-22 07:08] LABS: Anion Gap 6 (5-15); BUN 16 mg/dL (7-18); BUN/Creat Ratio 19.8 RATIO (10-20); Chloride 104 mmol/L (98-107); Creatinine, Serum 0.81 mg/dL (0.55-1.02); EST Glomerular Filtration Rate 71 mL/min (>60); Est Glom Filt Rate - Afr Amer 86 mL/min (>60); Estimated Creatinine Clearance 39.43 ml/min; Glucose 201 mg/dL (74-106); Potassium 4.1 mmol/L (3.5-5.1); Sodium Level 139 mmol/L (136-145)
[2022-07-22] MEDS: Ascorbic Acid 500 MG Tablet PO (08:41)
[2022-07-22] MEDS: Amiodarone 200 MG Tablet PO (08:41)
[2022-07-22] MEDS: Carvedilol 12.5 MG Tablet PO ×2 (08:42→17:27)
[2022-07-22 11:02] VITALS: RESP 16; O2SAT 95
[2022-07-22 13:38] VITALS: BP 102/61; PULSE 73; RESP 14; TEMP 36.4; O2SAT 94
[2022-07-22 16:00] VITALS: BP 106/65; PULSE 73; RESP 20; TEMP 36.3
[2022-07-22] MEDS: metFORMIN (XR) 500 MG Tablet PO (17:27)
[2022-07-22] MEDS: Latanoprost 0.005% 1 Bottle 1 DRP OPHTHALMIC (23:08)
[2022-07-22] MEDS: MELATONIN 10 MG TABLET PO (23:09)
[2022-07-22] MEDS: Atorvastatin Calcium 40 MG Tablet PO (23:09)
[2022-07-23 05:15] VITALS: BP 110/69; PULSE 80
[2022-07-23] MEDS: APIXABAN 5 MG TABLET PO ×2 (05:18→17:21)
[2022-07-23] MEDS: Pantoprazole Sodium 20 MG Tablet PO (05:18)
[2022-07-23] MEDS: Iron Polysaccharide Complex 150 MG CAPSULE PO (05:18)
[2022-07-23] MEDS: Levothyroxine 50 MCG Tablet PO (05:18)
[2022-07-23] MEDS: Losartan Potassium 50 MG Tablet PO (05:18)
[2022-07-23] MEDS: Nystatin Powder 15gm Bottle 1 APPLIC TOPICAL ×2 (05:23→17:23)
[2022-07-23] MEDS: Menthol/Lanolin/Calamine/Znox 113 GM Tube 1 APPLIC TOPICAL ×2 (05:23→17:24)
[2022-07-23 06:30] LABS: Bedside Glucose 170 mg/dL (74-106)
[2022-07-23 08:01] VITALS: BP 111/70; PULSE 81
[2022-07-23] MEDS: Ascorbic Acid 500 MG Tablet PO (08:02)
[2022-07-23] MEDS: Amiodarone 200 MG Tablet PO (08:02)
[2022-07-23] MEDS: Carvedilol 12.5 MG Tablet PO ×2 (08:02→17:20)
--- NOTE | 2022-07-23 11:56 | WOUNDNOTE ---
wound photo: abdomen
--- NOTE | 2022-07-23 12:05 | CASEMGMT ---
Social Work Followed up with pt on HHC preference. Pt prefers [facility], [facility], and [facility]. Phoned referral to [facility] for PT/OT/SN. Pt requesting SOC for 07/31 d/t the holidays. Eliane Yu, TILE TRIMMER SURVIVAL EQUIPMENT REPAIRER
[2022-07-23 14:52] VITALS: BP 96/57; PULSE 72; RESP 18; TEMP 36.7; O2SAT 95
[2022-07-23] MEDS: Acetaminophen 500 MG Tablet 1000 MG PO (17:20)
[2022-07-23] MEDS: metFORMIN (XR) 500 MG Tablet PO (17:20)
[2022-07-23] MEDS: Latanoprost 0.005% 1 Bottle 1 DRP OPHTHALMIC (23:34)
[2022-07-23] MEDS: MELATONIN 10 MG TABLET PO (23:34)
[2022-07-23] MEDS: Atorvastatin Calcium 40 MG Tablet PO (23:34)
[2022-07-23 23:45] VITALS: PULSE 72; RESP 16; O2SAT 94
[2022-07-24] MEDS: APIXABAN 5 MG TABLET PO ×2 (04:51→17:31)
[2022-07-24] MEDS: Nystatin Powder 15gm Bottle 1 APPLIC TOPICAL ×2 (04:51→17:31)
[2022-07-24] MEDS: Losartan Potassium 50 MG Tablet PO (04:51)
[2022-07-24] MEDS: Levothyroxine 50 MCG Tablet PO (04:51)
[2022-07-24] MEDS: Iron Polysaccharide Complex 150 MG CAPSULE PO (04:51)
[2022-07-24] MEDS: Pantoprazole Sodium 20 MG Tablet PO (04:51)
[2022-07-24] MEDS: Menthol/Lanolin/Calamine/Znox 113 GM Tube 1 APPLIC TOPICAL ×2 (04:56→17:32)
[2022-07-24 06:31] LABS: Bedside Glucose 173 mg/dL (74-106)
[2022-07-24] MEDS: Ascorbic Acid 500 MG Tablet PO (08:01)
[2022-07-24] MEDS: Carvedilol 12.5 MG Tablet PO ×2 (08:01→17:31)
[2022-07-24] MEDS: Amiodarone 200 MG Tablet PO (08:01)
--- NOTE | 2022-07-24 10:47 | WOUNDNOTE ---
The retention sutures were removed per FERNANDO Reece. pt tolerated well. the superior incision still with small amount of packing. overall the incision is much improved. pt tolerated dressing change well.
[2022-07-24 11:41] VITALS: O2SAT 96
[2022-07-24 14:40] VITALS: BP 102/62; PULSE 75; RESP 19; TEMP 37
--- NOTE | 2022-07-24 16:12 | PCM.PN.BLA ---
Progress Note Patient evaluated this morning resting comfortably in bed. Incision was prepped with Betadine. Remaining retention sutures were completely removed. Area was cleansed with normal saline. Plain packing was placed in the superior open wound. Minimal amount of serous drainage noted from the inferior part of the incision. No open wound noted. Two 4x4 dry gauze was applied over top of the incision followed by an ABD pad and Medipore/paper tape. Patient tolerated the retention removal of the sutures well and dressing change well. We will cancel the patient's follow-up appointment with our office on . We will continue to follow-up with this patient.
[2022-07-24] MEDS: metFORMIN (XR) 500 MG Tablet PO (17:31)
[2022-07-24 18:10] VITALS: BP 106/64; PULSE 72; RESP 18; TEMP 36.6; O2SAT 99
[2022-07-24] MEDS: MELATONIN 10 MG TABLET PO (22:10)
[2022-07-24] MEDS: Latanoprost 0.005% 1 Bottle 1 DRP OPHTHALMIC (22:10)
[2022-07-24] MEDS: Atorvastatin Calcium 40 MG Tablet PO (22:10)
[2022-07-25] MEDS: Levothyroxine 50 MCG Tablet PO (06:14)
[2022-07-25] MEDS: Pantoprazole Sodium 20 MG Tablet PO (06:14)
[2022-07-25] MEDS: Losartan Potassium 50 MG Tablet PO (06:14)
[2022-07-25] MEDS: Menthol/Lanolin/Calamine/Znox 113 GM Tube 1 APPLIC TOPICAL (06:14)
[2022-07-25] MEDS: Iron Polysaccharide Complex 150 MG CAPSULE PO (06:14)
[2022-07-25] MEDS: Nystatin Powder 15gm Bottle 1 APPLIC TOPICAL (06:14)
[2022-07-25] MEDS: APIXABAN 5 MG TABLET PO (06:15)
[2022-07-25 06:27] VITALS: BP 105/65; PULSE 74; RESP 16
[2022-07-25 06:35] LABS: Bedside Glucose 174 mg/dL (74-106)
[2022-07-25] MEDS: Carvedilol 12.5 MG Tablet PO (08:07)
[2022-07-25] MEDS: Amiodarone 200 MG Tablet PO (08:07)
[2022-07-25] MEDS: Ascorbic Acid 500 MG Tablet PO (08:07)
[2022-07-25 09:48] VITALS: PULSE 72; RESP 18; O2SAT 99
--- NOTE | 2022-07-25 14:22 | CASEMGMT ---
Social Work BIMS and PHQ-9 completed for MDS assessment. Eliane Yu, TESTING TECH ENVIRONMENTAL PROGRAMS MANAGER
== END 2022-07-25 10:40 | disposition home health service (06) | DRG 949 ==
PROVIDERS: Physician Assistant; Admitting Provider Family Medicine Geriatric Medicine; PCP Family Medicine; Visit Provider Family Medicine Geriatric Medicine
DX: Z48.815 Encounter for surgical aftercare following surgery on the digestive system (principal); I26.99 Other pulmonary embolism without acute cor pulmonale; K56.50 Intestinal adhesions [bands], unspecified as to partial versus complete obstruction; K91.872 Postprocedural seroma of a digestive system organ or structure following a digestive system procedure; E11.39 Type 2 diabetes mellitus with other diabetic ophthalmic complication; E03.9 Hypothyroidism, unspecified; B96.89 Other specified bacterial agents as the cause of diseases classified elsewhere; Z79.4 Long term (current) use of insulin; I48.0 Paroxysmal atrial fibrillation; I10 Essential (primary) hypertension; E78.00 Pure hypercholesterolemia, unspecified; Z79.82 Long term (current) use of aspirin; H40.9 Unspecified glaucoma; Z79.899 Other long term (current) drug therapy; Z79.01 Long term (current) use of anticoagulants; Z79.84 Long term (current) use of oral hypoglycemic drugs; Z79.890 Hormone replacement therapy; Y83.6 Removal of other organ (partial) (total) as the cause of abnormal reaction of the patient, or of later complication, without mention of misadventure at the time of the procedure
CPT/HCPCS: 36415; 80048; 80076; 82962; 84134; 85014; 85018; 85025; 87070; 87075; 87077; 87186; 87205; 87426; 87811; 97110; 97116; 97162; 97165; 97530; 97535; 97802

== ENCOUNTER → 2022-08-02 | Outpatient (CLI) | payer MEDICARE, OTHER, SELFPAY | END | disposition home or self-care (01) | LOC: LABSPEC 13:08 | PROVIDERS: PCP Family Medicine; Visit Provider Physician Assistant | DX: T14.8XXA Other injury of unspecified body region, initial encounter (principal); L08.9 Local infection of the skin and subcutaneous tissue, unspecified | CPT/HCPCS: 87070; 87075; 87077; 87186; 87205 ==

== ENCOUNTER → 2022-08-10 | Outpatient (CLI) | payer MEDICARE, OTHER, SELFPAY ==
[2022-08-10 12:26] LABS: Potassium 3.7 mmol/L (3.5-5.1)
[2022-08-10 12:31] LABS: International Normalized Ratio 1.6; Prothrombin Time (Protime)PT. 18.3 SECONDS (11.7-14.9)
== END | disposition home or self-care (01) ==
LOC: MFPLAB 10:09
PROVIDERS: PCP Family Medicine; Visit Provider Family Medicine
DX: I49.8 Other specified cardiac arrhythmias (principal)
CPT/HCPCS: 36415; 84132; 85610

== ENCOUNTER 2022-08-19 10:53 | Emergency (ER) | payer MEDICARE, OTHER, SELFPAY ==
[2022-08-19 10:54] VITALS: BP 160/87; PULSE 74; RESP 18; TEMP 35.9; O2SAT 94; BMI 34.7
--- NOTE | 2022-08-19 11:04 | RAD_ITS ---
STUDY: X-RAY - LEFT ANKLE REASON FOR EXAM: Female, 87 years old. Injury/Pain TECHNIQUE: 4 view(s) of the ankle. COMPARISON: None. FINDINGS: There is demineralization of osseous structures. Normal visualized distal tibia and fibula. Normal medial and lateral malleoli. Normal tibiotalar articulation and ankle mortise. Normal visualized talus and calcaneus. The visualized subtalar, talonavicular, calcaneocuboid and tarsal articulations are normal. Diffuse interstitial edema. RAD/Ankle min 3 Views IMPRESSION: There is no acute displaced fracture or dislocation. There is soft tissue swelling. There is demineralization of osseous structures. Electronically Signed: Carmen Ledbetter MD at 11:45 EST Reading Location ID and State: , Service support ,
--- NOTE | 2022-08-19 11:11 | EDS_ITS ---
HPI History of Present Illness Chief Complaint: Lower Extremity Injury Detail of Chief Complaint: Left ankle pain status post fall. Informant: patient and family Occured/Mechanism Mechanism/Context: Yes injury and Yes same level fall Comment: Patient is an 87-year-old woman with diabetic neuropathy and foot drop who fell yesterday. She landed on her knee and twisted her ankle. She presents because of pain left ankle laterally. She also reports increased swelling of her ankles. Onset/Context/Timing Context: Sudden Onset Timing: Continuous Quality of Pain: Aching Location: Left ankle, lateral Current Severity: Mild Maximum Severity: Severe Worsened by: Bearing weight Relieved by: Elevation Associated Symptoms Associated Symptoms: Positive for Loss of Funtion; Negative for Parasthesia or Weakness Narrative Narrative: Patient is an 87-year-old woman with history of diabetes, hypertension, hyperlipidemia, history of endometrial and breast cancer who presents with injury to her left ankle due to mechanical fall. She denied head trauma. She denied neck pain. She denies paresthesia, anesthesia or motor weakness upper lower extremity from baseline. She denies black or maroon-colored stool. She denies orthostatic symptoms. She denied cardiac or respiratory symptoms. Prior similar symptoms: No Recent Illness/Hospitalization: No PFSH PFSH Medical History Ambulates with cane Anxiety Breast CA Cancer Cardiology follow-up encounter DCIS (ductal carcinoma in situ) Diabetes Endometrial cancer Essential (primary) hypertension Generalized osteoarthritis Hemorrhoid High cholesterol History of breast cancer History of diverticulitis History of echocardiogram History of GI bleed History of stress test Hx of fracture of humerus Hyperlipidemia Hypertriglyceridemia Hypothyroidism (acquired) Infection of total knee replacement Loss of hearing Non-smoker Obesity Osteoarthritis Paroxysmal atrial fibrillation Paroxysmal atrial tachycardia Post-menopausal Premature atrial contractions Sleep apnea Thyroid disease Transient atrial fibrillation or flutter Type 2 diabetes mellitus Wears glasses Wears hearing aid Wound infection Home Medications atorvastatin 40 mg tablet 40 mg PO QHS Cholestrol 09/10/14 [History Last Taken 09/09/14] levothyroxine 50 mcg tablet 50 mcg PO 0600 hypothyroidism 09/10/14 [History Last Taken 06/10/22] fluticasone propionate 50 mcg/actuation nasal spray,suspension 2 spray intranasal DAILY PRN PRN Allergic Reaction 05/03/20 [History Last Taken 08/16/21] metformin 500 mg tablet,extended release 24 hr 500 mg PO QHS Diabetes 05/03/20 [History Last Taken 06/10/22] latanoprost 0.005 % eye drops 1 drp ophthalmic (eye) QHS glaucoma 05/02/21 [History Last Taken 06/10/22] losartan 50 mg tablet 50 mg PO DAILY BP 06/30/22 [History Last Taken Unknown] ascorbic acid (vitamin C) 500 mg tablet 500 mg PO BREAKFAST 30 days #30 tabs 07/18/22 [Rx Last Taken Unknown] pantoprazole 20 mg tablet,delayed release 20 mg PO DAILY 30 days #30 tabs 07/18/22 [Rx Last Taken Unknown] polysaccharide iron complex 150 mg iron capsule (Ferrex) 150 mg PO DAILY 30 days #30 caps 07/18/22 [Rx Last Taken Unknown] levofloxacin 500 mg tablet 500 mg PO DAILY #14 tabs 08/07/22 [Rx Last Taken Unknown] furosemide 20 mg tablet 20 mg PO 08/09/22 [History Last Taken Unknown] warfarin 5 mg tablet 5 mg PO 08/09/22 [History Last Taken Unknown] amiodarone 200 mg tablet 200 mg PO BREAKFAST #90 tabs 08/16/22 [Rx Last Taken Unknown] carvedilol 12.5 mg tablet 12.5 mg PO BIDCM #180 tabs 08/16/22 [Rx Last Taken Unknown] hydrocodone-acetaminophen 5-325mg 5mg-325mg 1 tab PO Q6H PRN PRN Pain 3 days #10 TABLETS 08/19/22 [Rx Last Taken Unknown] ondansetron 4 mg disintegrating tablet 4 mg PO Q8H PRN PRN Nausea #10 tabs 08/19/22 [Rx Last Taken Unknown] Allergy/AdvReac Type Severity Reaction Status Date / Time Penicillins Allergy Severe Chest Verified 08/19/22 10:56 tightness rofecoxib AdvReac Severe Itching Verified 08/19/22 10:56 adhesive tape [tape] AdvReac Mild Itching Verified 08/19/22 10:56 codeine AdvReac Mild Nausea/Vomi Verified 08/19/22 10:56 ting hydrocodone [Hydrocodone] AdvReac Mild Nausea/Vomi Verified 08/19/22 10:56 ting morphine AdvReac Mild Nausea/Vomi Verified 08/19/22 10:56 ting oxycodone [Oxycodone] AdvReac Mild Nausea Verified 08/19/22 10:56 aspartame AdvReac Diarrhea Verified 08/19/22 10:56 Family History Mother Hypertension Heart disease CVA (cerebral vascular accident) Parkinsons disease Father CVA (cerebral vascular accident) Parkinsons disease Other COPD (chronic obstructive pulmonary disease) Diabetes Surgical History H/O total hysterectomy History of exploratory laparotomy History of incisional hernia repair History of knee replacement History of lumpectomy of left breast History of right hip replacement Social History household members: none Smoking Status: Never smoker second hand exposure: No alcohol intake: never details: occasional substance use type: does not use ROS ROS ED Constitutional Constitutional ED: Denies chills, fever(s), subjective, sweats or weight loss Eyes Eyes: Denies blurry vision or change in vision Cardiovascular Cardiovascular: Denies chest pain or palpitations Respiratory/Chest Respiratory/Chest: Denies cough, dyspnea or dyspnea on exertion Gastrointestinal Gastrointestinal: Denies nausea or vomiting Musculoskeletal Musculoskeletal: Reports other Details: Per HPI Integumentary Denies Abrasions or rash Neurologic Neurologic: Denies headache(s), paresthesias or weakness Hematologic/Lymphatic Hematologic/Lymphatic: Denies easy bleeding or easy bruising EXAM Physical Exam Const Vital Signs: 08/19/22 10:54 Temperature 96.6 F L Temperature Source Temporal Pulse Rate 74 Respiratory Rate 18 Blood Pressure 160/87 H Blood Pressure Mean 111 Pulse Ox 94 Oxygen Delivery Method Room Air Positive well nourished, well developed and obese General Appearance ED: well developed and NAD Nutritional Appearance: obese HEENT HEENT Narrative: There is no abnormality of the nose or mouth. normocephalic and atraumatic Eyes Eyes Narrative: Pupils equal round reactive. Extract [place]. Sclera is anicteric. Neck full ROM and supple Resp normal respiratory effort, no retractions and clear to auscultation bilaterally Cardio regular rate, regular rhythm, S1 normal heart sound, S2 normal heart sound and no murmurs Extremity Negative for normal to inspection Extremity Narrative: There is increased swelling of the left ankle compared to the right. There is pain the patient over the posterior aspect of the lateral malleolus. There is no pain ovation of the medial malleolus. There is no laxity with drawer testing. There is no pain ovation of the base of the fifth metatarsal. DP and PT pulse are diminished due to swelling. Capillary refill is normal. There is thickening of toenails and absence of hair on her toes suggestive of peripheral vascular disease. Suspect this is due to her diabetes. General Extremety ED: Yes edema General Extremity: edema Neuro oriented x3, CN's II-XII intact bilaterally and moves all extremities Sensorium / Orientation: alert Psych mental status grossly normal Skin no wounds Skin Narrative: Patient does appear pale. Lesions: no lesions Rashes: no rashes MDM MDM MDM Narrative Medical decision making narrative: Per the [place] ankle rule imaging is required to assess for fracture versus s prain. Patient declined pain medicine at this time. She reports allergy to hydrocodone. Her allergy is nausea vomiting which is not an allergy. She reports nausea to oxycodone. Review of prior records indicates no history of prior fracture. There is history of A. fib and patient is on anticoagulant based on cardiovascular notes. Notes from surgical PA and hospitalist for last admission were reviewed. She was admitted for respiratory failure. In light of patient's age medical problems and the fact he is on anticoagulant NSAIDs are contraindicated. Discussed with patient x-ray findings. Discussed the what she looks his allergies are not allergies. She was informed that NSAIDs are contraindicated for multiple reasons. She was treated with an Aircast, opiate analgesia and appropriate home-going instructions Radiography X-Ray: - (Three-view x-ray of the left ankle was independently reviewed and interpreted by me at 1119. There is no evidence of fracture, subluxation dislocation. There is no significant arthritic changes. There is no widening the mortise.) Diagnostic Testing: Clinical Impression(s) from Imaging Studies Ankle X-Ray 08/19/22 11:04 IMPRESSION: There is no acute displaced fracture or dislocation. There is soft tissue swelling. There is demineralization of osseous structures. Electronically Signed: Carmen Ledbetter MD at 11:45 EST Reading Location ID and State: , Service support , Discharge Plan Triage Chief Complaint: Lower Extremity Injury ED Provider: Melquiades Alvarez Dx/Rx/DC Orders Clinical Impression: Sprain of anterior talofibular ligament of left ankle, Anticoagulant long-term use, Essential (primary) hypertension, Gastritis, Type 2 diabetes mellitus Instructions: ED Ankle Sprain (Adult) Prescriptions: New hydrocodone-acetaminophen [hydrocodone-acetaminophen] 5-325 mg tablet 1 tab PO Q6H PRN PRN (Reason: Pain) 3 Days Qty: 10 0RF ondansetron [ondansetron] 4 mg tablet,disintegrating 4 mg PO Q8H PRN PRN (Reason: Nausea) Qty: 10 0RF No Action metformin 500 mg tablet extended release 24 hr 500 mg PO QHS latanoprost 0.005 % drops 1 drp ophthalmic (eye) QHS warfarin 5 mg tablet 5 mg PO Label Comments: take 1 tablet by mouth once daily furosemide 20 mg tablet 20 mg PO Label Comments: take 1 tablet by mouth once daily levothyroxine 50 MCG tablet 50 mcg PO 0600 Label Comments: thyroid atorvastatin 40 MG tablet 40 mg PO QHS Label Comments: cholesterol fluticasone propionate 50 mcg/actuation spray,suspension 2 spray INTRANASAL DAILY PRN PRN (Reason: Allergic Reaction) Label Comments: nasal dryness losartan 50 mg tablet 50 mg PO DAILY polysaccharide iron complex [Ferrex 150] 150 mg iron Capsule 150 mg PO DAILY 30 Days Qty: 30 0RF pantoprazole 20 mg Tablet,Delayed Release (Dr/Ec) 20 mg PO DAILY 30 Days Qty: 30 0RF ascorbic acid (vitamin C) 500 mg Tablet 500 mg PO BREAKFAST 30 Days Qty: 30 0RF levofloxacin 500 mg tablet 500 mg PO DAILY Qty: 14 0RF amiodarone 200 mg tablet 200 mg PO BREAKFAST Qty: 90 3RF carvedilol 12.5 mg tablet 12.5 mg PO BIDCM Qty: 180 3RF Primary Care Provider: Jyoti Mackey Referrals: Jyoti Mackey MD [Primary Care Provider] - 10-14 Days if not better Activity Restrictions/Additional Instructions: 1. Apply ice 6-10 times a day for the next 3 to 5 days 2. Remove air splint/cast 4-6 times a day to draw the alphabet with your foot. 3. Wear flat shoes. Do not wear any shoe that has a heel. Disposition Disposition: Home, Self Care Discharge Date/Time: 08/19/22 12:05
[2022-08-19] MEDS: Ondansetron ODT 4 MG Tablet PO (11:49)
[2022-08-19] MEDS: HYDROcodone Bitartrate/Apap 5/325 Tablet PO (11:49)
== END 2022-08-19 12:05 | disposition home or self-care (01) ==
PROVIDERS: Emergency Provider Emergency Medicine; PCP Family Medicine; Visit Provider Emergency Medicine
DX: S93.492A Sprain of other ligament of left ankle, initial encounter (principal); E11.9 Type 2 diabetes mellitus without complications; I10 Essential (primary) hypertension; K29.70 Gastritis, unspecified, without bleeding; E66.9 Obesity, unspecified; W18.30XA Fall on same level, unspecified, initial encounter; Z79.01 Long term (current) use of anticoagulants
CPT/HCPCS: 73610; 99284

== ENCOUNTER → 2022-09-05 | Outpatient (CLI) | payer MEDICARE, OTHER, SELFPAY ==
[2022-09-05 13:46] LABS: Absolute Lymphocyte Count 1.24 X10^3/uL (0.83-4.51); Absolute Neutrophil Count 5.3 X10^3/uL (2.0-7.7); Basophil# 0.03 X10^3/uL; Basophil% 0.4 % (0-1); Eosinophil# 0.11 X10^3/uL; Eosinophils% 1.5 % (0-5); Hematocrit 36.1 % (37-47); Hemoglobin 11.1 g/dL (12.0-15.0); Lymphocyte # 1.24 X10^3/ul (0.83-4.51); Lymphocyte % 16.8 % (19-41); Mean Corp Hgb Conc 30.7 g/dL (32-36); Mean Corpuscular Hgb 27.1 pg (27.0-32.0); Mean Corpuscular Volume 88.3 fL (81-99); Mean Platelet Vol. 9.9 fl (6.2-12.0); Monocyte% 9.5 % (0-10); NRBC Flagged by Analyzer 0 % (0-5); Neutrophil # 5.25 X10^3/uL (2.7-7.7); Neutrophil % 71.4 % (47-70); Platelet Count 415 K/mm3 (150-450); RBC Distribution Width CV 14.6 % (11.6-14.6); RBC Distribution Width SD 46.2 fl (35.1-43.9); Red Blood Count 4.09 M/mm3 (4.2-5.4); White Blood Count 7.4 K/mm3 (4.4-11.0)
[2022-09-05 13:48] LABS: Erythrocyte Sedimentation Rate 50 mm/hr (0-30)
== END | disposition home or self-care (01) ==
PROVIDERS: Physician Assistant; PCP Family Medicine; Referring Provider Surgery; Visit Provider Surgery
DX: T14.8XXA Other injury of unspecified body region, initial encounter (principal); X58.XXXA Exposure to other specified factors, initial encounter; L08.9 Local infection of the skin and subcutaneous tissue, unspecified
CPT/HCPCS: 36415; 85025; 85652; 87070; 87075; 87077; 87186; 87205

== ENCOUNTER → 2022-09-12 | Outpatient (CLI) | payer MEDICARE, OTHER, SELFPAY ==
--- NOTE | 2022-09-12 07:25 | CT_ITS ---
EXAM: CT ABDOMEN AND PELVIS WITH INTRAVENOUS CONTRAST CLINICAL INDICATION: Postoperative intraabdominal fluid collection. HERNIA AND BOWEL OBSTRUCTION SURGERY TECHNIQUE: Helically acquired images were obtained of the abdomen and pelvis with intravenous contrast. This CT exam was performed using one or more of the following dose reduction techniques: automated exposure control, adjustment of the mA and/or kV according to patient size, and/or use of iterative reconstruction technique. This report was created using [employer] report generation technology. CONTRAST: 100 mL of IV Isovue-370. Oral contrast was also given. RADIATION DOSE: CTDIvol = 22.29 mGy, DLP = 1007.29 mGy-cm COMPARISON: CT abdomen and pelvis with IV contrast 06/13/2022. FINDINGS: LOWER THORAX: Mild cardiomegaly is unchanged. Normal pericardium. Lung bases are clear. ABDOMEN: LIVER: Small nonenhancing hypodense lesion in the medial aspect of the right hepatic lobe is unchanged. This is most likely cyst but too small to confirm cystic or solid. GALLBLADDER AND BILE DUCTS: Unremarkable. No calcified gallstones. No gallbladder distention or wall edema. No intra- or extrahepatic biliary ductal dilation. PANCREAS: Unremarkable. No focal cystic or solid mass. SPLEEN: Unremarkable. Normal size without focal cystic or solid mass. ADRENALS: Unremarkable. No nodules. KIDNEYS AND URETERS: Tiny nonenhancing hypodense lesions in both kidneys are most likely cysts. They''re too small to confirm cystic or solid but are unchanged. Normal renal size and position. STOMACH AND BOWEL: Interval improvement of partial distal small bowel obstruction. Multiple surgical clips across the anterior lower abdominal wall. No focal inflammatory change. Normal contrast opacification of the small bowel loops and some contrast opacification of the colon. PELVIS: APPENDIX: Normal. BLADDER: Unremarkable. REPRODUCTIVE: Unremarkable as visualized. No mass. ABDOMEN and PELVIS: INTRAPERITONEAL SPACE: Unremarkable. No ascites or other fluid collection. No free air. BONES/JOINTS: Pronounced disc space height narrowing at L2-L3, L3-L4 and L4-L5 disc space levels are unchanged. Mild kyphosis of the lumbar spine curvature is unchanged. No suspicious lytic or blastic abnormality. SOFT TISSUES: Midline anterior abdominal wall postoperative fluid with postoperative air and in the right rectus muscle. This measures approximately 6.4 cm craniocaudally and 1.2 cm in the AP dimension.. No discrete abdominal or pelvic wall hernia. VASCULATURE: Unremarkable. Abdominal aorta is non-dilated. LYMPH NODES: Unremarkable. No enlarged lymph nodes. CT/Abdomen/Pelvis WITH Contrast IMPRESSION: 1. 6.4 x 1.2 cm anterior midline abdominal wall fluid collection mixed with gas bubbles. These are presumably postoperative fluid and postoperative air. 2. Interval improvement of distal small bowel obstruction following surgery. 3. Tiny nonenhancing hypodensities in the kidneys are most likely cysts but are too small to confirm cystic or solid. They are unchanged. 4. Tiny nonenhancing hypodense lesion in the medial aspect of the right hepatic lobe is presumably cyst. It is too small to confirm cystic or solid. This is unchanged. 5. No acute abnormality in the abdomen and pelvis and no other additional findings or changes. Electronically Signed: Jose Guadalupe Rivers MD at 8:27 EST ,
[2022-09-12 07:55] LABS: CREATININE FINGERSTICK < 0.9 mg/dL (0.55-1.02); EGFR FINGERSTICK > 60.0000 mL/min (>60)
== END | disposition home or self-care (01) ==
LOC: CT 07:24
PROVIDERS: PCP Family Medicine; Visit Provider Physician Assistant
DX: T81.43XA Infection following a procedure, organ and space surgical site, initial encounter (principal)
CPT/HCPCS: 74177; Q9967

== ENCOUNTER 2022-09-13 11:07 | Day surgery (SDC) | payer MEDICARE, OTHER, SELFPAY ==
--- NOTE | 2022-09-13 12:27 | PCM.HP.BLA ---
History and Physical Date of Admission: 09/13/22 [facility] [address] [place] [address] OFFICE VISIT Date of Service:? 09/13/22 Intake Vital Signs ? 08/19/2309:54 09/13/2311:20 Height 5 ft 2 in 5 ft 2 in Weight: ? 194 lb 6 oz BMI ? 35.5 BP ? 142/87 H Blood Pressure Location ? Rt brachial Position ? Sitting Respiration ? 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: No Is patient in pain?: No Allergies Penicillins Allergy (Severe, Verified 09/13/22 12:19) Chest tightnessrofecoxib Adverse Reaction (Severe, Verified 09/13/22 12:19) Itchingadhesive tape [tape] Adverse Reaction (Mild, Verified 09/13/22 12:19) Itchingcodeine Adverse Reaction (Mild, Verified 09/13/22 12:19) Nausea/Vomitinghydrocodone [Hydrocodone] Adverse Reaction (Mild, Verified 09/13/22 12:19) Nausea/Vomitingmorphine Adverse Reaction (Mild, Verified 09/13/22 12:19) Nausea/Vomitingoxycodone [Oxycodone] Adverse Reaction (Mild, Verified 09/13/22 12:19) Nauseaaspartame Adverse Reaction (Verified 09/13/22 12:19) Diarrhea Medications atorvastatin 40 mg tablet 40 mg PO QHS Cholestrol 09/10/14 [History Confirmed 09/13/22] levothyroxine 50 mcg tablet 50 mcg PO 0600 hypothyroidism 09/10/14 [History Confirmed 09/13/22] fluticasone propionate 50 mcg/actuation nasal spray,suspension 2 spray intranasal DAILY PRN PRN Allergic Reaction 05/03/20 [History Confirmed 09/13/22] metformin 500 mg tablet,extended release 24 hr 500 mg PO QHS Diabetes 05/03/20 [History Confirmed 09/13/22] latanoprost 0.005 % eye drops 1 drp ophthalmic (eye) QHS glaucoma 05/02/21 [History Confirmed 09/13/22] losartan 50 mg tablet 50 mg PO DAILY BP 06/30/22 [History Confirmed 09/13/22] ascorbic acid (vitamin C) 500 mg tablet 500 mg PO BREAKFAST 30 days #30 tabs 07/18/22 [Rx Confirmed 09/13/22] pantoprazole 20 mg tablet,delayed release 20 mg PO DAILY 30 days #30 tabs 07/18/22 [Rx Confirmed 09/13/22] polysaccharide iron complex 150 mg iron capsule (Ferrex) 150 mg PO DAILY 30 days #30 caps 07/18/22 [Rx Confirmed 09/13/22] furosemide 20 mg tablet 20 mg PO 08/09/22 [History Confirmed 09/13/22] warfarin 5 mg tablet 5 mg PO 08/09/22 [History Confirmed 09/13/22] amiodarone 200 mg tablet 200 mg PO BREAKFAST #90 tabs 08/16/22 [Rx Confirmed 09/13/22] carvedilol 12.5 mg tablet 12.5 mg PO BIDCM #180 tabs 08/16/22 [Rx Confirmed 09/13/22] hydrocodone-acetaminophen 5-325mg 5mg-325mg 1 tab PO Q6H PRN PRN Pain 3 days #10 TABLETS 08/19/22 [Rx Confirmed 09/13/22] ondansetron 4 mg disintegrating tablet 4 mg PO Q8H PRN PRN Nausea #10 tabs 08/19/22 [Rx Confirmed 09/13/22] PFSH Medical History? Ambulates with cane Anxiety Breast CA Cancer Cardiology follow-up encounter DCIS (ductal carcinoma in situ) Diabetes Endometrial cancer Essential (primary) hypertension Generalized osteoarthritis Hemorrhoid High cholesterol History of breast cancer History of diverticulitis History of echocardiogram History of GI bleed History of stress test Hx of fracture of humerus Hyperlipidemia Hypertriglyceridemia Hypothyroidism (acquired) Infection of total knee replacement Loss of hearing Non-smoker Obesity Osteoarthritis Paroxysmal atrial fibrillation Paroxysmal atrial tachycardia Post-menopausal Premature atrial contractions Sleep apnea Thyroid disease Transient atrial fibrillation or flutter Type 2 diabetes mellitus Wears glasses Wears hearing aid Wound infection Surgical History? H/O total hysterectomy History of exploratory laparotomy History of incisional hernia repair History of knee replacement History of lumpectomy of left breast History of right hip replacement Family History? Mother Hypertension Heart disease CVA (cerebral vascular accident) Parkinsons diseaseFather CVA (cerebral vascular accident) Parkinsons diseaseOther COPD (chronic obstructive pulmonary disease) Diabetes Social History? household members:? none Smoking Status:? Never smoker second hand exposure:? No alcohol intake:? never details:? occasional substance use type:? does not use HPI HPI HPI: Patient is an 87 y/o F I am continuing to follow for incisional drainage. Patient is s/p exploratory laparotomy, lysis of adhesions, enterotomy, enterectomy of mid small bowel with Dr. Álvarez on 06/18/22. Patient had an extensive hospitalization which was complicated by acute respiratory failure, bilateral pulmonary embolism, hypotension and TPN requirement. Patient had her midline incision secondarily closed at bedside. Patient was discharged to the TCU for a few weeks. She has been following in our office for dressing changes. Patient had multiple areas of the incision reopen and start draining. Patient also had an abscessed area that was opened and drained along the incision. Culture was obtained demonstrating enterobacter and enterococcus. Patient has had a 14 day course of Levaquin. Patient has continued to follow-up in our office for wound care. Patient's niece has been very good at assisting with dressing changes. Patient has continued to note moderate amount of drainage from the incision. Another culture was obtained on 09/05 demonstrating same bacteria as prior culture, enterobacter and enterococcus. A CT scan of the abdomen and pelvis was obtained demonstrating a 6.4 x 1.2 cm anterior midline abdominal wall fluid collection with gas bubbles. Patient comes to our office today to review the CT scan. She is also scheduled for a surgical drainage in the operating room with Dr. Álvarez. Patient's niece noted the most inferior portion of the incision had reopened as of a couple days ago. Patient has been continuing to keep the incision covered and changing the bandage twice daily. She denies fever, pain, nausea, vomiting. Her appetite has been normal. Her bowel habits continue to be normal. Patient is currently on Coumadin for her recent bilateral pulmonary embolisms she had. This is monitored by her PCP. Patient has also been referred to infectious disease for evaluation. Patient is scheduled for September 26 at [place].? ROS General General: Yes weight change and fatigue; No appetite, colon cancer, breast cancer or weakness HEENT HEENT: No difficulty swallowing, eye injury, eye surgery, swollen glands or hoarseness Endo Endocrine: Yes diabetes mellitus; No thyroid disease, thyroid cancer, Hair loss, heat intolerance or cold intolerance Skin Skin: No rash or changing moles Breast Breast: No left breast lump, right breast lump, nipple discharge, breast pain, abnormal mammogram, abnormal US or breast enlargement Musc Musculoskeletal: Yes arthritis; No back problems, rheumatoid arthritis, gout or joint pain Cardio Cardiovascular: Yes heart disease and atrial fibrillation; No murmur, pacemaker, high blood pressure, heart attack, heart stent, palpitations, shortness of breat with exertion or chest pain Psych Psychiatric: No depression, anxiety or hearing voices Resp Respiratory: No shortness of breath, No sleep apnea, No cough, No COPD, No asthma, No emphysema and No wheezing Gastro Gastrointestinal: Yes abdominal pain, No nausea or vomiting, No diarrhea, Yes constipation, No blood in stool, No acid reflux, No hemorrhoids, No ulcers, No gallbladder problem and No black,tarry stools [place] Hematologic: Yes blood thinners, No blood disorders, No bleeding, No anemia and Yes blood clots Neuro Neurologic: No system reviewed and no additional complaints, except as documented, No as per HPI, No abnormal gait, No abnormal hearing, No abnormal movements, No abnormal speech, No behavioral changes, No burning sensations, No confusion, No convulsions, No disequilibrium, No dizziness, No localized weakness, No frequent falls, No headache(s), No lack of coordination, No loss of vision, No memory loss, No numbness, No other visual disturbances, No radicular pain, No restless legs, No sensory deficit, No syncope, No tingling, No tremor(s), No weakness and No other Exam Const General: cooperative, healthy appearing, comfortable and no acute distress [facility] Head: normal to inspection Eyes General: appearance normal, both eyes and all related structures Neck Neck: normal visual inspection Neck mass: No Resp Effort & Inspection: normal respiratory effort Auscultation: clear to auscultation bilaterally Cardio Rate: regular rate Rhythm: regular rhythm GI Palpation: soft and nontender Auscultation: normal bowel sounds Other: Abdomen- two pinpoint openings in the midline of the incision and single pinpoint opening at the inferior aspect of the incision. No erythema noted. There is a moderate amount of greenish/yellow/bloody drainage noted on the ABD pad. Musc Cervical Spine: normal cervical lordosis Skin Wounds: wounds noted Neuro General: no focal motor deficits and CN's II-XI intact bilaterally Extrem General: normal to inspection Psych Appearance: grossly normal Mood: congruent mood Assessment & Plan Assessment/Plan (1) Abdominal wall abscess: PLAN: Dr. Álvarez will plan to perform an incision, exploration and debridement of the incisional abdominal wall abscess under MAC/local. Procedure details, risks and benefits have been explained. Patient and her niece have had the opportunity to ask and have questions answered. Patient verbally understands and agrees with the plan. Patient is also on Coumadin due to her recent bilateral pulmonary embolisms. Proceed with infectious disease consult. No antibiotics will be prescribed at this time. Patient may be discharged on antibiotics depending on the overall outcome of the surgery. Patient will need multiple follow-up appointments as she will be packing the open incisional wound twice daily. We will continue to monitor this patient as an outpatient.? Charges/Coding Visit Charges Inpatient E&M: 74603 Init Hosp L1 (post-op)
[2022-09-13 12:39] LABS: Absolute Lymphocyte Count 0.99 X10^3/uL (0.83-4.51); Absolute Neutrophil Count 4.1 X10^3/uL (2.0-7.7); Basophil# 0.03 X10^3/uL; Basophil% 0.5 % (0-1); Eosinophil# 0.11 X10^3/uL; Eosinophils% 1.9 % (0-5); Hematocrit 36.5 % (37-47); Hemoglobin 11.4 g/dL (12.0-15.0); Lymphocyte # 0.99 X10^3/ul (0.83-4.51); Lymphocyte % 17.3 % (19-41); Mean Corp Hgb Conc 31.2 g/dL (32-36); Mean Corpuscular Hgb 27.3 pg (27.0-32.0); Mean Corpuscular Volume 87.3 fL (81-99); Monocyte# 0.46 X10^3/uL; NRBC Flagged by Analyzer 0 % (0-5); Neutrophil # 4.12 X10^3/uL (2.7-7.7); Platelet Count 328 K/mm3 (150-450); RBC Distribution Width CV 14.9 % (11.6-14.6); RBC Distribution Width SD 47.4 fl (35.1-43.9); Red Blood Count 4.18 M/mm3 (4.2-5.4); White Blood Count 5.7 K/mm3 (4.4-11.0)
[2022-09-13 12:50] VITALS: BP 127/75; PULSE 72; RESP 16; TEMP 37.1; O2SAT 95; BMI 35.6
[2022-09-13 12:57] LABS: Anion Gap 7 (5-15); BUN 13 mg/dL (7-18); BUN/Creat Ratio 16.1 RATIO (10-20); Calcium,Total 9.8 mg/dL (8.5-10.1); Chloride 101 mmol/L (98-107); Creatinine, Serum 0.81 mg/dL (0.55-1.02); EST Glomerular Filtration Rate 71 mL/min (>60); Est Glom Filt Rate - Afr Amer 86 mL/min (>60); Glucose 269 mg/dL (74-106); Potassium 4.1 mmol/L (3.5-5.1); Sodium Level 137 mmol/L (136-145)
[2022-09-13 13:21] LABS: INR Fingerstick 1.2; Prothrombin Time Fingerstick 14.5 SEC (11.7-14.9)
[2022-09-13 13:30] LABS: Bedside Glucose 247 mg/dL (74-106)
--- NOTE | 2022-09-13 14:46 | PCM.HP.BLA ---
History and Physical Date of Admission: 09/13/22 Vital Signs ?? 08/19/2309:54? 09/13/2311:20 Height? 5 ft 2 in? 5 ft 2 in Weight:? ?? 194 lb 6 oz BMI? ?? 35.5 BP? ?? 142/87 H Blood Pressure Location? ?? Rt brachial Position? ?? Sitting Respiration? ?? 16 Intake Visit Reasons:?discuss surgery Chief Complaint: wound check/packing change abdomen Speeder Tender Required: No Is patient in pain?: No Allergies Penicillins Allergy (Severe, Verified 09/13/22 12:19)Chest tightnessrofecoxib Adverse Reaction (Severe, Verified 09/13/22 12:19) Itchingadhesive tape [tape] Adverse Reaction (Mild, Verified 09/13/22 12:19) Itchingcodeine Adverse Reaction (Mild, Verified 09/13/22 12:19) Nausea/Vomitinghydrocodone [Hydrocodone] Adverse Reaction (Mild, Verified 09/13/22 12:19) Nausea/Vomitingmorphine Adverse Reaction (Mild, Verified 09/13/22 12:19) Nausea/Vomitingoxycodone [Oxycodone] Adverse Reaction (Mild, Verified 09/13/22 12:19) Nauseaaspartame Adverse Reaction (Verified 09/13/22 12:19) Diarrhea Medications atorvastatin 40 mg tablet 40 mg PO QHS Cholestrol 09/10/14 [History Confirmed 09/13/22] levothyroxine 50 mcg tablet 50 mcg PO 0600 hypothyroidism 09/10/14 [History Confirmed 09/13/22] fluticasone propionate 50 mcg/actuation nasal spray,suspension 2 spray intranasal DAILY PRN PRN Allergic Reaction 05/03/20 [History Confirmed 09/13/22] metformin 500 mg tablet,extended release 24 hr 500 mg PO QHS Diabetes 05/03/20 [History Confirmed 09/13/22] latanoprost 0.005 % eye drops 1 drp ophthalmic (eye) QHS glaucoma 05/02/21 [History Confirmed 09/13/22] losartan 50 mg tablet 50 mg PO DAILY BP 06/30/22 [History Confirmed 09/13/22] ascorbic acid (vitamin C) 500 mg tablet 500 mg PO BREAKFAST 30 days #30 tabs 07/18/22 [Rx Confirmed 09/13/22] pantoprazole 20 mg tablet,delayed release 20 mg PO DAILY 30 days #30 tabs 07/18/22 [Rx Confirmed 09/13/22] polysaccharide iron complex 150 mg iron capsule (Ferrex) 150 mg PO DAILY 30 days #30 caps 07/18/22 [Rx Confirmed 09/13/22] furosemide 20 mg tablet 20 mg PO 08/09/22 [History Confirmed 09/13/22] warfarin 5 mg tablet 5 mg PO 08/09/22 [History Confirmed 09/13/22] amiodarone 200 mg tablet 200 mg PO BREAKFAST #90 tabs 08/16/22 [Rx Confirmed 09/13/22] carvedilol 12.5 mg tablet 12.5 mg PO BIDCM #180 tabs 08/16/22 [Rx Confirmed 09/13/22] hydrocodone-acetaminophen 5-325mg 5mg-325mg 1 tab PO Q6H PRN PRN Pain 3 days #10 TABLETS 08/19/22 [Rx Confirmed 09/13/22] ondansetron 4 mg disintegrating tablet 4 mg PO Q8H PRN PRN Nausea #10 tabs 08/19/22 [Rx Confirmed 09/13/22] PFSH Medical History? Ambulates with cane Anxiety Breast CA Cancer Cardiology follow-up encounter DCIS (ductal carcinoma in situ) Diabetes Endometrial cancer Essential (primary) hypertension Generalized osteoarthritis Hemorrhoid High cholesterol History of breast cancer History of diverticulitis History of echocardiogram History of GI bleed History of stress test Hx of fracture of humerus Hyperlipidemia Hypertriglyceridemia Hypothyroidism (acquired) Infection of total knee replacement Loss of hearing Non-smoker Obesity Osteoarthritis Paroxysmal atrial fibrillation Paroxysmal atrial tachycardia Post-menopausal Premature atrial contractions Sleep apnea Thyroid disease Transient atrial fibrillation or flutter Type 2 diabetes mellitus Wears glasses Wears hearing aid Wound infection Surgical History? H/O total hysterectomy History of exploratory laparotomy History of incisional hernia repair History of knee replacement History of lumpectomy of left breast History of right hip replacement Family History? Mother Hypertension Heart disease CVA (cerebral vascular accident) Parkinsons diseaseFather CVA (cerebral vascular accident) Parkinsons diseaseOther COPD (chronic obstructive pulmonary disease) Diabetes Social History? household members:? none Smoking Status:? Never smoker second hand exposure:? No alcohol intake:? never details:? occasional substance use type:? does not use HPI HPI HPI: Patient is an 87 y/o F I am continuing to follow for incisional drainage. Patient is s/p exploratory laparotomy, lysis of adhesions, enterotomy, enterectomy of mid small bowel with Dr. Álvarez on 06/18/22. Patient had an extensive hospitalization which was complicated by acute respiratory failure, bilateral pulmonary embolism, hypotension and TPN requirement. Patient had her midline incision secondarily closed at bedside. Patient was discharged to the TCU for a few weeks. She has been following in our office for dressing changes. Patient had multiple areas of the incision reopen and start draining. Patient also had an abscessed area that was opened and drained along the incision. Culture was obtained demonstrating enterobacter and enterococcus. Patient has had a 14 day course of Levaquin. Patient has continued to follow-up in our office for wound care. Patient's niece has been very good at assisting with dressing changes. Patient has continued to note moderate amount of drainage from the incision. Another culture was obtained on 09/05 demonstrating same bacteria as prior culture, enterobacter and enterococcus. A CT scan of the abdomen and pelvis was obtained demonstrating a 6.4 x 1.2 cm anterior midline abdominal wall fluid collection with gas bubbles. Patient comes to our office today to review the CT scan. She is also scheduled for a surgical drainage in the operating room with Dr. Álvarez. Patient's niece noted the most inferior portion of the incision had reopened as of a couple days ago. Patient has been continuing to keep the incision covered and changing the bandage twice daily. She denies fever, pain, nausea, vomiting. Her appetite has been normal. Her bowel habits continue to be normal. Patient is currently on Coumadin for her recent bilateral pulmonary embolisms she had. This is monitored by her PCP. Patient has also been referred to infectious disease for evaluation. Patient is scheduled for September 26 at [place].? ROS General General: Yes weight change and fatigue; No appetite, colon cancer, breast cancer or weakness HEENT HEENT: No difficulty swallowing, eye injury, eye surgery, swollen glands or hoarseness Endo Endocrine: Yes diabetes mellitus; No thyroid disease, thyroid cancer, Hair loss, heat intolerance or cold intolerance Skin Skin: No rash or changing moles Breast Breast: No left breast lump, right breast lump, nipple discharge, breast pain, abnormal mammogram, abnormal US or breast enlargement [facility] Musculoskeletal: Yes arthritis; No back problems, rheumatoid arthritis, gout or joint pain Cardio Cardiovascular: Yes heart disease and atrial fibrillation; No murmur, pacemaker, high blood pressure, heart attack, heart stent, palpitations, shortness of breat with exertion or chest pain Psych Psychiatric: No depression, anxiety or hearing voices Resp Respiratory: No shortness of breath, No sleep apnea, No cough, No COPD, No asthma, No emphysema and No wheezing Gastro Gastrointestinal: Yes abdominal pain, No nausea or vomiting, No diarrhea, Yes constipation, No blood in stool, No acid reflux, No hemorrhoids, No ulcers, No gallbladder problem and No black,tarry stools [place] Hematologic: Yes blood thinners, No blood disorders, No bleeding, No anemia and Yes blood clots Neuro Neurologic: No system reviewed and no additional complaints, except as documented, No as per HPI, No abnormal gait, No abnormal hearing, No abnormal movements, No abnormal speech, No behavioral changes, No burning sensations, No confusion, No convulsions, No disequilibrium, No dizziness, No localized weakness, No frequent falls, No headache(s), No lack of coordination, No loss of vision, No memory loss, No numbness, No other visual disturbances, No radicular pain, No restless legs, No sensory deficit, No syncope, No tingling, No tremor(s), No weakness and No other Exam Const General: cooperative, healthy appearing, comfortable and no acute distress [facility] Head: normal to inspection Eyes General: appearance normal, both eyes and all related structures Neck Neck: normal visual inspection Neck mass: No Resp Effort & Inspection: normal respiratory effort Auscultation: clear to auscultation bilaterally Cardio Rate: regular rate Rhythm: regular rhythm GI Palpation: soft and nontender Auscultation: normal bowel sounds Other: Abdomen- two pinpoint openings in the midline of the incision and single pinpoint opening at the inferior aspect of the incision. No erythema noted. There is a moderate amount of greenish/yellow/bloody drainage noted on the ABD pad. [facility] Cervical Spine: normal cervical lordosis Skin Wounds: wounds noted Neuro General: no focal motor deficits and CN's II-XI intact bilaterally Extrem General: normal to inspection Psych Appearance: grossly normal Mood: congruent mood Assessment & Plan Assessment/Plan (1) Abdominal wall abscess: PLAN: Dr. Álvarez will plan to perform an incision, exploration and debridement of the incisional abdominal wall abscess under MAC/local. Procedure details, risks and benefits have been explained. Patient and her niece have had the opportunity to ask and have questions answered. Patient verbally understands and agrees with the plan. Patient is also on Coumadin due to her recent bilateral pulmonary embolisms. Proceed with infectious disease consult. No antibiotics will be prescribed at this time. Patient may be discharged on antibiotics depending on the overall outcome of the surgery. Patient will need multiple follow-up appointments as she will be packing the open incisional wound twice daily. We will continue to monitor this patient as an outpatient. I have examined the patient and the H&P has been reviewed. There are no clinical changes since date of exam. Rajan Álvarez M.D., F.A.C.S.
--- NOTE | 2022-09-13 14:47 | DCINST_ITS ---
Discharge Instructions Diet Discharge Diet: Light diet - advance as tolerated Activity Discharge Activity: Return to Normal Activity Dressing / Incision Additional Dressing/Incision Instructions:: Saline wet-to-dry dressing changes twice daily and as needed Follow Up Care Please Follow Up With: Rajan Álvarez MD When: Please call [phone] for office appointment on Saturday. This may be with Shanell when I am present at the same time. Test Results: Test results from this visit will be discussed in further detail at your follow- up appointment, if applicable. Discharge Plan Admission Attending Provider: Rajan Álvraez Primary Care Provider: Jyoti Mackey Discharge Orders/Prescriptions Prescriptions: No Action metformin 500 mg tablet extended release 24 hr 500 mg PO QHS latanoprost 0.005 % drops 1 drp ophthalmic (eye) QHS levothyroxine 50 MCG tablet 50 mcg PO 0600 Label Comments: thyroid atorvastatin 40 MG tablet 40 mg PO QHS Label Comments: cholesterol losartan 50 mg tablet 50 mg PO DAILY warfarin 1 mg tablet 0.5 mg Label Comments: take 1 tablet by mouth once daily amiodarone 200 mg tablet 200 mg PO BREAKFAST Qty: 90 3RF carvedilol 12.5 mg tablet 12.5 mg PO BIDCM Qty: 180 3RF Referrals / Follow Up: Jyoti Mackye MD [Primary Care Provider] - Disposition Disposition (needs filled in before D/C Order can be placed): Home, Self Care
[2022-09-13] MEDS: levoFLOXacin IV 500 MG/100 ML BAG 100 MG IV (15:10)
[2022-09-13] MEDS: Lidocaine 1% (30 ml sdv) 30 ML Vial (15:17)
--- NOTE | 2022-09-13 15:47 | OP.PCM_ITS ---
Report of Operation Date of Procedure: 09/13/22 Pre-Operative Diagnosis: Sub fascial and sub abdominal wall mesh anterior intra- abdominal abscess, loculated Post-Operative Diagnosis: Same Surgery/Procedure Performed:: Incision and drainage and debridement ventral subfascial and submesh abscess Description of Surgical Findings:: Timeout informed consent was obtained. The patient was taken to the procedure room placed supine on the table she underwent monitored anesthesia care. Levaquin 500 g given intravenously. The abdomen was prepped with Betadine. 1% lidocaine mixed 50-50 with 0.25% Marcaine was used as a local acetic. 20 cc was used. There were 2 obvious draining sites 1 just superior to the umbilicus and 1 at the very lowest part of the incision. I used a 15 blade to incise down to the fascia saw granulation tissue. Further opening identified remotely placed mesh. I then debrided some of the mesh. Got into a pocket of purulence. Very carefully palpated and felt that this was loculated and sealed up to the anteri or abdominal wall. At both incisions where needed I sharply debrided some of the loose mesh that was no longer adherent to the anterior abdominal wall fascia. I gently irrigated the space aspirating with a low-grade suction. Could not identify any bowel as the surface posterior to me all appeared to be scar fied and matted. I then placed a 1/4 inch [place] drain from the superior incision to the inferior incision leaving the incisions open placed air knots of 3-0 nylon and placed safety pins securing the [place] drain. We then placed Baker Straps laterally and an ABD and repeat dressed the incision. She tolerated procedure well blood loss essentially nothing hemostasis was good at the completion she was taken back to her room in satisfactory condition I suspect that this will assist with drainage of her abscess. She will be placed on Levaquin for home-going. She may very well end up with a chronic infection related to the remotely placed mesh. That would be very difficult to deal with and might be a future adventure. Rajan Álvarez M.D., F.A.C.S. Surgeon: Rajan Álvarez Type of Anesthesia: Local MAC Anesthesiologist: Victorino Rush
[2022-09-13 15:55] VITALS: BP 127/75; BP 130/80; PULSE 73; RESP 16; TEMP 36.7; O2SAT 96
[2022-09-13 16:00] VITALS: BP 127/75; BP 150/94; PULSE 73; RESP 16; O2SAT 96
[2022-09-13 16:05] VITALS: BP 127/75; BP 144/92; PULSE 74; RESP 16; O2SAT 96
[2022-09-13 16:10] VITALS: BP 127/75; BP 151/88; PULSE 71; RESP 16; TEMP 36.4; O2SAT 96
[2022-09-13 17:15] VITALS: BP 127/75; BP 140/63; PULSE 79; RESP 16; TEMP 36.6; O2SAT 96
== END 2022-09-13 17:38 | disposition home or self-care (01) ==
LOC: SDC 11:10 → AC 11:11
PROVIDERS: PCP Family Medicine; Referring Provider Surgery; Visit Provider Surgery
PROC: (CPT 10061; principal; 2022-09-13 12:15)
DX: L02.211 Cutaneous abscess of abdominal wall (principal); I48.0 Paroxysmal atrial fibrillation; E11.9 Type 2 diabetes mellitus without complications; G47.30 Sleep apnea, unspecified; I10 Essential (primary) hypertension; E03.9 Hypothyroidism, unspecified; E78.00 Pure hypercholesterolemia, unspecified; Z79.899 Other long term (current) drug therapy; Z79.01 Long term (current) use of anticoagulants; Z79.84 Long term (current) use of oral hypoglycemic drugs; Z85.3 Personal history of malignant neoplasm of breast; Z86.711 Personal history of pulmonary embolism
CPT/HCPCS: 10061; 00300; 36416; 80048; 82962; 85025; 85610; J7120

== ENCOUNTER → 2022-11-13 | Outpatient (CLI) | payer MEDICARE, OTHER, SELFPAY ==
--- NOTE | 2022-11-13 10:40 | RAD_ITS ---
STUDY: X-RAY - RIGHT WRIST REASON FOR EXAM: Female, 87 years old. Wrist pain. TECHNIQUE: 3 view(s) of the wrist were obtained. COMPARISON: Right hand and images dated April 01, 2014. FINDINGS: Osteopenia. Relatively stable arthrosis of the radiocarpal articulation. Stable arthrosis of the distal radioulnar articulation. Stable moderate arthrosis of the radial carpal row of the wrist. Moderate arthrosis of the first CMC joint, unchanged. Moderate arthrosis of the visualized MCP joints . Normal soft tissues. RAD/Wrist min 3 Views IMPRESSION: Stable osteopenia with osteoarthritic changes as described. No acute abnormality or erosive changes. Electronically Signed: Desmond Hansen, at 10:52 EDT ,
== END | disposition home or self-care (01) ==
LOC: MTRAD 10:36
PROVIDERS: PCP Family Medicine; Referring Provider Family Medicine; Visit Provider Family Medicine
DX: M25.531 Pain in right wrist (principal)
CPT/HCPCS: 73110

== ENCOUNTER → 2022-12-06 | Outpatient (CLI) | payer MEDICARE, OTHER, SELFPAY | END | disposition home or self-care (01) | LOC: LABSPEC 15:21 | PROVIDERS: PCP Family Medicine; Visit Provider Physician Assistant | DX: L02.211 Cutaneous abscess of abdominal wall (principal) | CPT/HCPCS: 87070; 87075; 87186; 87205 ==

== ENCOUNTER → 2023-02-13 | Outpatient (CLI) | payer MEDICARE, OTHER, SELFPAY | END | disposition home or self-care (01) | LOC: LABSPEC 12:11 | PROVIDERS: PCP Family Medicine; Referring Provider Physician Assistant; Visit Provider Physician Assistant | DX: L02.211 Cutaneous abscess of abdominal wall (principal); T14.8XXA Other injury of unspecified body region, initial encounter | CPT/HCPCS: 87070; 87075; 87205 ==

== ENCOUNTER 2023-02-25 12:55 | Emergency (ER) | payer MEDICARE, OTHER, SELFPAY ==
[2023-02-25 12:56] VITALS: BP 130/81; PULSE 62; RESP 18; TEMP 36.6; O2SAT 100
--- NOTE | 2023-02-25 13:44 | CT_ITS ---
STUDY: CT ABDOMEN AND PELVIS WITH CONTRAST REASON FOR EXAM: Female, 87 years old. Wound -- previous abscess, increased drain lower abd. Prior hernia repair. RADIATION DOSAGE (If Supplied By Facility): CTDIvol = ( 18.33 ) mGy, DLP = ( 944.85 ) mGycm TECHNIQUE: Transaxial images were obtained from the dome of the diaphragm to the symphysis pubis without oral contrast. IV 100mL Isovue-300 was administered. Sagittal and coronal images were reconstructed. Individualized dose optimization techniques were used for this CT. COMPARISON: Comparison is made with prior study dated September 12, 2022. FINDINGS: The visualized lung bases are unremarkable. Coronary artery calcification. Subcentimeters cyst is seen in the medial aspect of the right lobe of the liver. The patient is status post cholecystectomy. Normal spleen. Normal pancreas. Normal bilateral adrenal glands. Normal right kidney. Normal left kidney. Normal visualized stomach. Normal small intestine. There are multiple colonic diverticula consistent with diverticulosis. The appendix is visualized and appears normal. There is diffuse atherosclerotic calcification of the abdominal aorta, without a demonstrated aneurysm. There is a left-sided inferior vena cava. Normal retroperitoneum. Normal urinary bladder. There is absence of the uterus consistent with a prior hysterectomy. The patient is status post anterior abdominal wall hernia repair. A mesh is seen. There is a cutaneous communication with the anterior aspect of the mesh work small amount of air is seen between the mesh posteriorly in the anterior abdominal wall anteriorly. This has progressed as compared to prior study. There are diffuse degenerative changes of the visualized lumbar spine. Status post right total hip replacement. CT/Abdomen/Pelvis W IV Cont ONLY IMPRESSION: Status post anterior abdominal wall hernia repair with mesh. Persistent air is seen between the posterior aspect of the anterior abdominal wall and the anterior aspect of the mesh. I suspect continues to medication causing the air within the postoperative site. Electronically Signed: Carlos Morocho MD at 15:09 EDT ,
--- NOTE | 2023-02-25 13:46 | EX.ED.DYSGE1 ---
HPI History of Present Illness Chief Complaint: Wound Informant: patient and family Narrative Narrative: Presents here with daughter for evaluation increasing drainage from wound site in the lower abdomen. 8-month postop small bowel obstruction with release followed by Dr. Álvarez. She had a previous ventral hernia with mesh reporting causing the symptoms. She developed a postsurgical abscess with drain tubes placed. This was removed a month ago in the surgery office. Is been only mild drainage since then on a daily basis per daughter. However over the weekend significant amount increasing drainage with multiple dressing changes. They called the office today was told if it worsens to go to the ED. She denies fevers chills or sweats. Denies any pain. Reports drainage is coming from previous drain tube site. Prior similar symptoms: Yes PFSH PFSH Medical History Ambulates with cane Anxiety Breast CA Cancer Cardiology follow-up encounter DCIS (ductal carcinoma in situ) Diabetes Endometrial cancer Essential (primary) hypertension Generalized osteoarthritis Hemorrhoid History of breast cancer History of diverticulitis History of echocardiogram History of GI bleed History of stress test Hx of fracture of humerus Hyperlipidemia Hypertension Hypertriglyceridemia Hypothyroidism (acquired) Infection of total knee replacement Loss of hearing Non-smoker Obesity Osteoarthritis Paroxysmal atrial fibrillation Paroxysmal atrial tachycardia Post-menopausal Premature atrial contractions Sleep apnea Thyroid disease Transient atrial fibrillation or flutter Type 2 diabetes mellitus Wears glasses Wears hearing aid Wound infection Home Medications levothyroxine 50 mcg tablet 50 mcg PO 0600 hypothyroidism 09/10/14 [History Last Taken 06/10/22] metformin 500 mg tablet,extended release 24 hr 500 mg PO QHS Diabetes 05/03/20 [History Last Taken 06/10/22] latanoprost 0.005 % eye drops 1 drp ophthalmic (eye) QHS glaucoma 05/02/21 [History Last Taken 06/10/22] amiodarone 200 mg tablet 200 mg PO BREAKFAST #90 tabs 08/16/22 [Rx Last Taken Unknown] carvedilol 12.5 mg tablet 12.5 mg PO BIDCM #180 tabs 08/16/22 [Rx Last Taken Unknown] cefdinir 300 mg capsule 300 mg PO BID 12/25/22 [History Last Taken Unknown] glipizide 2.5 mg tablet, extended release 24 hr 2.5 mg PO DAILY 12/25/22 [History Last Taken Unknown] warfarin 2 mg tablet 2 mg PO DAILY 12/25/22 [History Last Taken Unknown] losartan 50 mg tablet 50 mg PO DAILY BP #90 tabs 01/15/23 [Rx Last Taken Unknown] nystatin 100,000 unit/gram topical cream 1 applic topical BID PRN rash #30 grams 02/12/23 [Rx Last Taken Unknown] Allergy/AdvReac Type Severity Reaction Status Date / Time Penicillins Allergy Severe Chest Verified 02/25/23 12:58 tightness rofecoxib AdvReac Severe Itching Verified 02/25/23 12:58 adhesive tape [tape] AdvReac Mild Itching Verified 02/25/23 12:58 codeine AdvReac Mild Nausea/Vomi Verified 02/25/23 12:58 ting hydrocodone [Hydrocodone] AdvReac Mild Nausea/Vomi Verified 02/25/23 12:58 ting morphine AdvReac Mild Nausea/Vomi Verified 02/25/23 12:58 ting oxycodone [Oxycodone] AdvReac Mild Nausea Verified 02/25/23 12:58 aspartame AdvReac Diarrhea Verified 02/25/23 12:58 Family History Mother Hypertension Heart disease CVA (cerebral vascular accident) Parkinsons disease Father CVA (cerebral vascular accident) Parkinsons disease Other COPD (chronic obstructive pulmonary disease) Diabetes Surgical History H/O total hysterectomy History of exploratory laparotomy History of incisional hernia repair History of knee replacement History of lumpectomy of left breast History of right hip replacement Social History household members: none Smoking Status: Never smoker second hand exposure: No alcohol intake: never details: occasional substance use type: does not use ROS ROS ED Constitutional Constitutional ED: Denies chills, fever(s) or sweats Eyes Eyes: Denies change in vision ENT ENT ED: Denies dysphagia or sore throat Cardiovascular Cardiovascular: Denies chest pain, leg edema, palpitations or racing heartbeat Respiratory/Chest Respiratory/Chest: Denies cough, dyspnea or dyspnea on exertion Gastrointestinal Gastrointestinal: Denies abdominal pain, diarrhea, nausea or vomiting Genitourinary Genitourinary ED: Denies dysuria, hematuria or urinary frequency Musculoskeletal Musculoskeletal: Denies back pain, extremity pain or neck pain Integumentary Reports wounds; Denies rash Neurologic Neurologic: Denies headache(s), paresthesias or weakness EXAM Physical Exam Const Vital Signs: 02/25/23 12:56 Temperature 97.8 F Temperature Source Temporal Pulse Rate 62 Respiratory Rate 18 Blood Pressure 130/81 H Blood Pressure Mean 97 Pulse Ox 100 Oxygen Delivery Method Room Air Positive well nourished and well developed General Appearance ED: well developed and NAD HEENT Reports moist mucous membranes normocephalic and atraumatic Eyes PERRL, EOMs intact bilaterally and conjunctivae normal General Eye ED: Yes normal appearance of both eyes Neck no lymphadenopathy and supple General: Negative for tenderness Chest Wall Chest: Negative for tenderness Resp normal respiratory effort and normal air movement Effort and Inspection: symmetric chest movement; Negative for respiratory distress Cardio regular rate, regular rhythm and no murmurs Peripheral Pulses: pulses 2+ throughout GI normal to inspection, nondistended, normoactive bowel sounds and non-tender GI Narrative: Dressing taken down taken down from lower abdomen, as orifice increasing copious brown fluid drainage. No surrounding erythema. Palpation: Negative for guarding or rebound tenderness present Back/Spine no CVA tenderness and no thoracic nor lumbar tenderness Extremity normal to inspection General Extremety ED: Negative for edema or tenderness General Extremity: Negative for edema Neuro oriented x3 and no sensory deficits noted Sensorium / Orientation: awake and alert Skin no rashes or lesions noted and no wounds MDM MDM MDM Narrative Medical decision making narrative: Interventions / MDM: Differential diagnosis: Abdominal abscess, wound drainage Diagnosis considered but do not suspect: N/A My EKG interpretation: N/A Imaging independently reviewed and interpreted by myself: CT scan abdomen pelvis IV chest shows a etiology, fistula with subcutaneous air. No abscess collection External documents reviewed: N/A Test considered but not ordered:N/A ED course: Patient increasing drainage drain tube removed from a previous abscess. No fevers or chills. Sepsis labs were ordered CT scan ordered for further evaluation. Wound cultures were ordered and obtained. Labs are normal, lactic acid normal. CT scan results fistula subcutaneous air air. 1530: I discussed with covering general surgeon Dr. Fragoso, who reviewed the images, also reviewed office records patient seen 2 weeks ago on the 12th, had dark brown drainage stable wound cultures negative. She is currently on cefdinir twice a day. This is confirmed with patient and daughter. With patient nontoxic, states patient can be seen in the office with her surgeon this Saturday at 9 AM which is scheduled for her. I discussed this with patient and daughter, they state this more concern increasing drainage today are on the antibiotics. There has been surgical discussions as an outpatient how would be complex, therefore this time the plan was antibiotics and expecting continued drainage for her. This can be reevaluated as an outpatient and in the office. All questions were answered. Re-evaluation: stable Disposition discussed with patient/family/significant other: Patient and daughter Case discussed with consulting clinician: General surgeon Dr. Fragoso. This note was generated with [employer] dictation software. It may contain incorrect words, spelling, and punctuation that were not noted in checking the note before signing. Lab Data Attestation: I reviewed the patient's lab results. Labs: Laboratory Results - last 24 hr 02/25/23 13:59 WBC 6.6 RBC 4.13 L Hgb 11.8 L Hct 38.0 MCV 92.0 MCH 28.6 MCHC 31.1 L RDW Std Deviation 46.0 H RDW Coeff of Juan 13.6 Plt Count 315 MPV 9.6 Immature Gran % (Auto) 0.300 Neut % (Auto) 67.2 Lymph % (Auto) 15.4 L [place] % (Auto) 15.4 H Eos % (Auto) 1.4 Baso % (Auto) 0.3 Absolute Neuts (auto) 4.4 Absolute Lymphs (auto) 1.01 Nucleated RBC % 0 PT 15.2 H INR 1.2 APTT 28.4 Sodium 136 Potassium 4.2 Chloride 102 Carbon Dioxide 30.0 Anion Gap 4 L BUN 14 Creatinine 0.93 Est GFR (MDRD) Af Amer 74 Est GFR (MDRD) Non-Af 61 BUN/Creatinine Ratio 15.1 Glucose 106 Lactic Acid 0.7 Calcium 9.0 Total Bilirubin 0.40 AST 9 L ALT 17 Alkaline Phosphatase 119 H Total Protein 7.7 Albumin 2.9 L Globulin 4.8 H Albumin/Globulin Ratio 0.6 L Radiography Diagnostic Testing: Clinical Impression(s) from Imaging Studies Abdomen/Pelvis CT 02/25/23 13:44 IMPRESSION: Status post anterior abdominal wall hernia repair with mesh. Persistent air is seen between the posterior aspect of the anterior abdominal wall and the anterior aspect of the mesh. I suspect continues to medication causing the air within the postoperative site. Electronically Signed: Carlos Morocho MD at 15:09 EDT , Discharge Plan Triage Chief Complaint: Wound ED Provider: Julio Neves Dx/Rx/DC Orders Clinical Impression: Abdominal wall abscess, Increased wound drainage Prescriptions: No Action metformin 500 mg tablet extended release 24 hr 500 mg PO QHS latanoprost 0.005 % drops 1 drp ophthalmic (eye) QHS glipizide 2.5 mg tablet extended release 24hr 2.5 mg PO DAILY cefdinir 300 mg capsule 300 mg PO BID Patient Comments: TAKE 1 CAPSULE BY MOUTH 2NTIMES A DAY FOR 7 DAYS THEN 1 CAPSULE DAILY THEREAFTER warfarin 2 mg tablet 2 mg PO DAILY Rx Instructions: Managed by Dr Moreno nystatin 100,000 unit/gram cream 1 applic topical BID PRN (Reason: rash) Qty: 30 1RF levothyroxine 50 MCG tablet 50 mcg PO 0600 Patient Comments: thyroid amiodarone 200 mg tablet 200 mg PO BREAKFAST Qty: 90 3RF carvedilol 12.5 mg tablet 12.5 mg PO BIDCM Qty: 180 3RF losartan 50 mg tablet 50 mg PO DAILY Qty: 90 3RF Primary Care Provider: Jyoti Mackey Referrals: Jyoti Mackey MD [Primary Care Provider] - Rajan Álvarez MD [Med Staff - Active Staff] - 2 Days Activity Restrictions/Additional Instructions: Labs are normal drainage was sent for culture. Your CT scan notes a fistula, there is no abscess. I discussed with covering general surgeon Dr. Fragoso with your CT findings, continue your antibiotics. Follow-up with Dr. Álvarez at 9 AM this coming Saturday. Disposition Disposition: Home, Self Care
[2023-02-25 14:13] LABS: Absolute Lymphocyte Count 1.01 X10^3/uL (0.83-4.51); Absolute Neutrophil Count 4.4 X10^3/uL (2.0-7.7); Basophil# 0.02 X10^3/uL; Basophil% 0.3 % (0-1); Eosinophil# 0.09 X10^3/uL; Eosinophils% 1.4 % (0-5); Hemoglobin 11.8 g/dL (12.0-15.0); Lymphocyte # 1.01 X10^3/ul (0.83-4.51); Lymphocyte % 15.4 % (19-41); Mean Corp Hgb Conc 31.1 g/dL (32-36); Mean Corpuscular Hgb 28.6 pg (27.0-32.0); Mean Platelet Vol. 9.6 fl (6.2-12.0); Monocyte# 1.01 X10^3/uL; Monocyte% 15.4 % (0-10); NRBC Flagged by Analyzer 0 % (0-5); Neutrophil % 67.2 % (47-70); Platelet Count 315 K/mm3 (150-450); RBC Distribution Width CV 13.6 % (11.6-14.6); Red Blood Count 4.13 M/mm3 (4.2-5.4); White Blood Count 6.6 K/mm3 (4.4-11.0)
[2023-02-25 14:19] LABS: International Normalized Ratio 1.2; Prothrombin Time (Protime)PT. 15.2 SECONDS (11.7-14.9)
[2023-02-25 14:20] LABS: Partial Thromboplast Time 28.4 Seconds (24.1-36.2)
[2023-02-25 14:31] LABS: ALB/GLOB Ratio 0.6 RATIO (0.9-2.4); AST(SGOT) 9 U/L (15-37); Alanine Aminotransfer ALT/SGPT 17 U/L (13-56); Albumin, Serum 2.9 g/dL (3.2-5.0); Alkaline Phosphatase 119 U/L (45-117); Anion Gap 4 (5-15); BUN 14 mg/dL (7-18); BUN/Creat Ratio 15.1 RATIO (10-20); Chloride 102 mmol/L (98-107); Creatinine, Serum 0.93 mg/dL (0.55-1.02); EST Glomerular Filtration Rate 61 mL/min (>60); Est Glom Filt Rate - Afr Amer 74 mL/min (>60); Globulin 4.8 g/dL (2.2-4.2); Glucose 106 mg/dL (74-106); Potassium 4.2 mmol/L (3.5-5.1); Protein, Total 7.7 g/dL (6.4-8.2); Sodium Level 136 mmol/L (136-145)
[2023-02-25 14:34] LABS: Lactic Acid 0.7 mmol/L (0.4-1.9)
[2023-02-25 16:00] VITALS: RESP 20
== END 2023-02-25 16:01 | disposition home or self-care (01) ==
PROVIDERS: Emergency Provider Emergency Medicine; PCP Family Medicine; Visit Provider Emergency Medicine
DX: L02.211 Cutaneous abscess of abdominal wall (principal); I48.0 Paroxysmal atrial fibrillation; G47.30 Sleep apnea, unspecified
CPT/HCPCS: 74177; 80053; 83605; 85025; 85610; 85730; 87040; 87070; 87075; 87077; 87186; 87205; 99283; Q9967; A4216

== ENCOUNTER → 2023-02-26 | Outpatient (CLI) | payer MEDICARE, OTHER, SELFPAY ==
[2023-02-26 12:30] LABS: International Normalized Ratio 1.2; Prothrombin Time (Protime)PT. 15.4 SECONDS (11.7-14.9)
[2023-02-26 13:10] LABS: Cholesterol 252 mg/dL (200); High Density Lipoprotein 53 mg/dL; Triglycerides 136 mg/dL; Very Low Density Lipoprotein 27 mg/dL (5-40)
== END | disposition home or self-care (01) ==
LOC: MFPLAB 11:04
PROVIDERS: PCP Family Medicine; Visit Provider Family Medicine
DX: E11.9 Type 2 diabetes mellitus without complications (principal); Z79.01 Long term (current) use of anticoagulants
CPT/HCPCS: 36415; 80061; 85610

== ENCOUNTER → 2023-03-08 | Outpatient (CLI) | payer MEDICARE, OTHER, SELFPAY ==
[2023-03-08 08:57] LABS: Absolute Lymphocyte Count 0.97 X10^3/uL (0.83-4.51); Absolute Neutrophil Count 5.7 X10^3/uL (2.0-7.7); Basophil# 0.04 X10^3/uL; Basophil% 0.5 % (0-1); Eosinophil# 0.23 X10^3/uL; Eosinophils% 3.1 % (0-5); Hematocrit 40.3 % (37-47); Hemoglobin 12.8 g/dL (12.0-15.0); Lymphocyte # 0.97 X10^3/ul (0.83-4.51); Lymphocyte % 12.9 % (19-41); Mean Corp Hgb Conc 31.8 g/dL (32-36); Mean Corpuscular Hgb 29.2 pg (27.0-32.0); Monocyte# 0.57 X10^3/uL; Monocyte% 7.6 % (0-10); NRBC Flagged by Analyzer 0 % (0-5); Neutrophil # 5.69 X10^3/uL (2.7-7.7); Neutrophil % 75.5 % (47-70); Platelet Count 374 K/mm3 (150-450); RBC Distribution Width CV 13.5 % (11.6-14.6); RBC Distribution Width SD 45.9 fl (35.1-43.9); Red Blood Count 4.38 M/mm3 (4.2-5.4); White Blood Count 7.5 K/mm3 (4.4-11.0)
== END | disposition home or self-care (01) ==
PROVIDERS: PCP Family Medicine; Referring Provider Surgery; Visit Provider Surgery
DX: T14.8XXA Other injury of unspecified body region, initial encounter (principal); X58.XXXA Exposure to other specified factors, initial encounter; K63.2 Fistula of intestine
CPT/HCPCS: 36415; 85025

== ENCOUNTER → 2023-04-17 | Outpatient (CLI) | payer MEDICARE, OTHER, SELFPAY ==
--- NOTE | 2023-04-17 09:10 | BI_ITS ---
MAMMOGRAPHY - BILATERAL SCREENING REASON FOR EXAM: Female, 87 years old. Routine annual screening examination. PERTINENT HISTORY: Personal history of breast cancer. Prior left lumpectomy and excisional breast biopsy. TECHNIQUE: Digital bilateral breast sim (3D mammographic acquisition) in the CC and MLO projections. 2-D mediolateral oblique (MLO) and craniocaudad (CC) views of both breasts were obtained. CAD: Full Field Digital Mammography with Computer Added Detection was performed. COMPARISON: Comparison is made with prior study dated April 13, 2022 and April 12, 2021. FINDINGS: Breast Composition: The breasts are heterogeneously dense, which may obscure small masses. There are no dominant masses or suspicious calcifications. Once again, the patient is status post lumpectomy in the deep central lateral aspect of the left breast with resultant postoperative scarring. This is unchanged. No other significant abnormalities are identified. There has been no significant change since the prior study. BI/SCRN MAMM (CAD)W/SIM BILAT IMPRESSION: Stable bilateral screening mammogram. Yearly follow-up mammogram recommended. (A) ASSESSMENT CATEGORY: BIRADS Category 2: Benign. A letter regarding these results will be sent to the patient by the facility within 30 days. Approximately 10% of breast cancers are not detected by mammography. A normal mammogram should not delay biopsy of a clinically suspicious abnormality. [id number] Electronically Signed: Carlos Morocho MD at 11:01 EDT ,
== END | disposition home or self-care (01) ==
LOC: OPBI 09:09
PROVIDERS: PCP Family Medicine; Referring Provider Surgery; Visit Provider Surgery
DX: Z12.31 Encounter for screening mammogram for malignant neoplasm of breast (principal)
CPT/HCPCS: 77063; 77067

== ENCOUNTER 2023-05-03 19:55 | Inpatient (IN) | payer MEDICARE, OTHER, SELFPAY ==
[2023-05-03 20:17] VITALS: BP 114/69; PULSE 67; PULSE 90; RESP 16; TEMP 36.6; O2SAT 92; O2SAT 95
--- NOTE | 2023-05-03 20:57 | NURSING ---
warfarin clarified with Dr. Huerta due to two orders listed on discharge med list. Per Dr. Huerta Warfarin 3mg daily po
--- NOTE | 2023-05-03 21:18 | HP.PCM_ITS ---
[facility] - General General Date of Admission: 05/03/23 Date of Service: 05/06/23 Chief Complaint: Here for rehabilitation, intravenous antibiotics. HPI Narrative GIAN HUBER, is a 87 Female who presents with followin04/24/2023 Admit to [facility]. Patient presented to ED with complaints of increased redness and drainage from abdominal enterocutaneous fistula and abdominal wound. This was associated with nausea, chills, constipation, decreased appetite. ED labs significant for Lactate 2.3 improved to 1.2. Hemoglobin 11.3, Platelets 433, Creatinine 1.07, Sodium 131, Chloride 95, GFR 51. Patient was placed on 2 liters oxygen per nasal cannula for acute hypoxia. CT abdomen/pelvis showed complex fluid collect ion and gas between the hernia mesh from a ventral hernia repair in the anterior abdominal wall. This collection communicates with the skin surface. Patient was started in IV Flagyl, IV Vancomycin, IV Levaquin and admitted to regular nursing floor for treatment of enterocutaneous fistula with sepsis. General Surgery was consulted. 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 There is now a new area of concern along with midline incision with possibility of developing fistula from the established fistula site. Patient was monitored closely for infection with continued drainage management. No acute surgical intervention was warranted. Definitive surgical intervention deferred to Dr. Alarcon at [facility] who has followed surgeries in the past. Of note, Dr. Alarcon saw patient recently and recommended non-surgical management due to high risk of surgery. Coumadin was held due to bleeding from the wound. CTA chest was completed due to respiratory failure, and patient was found to have acure recurrent subsegmental pulmonary emboli in the lower lobes with stable/chronic dilated right ventricle. Patient was started on heparin drip and transferred to ICU in stable condition for closer monitoring. Echo showed normal RV size and function . Infectious Disease consulted due to concern of worsening drainage, redness of current fistula. Cultures from the fistula drainage were followed. Antibiotics were changed to IV Meropenem and the new are of concern has been fistulalized and draining. Wound care INSURANCE CLAIM REPRESENTATIVE was consulted for pouching of new fistula, A [facility] wound pouch was placed. Wound culture grew enterococcus showing as GPC in pairs. Fistula drainage culture with yeast, likely a contaminant, patient continued to improve without antifungal treatment. Patient transitioned back to coumadin, INR on day of discharge 3.1. Patient received 2.5mg of coumadin on day of discharge with 3mg to continue thereafter, INR will be monitored every 3 days until therapeutic. Repeat CT abdomen/pelvis performed 04/30/2023 showed a 2cm x 1 cm anterior intraperitoneal collection in the midline just deep to the hernia mesh is smal ler then previously when it measured 3cm x 2cm. Base on cultures IV Zosyn was recommended by ID. Patient has PCN listed as allergy with anaphylaxis in 2006. The was deemed a childhood allergy. Patient tolerated several doses of IV Zosyn without any issue during her hospitalization. ID recommended IV Zosyn thru 05/16/2023, with possible PO antibiotic suppression as mesh is still in place. A repeat CT 2-3 weeks to document resolution should be considered. A Right upper extremity PICC line was placed without difficulty 05/02/2023. PT/OT recommended SNF placement. 05/03/2023 Admit to TCU with debility, here for rehabilitation, strengthening, intravenous antibiotics prior to discharge home alone. [facility] Medical History Ambulates with cane Anxiety Breast CA Cancer Cardiology follow-up encounter DCIS (ductal carcinoma in situ) Diabetes Endometrial cancer Essential (primary) hypertension Generalized osteoarthritis Hemorrhoid History of breast cancer History of diverticulitis History of echocardiogram History of GI bleed History of stress test Hx of fracture of humerus Hyperlipidemia Hypertension Hypertriglyceridemia Hypothyroidism (acquired) Infection of total knee replacement Loss of hearing Non-smoker Obesity Osteoarthritis Paroxysmal atrial fibrillation Paroxysmal atrial tachycardia Post-menopausal Premature atrial contractions Sleep apnea Thyroid disease Transient atrial fibrillation or flutter Type 2 diabetes mellitus Wears glasses Wears hearing aid Wound infection Home Medications levothyroxine 50 mcg tablet 50 mcg PO 0600 hypothyroidism 09/10/14 [History Last Taken 05/03/23] metformin 500 mg tablet,extended release 24 hr 500 mg PO QHS Diabetes 05/03/20 [History Last Taken 06/10/22] latanoprost 0.005 % eye drops 1 drp ophthalmic (eye) QHS glaucoma 05/02/21 [History Last Taken 06/10/22] amiodarone 200 mg tablet 200 mg PO BREAKFAST HEART #90 tabs 08/16/22 [Rx Last Taken 05/03/23] carvedilol 12.5 mg tablet 12.5 mg PO BIDCM BLOOD PRESSURE #180 tabs 08/16/22 [Rx Last Taken 05/03/23] glipizide 2.5 mg tablet, extended release 24 hr 2.5 mg PO DAILY BLOOD GLUCOSE 12/25/22 [History Last Taken Unknown] warfarin 2 mg tablet 2 mg PO DAILY BLOOD THINNER 12/25/22 [History Last Taken Unknown] losartan 50 mg tablet 50 mg PO DAILY BP #90 tabs 01/15/23 [Rx Last Taken Unknown] rosuvastatin 10 mg tablet (Crestor) 10 mg PO DAILY CHOLESTEROL 03/20/23 [History Last Taken 05/02/23] Allergy/AdvReac Type Severity Reaction Status Date / Time Penicillins Allergy Severe Chest Verified 04/18/23 09:36 tightness rofecoxib AdvReac Severe Itching Verified 04/18/23 09:36 adhesive tape [tape] AdvReac Mild Itching Verified 04/18/23 09:36 codeine AdvReac Mild Nausea/Vomi Verified 04/18/23 09:36 ting hydrocodone [Hydrocodone] AdvReac Mild Nausea/Vomi Verified 04/18/23 09:36 ting morphine AdvReac Mild Nausea/Vomi Verified 04/18/23 09:36 ting oxycodone [Oxycodone] AdvReac Mild Nausea Verified 04/18/23 09:36 aspartame AdvReac Diarrhea Verified 04/18/23 09:36 Family History Mother Hypertension Heart disease CVA (cerebral vascular accident) Parkinsons disease Father CVA (cerebral vascular accident) Parkinsons disease Other COPD (chronic obstructive pulmonary disease) Diabetes Surgical History H/O total hysterectomy History of exploratory laparotomy History of incisional hernia repair History of knee replacement History of lumpectomy of left breast History of right hip replacement Social History household members: none Smoking Status: Never smoker second hand exposure: No alcohol intake: never details: occasional substance use type: does not use ROS Constitutional Constitutional: Denies chills, fever(s) or weight gain ENT HEENT: Denies headache(s), nasal congestion or nasal discharge Cardiovascular Cardiovascular: Denies chest pain or palpitations Respiratory/Chest Respiratory/Chest: Denies cough, excessive phlegm production or shortness of breath with exertion Gastrointestinal Gastrointestinal: Denies abdominal pain, nausea or vomiting Genitourinary Genitourinary: Denies dysuria Musculoskeletal Musculoskeletal: Denies joint pain or joint swelling Integumentary Integumentary: Denies rash or wounds Neurologic Neurologic: Denies focal weakness, numbness or tingling Psychiatric Psychiatric: Denies anxiety, auditory hallucinations, depression, homicidal ideation or suicidal ideation Vital Signs Vital Signs Vital Signs: 05/03/23 20:17 Temperature 97.8 F Temperature Source Temporal Pulse Rate 67 Respiratory Rate 16 Blood Pressure 114/69 Blood Pressure Mean 84 Blood Pressure Source Monitor Blood Pressure Position Semi-Fowlers Blood Pressure Location Right Forearm Pulse Ox 92 Oxygen Delivery Method Room Air Physical Exam Const alert General Appearance: cooperative HEENT normocephalic Eyes PERRL and EOMs intact bilaterally Neck supple, no JVD and no carotid bruits Resp normal respiratory effort, normal air movement and clear to auscultation bilaterally Cardio regular rate and regular rhythm GI normal to inspection, nondistended, normoactive bowel sounds, non-tender and non-distended GI Narrative: Ostomy bags x 3. Extremity normal capillary refill General Extremity: Negative for edema Skin no rashes or lesions noted General Skin Exam: no breakdown Psych affect normal Appearance: appropriate Results Lab / Micro Data 05/05/23 13:18 05/06/23 05:50 Assessment & Plan Assessment/Plan (1) Debility: (2) Sepsis: (3) Enterocutaneous fistula: (4) Abdominal wall abscess: (5) Wound infection: (6) Pulmonary embolism: (7) Atrial fibrillation: (8) Acute respiratory failure with hypoxia: (9) Acute kidney injury: (10) Hyponatremia: (11) Hypertension: (12) Hyperlipidemia: (13) Diabetes mellitus: (14) Allergic rhinitis: (15) Hypothyroidism: (16) Glaucoma: (17) Gastritis: PLAN: Plan 87 year old female with below past medical history hospitalized for sepsis, enterocutaneous fistula, abdominal abscess, wound infection, complicated by acute respiratory failure secondary to pulmonary embolism, admitted to TCU with debility, here for rehabilitation, strengthening, intravenous antibiotics, prior to discharge home alone. * Debility - PT/OT. * Pain - Tylenol 1000mg q6 prn pain (1-10). * Bowel - senna/colace 1 tablet bid, Magnesium citrate 150ml daily prn. * Adult immunization - Administer pneumonia vaccine, covid19 vaccine, flu vaccine as appropriate. * DVT prophylaxis - on warfarin. * Atrial Fibrillation - Coreg 12.5mg bidcm, Amiodarone 200mg daily, Warfarin 3mg daily, monitor INR. * Hyperlipidemia - Atorvastatin 20mg daily. * Vitamin B12 deficiency - B12 500mcg daily. * Allergic rhinitis - Flonase 2 sprays nasal daily prn. * Diabetes Mellitus II - Metformin XR 500mg dinner, Glipizide 2.5mg breakfast. * Glaucoma - Latanoprost 1gtt ou qhs. * Hypertension - Coreg 12.5mg bidcm, Losartan 50mg daily. * Gastritis - Pantoprazole 40mg bid. * Abdominal mesh infection/abscess/enterocutaneous fistula - Zosyn 3.375gm iv q8, consult Dr. Sanchez for expert care, consult Linda Dos Santos.
[2023-05-03 22:18] LABS: Bedside Glucose 242 mg/dL (74-106)
[2023-05-03] MEDS: Piperacil/Tazobactam 3.375 GM in 0.9% Normal Saline (50mL MB+) 50 ML IV (23:18)
[2023-05-03] MEDS: Latanoprost 0.005% 1 Bottle 1 DRP OPHTHALMIC (23:18)
[2023-05-03] MEDS: Pantoprazole Sodium 40 MG Tablet PO (23:19)
[2023-05-03] MEDS: Atorvastatin Calcium 20 MG Tablet PO (23:19)
[2023-05-03] MEDS: 0.9% Saline Lock 10 ML Syringe IV (23:20)
[2023-05-03] MEDS: 0.9% Normal Saline (250mL Bag) 250 ML 15 ML IV (23:32)
--- NOTE | 2023-05-04 00:52 | NURSING ---
PATIENT REQUESTS DR. PALMER BE ASKED IF OK TO ACCEPT VACCINATIONS, STATES WOULD LIKE TO RECEIVE FLU VACCINE GHASSAN COVID BOOSTER BUT MY DOCTOR IN [place] SAID I SHOULD WAIT UNTIL THE INFECTION IS OVER. WRITTEN COMMUNICATION LEFT FOR DR. PALMER REGARDING PATIENT REQUEST
[2023-05-04] MEDS: Piperacil/Tazobactam 3.375 GM in 0.9% Normal Saline (50mL MB+) 50 ML IV ×3 (06:23→22:44)
[2023-05-04] MEDS: 0.9% Saline Lock 10 ML Syringe IV ×2 (06:23→22:44)
[2023-05-04] MEDS: Levothyroxine 50 MCG Tablet PO (06:25)
[2023-05-04 06:35] LABS: Bedside Glucose 153 mg/dL (74-106)
[2023-05-04 08:53] VITALS: BP 122/67; PULSE 80; RESP 16; TEMP 36.7; O2SAT 92
[2023-05-04] MEDS: glipiZIDE 2.5 MG TAB.ER.24 PO (09:00)
[2023-05-04] MEDS: Cyanocobalamin 500 MCG Tablet PO (09:00)
[2023-05-04] MEDS: Losartan Potassium 50 MG Tablet PO (09:00)
[2023-05-04] MEDS: Amiodarone 200 MG Tablet PO (09:00)
[2023-05-04] MEDS: Carvedilol 12.5 MG Tablet PO ×2 (09:00→17:49)
[2023-05-04] MEDS: Pantoprazole Sodium 40 MG Tablet PO ×2 (09:01→22:43)
[2023-05-04] MEDS: Senna/Docusate Sodium 1 Tablet PO ×2 (09:04→22:43)
[2023-05-04] MEDS: Menthol/Lanolin/Calamine/Znox 113 GM Tube 1 APPLIC TOPICAL ×2 (09:07→22:49)
[2023-05-04] MEDS: Tuberculin,Purif.prot.deriv. 50 TU/ML Vial 0.1 ML ID (10:36)
[2023-05-04] MEDS: 0.9 % NaCl (Sterile) Posiflush 10 mL IV ×2 (10:36→13:38)
[2023-05-04 15:03] LABS: Absolute Lymphocyte Count 0.79 X10^3/uL (0.83-4.51); Basophil# 0.03 X10^3/uL; Basophil% 0.8 % (0-1); Eosinophil# 0.05 X10^3/uL; Eosinophils% 1.3 % (0-5); Hematocrit 31.4 % (37-47); Lymphocyte # 0.79 X10^3/ul (0.83-4.51); Lymphocyte % 21.2 % (19-41); Mean Corp Hgb Conc 31.8 g/dL (32-36); Mean Corpuscular Hgb 29.7 pg (27.0-32.0); Mean Corpuscular Volume 93.2 fL (81-99); Monocyte% 21.5 % (0-10); NRBC Flagged by Analyzer 0 % (0-5); Neutrophil # 2.02 X10^3/uL (2.7-7.7); Neutrophil % 54.4 % (47-70); Platelet Count 394 K/mm3 (150-450); RBC Distribution Width CV 14.7 % (11.6-14.6); RBC Distribution Width SD 49.7 fl (35.1-43.9); Red Blood Count 3.37 M/mm3 (4.2-5.4); White Blood Count 3.7 K/mm3 (4.4-11.0)
[2023-05-04 15:22] LABS: Anion Gap 4 (5-15); BUN 16 mg/dL (7-18); BUN/Creat Ratio 15.4 RATIO (10-20); Calcium,Total 8.2 mg/dL (8.5-10.1); Chloride 101 mmol/L (98-107); Creatinine, Serum 1.04 mg/dL (0.55-1.02); EST Glomerular Filtration Rate 53 mL/min (>60); Est Glom Filt Rate - Afr Amer 65 mL/min (>60); Glucose 272 mg/dL (74-106); Potassium 4.3 mmol/L (3.5-5.1); Sodium Level 136 mmol/L (136-145)
[2023-05-04 17:46] VITALS: BP 103/72; PULSE 60
[2023-05-04] MEDS: metFORMIN (XR) 500 MG Tablet PO (17:49)
[2023-05-04 21:53] LABS: Bedside Glucose 176 mg/dL (74-106)
[2023-05-04] MEDS: Atorvastatin Calcium 20 MG Tablet PO (22:43)
[2023-05-04] MEDS: Latanoprost 0.005% 1 Bottle 1 DRP OPHTHALMIC (22:44)
[2023-05-05] MEDS: Levothyroxine 50 MCG Tablet PO (06:42)
[2023-05-05] MEDS: Piperacil/Tazobactam 3.375 GM in 0.9% Normal Saline (50mL MB+) 50 ML IV ×3 (06:43→23:39)
[2023-05-05 07:14] LABS: Bedside Glucose 128 mg/dL (74-106)
[2023-05-05 08:05] VITALS: BP 118/57; PULSE 76; RESP 16; TEMP 36.7; O2SAT 90
[2023-05-05] MEDS: glipiZIDE 2.5 MG TAB.ER.24 PO (08:09)
[2023-05-05] MEDS: Carvedilol 12.5 MG Tablet PO (08:09)
[2023-05-05] MEDS: Amiodarone 200 MG Tablet PO (08:09)
[2023-05-05] MEDS: Cyanocobalamin 500 MCG Tablet PO (08:10)
[2023-05-05] MEDS: Menthol/Lanolin/Calamine/Znox 113 GM Tube 1 APPLIC TOPICAL ×2 (08:10→23:49)
[2023-05-05] MEDS: Pantoprazole Sodium 40 MG Tablet PO ×2 (08:10→23:36)
[2023-05-05] MEDS: Senna/Docusate Sodium 1 Tablet PO ×2 (08:10→23:37)
[2023-05-05] MEDS: Losartan Potassium 50 MG Tablet PO (08:10)
[2023-05-05 12:36] VITALS: BP 99/59; PULSE 69; RESP 18; TEMP 36.9; O2SAT 96
--- NOTE | 2023-05-05 12:44 | NURSING ---
Addendum entered by Chang Decker 05/05/23 19:31: CT results called to Dr. Huerta. Patient wishes to go to ED to discuss options. Report called to ED. Original Note: Patient called out to nurse to assess drainage coming from abdomen. Patient had copious amount of stool/stomach content coming from lower mid abdominal wound. Patient states it has never done this before. Area around wound is red, warm to touch, and tender. Patient also complaining of severe left upper quadrant pain. Ostomy pouch applied. Dr. Huerta called and updated on patient. New orders received from Dr. Huerta.
[2023-05-05 13:22] LABS: Absolute Lymphocyte Count 0.72 X10^3/uL (0.83-4.51); Absolute Neutrophil Count 3.2 X10^3/uL (2.0-7.7); Basophil# 0.03 X10^3/uL; Basophil% 0.6 % (0-1); Eosinophil# 0.07 X10^3/uL; Eosinophils% 1.5 % (0-5); Hematocrit 33.9 % (37-47); Hemoglobin 10.7 g/dL (12.0-15.0); Lymphocyte # 0.72 X10^3/ul (0.83-4.51); Lymphocyte % 15.2 % (19-41); Mean Corp Hgb Conc 31.6 g/dL (32-36); Mean Corpuscular Hgb 29.6 pg (27.0-32.0); Mean Corpuscular Volume 93.6 fL (81-99); Mean Platelet Vol. 8.9 fl (6.2-12.0); Monocyte# 0.74 X10^3/uL; Monocyte% 15.6 % (0-10); NRBC Flagged by Analyzer 0 % (0-5); Neutrophil # 3.16 X10^3/uL (2.7-7.7); Neutrophil % 66.7 % (47-70); Platelet Count 390 K/mm3 (150-450); RBC Distribution Width CV 15.1 % (11.6-14.6); RBC Distribution Width SD 50.9 fl (35.1-43.9); Red Blood Count 3.62 M/mm3 (4.2-5.4); White Blood Count 4.7 K/mm3 (4.4-11.0)
[2023-05-05 13:47] LABS: ALB/GLOB Ratio 0.6 RATIO (0.9-2.4); AST(SGOT) 14 U/L (15-37); Alanine Aminotransfer ALT/SGPT 21 U/L (13-56); Albumin, Serum 2.3 g/dL (3.2-5.0); Alkaline Phosphatase 68 U/L (45-117); Anion Gap 3 (5-15); BUN 17 mg/dL (7-18); BUN/Creat Ratio 16.8 RATIO (10-20); Calcium,Total 8.5 mg/dL (8.5-10.1); Chloride 101 mmol/L (98-107); Creatinine, Serum 1.01 mg/dL (0.55-1.02); EST Glomerular Filtration Rate 55 mL/min (>60); Est Glom Filt Rate - Afr Amer 67 mL/min (>60); Globulin 3.9 g/dL (2.2-4.2); Glucose 242 mg/dL (74-106); Protein, Total 6.2 g/dL (6.4-8.2); Sodium Level 136 mmol/L (136-145)
[2023-05-05] MEDS: 0.9% Normal Saline (250mL Bag) 250 ML 15 ML IV (14:44)
[2023-05-05] MEDS: 0.9 % NaCl (Sterile) Posiflush 10 mL IV (14:45)
--- NOTE | 2023-05-05 20:15 | NURSING ---
Pt transported to ED via bed per two staff assist. Printed MAR sent w/ pt.
--- NOTE | 2023-05-05 20:20 | NURSING ---
ANGELITA Barton, from ED calling to request further information regarding drainage. Updated on report received from day shift RN. She verbalizes understanding.
--- NOTE | 2023-05-05 20:45 | NURSING ---
Received phone call from Dr. Lopez in ED requesting additional information about pt's change in condition that prompted transfer to ED as she is unable to locate documentation to reflect changes. Informed Dr. Lopez that this nurse was updated at shift change that stool and undigested food was spewing through holes/wounds in abdomen. Staff also noted a third hole/wound to abdomen. She plans to contact the surgeon.
--- NOTE | 2023-05-05 21:45 | NURSING ---
Pt returns to unit from ED. No new orders received. Per Oralia RN, general surgery PA to visit pt tomorrow.
[2023-05-05] MEDS: metFORMIN (XR) 500 MG Tablet PO (23:37)
[2023-05-05] MEDS: Atorvastatin Calcium 20 MG Tablet PO (23:37)
[2023-05-05] MEDS: Latanoprost 0.005% 1 Bottle 1 DRP OPHTHALMIC (23:38)
[2023-05-05 23:55] VITALS: O2SAT 94
[2023-05-06 06:09] LABS: International Normalized Ratio 3.7; Prothrombin Time (Protime)PT. 37.5 SECONDS (11.7-14.9)
[2023-05-06] MEDS: Levothyroxine 50 MCG Tablet PO (06:20)
[2023-05-06] MEDS: 0.9 % NaCl (Sterile) Posiflush 10 mL IV ×2 (06:21→21:36)
[2023-05-06] MEDS: Piperacil/Tazobactam 3.375 GM in 0.9% Normal Saline (50mL MB+) 50 ML IV ×3 (06:24→22:38)
--- NOTE | 2023-05-06 06:30 | NURSING ---
Pt reports the urge to void. Taken to the bathroom per CONSTRUCTION SITE MANAGER within the past hour. Bladder scan completed. First result <49 ml, second result 2ml, and third result 0ml. Hat placed in toilet. Will continue to monitor.
[2023-05-06 06:41] LABS: Bedside Glucose 115 mg/dL (74-106)
[2023-05-06 06:42] LABS: Potassium 3.9 mmol/L (3.5-5.1)
[2023-05-06 07:03] LABS: CPK Total, Creatine Kinase 18 U/L (26-192)
--- NOTE | 2023-05-06 09:03 | WOUNDNOTE ---
Fistula photo: abdomen
--- NOTE | 2023-05-06 09:03 | WOUNDNOTE ---
wound photo: right buttock
--- NOTE | 2023-05-06 09:04 | WOUNDNOTE ---
Was asked to see patient for fistulas to the abdomen. patient is known to this nurse from previous admissions and from surgeon's office. patient has 2 fistulas to abdomen. there had been 3 appliances placed to abdomen. removed appliances to assess the skin. one appliance was placed over the umbilicus. no drainage noted from this site. there is some mild redness noted to the open area to the mid abdomen and the mid lower abdomen. moderate light brown drainage noted from the more inferior opening. patient denies any pain. patient had been referred to [facility] for surgical consultation. patient has infected mesh. pt was told the surgery would be very risky. patient states I'm just hoping to make it to my next birthday in a couple of weeks. I know I'm nearing the end of my life. surgery has been consulted as well, but there are no surgical options for patient at [facility]. pt aware of this. cleansed skin with soap and water. pat dry. placed 2 new pediatric ostomy appliances over the two fistula sites. patient tolerated well. will monitor closely. see wound photos.
[2023-05-06] MEDS: Pantoprazole Sodium 40 MG Tablet PO ×2 (09:25→21:44)
[2023-05-06] MEDS: Senna/Docusate Sodium 1 Tablet PO ×2 (09:25→21:44)
[2023-05-06] MEDS: Cyanocobalamin 500 MCG Tablet PO (09:25)
[2023-05-06] MEDS: Amiodarone 200 MG Tablet PO (09:26)
[2023-05-06] MEDS: Menthol/Lanolin/Calamine/Znox 113 GM Tube 1 APPLIC TOPICAL ×2 (09:27→21:45)
[2023-05-06] MEDS: glipiZIDE 2.5 MG TAB.ER.24 PO (09:27)
[2023-05-06 10:00] VITALS: O2SAT 95
--- NOTE | 2023-05-06 11:43 | NURSING ---
Fur Cutter Note; Activity Asset: Radha Rasmussen is independent in her choice of daily activities. She will visit w/friends and family when not resting or in therapy. She watches tv, reads, works on word puzzles and uses her smartphone. Valery welcomes visit with the statement processor and therapy dog when available. Staff will remind her of daily activities and respect her rights to say no.
--- NOTE | 2023-05-06 14:03 | NURSING ---
Updated patient in room and niece (by phone) that unit has new covid positive patient.
--- NOTE | 2023-05-06 14:26 | PCM.CONS.GEN ---
Assessment & Plan Assessment/Plan (1) Enterocutaneous fistula: PLAN: Reviewed [place] notes, imaging, labs, micro. On zosyn per Dr. Pavon with ID there. Wound cx with mixed growth, did not identify specific organism. Plan was mad to change to augmentin 05/17, but will need repeat CT abd/pelvis just prior to that. 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 Admitted 04/24/23 to [facility] with new area of drainage from abd. Had elevated lactate, some hypoxia. Found to have new PEs. Seen by ID, seen by surgery, no surgery done. Picc placed, discharged on iv zosyn per plan by ID Dr. Pavon. Feeling ok, no abd pain. Full ROS performed and neg except as noted above. [facility] Medical History Ambulates with canLiebo Breast CA Cancer Cardiology follow-up encounter DCIS (ductal carcinoma in situ) Diabetes Endometrial cancer Essential (primary) hypertension Generalized osteoarthritis Hemorrhoid History of breast cancer History of diverticulitis History of echocardiogram History of GI bleed History of stress test Hx of fracture of humerus Hyperlipidemia Hypertension Hypertriglyceridemia Hypothyroidism (acquired) Infection of total knee replacement Loss of hearing Non-smoker Obesity Osteoarthritis Paroxysmal atrial fibrillation Paroxysmal atrial tachycardia Post-menopausal Premature atrial contractions Sleep apnea Thyroid disease Transient atrial fibrillation or flutter Type 2 diabetes mellitus Wears glasses Wears hearing aid Wound infection Home Medications levothyroxine 50 mcg tablet 50 mcg PO 0600 hypothyroidism 09/10/14 [History Last Taken 05/03/23] metformin 500 mg tablet,extended release 24 hr 500 mg PO QHS Diabetes 05/03/20 [History Last Taken 06/10/22] latanoprost 0.005 % eye drops 1 drp ophthalmic (eye) QHS glaucoma 05/02/21 [History Last Taken 06/10/22] amiodarone 200 mg tablet 200 mg PO BREAKFAST HEART #90 tabs 08/16/22 [Rx Last Taken 05/03/23] carvedilol 12.5 mg tablet 12.5 mg PO BIDCM BLOOD PRESSURE #180 tabs 08/16/22 [Rx Last Taken 05/03/23] glipizide 2.5 mg tablet, extended release 24 hr 2.5 mg PO DAILY BLOOD GLUCOSE 12/25/22 [History Last Taken Unknown] warfarin 2 mg tablet 2 mg PO DAILY BLOOD THINNER 12/25/22 [History Last Taken Unknown] losartan 50 mg tablet 50 mg PO DAILY BP #90 tabs 01/15/23 [Rx Last Taken Unknown] rosuvastatin 10 mg tablet (Crestor) 10 mg PO DAILY CHOLESTEROL 03/20/23 [History Last Taken 05/02/23] Allergy/AdvReac Type Severity Reaction Status Date / Time Penicillins Allergy Severe Chest Verified 04/18/23 09:36 tightness rofecoxib AdvReac Severe Itching Verified 04/18/23 09:36 adhesive tape [tape] AdvReac Mild Itching Verified 04/18/23 09:36 codeine AdvReac Mild Nausea/Vomi Verified 04/18/23 09:36 ting hydrocodone [Hydrocodone] AdvReac Mild Nausea/Vomi Verified 04/18/23 09:36 ting morphine AdvReac Mild Nausea/Vomi Verified 04/18/23 09:36 ting oxycodone [Oxycodone] AdvReac Mild Nausea Verified 04/18/23 09:36 aspartame AdvReac Diarrhea Verified 04/18/23 09:36 Family History Mother Hypertension Heart disease CVA (cerebral vascular accident) Parkinsons disease Father CVA (cerebral vascular accident) Parkinsons disease Other COPD (chronic obstructive pulmonary disease) Diabetes Surgical History H/O total hysterectomy History of exploratory laparotomy History of incisional hernia repair History of knee replacement History of lumpectomy of left breast History of right hip replacement Social History household members: none Smoking Status: Never smoker second hand exposure: No alcohol intake: never details: occasional substance use type: does not use Physical Exam Const alert, oriented x3 and no apparent distress General Appearance: cooperative HEENT normocephalic and head/scalp atraumatic Eyes PERRL and EOMs intact bilaterally Neck supple and No nodes Resp normal air movement and clear to auscultation bilaterally Cardio regular rate and regular rhythm GI soft to palpation, non-tender and non-distended Extremity General Extremity: edema Skin Skin Narrative: reviewed photos Neuro CN's II-XII intact bilaterally Lab / Micro Data Attestation: I reviewed the patient's lab results. 05/05/23 13:18 05/06/23 05:50 Labs: Laboratory Results - last 24 hr 05/06/23 05:50: PT 37.5 H, INR 3.7, Potassium 3.9, Total Creatine Kinase 18 L 05/06/23 06:23: POC Glucose 115 H Micro: Microbiology 05/05/23 17:22 Wound - Abdominal Gram Stain - Final 05/05/23 17:22 Wound - Abdominal Wound Culture - Preliminary Gram positive organism 05/06/23 08:59 Nasal Secretion SARS-CoV-2 Antigen (Rapid) - Final 05/05/23 17:22 Stool Enteric Bacteriology - Final
--- NOTE | 2023-05-06 15:48 | CASEMGMT ---
Social Work Met with patient to complete initial assessment. Niece present in room as well. Pt and niece known to this worker from previous stay. Pt agreed for niece to remain for assessment. See SW assessment for goals and barriers of DC and PLOF. SW discussed code status and pt confirmed full code. Educated to Medicare benefit. Encouraged to contact secondary insurance to ensure copay coverage. Niece agreed to contact insurance defense attorney to send this worker pt's advanced directives. SW will continue to follow for DC planning. JUDE ConnorW
[2023-05-06 16:00] VITALS: BP 98/60; PULSE 77; RESP 14; TEMP 36.8; O2SAT 91
--- NOTE | 2023-05-06 16:14 | PCM.PN.DRR ---
Documented by User: Eder Amaro 05/06/23 16:53 TCU RX Drug Regimen Review Subjective/Objective Subjective/Objective: Subjective: 87 year old female with below past medical history hospitalized for sepsis, enterocutaneous fistula, abdominal abscess, wound infection, complicated by acute respiratory failure secondary to pulmonary embolism, admitted to TCU with debility, here for rehabilitation, strengthening, intravenous antibiotics, prior to discharge home alone. Objective: Allergies Penicillins Allergy (Severe, Verified 04/18/23 09:36) Chest tightness rofecoxib Adverse Reaction (Severe, Verified 04/18/23 09:36) Itching adhesive tape [tape] Adverse Reaction (Mild, Verified 04/18/23 09:36) Itching codeine Adverse Reaction (Mild, Verified 04/18/23 09:36) Nausea/Vomiting hydrocodone [Hydrocodone] Adverse Reaction (Mild, Verified 04/18/23 09:36) Nausea/Vomiting morphine Adverse Reaction (Mild, Verified 04/18/23 09:36) Nausea/Vomiting oxycodone [Oxycodone] Adverse Reaction (Mild, Verified 04/18/23 09:36) Nausea aspartame Adverse Reaction (Verified 04/18/23 09:36) Diarrhea Current Medications Generic Name Dose Route Start Last Admin Trade Name Freq PRN Reason Stop Dose Admin Acetaminophen 1,000 mg 05/03/23 22:09 Acetaminophen 500 Mg Tablet PO Q6H PRN PRN Pain Score 1-10 Amiodarone HCl 200 mg 05/04/23 08:00 05/06/23 09:26 Amiodarone 200 Mg Tablet PO 200 mg BREAKFAST [facility] Administration Amoxicillin/Clavulanate Potassium 875 mg 05/17/23 08:00 [facility]ox[facility] Ator[facility] Calcium 20 mg 05/03/23 22:00 05/05/23 23:37 Atorvastatin Calcium 20 Mg Tablet PO 20 mg DAILY@2200 [facility] Administration Calamine/Phenol 1 applic 05/04/23 10:00 05/06/23 09:27 Menthol/Lanolin/Calamine/Znox 113 Gm Tube TOPICAL 1 applic BID [facility] Administration Protocol Carvedilol 12.5 mg 05/04/23 08:00 05/06/23 09:26 Carvedilol 12.5 Mg Tablet PO [facility] Protocol Cyanocobalamin 500 mcg 05/04/23 08:00 05/06/23 09:25 Cyanocobalamin 500 Mcg Tablet PO 500 mcg BREAKFAST [facility] Administration Fluticasone Propionate 2 spray 05/03/23 20:37 Fluticasone 0.05% 1 [place] Nasal.Sry NASAL DAILY PRN PRN NASAL CONGESTION Glipizide 2.5 mg 05/04/23 08:00 05/06/23 09:27 Glipizide 2.5 Mg Tab.Er.24 PO 2.5 mg BREAKFAST SO Administration Heparin Sodium (Beef Lung) 50 units 05/03/23 20:53 Heparin Pf Lock 10 Units/Ml 50 Units/5 Ml Syringe IV UD PRN PICC Line Heparin Flush Piperacillin Sod/Tazobactam 50 mls @ 12.5 mls/hr 05/03/23 22:00 05/06/23 13:48 Sod 3.375 gm/ Sodium Chloride IV 05/16/23 22:01 12.5 mls/hr Q8 SO Administration Sodium Chloride 250 mls @ 15 mls/hr 05/03/23 23:11 05/05/23 14:44 IV 0 mls/hr .[id number] PRN Infusion Additional IVPB Infusion Sodium Chloride 250 mls @ 15 mls/hr 05/03/23 23:11 IV .[id number] PRN Saline Flush Latanoprost 1 drp 05/03/23 22:00 05/05/23 23:38 Latanoprost 0.005% 1 Bottle OPHTHALMIC 1 drp QHS SO Administration Levothyroxine Sodium 50 mcg 05/04/23 06:00 05/06/23 06:20 Levothyroxine 50 Mcg Tablet PO 50 mcg 0600 SO Administration Losartan Potassium 50 mg 05/04/23 10:00 05/06/23 10:39 Losartan Potassium 50 Mg Tablet PO Not Given DAILY [facility] Protocol Magnesium Citrate 150 ml 05/03/23 22:09 Magnesium Citrate 300 Ml PO DAILY PRN Constipation Metformin HCl 500 mg 05/04/23 17:00 05/05/23 23:37 Metformin (Xr) 500 Mg Tablet PO 500 mg DINNER SO Administration Oxycodone HCl 5 mg 05/05/23 12:29 Oxycodone 5 Mg Tablet PO Q4H PRN PRN Pain Score 6-10 Pantoprazole Sodium 40 mg 05/03/23 22:00 05/06/23 09:25 Pantoprazole Sodium 40 Mg Tablet PO 40 mg BID SO Administration Senna/Docusate Sodium 1 tablet 05/04/23 10:00 05/06/23 09:25 Senna/Docusate Sodium 1 Tablet PO 1 tablet BID SO Administration Sodium Chloride 10 - 40 ml 05/03/23 20:53 05/06/23 06:21 0.9 % Nacl (Sterile) Posiflush 10 Ml IV 10 ml UD PRN Administration Port access or dressing change Sodium Chloride 10 - 40 ml 05/03/23 20:53 05/04/23 22:44 0.9% Saline Lock 10 Ml Syringe IV 10 ml UD PRN Administration Open End PICC Flush Tuberculin PPD 0.1 ml 05/11/23 10:00 Tuberculin,Purif.Prot.Deriv. 50 Tu/Ml Vial ID 05/11/23 10:01 X1 ONE Warfarin Sodium 3 mg 05/04/23 17:00 05/05/23 23:49 Warfarin 3 Mg Tablet PO 3 mg DINNER SO Administration Problem List (Updated 05/05/23 @ 21:[address] Carmella Lopez MD) Hypertension (Chronic) Hyponatremia (Acute) Acute kidney injury (Acute) Atrial fibrillation (Acute) Enterocutaneous fistula (Acute) Abdominal wall abscess (Acute) Wound infection (Acute) Glaucoma (Acute) Diabetes mellitus (Acute) Hypothyroidism (Acute) Hyperlipidemia (Acute) Gastritis (Acute) Debility (Acute) Pulmonary embolism (Acute) Vital Signs Temp Pulse Resp BP Pulse Ox O2 Del Method 98.5 F 69 18 99/59 L 95 Room Air 05/05/23 12:36 05/05/23 12:36 05/05/23 12:36 05/05/23 12:36 05/06/23 10:00 05/06/23 10:00 Oxygen Delivery Method Room Air Weight: 90.378 kg Sodium 136 mmol/L (136-145) 05/05/23 13:18 Potassium 3.9 mmol/L (3.5-5.1) 05/06/23 05:50 Chloride 101 mmol/L (98-107) 05/05/23 13:18 Carbon Dioxide 32.0 mmol/L (21.0-32.0) 05/05/23 13:18 Anion Gap 3 (5-15) L 05/05/23 13:18 BUN 17 mg/dL (7-18) 05/05/23 13:18 Creatinine 1.01 mg/dL (0.55-1.02) 05/05/23 13:18 Est GFR (MDRD) Af Amer 67 mL/min (>60) 05/05/23 13:18 Est GFR (MDRD) Non-Af 55 mL/min (>60) L 05/05/23 13:18 BUN/Creatinine Ratio 16.8 RATIO (10-20) 05/05/23 13:18 Glucose 242 mg/dL (74-106) H 05/05/23 13:18 Assessment/Plan: 1. Pain: acetaminophen 1000 mg PO Q6H PRN pain, oxycodone 5 mg PO Q4H PRN pain. The patient has not used any PRN doses of acetaminophen or oxycodone this admission. Please continue to monitor for PRN usage, pain control, LFTs (AST/ALT = 14/21 U/L on 05/05/23), for syncope/ataxia/falls (oxycodone Beer's criteria), for drowsiness, respiratory depression, and for constipation. 2. Bowel: senna/docusate 1 tablet PO BID, magnesium citrate 150 mL PO PRN constipation. The patient has not used any PRN doses of magnesium citrate this admission, and their last bowel movement was today. Please continue to monitor for constipation, diarrhea, and PRN usage. 3. Abdominal mesh infection/abscess/enterocutaneous fistula: Zosyn 3.375 grams IV Q8H until 05/17/23, amoxicillin/clavulanate 875/125 mg PO BID starting 05/17. Please continue to monitor cultures for finalization (as of 05/05/23 rare GPCs), WBC count (WBC = 4.7 K/mm3), for fever (recent temps 97.6-99.7 C), for fever/chills that would indicate worsening infection, for diarrhea that could indicate clostridium difficile infection, renal function (serum creatinine = 1.01 mg/dL with creatinine clearance ~ 67 mL/min on 05/05/23), and platelet count (Plt = 390 K/mm3). Please consider de-escalation of antimicrobial therapy as appropriate once cultures finalize. 4. Atrial fibrillation/hypertension: carvedilol 12.5 mg PO BID with meals, amiodarone 200 mg PO daily with breakfast, warfarin 3 mg PO daily, losartan 50 mg PO daily. Please continue to monitor for s/s that the patient is in atrial fibrillation such as palpitations and heart rate (recent range = 60-90 beats/min), blood pressures (recent range = 98-122/56-72 mmHg), LFTs (AST/ALT = 14/21 U/L on 05/05/23), for fatigue, for s/s of pulmonary toxicity, TSH (TSH = 1.45 uIU/mL on 05/08/21), T4 (T4 = 9.8 ug/dL on 05/08/21), INR (INR 3.7 on 05/06/23), for s/s of bleeding/excessive bruising, hemoglobin levels (Hgb = 10.7 g/dL on 05/05/23), platelet count (Plt = 390 K/mm3 on 05/05/23), for s/s of stroke, renal function (serum creatinine = 1.01 mg/dL with creatinine clearance ~ 67 mL/min on 05/05/23), potassium levels (K = 3.9 mmol/L on 05/06/23), and sodium levels (Na = 136 on 05/05/23). The patients INR today is 3.7 which is elevated, warfarin should likely be held today and an INR should be trended until back in normal range. 5. Hyperlipidemia: atorvastatin 20 mg PO daily. Please continue to monitor LFTs (AST/ALT = 14/21 U/L on 05/05/23), lipid levels (LDL = 172 mg/dL with cholesterol 252 mg/dL on 02/26/23), and for s/s of myopathies. 6. Hypothyroidism: levothyroxine 50 mcg PO daily. Please continue to monitor TSH (TSH = 1.45 uIU/mL on 05/08/21), T4 (T4 = 9.8 ug/dL on 05/08/21), and for s/s of hypo/hyperthyroidism. The patient does not have a documented T4/TSH in ~ 2 years, please consider ordering a TSH and T4 level if clinically indicated. 7. Diabetes Mellitus II: glipizide 2.5 mg PO daily with breakfast, metformin XR 500 mg PO daily with dinner. Please continue to monitor blood glucose (recent range = 115-242 mg/dL), hemoglobin A1C (A1C = 7.4% on 05/08/21), renal function (serum creatinine = 1.01 mg/dL with creatinine clearance ~ 67 mL/min on 05/05/23), for s/s of hypo/hyperglycemia, for GI distress with metformin administration as well vitamin B12 levels (B12 level = 1947 on 06/01/14). If GI distress occurs with metformin administration please consider giving with food. Please consider ordering a hemoglobin A1C to assess glucose control as patients last documented A1C was ~ 2 years ago. 8. Allergic rhinitis: fluticasone 0.05% 2 sprays in each nostril daily PRN nasal congestion. The patient has not used any PRN doses of fluticasone this admission. Please continue to monitor for s/s of allergic rhinitis, for headache and nose bleeds. 9. Glaucoma: latanoprost 0.005% 1 drop in each eye at bedtime. Please continue to monitor eye function, for hyperemia, eye discharge, and eye pain. 10. Gastritis: pantoprazole 40 mg PO BID. Please continue to monitor for s/s of gastritis, for diarrhea that could be indicative of clostridium difficile infection, and for s/s of bone loss/resorption such as fractures (Beer's criteria). 11. Vitamin B12 deficiency: cyanocobalamin 500 mcg PO daily with breakfast. Please continue to monitor for s/s of vitamin B12 deficiency and B12 levels (B12 level = 1947 on 06/01/14). Please consider ordering another vitamin B-12 level as the patient does not have a documented level for ~ 7 years. 12. Skin irritation: calmoseptine 1 application topically BID. Please continue to monitor for skin irritation and skin integrity. Assessment/Plan for indications treated with psychotropic medications: N/A Medical chart and medication regimen reviewed. The following medication irregularities or issues were identified: 1. Abdominal mesh infection/abscess/enterocutaneous fistula: Zosyn 3.375 grams IV Q8H until 05/17/23, amoxicillin/clavulanate 875/125 mg PO BID starting 05/17. Please consider de-escalation of antimicrobial therapy as appropriate once cultures finalize. 2. Atrial fibrillation/hypertension: carvedilol 12.5 mg PO BID with meals, amiodarone 200 mg PO daily with breakfast, warfarin 3 mg PO daily, losartan 50 mg PO daily. The patients INR today is 3.7 which is elevated, warfarin should likely be held today and an INR should be trended until back in normal range. 3. Hypothyroidism: levothyroxine 50 mcg PO daily. The patient does not have a documented T4/TSH in ~ 2 years, please consider ordering a TSH and T4 level if clinically indicated. 4. Diabetes Mellitus II: glipizide 2.5 mg PO daily with breakfast, metformin XR 500 mg PO daily with dinner. If GI distress occurs with metformin administration please consider giving with food. Please consider ordering a hemoglobin A1C to assess glucose control as patients last documented A1C was ~ 2 years ago. 5. Vitamin B12 deficiency: cyanocobalamin 500 mcg PO daily with breakfast. Please continue to monitor for s/s of vitamin B12 deficiency and B12 levels (B12 level = 1947 on 06/01/14). Please consider ordering another vitamin B-12 level as the patient does not have a documented level for ~ 7 years. Date Date of Note:: 05/06/23 Documented by User: Dr. Vikas Huerta MD 05/06/23 17:07 TCU RX Drug Regimen Review Provider Comments Provider responsibility Provider Comments to Recommendations by Pharmacy: Agree
[2023-05-06] MEDS: metFORMIN (XR) 500 MG Tablet PO (18:33)
[2023-05-06 20:00] VITALS: BP 129/75; PULSE 82; RESP 16; O2SAT 91
--- NOTE | 2023-05-06 20:42 | NURSING ---
LICENSED CLINICAL PSYCHOLOGIST reports red drainage observed from distal fistula/open area to lower abdomen. Patient immediately assessed, 100cc red drainage observed mixed with liquid stool. Open area to abdomen site observed with slow draining bright red drainage. NO distress observed. Dr. Huerta contacteed via phone, notified of above findings. New order recieved for Vitamin K 10mg subq or IM x1, apply pressure to site and repeat labs in AM. Orders repeated back.
--- NOTE | 2023-05-06 20:53 | NURSING ---
Per pharmacist (Raji) Vitamin K no longer able to be administered subq or IM due to policy change, only able to give IV or Oral. Dr. Huerta paged and notified of pharmacist requesting route clarification, Per Dr. Huerta administer Vitamin K 10mg IV via PICC x1, order repeated back
[2023-05-06 21:36] LABS: Bedside Glucose 145 mg/dL (74-106)
[2023-05-06] MEDS: Phytonadione (Vit K) 10 MG in 0.9% Normal Saline (50mL Bag) 50 ML 150 MG IV (21:36)
[2023-05-06] MEDS: Atorvastatin Calcium 20 MG Tablet PO (21:44)
[2023-05-06] MEDS: Latanoprost 0.005% 1 Bottle 1 DRP OPHTHALMIC (21:44)
[2023-05-06] MEDS: 0.9% Saline Lock 10 ML Syringe IV (22:37)
[2023-05-07] VITALS (8 sets, daily range): BP systolic 88–115; BP diastolic 45–62; PULSE 70–80; RESP 16–20; TEMP 37.2–37.7; O2SAT 88–95; BMI 34.3
--- NOTE | 2023-05-07 01:00 | NURSING ---
BOX SHOOK PATCHER assists patient to toilet per request, BOX SHOOK PATCHER requests this nurse assist in room due to return of red drainage via distal open area to abdomen and moderate amount bright red drainage observed in toilet bowel, large amounts of liquid stool green and red in color draining from distal abdominal open area. pouch changed and 30cc red drainage measured. Patient complaining of thirst despite accepting oral fluids, chills and SOB. temporal temp 99.6, spo2 88% on RA, Patient discussed recent visit to ED and they said I should consider hospice, but I'm just not ready to make that decision yet until I see the surgeon again. Current code status full code. Dr. Huerta contacted via telephone and notified of above symptoms, 02 applied via NC at 2 LPM and spo2 improved to 92%. Per Dr. Huerta sent patient to ED for lanie whitaker and thomas.
--- NOTE | 2023-05-07 01:55 | NURSING ---
Report called to [facility] in ED prior to ED arrival, patient to be transported to room 2 in ED. Nurse to nurse report provided at ED bedside.
--- NOTE | 2023-05-07 02:20 | NURSING ---
Dr. Garcia calls unit to speak with nurse regarding order from Dr. Huerta for patient to be sent to ED. Dr. Garcia notified of patient bleeding from open abdominal wound, moderate amount of red drainage in toilet water with toileting, recent Vitamin K IV per order, patient complaint of thirst/chills/sob/88% on RA and noted increased weakness since admit. Dr. Garcia notified that patient full code and patient states not ready to accept hospice services despite stating in last ED visit it was discussed, along with patient stating she was told she is not a surgical candidate. no further questions at this time.
--- NOTE | 2023-05-07 04:10 | NURSING ---
Received report from ED nurse (Bushra),reports patient to be sent back to TCU, states patient will have intermittent fevers while on ATB and will have episodes of SOB/Hypoxia due to PE, no new orders.
[2023-05-07 05:49] LABS: Absolute Lymphocyte Count 0.69 X10^3/uL (0.83-4.51); Absolute Neutrophil Count 2.1 X10^3/uL (2.0-7.7); Basophil# 0.03 X10^3/uL; Basophil% 0.8 % (0-1); Eosinophil# 0.09 X10^3/uL; Eosinophils% 2.3 % (0-5); Hematocrit 30.7 % (37-47); Hemoglobin 9.3 g/dL (12.0-15.0); Lymphocyte # 0.69 X10^3/ul (0.83-4.51); Lymphocyte % 17.9 % (19-41); Mean Corp Hgb Conc 30.3 g/dL (32-36); Mean Corpuscular Hgb 28.1 pg (27.0-32.0); Mean Corpuscular Volume 92.7 fL (81-99); Mean Platelet Vol. 8.6 fl (6.2-12.0); Monocyte# 0.95 X10^3/uL; Monocyte% 24.7 % (0-10); NRBC Flagged by Analyzer 0 % (0-5); Neutrophil # 2.08 X10^3/uL (2.7-7.7); Platelet Count 408 K/mm3 (150-450); RBC Distribution Width CV 14.8 % (11.6-14.6); RBC Distribution Width SD 50.4 fl (35.1-43.9); Red Blood Count 3.31 M/mm3 (4.2-5.4); White Blood Count 3.9 K/mm3 (4.4-11.0)
[2023-05-07 06:07] LABS: International Normalized Ratio 1.6; Prothrombin Time (Protime)PT. 19.6 SECONDS (11.7-14.9)
[2023-05-07 06:11] LABS: Anion Gap 5 (5-15); BUN 15 mg/dL (7-18); Calcium,Total 8.5 mg/dL (8.5-10.1); Chloride 104 mmol/L (98-107); Creatinine, Serum 0.94 mg/dL (0.55-1.02); EST Glomerular Filtration Rate 60 mL/min (>60); Est Glom Filt Rate - Afr Amer 72 mL/min (>60); Estimated Creatinine Clearance 33.98 ml/min; Glucose 141 mg/dL (74-106); Potassium 4.1 mmol/L (3.5-5.1); Sodium Level 138 mmol/L (136-145)
[2023-05-07 06:20] LABS: Bedside Glucose 126 mg/dL (74-106)
[2023-05-07] MEDS: 0.9% Normal Saline (250mL Bag) 250 ML 15 ML IV (06:41)
[2023-05-07] MEDS: Levothyroxine 50 MCG Tablet PO (06:41)
[2023-05-07] MEDS: Piperacil/Tazobactam 3.375 GM in 0.9% Normal Saline (50mL MB+) 50 ML IV ×3 (06:41→22:27)
[2023-05-07] MEDS: 0.9% Saline Lock 10 ML Syringe IV (06:41)
--- NOTE | 2023-05-07 07:37 | NURSING ---
Patient rep (Maribeth) contacted via phone number on face sheet. Notified of patient changes overnight and order to send to ED with return to unit with no new orders. No concerns voiced at this time, rep expressed thanks for update.
[2023-05-07] MEDS: Pantoprazole Sodium 40 MG Tablet PO ×2 (10:39→22:22)
[2023-05-07] MEDS: Losartan Potassium 50 MG Tablet PO (10:39)
[2023-05-07] MEDS: Cyanocobalamin 500 MCG Tablet PO (10:39)
[2023-05-07] MEDS: glipiZIDE 2.5 MG TAB.ER.24 PO (10:39)
[2023-05-07] MEDS: Amiodarone 200 MG Tablet PO (10:39)
[2023-05-07] MEDS: Senna/Docusate Sodium 1 Tablet PO ×2 (10:39→22:24)
[2023-05-07] MEDS: Carvedilol 12.5 MG Tablet PO ×2 (10:39→17:40)
[2023-05-07] MEDS: Menthol/Lanolin/Calamine/Znox 113 GM Tube 1 APPLIC TOPICAL ×2 (10:44→22:21)
--- NOTE | 2023-05-07 15:52 | CHAPLAIN ---
Type of Pastoral Visit _x__ Initial Visit ___ Follow-up Visit ___ On-call Visit ___ General Patient Visit _x__ Spiritual Assessment ___ Family Conference ___ Bereavement ___ Rapid Response ___ Code Blue ___ Other (describe below) Pastoral Care Referral From _x__ Patient ___ Family ___ Nurse ___ Physician ___ Unit Supervisor ___ Salesperson Sewing Machines ___ Other (describe below) Sacrament/Intervention _x__ Active listening ___ Anointing ___ Oriental Orthodox ___ Bereavement ___ Communion _x__ Amrcela exploration ___ _x__ Life review _x__ Prayer ___ Reconciliation ___ Sacrament of Sick _x__ Supportive presence ___ Wedding ___ Other (describe below) Pastoral Comments this was a long encounter at request of this patient for her spiritual assurances as she makes decision for hospice only care; pt has been seen before in previous admissions and has expressed her marcela in God and her active involvement in her sabianism; pt has just met a new clergyperson of her mandaen who will also be available to enable in spiritual care in the days to come; pt has many questions about spiritual issues and eternal life; pt is given scriptures which she herself affirms; much listening, validating of thoughts and feelings, sharing of perspectives of life and , and prayers given; pt is tearful at times, expressive of her appreciation for student financial services counselor on matters important to her; this guncotton packer will remain available to pt as she desires or needs during her stay in [place]
[2023-05-07] MEDS: metFORMIN (XR) 500 MG Tablet PO (17:39)
[2023-05-07 21:33] LABS: Bedside Glucose 142 mg/dL (74-106)
[2023-05-07] MEDS: Miconazole Nitrate 43 GM Bottle 1 APPLIC TOPICAL (22:21)
[2023-05-07] MEDS: Atorvastatin Calcium 20 MG Tablet PO (22:22)
[2023-05-07] MEDS: Latanoprost 0.005% 1 Bottle 1 DRP OPHTHALMIC (22:25)
[2023-05-07] MEDS: 0.9 % NaCl (Sterile) Posiflush 10 mL IV (22:31)
[2023-05-07] MEDS: Acetaminophen 500 MG Tablet 1000 MG PO (22:32)
[2023-05-08] VITALS (8 sets, daily range): BP systolic 79–96; BP diastolic 37–53; PULSE 63–74; RESP 14–18; TEMP 36.8–37.1; O2SAT 93–96
[2023-05-08] MEDS: Levothyroxine 50 MCG Tablet PO (05:20)
[2023-05-08] MEDS: Piperacil/Tazobactam 3.375 GM in 0.9% Normal Saline (50mL MB+) 50 ML IV ×3 (05:20→22:37)
[2023-05-08] MEDS: Acetaminophen 500 MG Tablet 1000 MG PO (05:32)
[2023-05-08 06:30] LABS: International Normalized Ratio 1.4; Prothrombin Time (Protime)PT. 16.8 SECONDS (11.7-14.9)
[2023-05-08 06:34] LABS: Bedside Glucose 152 mg/dL (74-106)
--- NOTE | 2023-05-08 07:30 | WOUNDNOTE ---
the more inferior fistula appliance full of liquid brown drainage. removed appliance and was able to remove a small plug from the opening. large amount of brown liquid and gas expelled. abdomen softer now. new pediatric ostomy appliance placed around fistula opening. will monitor.
[2023-05-08] MEDS: Amiodarone 200 MG Tablet PO (09:28)
[2023-05-08] MEDS: Pantoprazole Sodium 40 MG Tablet PO ×2 (09:28→22:38)
[2023-05-08] MEDS: Senna/Docusate Sodium 1 Tablet PO ×2 (09:28→22:38)
[2023-05-08] MEDS: Miconazole Nitrate 43 GM Bottle 1 APPLIC TOPICAL ×2 (09:28→22:48)
[2023-05-08] MEDS: glipiZIDE 2.5 MG TAB.ER.24 PO (09:28)
[2023-05-08] MEDS: Cyanocobalamin 500 MCG Tablet PO (09:28)
[2023-05-08] MEDS: Menthol/Lanolin/Calamine/Znox 113 GM Tube 1 APPLIC TOPICAL ×2 (09:29→22:48)
--- NOTE | 2023-05-08 10:35 | CASEMGMT ---
Addendum entered by Eliane Yu 05/08/23 14:31: Pt signed for hospice but is electing to wait until IV ATBs are completed. Pt is aware she can choose to DC prior to stop date. Pt requesting referral to [facility]. Referral made via [facility]. Pt would be private pay. Original Note: Social Work IDT met with patient and niece for care plan meeting. Discussed patient's progress in PT/OT/SN. Educated to Medicare benefit. Inquired about pt's treatment goals as this worker aware of pt and Dr conversation yesterday. Pt is agreeable to hospice once IV ATB are done on 05/16. Offered for pt to elect hospice sooner if that is her wish. Pt inquire about hospice [facility]. SW educated to those qualifications for that unit. Currently, pt would not qualify and pt would DC to a SNF with hospice services. Pt and niece expressed understanding. SW offered to make hospice referral and provided SNF list to begin with referrals and conversations so when pt elects hospice, things are ready. Pt and niece agreed. SW provided printed SNF list with quality and resource data via [employer] Guide. Emailed referral to Marisabel at [facility]. SW will continue to follow. Eliane Yu, JUDE STEAM TABLE ATTENDANT
--- NOTE | 2023-05-08 14:45 | NURSING ---
Addendum entered by Bushra Ferreira 05/08/23 16:11: BP checked after bolus 95/52 Pulse 63 100ml of cloudy straw color urine. Dr. Huerta updated N.O. for Renal ultra sound CBC and BMP. Orders read back. Original Note: Pt BP 83/41 Pulse 67 Pt drinking fluids but no urine output. Bladder scanned for 0ml. Dr. Huerta updated N.O. to insert enrique cath. 1000ml NS bolus and 60ml/hr NS maintenance once bolus complete. Orders read back.
[2023-05-08] MEDS: 0.9% Normal Saline (1000mL) 1,000 ML 999 ML IV (14:53)
[2023-05-08] MEDS: 0.9 % NaCl (Sterile) Posiflush 10 mL IV (15:54)
--- NOTE | 2023-05-08 16:04 | US_ITS ---
STUDY: RENAL ULTRASOUND - COMPLETE REASON FOR EXAM: Female, 87 years old. No urine output TECHNIQUE: Ultrasound evaluation of the kidneys was performed with real-time and static larios-scale imaging. COMPARISON: None. FINDINGS: RIGHT KIDNEY: Normal location of the right kidney, which is normal in size. The right kidney measures 11.8 x 5.5 x 5.2 cm. There is a normal cortex of the right kidney. The renal cortex measures 1.1 cm. There is no right renal mass or cyst. Nonobstructing calculus lower pole measuring 3 x 5 x 2 mm. There is no right hydronephrosis. DISTAL RIGHT URETER: There is non-visualization of the distal right ureter. There is no demonstrated right ureterovesical junction calculus. There is a visualized right ureteral jet. LEFT KIDNEY: Normal location of the left kidney, which is normal in size. The left kidney measures 11.6 x 4.9 x 5.6 cm. There is a normal cortex of the left kidney. The renal cortex measures 1 cm. There are 2 cysts measuring 1.1 x 1.4 x 0.9 cm and 1.7 x 1.2 x 1.4 cm. There are no left renal calculi. There is no left hydronephrosis. DISTAL LEFT URETER: There is non-visualization of the distal left ureter. There is no demonstrated left ureterovesical junction calculus. There is a visualized left ureteral jet. Diffusely increased cortical echoes bilaterally consistent with nonspecific renal parenchymal disease BLADDER: Not capable of being evaluated due to indwelling Ambrosio catheter. US/Kidney and Bladder IMPRESSION: Findings consistent with nonspecific renal parenchymal disease. No evidence for obstruction. Nonobstructing right renal calculus and 2 small left renal cyst Electronically Signed: Emmanuel Rodriguez MD at 17:50 EDT ,
[2023-05-08 16:26] LABS: Absolute Lymphocyte Count 0.58 X10^3/uL (0.83-4.51); Absolute Neutrophil Count 3.2 X10^3/uL (2.0-7.7); Basophil# 0.06 X10^3/uL; Basophil% 1.2 % (0-1); Eosinophil# 0.08 X10^3/uL; Eosinophils% 1.6 % (0-5); Hematocrit 29.5 % (37-47); Hemoglobin 8.8 g/dL (12.0-15.0); Lymphocyte # 0.58 X10^3/ul (0.83-4.51); Lymphocyte % 11.6 % (19-41); Mean Corp Hgb Conc 29.8 g/dL (32-36); Mean Corpuscular Hgb 28.5 pg (27.0-32.0); Mean Corpuscular Volume 95.5 fL (81-99); Mean Platelet Vol. 9.1 fl (6.2-12.0); Monocyte# 1.05 X10^3/uL; NRBC Flagged by Analyzer 0 % (0-5); Neutrophil # 3.21 X10^3/uL (2.7-7.7); POSITIVE DIFFERENTIAL YES; POSITIVE MORPHOLOGY YES; Platelet Count 411 K/mm3 (150-450); RBC Distribution Width CV 15.3 % (11.6-14.6); RBC Distribution Width SD 51.9 fl (35.1-43.9); Red Blood Count 3.09 M/mm3 (4.2-5.4)
[2023-05-08 16:39] LABS: Anion Gap 5 (5-15); BUN 25 mg/dL (7-18); BUN/Creat Ratio 12.4 RATIO (10-20); Calcium,Total 8.7 mg/dL (8.5-10.1); Chloride 103 mmol/L (98-107); Creatinine, Serum 2.02 mg/dL (0.55-1.02); EST Glomerular Filtration Rate 25 mL/min (>60); Est Glom Filt Rate - Afr Amer 30 mL/min (>60); Estimated Creatinine Clearance 15.81 ml/min; Glucose 138 mg/dL (74-106); Potassium 4.3 mmol/L (3.5-5.1); Sodium Level 134 mmol/L (136-145)
[2023-05-08 17:00] LABS: Differential Indicated SCAN CRITERIA MET
[2023-05-08 17:01] LABS: Differential Comment SCANNED
[2023-05-08 18:05] LABS: Absolute Lymphocyte Count 0.53 X10^3/uL (0.83-4.51); Absolute Neutrophil Count 2.5 X10^3/uL (2.0-7.7); Basophil# 0.02 X10^3/uL; Basophil% 0.5 % (0-1); Eosinophil# 0.08 X10^3/uL; Hematocrit 28.7 % (37-47); Hemoglobin 8.5 g/dL (12.0-15.0); Lymphocyte # 0.53 X10^3/ul (0.83-4.51); Lymphocyte % 13.4 % (19-41); Mean Corp Hgb Conc 29.6 g/dL (32-36); Mean Corpuscular Hgb 28.1 pg (27.0-32.0); Mean Corpuscular Volume 94.7 fL (81-99); Mean Platelet Vol. 8.9 fl (6.2-12.0); Monocyte# 0.81 X10^3/uL; Monocyte% 20.4 % (0-10); NRBC Flagged by Analyzer 0 % (0-5); Neutrophil # 2.51 X10^3/uL (2.7-7.7); Neutrophil % 63.2 % (47-70); POSITIVE DIFFERENTIAL YES; Platelet Count 404 K/mm3 (150-450); RBC Distribution Width SD 51.8 fl (35.1-43.9); Red Blood Count 3.03 M/mm3 (4.2-5.4)
[2023-05-08 18:24] LABS: Anion Gap 4 (5-15); BUN 30 mg/dL (7-18); Calcium,Total 8.3 mg/dL (8.5-10.1); Chloride 103 mmol/L (98-107); Creatinine, Serum 2.73 mg/dL (0.55-1.02); EST Glomerular Filtration Rate 18 mL/min (>60); Est Glom Filt Rate - Afr Amer 21 mL/min (>60); Glucose 141 mg/dL (74-106); Potassium 4.4 mmol/L (3.5-5.1); Sodium Level 134 mmol/L (136-145)
[2023-05-08 18:40] LABS: Differential Indicated SCAN CRITERIA MET
[2023-05-08 18:41] LABS: Differential Comment SCANNED
[2023-05-08] MEDS: 0.9% Normal Saline (1000mL) 1,000 ML 60 ML IV (20:28)
[2023-05-08 21:34] LABS: Bedside Glucose 183 mg/dL (74-106)
[2023-05-08] MEDS: Atorvastatin Calcium 20 MG Tablet PO (22:38)
[2023-05-08] MEDS: metFORMIN (XR) 500 MG Tablet PO (22:38)
[2023-05-08] MEDS: Latanoprost 0.005% 1 Bottle 1 DRP OPHTHALMIC (22:39)
--- NOTE | 2023-05-09 03:51 | NURSING ---
Pt c/o discomfort and restlessness. Pt stated that she does not believe that she will live until her birthday ([birth year]). She also stated that when she passes away she would like to pass away quietly in her sleep. This nurse spoke to pt about Hospice services. Pt voiced that she would like to stay on TCU to cont. her ATB therapy despite current condition. 1:1 given. Pt appreciative of staff and the great care that she has been receiving.
[2023-05-09] MEDS: Acetaminophen 500 MG Tablet 1000 MG PO (04:08)
--- NOTE | 2023-05-09 04:11 | NURSING ---
Cont. fluids paused d/t pt c/o increased bladder and back pain/fullness, low output, and adventitious lung sounds. Pt voiced wanting to sit on the toilet and have a good pee. Bladder scanned for 0mls, 125cc of urine in collection bag. Pt sat on BSC and had a BM. Still c/o same. Pt remains hypotensive w/ a steady HR.
[2023-05-09 04:17] VITALS: BP 91/41; PULSE 69
[2023-05-09 05:50] VITALS: BP 83/40; PULSE 71
[2023-05-09 06:00] VITALS: BP 76/34; PULSE 66
[2023-05-09 06:14] LABS: International Normalized Ratio 1.5; Prothrombin Time (Protime)PT. 17.9 SECONDS (11.7-14.9)
[2023-05-09] MEDS: Piperacil/Tazobactam 3.375 GM in 0.9% Normal Saline (50mL MB+) 50 ML IV (06:14)
--- NOTE | 2023-05-09 07:01 | NURSING ---
Pt refused Synthroid this AM and stated what's the point now?. But voiced that she still wants the ATB therapy.
[2023-05-09 07:02] VITALS: BP 88/41; PULSE 69
[2023-05-09 07:06] LABS: Bedside Glucose 68 mg/dL (74-106)
[2023-05-09 07:56] VITALS: O2SAT 94
--- NOTE | 2023-05-09 08:48 | CASEMGMT ---
Addendum entered by Eliane Yu 05/09/23 12:03: Pt accepted at [facility]. SW updated WVM. Scheduled cot transport through [facility] for immediate diamond picker. IDT updated. Plan: DC 05/09 to [facility] Original Note: Social Work SW notified by nursing and Dr that pt is actively dying, no urine output, poor vitals and labs. Requesting DC with hospice today. SW updated Marisabel at [facility] to eval for [facility]. Nurse to assess today at 930 am. IDT updated. SW followed up with WVM on possible DC today if pt is not eligible for [facility], requesting update on acceptance/denial. Will continue to follow. Eliane Yu, QUILL CLEANING MACHINE OPERATOR BOTTOMER OPERATOR
[2023-05-09] MEDS: Pantoprazole Sodium 40 MG Tablet PO (10:11)
--- NOTE | 2023-05-09 11:59 | NURSING ---
Radha called to [facility] [phone], transport arriving soon for pickers material handlers
--- NOTE | 2023-05-09 12:24 | DS.PCM_ITS ---
Providers Date of Admission: 05/03/23 Primary Care Physician: Dr. Jyoti Mackey MD Consultations 05/03/23 22:09 Consult: Infectious Disease Routine Consulting Provider: Toribio Sanchez Reason for Consult: Abdominal wound/abscess/mesh/enterocutaneous fistula. 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 * Debility - PT/OT. * Pain - Tylenol 1000mg q6 prn pain (1-10). * Bowel - senna/colace 1 tablet bid, Magnesium citrate 150ml daily prn. * Adult immunization - Administer pneumonia vaccine, covid19 vaccine, flu vaccine as appropriate. * DVT prophylaxis - on warfarin. * Atrial Fibrillation - Coreg 12.5mg bidcm, Amiodarone 200mg daily, Warfarin 3mg daily, monitor INR. * Hyperlipidemia - Atorvastatin 20mg daily. * Vitamin B12 deficiency - B12 500mcg daily. * Allergic rhinitis - Flonase 2 sprays nasal daily prn. * Diabetes Mellitus II - Metformin XR 500mg dinner, Glipizide 2.5mg breakfast. * Glaucoma - Latanoprost 1gtt ou qhs. * Hypertension - Coreg 12.5mg bidcm, Losartan 50mg daily. * Gastritis - Pantoprazole 40mg bid. * Abdominal mesh infection/abscess/enterocutaneous fistula - Zosyn 3.375gm iv q8, consult Dr. Sanchez for expert care, consult Linda Dos Santos. Hospital Course Operations None Procedures None Summary of Care Provided Minutes Spent on Discharge: 35 Hospital Course: 87 year old female with below past medical history hospitalized for sepsis, enterocutaneous fistula, abdominal abscess, wound infection, complicated by acute respiratory failure secondary to pulmonary embolism, admitted to TCU with debility, here for rehabilitation, strengthening, intravenous antibiotics, prior to discharge home alone. Resident dying. Discharge to inpatient hospice 05/09/2023 for terminal care. Physical Exam Const alert General Appearance: cooperative HEENT normocephalic Eyes PERRL and EOMs intact bilaterally Neck supple, no JVD and no carotid bruits Resp normal respiratory effort, normal air movement and clear to auscultation bilaterally Cardio regular rate and regular rhythm GI normal to inspection, nondistended, normoactive bowel sounds, non-tender and non-distended GI Narrative: Ostomy x 3. Extremity normal capillary refill General Extremity: Negative for edema Skin no rashes or lesions noted General Skin Exam: no breakdown Psych affect normal Appearance: appropriate Weight / BMI Weight Weight: 84.686 kg Body Mass Index (BMI) 34.3 ABG / Lab / Microbiology Data 05/08/23 17:49 05/08/23 17:49 Laboratory: Laboratory Results - last 24 hr 05/08/23 05:33: WBC 5.0, RBC 3.09 L, Hgb 8.8 L, Hct 29.5 L, MCV 95.5, MCH 28.5, MCHC 29.8 L, RDW Std Deviation 51.9 H, RDW Coeff of Juan 15.3 H, Plt Count 411, MPV 9.1, Immature Gran % (Auto) 0.600, Neut % (Auto) 64.0, Lymph % (Auto) 11.6 L , [place] % (Auto) 21.0 H, Eos % (Auto) 1.6, Baso % (Auto) 1.2 H, Absolute Neuts (auto) 3.2, Absolute Lymphs (auto) 0.58 L, Nucleated RBC % 0, Differential Comment SCANNED, Sodium 134 L, Potassium 4.3, Chloride 103, Carbon Dioxide 26.0, Anion Gap 5, BUN 25 H, Creatinine 2.02 H, Estim Creat Clear Calc 15.81, Est GFR (MDRD) Af Amer 30 L, Est GFR (MDRD) Non-Af 25 L, BUN/Creatinine Ratio 12.4, Glucose 138 H, Calcium 8.7 05/08/23 17:49: WBC 4.0 L, RBC 3.03 L, Hgb 8.5 L, Hct 28.7 L, MCV 94.7, MCH 28.1, MCHC 29.6 L, RDW Std Deviation 51.8 H, RDW Coeff of Juan 15.0 H, Plt Count 404, MPV 8.9, Immature Gran % (Auto) 0.500, Neut % (Auto) 63.2, Lymph % (Auto) 13.4 L, [place] % (Auto) 20.4 H, Eos % (Auto) 2.0, Baso % (Auto) 0.5, Absolute Neuts (auto) 2.5, Absolute Lymphs (auto) 0.53 L, Nucleated RBC % 0, Differential Comment SCANNED, Diff Path Review December, Sodium 134 L, Potassium 4.4, Chloride 103, Carbon Dioxide 27.0, Anion Gap 4 L, BUN 30 H, Creatinine 2.73 H, Estim Creat Clear Calc 11.70, Est GFR (MDRD) Af Amer 21 L, Est GFR (MDRD) Non-Af 18 L, BUN/Creatinine Ratio 11.0, Glucose 141 H, Calcium 8.3 L 05/08/23 21:17: POC Glucose 183 H 05/09/23 05:45: PT 17.9 H, INR 1.5 05/09/23 06:01: POC Glucose 68 L Microbiology: Microbiology 05/09/23 05:20 Nasal Secretion SARS-CoV-2 Antigen (Rapid) - Final 05/05/23 17:22 Wound - Abdominal Gram Stain - Final 05/05/23 17:22 Wound - Abdominal Wound Culture - Final Staphylococcus haemolyticus Presumptive C albicans 05/06/23 08:59 Nasal Secretion SARS-CoV-2 Antigen (Rapid) - Final 05/05/23 17:22 Stool Enteric Bacteriology - Final 05/04/23 00:00 Nasal Secretion SARS-CoV-2 Antigen (Rapid) - Final Radiography Diagnostic Testing: Radiology Impression Renal Ultrasound 05/08/23 16:04 IMPRESSION: Findings consistent with nonspecific renal parenchymal disease. No evidence for obstruction. Nonobstructing right renal calculus and 2 small left renal cyst Electronically Signed: Emmanuel Rodriguez MD at 17:50 EDT , D/C Instructions Discharge Diet: No restrictions Discharge Activity: Return to Normal Activity Weight Bearing Status: Weight bearing as tolerated Additional Instructions: Discharge to inpatient hospice 05/09/2023 for terminal care. Please Follow Up With: TORIBIO SANCHEZ When: N/A. Meaningful Use Info Meaningful Use Diagnoses (Choose all that apply): None applicable Discharge Plan Admission Admit Date/Time: 05/03/23 19:55 Primary Reason for Your Visit: Debility. Attending Provider: Vikas Huerta Chi Primary Care Provider: Jyoti Mackey Consulting Providers: Toribio Sanchez Instructions Additional Instructions / Restrictions: Discharge to inpatient hospice 05/09/2023 for terminal care. Discharge Orders/Prescriptions Prescriptions: Discontinued metformin 500 mg tablet extended release 24 hr 500 mg PO QHS latanoprost 0.005 % drops 1 drp ophthalmic (eye) QHS glipizide 2.5 mg tablet extended release 24hr 2.5 mg PO DAILY warfarin 2 mg tablet 2 mg PO DAILY Rx Instructions: Managed by Dr Moreno rosuvastatin [Crestor] 10 mg tablet 10 mg PO DAILY levothyroxine 50 MCG tablet 50 mcg PO 0600 Patient Comments: thyroid amiodarone 200 mg tablet 200 mg PO BREAKFAST Qty: 90 3RF carvedilol 12.5 mg tablet 12.5 mg PO BIDCM Qty: 180 3RF losartan 50 mg tablet 50 mg PO DAILY Qty: 90 3RF Referrals / Follow Up: Jyoti Mackey MD [Primary Care Provider] - Disposition Disposition (needs filled in before D/C Order can be placed): Hospice in Medical Facility
[2023-05-09 12:28] VITALS: PULSE 78; RESP 28; O2SAT 93
[2023-05-13 09:57] LABS: Pathologist Review Reviewed
--- NOTE | 2023-05-14 13:36 | MDS.RN ---
Information for the mds was obtained from review of the clinical record, interview of resident, staff, and direct observation of resident's care.
== END 2023-05-09 12:20 | disposition hospice, inpatient (51) | DRG 949 ==
PROVIDERS: Admitting Provider Family Medicine Geriatric Medicine; PCP Family Medicine; Visit Provider Family Medicine Geriatric Medicine
DX: T85.79XD Infection and inflammatory reaction due to other internal prosthetic devices, implants and grafts, subsequent encounter (principal); I26.99 Other pulmonary embolism without acute cor pulmonale; K63.2 Fistula of intestine; L02.211 Cutaneous abscess of abdominal wall; E87.1 Hypo-osmolality and hyponatremia; N17.9 Acute kidney failure, unspecified; E11.39 Type 2 diabetes mellitus with other diabetic ophthalmic complication; B96.89 Other specified bacterial agents as the cause of diseases classified elsewhere; I48.0 Paroxysmal atrial fibrillation; I10 Essential (primary) hypertension; E03.9 Hypothyroidism, unspecified; E53.8 Deficiency of other specified B group vitamins; E78.5 Hyperlipidemia, unspecified; J30.9 Allergic rhinitis, unspecified; K29.70 Gastritis, unspecified, without bleeding; H40.9 Unspecified glaucoma; Z79.01 Long term (current) use of anticoagulants; Z79.84 Long term (current) use of oral hypoglycemic drugs; Z79.899 Other long term (current) drug therapy; Z79.890 Hormone replacement therapy; Y82.8 Other medical devices associated with adverse incidents; Z66 Do not resuscitate
CPT/HCPCS: 36415; 76770; 80048; 80053; 82550; 82962; 84132; 85025; 85610; 87070; 87077; 87186; 87205; 87506; 87811; 97110; 97116; 97162; 97166; 97530; 97535; 97802; J7030; J7050; A4216; J3490

== ENCOUNTER 2023-05-05 19:52 | Emergency (ER) | payer MEDICARE, OTHER, SELFPAY ==
[2023-05-05 19:54] VITALS: BP 112/56; PULSE 69; RESP 16; TEMP 37.3; O2SAT 92; BMI 37.2
[2023-05-05 20:13] VITALS: BP 105/59; PULSE 69; RESP 16; TEMP 37.6; O2SAT 93
--- NOTE | 2023-05-05 20:16 | NURSING ---
PT ASSISTED WITH PHONE TO CALL FAMILY AND UPDATE FAMILY.
[2023-05-05 21:00] VITALS: BP 106/64; PULSE 64; RESP 16; TEMP 36.8; O2SAT 94
--- NOTE | 2023-05-05 21:00 | EDS_ITS ---
HPI History of Present Illness Chief Complaint: Wound Informant: patient Narrative Narrative: Patient sent down from TCU secondary to abdominal wound. She has a history of chronic abdominal wound after having a bowel resection with mesh and then developing abscesses. She has had 2 separate enterocolonic fistulas that have ostomy bags over them. Apparently a third site lower in the abdomen opened today and drained. TCU did blood work that was unremarkable. They did a CT scan with IV contrast. Postoperative changes in the anterior abdominal wall with air and stranding opacities noted. Overall this collection is not significant increase in size although the amount of air within is increased when compared to prior. Right lower pole calyceal stone measuring 2 mm. Cholelithiasis without signs of cholecystitis. Patient states that she feels well and has no complaints. [facility] Medical History Ambulates with cane Anxiety Breast CA Cancer Cardiology follow-up encounter DCIS (ductal carcinoma in situ) Diabetes Endometrial cancer Essential (primary) hypertension Generalized osteoarthritis Hemorrhoid History of breast cancer History of diverticulitis History of echocardiogram History of GI bleed History of stress test Hx of fracture of humerus Hyperlipidemia Hypertension Hypertriglyceridemia Hypothyroidism (acquired) Infection of total knee replacement Loss of hearing Non-smoker Obesity Osteoarthritis Paroxysmal atrial fibrillation Paroxysmal atrial tachycardia Post-menopausal Premature atrial contractions Sleep apnea Thyroid disease Transient atrial fibrillation or flutter Type 2 diabetes mellitus Wears glasses Wears hearing aid Wound infection Home Medications levothyroxine 50 mcg tablet 50 mcg PO 0600 hypothyroidism 09/10/14 [History Last Taken 05/03/23] metformin 500 mg tablet,extended release 24 hr 500 mg PO QHS Diabetes 05/03/20 [History Last Taken 06/10/22] latanoprost 0.005 % eye drops 1 drp ophthalmic (eye) QHS glaucoma 05/02/21 [History Last Taken 06/10/22] amiodarone 200 mg tablet 200 mg PO BREAKFAST HEART #90 tabs 08/16/22 [Rx Last T aken 05/03/23] carvedilol 12.5 mg tablet 12.5 mg PO BIDCM BLOOD PRESSURE #180 tabs 08/16/22 [Rx Last Taken 05/03/23] glipizide 2.5 mg tablet, extended release 24 hr 2.5 mg PO DAILY BLOOD GLUCOSE 12/25/22 [History Last Taken Unknown] warfarin 2 mg tablet 2 mg PO DAILY BLOOD THINNER 12/25/22 [History Last Taken Unknown] losartan 50 mg tablet 50 mg PO DAILY BP #90 tabs 01/15/23 [Rx Last Taken Unknown ] rosuvastatin 10 mg tablet (Crestor) 10 mg PO DAILY CHOLESTEROL 03/20/23 [History Last Taken 05/02/23] Allergy/AdvReac Type Severity Reaction Status Date / Time Penicillins Allergy Severe Chest Verified 04/18/23 09:36 tightness rofecoxib AdvReac Severe Itching Verified 04/18/23 09:36 adhesive tape [tape] AdvReac Mild Itching Verified 04/18/23 09:36 codeine AdvReac Mild Nausea/Vomi Verified 04/18/23 09:36 ting hydrocodone [Hydrocodone] AdvReac Mild Nausea/Vomi Verified 04/18/23 09:36 ting morphine AdvReac Mild Nausea/Vomi Verified 04/18/23 09:36 ting oxycodone [Oxycodone] AdvReac Mild Nausea Verified 04/18/23 09:36 aspartame AdvReac Diarrhea Verified 04/18/23 09:36 Family History Mother Hypertension Heart disease CVA (cerebral vascular accident) Parkinsons disease Father CVA (cerebral vascular accident) Parkinsons disease Other COPD (chronic obstructive pulmonary disease) Diabetes Surgical History H/O total hysterectomy History of exploratory laparotomy History of incisional hernia repair History of knee replacement History of lumpectomy of left breast History of right hip replacement Social History household members: none Smoking Status: Never smoker second hand exposure: No alcohol intake: never details: occasional substance use type: does not use ROS ROS ED Constitutional Constitutional ED: Denies chills or fever(s) Eyes Eyes: Denies change in vision or discharge from eye(s) ENT ENT ED: Denies discharge from eye(s) or sore throat Cardiovascular Cardiovascular: Denies chest pain or palpitations Respiratory/Chest Respiratory/Chest: Denies cough or dyspnea Gastrointestinal Gastrointestinal: Denies abdominal pain, nausea or vomiting Musculoskeletal Musculoskeletal: Denies back pain or extremity pain Integumentary Denies Abrasions or rash Neurologic Neurologic: Denies headache(s) or weakness Allergic/Immunologic Allergic/Immunologic ED: Denies lip swelling or urticaria EXAM Physical Exam Const Vital Signs: 05/05/23 19:54 05/05/23 20:13 05/05/23 21:00 Temperature 99.1 F 99.7 F H 98.3 F Temperature Source Temporal Temporal Oral Pulse Rate 69 69 64 Respiratory Rate 16 16 16 Blood Pressure 112/56 L 105/59 L 106/64 Blood Pressure Mean 74 74 78 Pulse Ox 92 93 94 Oxygen Delivery Method Room Air Room Air Room Air Positive well nourished and well developed General Appearance ED: well developed Eyes EOMs intact bilaterally Chest Wall inspection of chest normal and palpation of chest normal Resp normal respiratory effort and clear to auscultation bilaterally Cardio regular rate and regular rhythm GI GI Narrative: Abdomen soft. She has 2 ostomy bags noted [id number] around the level of the umbilicus. Small no drainage is noted in each bag. There is a third ostomy bag just inferior to this area. This is peeled back and there are 3 small openings in the skin with slight drainage. Extremity normal to inspection Neuro oriented x3 Psych mental status grossly normal MDM MDM MDM Narrative Medical decision making narrative: I spoke with the nurse from TCU. She states when she took care of the patient last night she does have the 2 ostomy bags. I did review her prior surgery notes. It appears the patient was seen by Dr. Alarcon at [facility]. He offered a two-stage surgical procedure to try to repair her bowel. Alternative would be to continue with ostomy bags. Patient chose to continue the ostomy bags and does not want surgery. I spoke with Dr. Hernandez, on-call for surgery as the patient already had lab work and a CT performed. She reviewed the images. She states there is nothing further to do at this point other than place a new ostomy bag over the site. She will have either wound care nurse or surgery PA see the patient tomorrow. Patient will be discharged back to TCU. Discharge Plan Triage Chief Complaint: Wound ED Provider: Carmella Lopez Dx/Rx/DC Orders Clinical Impression: Entero-colonic fistula Prescriptions: No Action metformin 500 mg tablet extended release 24 hr 500 mg PO QHS latanoprost 0.005 % drops 1 drp ophthalmic (eye) QHS glipizide 2.5 mg tablet extended release 24hr 2.5 mg PO DAILY warfarin 2 mg tablet 2 mg PO DAILY Rx Instructions: Managed by Dr Moreno rosuvastatin [Crestor] 10 mg tablet 10 mg PO DAILY levothyroxine 50 MCG tablet 50 mcg PO 0600 Patient Comments: thyroid amiodarone 200 mg tablet 200 mg PO BREAKFAST Qty: 90 3RF carvedilol 12.5 mg tablet 12.5 mg PO BIDCM Qty: 180 3RF losartan 50 mg tablet 50 mg PO DAILY Qty: 90 3RF Primary Care Provider: Jyoti Mackey Referrals: Jyoti Mackey MD [Primary Care Provider] - Activity Restrictions/Additional Instructions: Per discussion with Dr. Hernandez, placed a new ostomy bag over the new wound. She will have wound care nurse or surgical PA see the patient tomorrow. Disposition Disposition: DC/Tx to Another Type of HCF
--- NOTE | 2023-05-05 21:39 | NURSING ---
Report called to TCU and given to Shanae GOLDSTEIN.
== END 2023-05-05 21:40 | disposition other institution (70) ==
PROVIDERS: Emergency Provider Emergency Medicine; PCP Family Medicine; Visit Provider Emergency Medicine
DX: K63.2 Fistula of intestine (principal); S31.109A Unspecified open wound of abdominal wall, unspecified quadrant without penetration into peritoneal cavity, initial encounter; R10.12 Left upper quadrant pain; G47.30 Sleep apnea, unspecified; X58.XXXA Exposure to other specified factors, initial encounter
CPT/HCPCS: 74177; 99282; Q9967; A4216

== ENCOUNTER → 2023-05-05 | Outpatient (CLI) | payer MEDICARE, OTHER, SELFPAY ==
--- NOTE | 2023-05-05 13:34 | CT_ITS ---
We are attempting to reach an attending provider to discuss findings. An addendum with communication details will be sent when the communication is complete. EXAM: CT ABDOMEN AND PELVIS WITH INTRAVENOUS CONTRAST CLINICAL INDICATION: LUQ pain, multiple chronic anterior abdominal wounds suddenly started leaking purulent fluid today. TECHNIQUE: Helically acquired images were obtained of the abdomen and pelvis with intravenous contrast. This CT exam was performed using one or more of the following dose reduction techniques: automated exposure control, adjustment of the mA and/or kV according to patient size, and/or use of iterative reconstruction technique. CONTRAST: Oral and amp; IV Gastrografin and amp; 100mL Isovue-370 COMPARISON: CT abdomen and pelvis, 09/12/2022 FINDINGS: LOWER THORAX: Coronary artery calcifications and/or stents. Lung bases are clear. No cardiomegaly. No significant pericardial effusion. ABDOMEN: LIVER: Small hepatic cysts are present for which no follow-up is indicated. Geographic perfusional abnormality in the left hepatic lobe without a discrete lesion, similar to the prior examination. GALLBLADDER AND BILE DUCTS: Cholelithiasis without secondary signs of cholecystitis. No intra- or extrahepatic biliary ductal dilation. PANCREAS: No significant abnormality. No focal cystic or solid mass. SPLEEN: No significant abnormality. Normal size without focal cystic or solid mass. ADRENALS: No significant abnormality. No nodules. KIDNEYS AND URETERS: Right lower pole calyceal stone measuring 2 mm. No hydronephrosis or ureteral stone identified. STOMACH AND BOWEL: Colonic diverticulosis without discrete evidence of acute diverticulitis. No evidence of bowel obstruction. See below. Possible fistula to the anterior abdominal wall soft tissues. PELVIS: APPENDIX: No evidence of acute appendicitis. BLADDER: No significant abnormality. REPRODUCTIVE: Status post hysterectomy. ABDOMEN and PELVIS: INTRAPERITONEAL SPACE: No significant abnormality. No ascites or other fluid collection. No free air. BONES/JOINTS: Degenerative changes in the spine, pelvis, and left hip. Status post right hip arthroplasty. No suspicious lytic or blastic abnormality. SOFT TISSUES: Postoperative changes in the anterior abdominal wall with air and strandy opacities as well as minimal fluid in the ventral abdominal wall soft tissues. Hyperdensity within the anterior abdominal wall collection may be enteric contrast perhaps indicative of an enteric fistula. VASCULATURE: Atherosclerosis of the aorta and its branch vessels. LYMPH NODES: Likely abdominal pelvic lymphadenectomy changes. No lymphadenopathy. CT/Abdomen/Pelvis WITH Contrast IMPRESSION: 1. Postoperative changes in the anterior abdominal wall with air and strandy opacities as well as minimal fluid in the ventral abdominal wall soft tissues. Hyperdensity within the anterior abdominal wall collection may be enteric contrast perhaps indicative of an enteric fistula. Overall, this collection is not significantly increased in size although the amount of air within it has increased. 2. Right lower pole calyceal stone measuring 2 mm. No hydronephrosis or ureteral stone identified. 3. Cholelithiasis without secondary signs of cholecystitis. 4. Colonic diverticulosis without discrete evidence of acute diverticulitis. Electronically Signed: Wale Wilson DO at 18:19 EDT ,
== END | disposition home or self-care (01) ==
PROVIDERS: PCP Family Medicine; Visit Provider Family Medicine Geriatric Medicine
DX: R10.12 Left upper quadrant pain (principal); S31.109A Unspecified open wound of abdominal wall, unspecified quadrant without penetration into peritoneal cavity, initial encounter
CPT/HCPCS: 74177; Q9967; A4216

== ENCOUNTER 2023-05-07 01:51 | Emergency (ER) | payer MEDICARE, OTHER, SELFPAY ==
[2023-05-07 01:53] VITALS: BP 126/68; BP 129/68; PULSE 78; RESP 24; TEMP 36.9; O2SAT 95; BMI 36.9
--- NOTE | 2023-05-07 02:10 | EDS_ITS ---
HPI History of Present Illness Chief Complaint: GI Bleed [facility] Medical History Ambulates with cane Anxiety Breast CA Cancer Cardiology follow-up encounter DCIS (ductal carcinoma in situ) Diabetes Endometrial cancer Essential (primary) hypertension Generalized osteoarthritis Hemorrhoid History of breast cancer History of diverticulitis History of echocardiogram History of GI bleed History of stress test Hx of fracture of humerus Hyperlipidemia Hypertension Hypertriglyceridemia Hypothyroidism (acquired) Infection of total knee replacement Loss of hearing Non-smoker Obesity Osteoarthritis Paroxysmal atrial fibrillation Paroxysmal atrial tachycardia Post-menopausal Premature atrial contractions Sleep apnea Thyroid disease Transient atrial fibrillation or flutter Type 2 diabetes mellitus Wears glasses Wears hearing aid Wound infection Home Medications levothyroxine 50 mcg tablet 50 mcg PO 0600 hypothyroidism 09/10/14 [History Last Taken 05/03/23] metformin 500 mg tablet,extended release 24 hr 500 mg PO QHS Diabetes 05/03/20 [History Last Taken 06/10/22] latanoprost 0.005 % eye drops 1 drp ophthalmic (eye) QHS glaucoma 05/02/21 [History Last Taken 06/10/22] amiodarone 200 mg tablet 200 mg PO BREAKFAST HEART #90 tabs 08/16/22 [Rx Last Taken 05/03/23] carvedilol 12.5 mg tablet 12.5 mg PO BIDCM BLOOD PRESSURE #180 tabs 08/16/22 [Rx Last Taken 05/03/23] glipizide 2.5 mg tablet, extended release 24 hr 2.5 mg PO DAILY BLOOD GLUCOSE 12/25/22 [History Last Taken Unknown] warfarin 2 mg tablet 2 mg PO DAILY BLOOD THINNER 12/25/22 [History Last Taken Unknown] losartan 50 mg tablet 50 mg PO DAILY BP #90 tabs 01/15/23 [Rx Last Taken Unknown] rosuvastatin 10 mg tablet (Crestor) 10 mg PO DAILY CHOLESTEROL 03/20/23 [History Last Taken 05/02/23] Allergy/AdvReac Type Severity Reaction Status Date / Time Penicillins Allergy Severe Chest Verified 04/18/23 09:36 tightness rofecoxib AdvReac Severe Itching Verified 04/18/23 09:36 adhesive tape [tape] AdvReac Mild Itching Verified 04/18/23 09:36 codeine AdvReac Mild Nausea/Vomi Verified 04/18/23 09:36 ting hydrocodone [Hydrocodone] AdvReac Mild Nausea/Vomi Verified 04/18/23 09:36 ting morphine AdvReac Mild Nausea/Vomi Verified 04/18/23 09:36 ting oxycodone [Oxycodone] AdvReac Mild Nausea Verified 04/18/23 09:36 aspartame AdvReac Diarrhea Verified 04/18/23 09:36 Family History Mother Hypertension Heart disease CVA (cerebral vascular accident) Parkinsons disease Father CVA (cerebral vascular accident) Parkinsons disease Other COPD (chronic obstructive pulmonary disease) Diabetes Surgical History H/O total hysterectomy History of exploratory laparotomy History of incisional hernia repair History of knee replacement History of lumpectomy of left breast History of right hip replacement Social History household members: none Smoking Status: Never smoker second hand exposure: No alcohol intake: never details: occasional substance use type: does not use EXAM Physical Exam Const Vital Signs: 05/07/23 01:53 05/07/23 01:53 Temperature 98.5 F 98.5 F Temperature Source Oral Oral Pulse Rate 78 78 Respiratory Rate 24 H 24 H Blood Pressure 126/68 H 129/68 H Blood Pressure Mean 87 88 Pulse Ox 95 95 Oxygen Delivery Method Nasal Cannula Nasal Cannula Oxygen Flow Rate (L/min) 2 2 MDM MDM MDM Narrative Medical decision making narrative: HISTORY OF PRESENT ILLNESS: 87-year-old female here with diffuse weakness and concern for fever. She states she is always weak does not feel more weak today does not feel more shortness of breath today denies any fever. Denies any focal weakness. Denies any chest pain or shortness of breath. She notes the nurse at her halfway told her she was bleeding. She started was coming for under ostomy site Spoke with TCU RN (Tatiana) concern for bleeding from abdominal wall. Got 10 mg of Vitamin K (9pm) 2/2 to bleeding. They were concerned about bleeding, concern for rectal bleeding. Concerned she was weakness. Notes pulse ox was 88%. Per the TCU physician Dr. Edmond. REVIEW OF SYSTEMS: Pertinent positives: Weakness, fever Pertinent negatives: Chest pain, shortness of breath, focal weakness PHYSICAL EXAM: Nursing triage notes reviewed, Vital signs reviewed Constitutional: please see mdm HENT: MMM Eyes: Pupils equal round and reactive to light, Extraocular muscles intact Neck: No stridor, no JVD, full neck ROM Lungs: Clear to auscultation, No wheezing or rales. No increased work of breathing, no conversational dyspnea, no accessory muscle use, no nasal flaring. No respiratory distress noted Heart: Regular rate and rhythm, No murmurs, No rubs and No gallops, 2+ distal pulses (radial, femoral, posterior tibial) in all extremities Abdomen: Soft, slight distention, 3 ostomy sites noted, no active bleeding. Ostomy bags contained gastric contents. : No CVAT Extremities: No edema Neuro: No focal neurological deficits, cranial nerves II through XII intact, 5/5 strength in all extremities. Intact sensation to light touch in all extremities, 2+ reflexes bilateral patella tendons. No ataxia. Skin: Erythema and chronic irritation to the anterior abdomen, no active bleeding noted MEDICAL DECISION MAKING: Chief Complaint: Weakness, fever External records reviewed: Seen in the emergency department 2 days ago. Sent down from TCU secondary to abdominal wound. After extensive chart review, surgical consultation decision was made for the patient be discharged back to TCU to await wound care nurse or surgery PA evaluation. Infectious disease note reviewed from yesterday patient is on Zosyn. Factors affecting care: Atrial fibrillation (was on warfarin however this was held secondary to bleeding), abdominal wall abscess, cutaneous fistula, pulmonary emboli Social determinants of health: Elderly History obtained from others: TCU staff Consults: none Goals of care discussion: Patient would like to be full code. MDM Narrative: Patient was initially hemodynamically stable, afebrile, nontoxic-appearing, saturating well on 2 L nasal cannula. No respiratory distress noted. I considered the following differential diagnosis: Worsening pulmonary emboli, pneumonia, ACS, anemia, electrolyte normalities, worsening infection I obtained a broad lab and imaging work-up to further elucidate etiology patient complaints ALL IMAGES (IF OBTAINED) HAVE BEEN PERSONALLY REVIEWED AND INTERPRETED BY MYSELF. EKG with normal sinus rhythm, left ax deviation, normal intervals, no STEMI CBC without leukocytosis to suggest systemic inflammation, there is noted to be worsening anemia which consistent with bleeding diathesis the patient is known to have mild thrombocytopenia INR subtherapeutic BMP without evidence of significant electrolyte abnormalities, no anion gap, no acute kidney injury. Troponin is negative, no evidence of myocardial ischemia Lactate is wnl indicating no end-organ hypoperfusion and/or hypoxia. LFTs show no evidence of hepatobiliary pathology. Lipase is wnl indicating no pancreatic inflammation. I have personally reviewed the patient's chest x-ray. Chest x-ray is unremarkab le for pulmonary edema, pneumothorax, pneumonia or focal cardiopulmonary abnormality. The amalgamation of the patient's labs and images do not differ significantly from her any known etiologies of pulmonary emboli, enterocutaneous fistula with bleeding secondary to being on anticoagulation. Patient INR is subtherapeutic which is reassuring. Her hemoglobin is lower today however not currently at an emergent level. Daily labs to be monitored in TCU as well. The TCU is able to provide oxygen. This should be continued. No indication for anticoagulation at this time as to not exacerbate anemia and GI bleeding. No signs of severe decompensated infectious labs at this time with no white count and negative lactate. She is currently on Zosyn will encourage to continue antimicrobial therapy per ID recommendations. She is continue to receive surgical consultation, oxygen support and evaluation in the TCU there is no indication for admission at this time. Will discharge back to TCU. The patient and/or family, caregivers express understanding. The patient and/or family, caregivers agrees with the plan. Shared decision making: I will have a discussion with the patient and or visitors regarding risk/benefits of further testing or admission. They will be made aware of of the risk/benefits inherent in this decision they will be given the opportunity to voice understanding. Total critical care time today provided was at least 0 minutes. This excludes separately billable procedures. Critical care time (if documented) is secondary to the patient having high probability of clinically significant/life threatening deterioration in the patient's condition which required my urgent intervention. Impression: 1. Hypoxia 2. Pulmonary emboli 3. GI bleed 4. Enterocutaneous fistula 5. Anemia Dispo: Discharge Lab Data Labs: Laboratory Results - last 24 hr 05/07/23 02:55 WBC 4.4 RBC 3.32 L Hgb 9.4 L Hct 30.3 L MCV 91.3 MCH 28.3 MCHC 31.0 L RDW Std Deviation 49.2 H RDW Coeff of Juan 15.1 H Plt Count 415 MPV 8.6 Immature Gran % (Auto) 0.200 Neut % (Auto) 61.1 Lymph % (Auto) 14.0 L [place] % (Auto) 21.3 H Eos % (Auto) 2.7 Baso % (Auto) 0.7 Absolute Neuts (auto) 2.7 Absolute Lymphs (auto) 0.62 L Nucleated RBC % 0 PT 21.6 H INR 1.9 Sodium 137 Potassium 4.2 Chloride 102 Carbon Dioxide 31.0 Anion Gap 4 L BUN 14 Creatinine 0.96 Estim Creat Clear Calc 33.27 Est GFR (MDRD) Af Amer 71 Est GFR (MDRD) Non-Af 59 L BUN/Creatinine Ratio 14.7 Glucose 167 H Lactic Acid 0.9 Calcium 8.2 L Total Bilirubin 0.40 Direct Bilirubin 0.18 AST 9 L ALT 19 Alkaline Phosphatase 72 Troponin I High Sens 10 Total Protein 6.1 L Albumin 2.1 L Globulin 4.0 Lipase 44 Radiography Diagnostic Testing: Clinical Impression(s) from Imaging Studies Chest X-Ray 05/07/23 02:19 IMPRESSION: No acute findings in the chest. Electronically Signed: Fareed Sunshine MD at 3:14 EDT , Discharge Plan Triage Chief Complaint: GI Bleed ED Provider: Juliano Sales Dx/Rx/DC Orders Instructions: ED Lower GI Bleeding (Stable) Prescriptions: No Action metformin 500 mg tablet extended release 24 hr 500 mg PO QHS latanoprost 0.005 % drops 1 drp ophthalmic (eye) QHS glipizide 2.5 mg tablet extended release 24hr 2.5 mg PO DAILY warfarin 2 mg tablet 2 mg PO DAILY Rx Instructions: Managed by Dr Moreno rosuvastatin [Crestor] 10 mg tablet 10 mg PO DAILY levothyroxine 50 MCG tablet 50 mcg PO 0600 Patient Comments: thyroid amiodarone 200 mg tablet 200 mg PO BREAKFAST Qty: 90 3RF carvedilol 12.5 mg tablet 12.5 mg PO BIDCM Qty: 180 3RF losartan 50 mg tablet 50 mg PO DAILY Qty: 90 3RF Primary Care Provider: Jyoti Mackey Referrals: Jyoti Mackey MD [Primary Care Provider] - Activity Restrictions/Additional Instructions: Return if symptoms change or worsen. Please continue to hold warfarin. Please continue antibiotics per infectious disease recommendations. Disposition Disposition: Home, Self Care
--- NOTE | 2023-05-07 02:19 | EKG12_ITS ---
Test Reason : Blood Pressure : / mmHG Vent. Rate : 076 BPM Atrial Rate : 076 BPM P-R Int : 152 ms QRS Dur : 090 ms QT Int : 394 ms P-R-T Axes : -86 -22 029 degrees QTc Int : 443 ms Unusual P axis, possible ectopic atrial rhythm Inferior infarct (cited on or before 19-AUG-2021) Abnormal ECG Confirmed by LORRI BLACKWOOD MD ([id number]), city editor LESVIA MENDEZ ([id number]) on 05/10/2023 2:18:05 PM Referred By: Confirmed By:LORRI BLACKWOOD MD
--- NOTE | 2023-05-07 02:19 | RAD_ITS ---
EXAM: XR CHEST, 1 VIEW CLINICAL INDICATION: weakness, hypoxia TECHNIQUE: Frontal view of the chest. COMPARISON: Single view chest 06/24/2022 FINDINGS: LUNGS AND PLEURAL SPACES: Unremarkable. No consolidation or edema. No pneumothorax. No effusion. HEART: Moderate enlargement of the cardiac silhouette. MEDIASTINUM: Central airways and mediastinal contour are unremarkable. BONES/JOINTS: Prior surgical changes of the right humerus. SOFT TISSUES: Unremarkable. TUBES, LINES AND DEVICES: Right PICC with tip in the mid SVC. RAD/Chest 1 View (Portable) IMPRESSION: No acute findings in the chest. Electronically Signed: Fareed Sunshine MD at 3:14 EDT ,
[2023-05-07 03:02] LABS: Absolute Lymphocyte Count 0.62 X10^3/uL (0.83-4.51); Absolute Neutrophil Count 2.7 X10^3/uL (2.0-7.7); Basophil# 0.03 X10^3/uL; Basophil% 0.7 % (0-1); Eosinophil# 0.12 X10^3/uL; Eosinophils% 2.7 % (0-5); Hematocrit 30.3 % (37-47); Hemoglobin 9.4 g/dL (12.0-15.0); Lymphocyte # 0.62 X10^3/ul (0.83-4.51); Mean Corpuscular Hgb 28.3 pg (27.0-32.0); Mean Corpuscular Volume 91.3 fL (81-99); Mean Platelet Vol. 8.6 fl (6.2-12.0); Monocyte# 0.94 X10^3/uL; Monocyte% 21.3 % (0-10); NRBC Flagged by Analyzer 0 % (0-5); Neutrophil % 61.1 % (47-70); Platelet Count 415 K/mm3 (150-450); RBC Distribution Width CV 15.1 % (11.6-14.6); RBC Distribution Width SD 49.2 fl (35.1-43.9); Red Blood Count 3.32 M/mm3 (4.2-5.4); White Blood Count 4.4 K/mm3 (4.4-11.0)
[2023-05-07 03:28] LABS: Lactic Acid 0.9 mmol/L (0.4-1.9)
[2023-05-07 03:30] LABS: AST(SGOT) 9 U/L (15-37); Alanine Aminotransfer ALT/SGPT 19 U/L (13-56); Albumin, Serum 2.1 g/dL (3.2-5.0); Alkaline Phosphatase 72 U/L (45-117); Anion Gap 4 (5-15); BUN 14 mg/dL (7-18); BUN/Creat Ratio 14.7 RATIO (10-20); Bilirubin, Direct 0.18 mg/dL (0.00-0.30); Calcium,Total 8.2 mg/dL (8.5-10.1); Chloride 102 mmol/L (98-107); Creatinine, Serum 0.96 mg/dL (0.55-1.02); EST Glomerular Filtration Rate 59 mL/min (>60); Est Glom Filt Rate - Afr Amer 71 mL/min (>60); Estimated Creatinine Clearance 33.27 ml/min; Glucose 167 mg/dL (74-106); Lipase 44 U/L (13-75); Potassium 4.2 mmol/L (3.5-5.1); Protein, Total 6.1 g/dL (6.4-8.2); Sodium Level 137 mmol/L (136-145); Troponin-I HS 10 pg/mL (3.0-54.0)
[2023-05-07 03:36] LABS: International Normalized Ratio 1.9; Prothrombin Time (Protime)PT. 21.6 SECONDS (11.7-14.9)
[2023-05-07 04:12] VITALS: BP 134/60; PULSE 83; RESP 20; O2SAT 96
--- NOTE | 2023-05-07 04:16 | ED.RN ---
CALLED TCU TO REPORT PT WILL BE RETURNING.
== END 2023-05-07 04:27 | disposition home or self-care (01) ==
PROVIDERS: Emergency Provider Emergency Medicine; PCP Family Medicine; Visit Provider Emergency Medicine
DX: R09.02 Hypoxemia (principal); I26.99 Other pulmonary embolism without acute cor pulmonale; K92.2 Gastrointestinal hemorrhage, unspecified; D64.9 Anemia, unspecified; K63.2 Fistula of intestine; G47.30 Sleep apnea, unspecified
CPT/HCPCS: 99281; 36592; 71045; 80048; 80076; 83605; 83690; 84484; 85025; 85610; 93005; 99282; A4216